=== PATIENT | male | born 1980 | race African-American/Black ===

== ENCOUNTER 2019-05-23 16:35 | Inpatient (IN) | payer OTHER ==
--- NOTE | 2019-05-23 16:53 | PDOC ---
Rapid Medical Evaluation Chief Complaint: Pain Time Seen by Provider: 05/23/19 16:50 Medical Evaluation: Allergies Allergy/AdvReac Type Severity Reaction Status Date / Time hydralazine [Hydralazine] Allergy Verified 06/10/16 21:44 05/23/19 16:51 Pt c/o: + cellulitis, on amox since yesterday with worsening s/s, + smoker w/ vasc insufficiency Pt on brief exam: obese, cellulitic lle with open wound to post lower leg, PT ordered for: labs, iv, u/s pt to proceed to the ED Discharge Disposition - Diagnosis Cellulitis and abscess of left lower extremity - Discharge Dispostion Condition at time of disposition: Stable - Referrals - Patient Instructions - Post Discharge Activity
[2019-05-23 17:28] LABS: BASO % 0.4 % (0-2.0); EOS % 2.2 % (0-4.5); HEMOGLOBIN 14.2 GM/dL (11.7-16.9); LYMPH % 8.3 % (8-40); MCH 27.4 pg (25.7-33.7); MCHC 32.4 g/dl (32.0-35.9); MEAN CELL VOLUME 84.6 fl (80-96); MEAN PLT VOLUME 8.3 fl (7.5-11.1); MONO % 9.2 % (3.8-10.2); NEUT % 79.9 % (42.8-82.8); PLATELET COUNT 319 K/MM3 (134-434); RDW 14.8 % (11.9-15.9); WHITE BLOOD COUNT 19.5 K/mm3 (4.0-10.0)
[2019-05-23 17:53] LABS: ALBUMIN 3.5 g/dl (3.4-5.0); BILIRUBIN,TOTAL 0.5 mg/dL (0.2-1); BLOOD UREA NITROGEN 8.8 mg/dL (7-18); CALCIUM 9.1 mg/dL (8.5-10.1); TOT PROT 7.4 g/dl (6.4-8.2)
[2019-05-23] MEDS ORDERED: morphine CARPU-JECT 4 MG/1 ML DISP.SYRIN IVPUSH ONE (19:38)
[2019-05-23] MEDS ORDERED: VANCOMYCIN HCL 1,500 MG in DEXTROSE 5%-WATER - 500 ML IVPB ONE (19:40)
--- NOTE | 2019-05-23 19:54 | PDOC ---
History of Present Illness - General Chief Complaint: Pain Stated Complaint: LEG WOUNDS, PAIN, INFECTION Time Seen by Provider: 05/23/19 16:50 History Source: Patient, Old Records Exam Limitations: No Limitations - History of Present Illness Initial Comments: 05/23/19 19:56 HISTORY OF PRESENT ILLNESS: Is a 39-year-old male past medical history of left lower externally lymphedema presents the emergency department for evaluation of left leg swelling with warmth, erythema and tenderness. Patient was seen by his primary doctor as an outpatient was prescribed antibiotics the patient has been taking amoxicillin for the past 2 days. Patient reports the erythema and the pain is gotten worse and was concerned when he had multiple lesions "burst" with purulent drainage present. Patient denies any fevers. No recent travel or sick contacts. PAST MEDICAL HISTORY: See HPI SURGICAL HISTORY: Denies ALLERGIES: No known drug allergies REVIEW OF SYSTEMS General/Constitutional: Denies fever or chills. Denies weakness, weight change. HEENT: Denies change in vision. Denies ear pain or discharge. Denies sore throat. Cardiovascular: Denies chest pain or shortness of breath. Respiratory: Denies cough, wheezing, or hemoptysis. Gastrointestinal: Denies nausea, vomiting, diarrhea or constipation. Denies rectal bleeding. Genitourinary: Denies dysuria, frequency, or change in urination. Musculoskeletal: Denies joint or muscle swelling or pain. Denies neck or back pain. Skin and breasts: See HPI Neurologic: Denies headache, vertigo, loss of consciousness, or loss of sensation. Psychiatric: Denies depression or anxiety. Endocrine: Denies increased thirst. Denies abnormal weight change. Hematologic/Lymphatic: Denies anemia, easy bleeding, or history of blood clots. Allergic/Immunologic: Denies hives or skin allergy. Denies latex allergy. PHYSICAL EXAM General Appearance: Well-appearing, appropriately dressed. No apparent distress , no intoxication. Respiratory/Chest: Lungs CTAB. No shortness of breath, chest tenderness, respiratory distress, accessory muscle use. No crackles, rales, rhonchi, stridor , wheezing, dullness Cardiovascular: RRR. S1, S2. No JVD, murmur, bradycardia, tachycardia. Vascular Pulses: Dorsalis-Pedis (R): 2+, Dorsalis-Pedis (L): 2+ Gastrointestinal/Abdominal: Normal bowel sounds. Abdomen soft, non-distended. No tenderness or rebound tenderness. No organomegaly, pulsatile mass, guarding, hernia, hepatomegaly, splenomegaly. Lymphatic: No adenopathy, tenderness. Musculoskeletal/Extremities: Brawny edema present to left lower extremity worse from the knee distally. Integumentary: Four fluctuant areas present to posterior aspect of the lower left leg. Erythema, warmth and tenderness present circumferentially over the lower extremity from the calf distal extending superior to the knee on the medial aspect of the left thigh. 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 Fully oriented, alert. Appropriate mood/affect. Motor strength 5/5. No appreciable EOM palsy, facial droop or sensory deficit. Past History - Past Medical History Allergies/Adverse Reactions: Allergies Allergy/AdvReac Type Severity Reaction Status Date / Time hydralazine [Hydralazine] Allergy Verified 05/23/19 16:52 Home Medications: Ambulatory Orders Amlodipine Besylate [Norvasc -] 10 mg PO DAILY 06/29/14 Labetalol HCl [Normodyne -] 200 mg PO BID 06/29/14 Omeprazole [Prilosec (RX)] 40 mg PO DAILY 06/29/14 Atorvastatin Ca [Lipitor] 40 mg PO HS 07/06/16 COPD: No GI Disorders: Yes (Gastritis, CYCLIC VOMITING SYNDROME) HTN: Yes Hypercholesterolemia: Yes Other medical history: leg cellulitis, obesity - Psycho Social/Smoking Cessation Hx Smoking History: Current every day smoker Have you smoked in the past 12 months: Yes Number of Cigarettes Smoked Daily: 5 Information on smoking cessation initiated: Yes 'Breaking Loose' booklet given: 06/29/14 Hx Alcohol Use: No Drug/Substance Use Hx: No Substance Use Type: None, Marijuana Hx Substance Use Treatment: No *Physical Exam - Vital Signs Last Vital Signs Temp Pulse Resp BP Pulse Ox 98.6 F 89 18 150/89 100 05/23/19 18:54 05/23/19 18:54 05/23/19 18:54 05/23/19 18:54 05/23/19 18:54 ED Treatment Course - LABORATORY CBC & Chemistry Diagram: 05/23/19 17:06 05/23/19 17:06 - ADDITIONAL ORDERS Additional order review: Laboratory Results 05/23/19 05/23/19 17:06 17:06 Sodium 141 Potassium 4.0 Chloride 110 H Carbon Dioxide 23 Anion Gap 8 BUN 8.8 Creatinine 1.0 Est GFR (CKD-EPI)AfAm 110.17 Est GFR (CKD-EPI)NonAf 95.05 Random Glucose 106 Lactic Acid 2.0 Calcium 9.1 Total Bilirubin 0.5 AST 17 ALT 34 Alkaline Phosphatase 132 H Total Protein 7.4 Albumin 3.5 05/23/19 17:06 RBC 5.20 MCV 84.6 MCHC 32.4 RDW 14.8 D MPV 8.3 D Neutrophils % 79.9 D Lymphocytes % 8.3 D Monocytes % 9.2 Eosinophils % 2.2 Basophils % 0.4 Medical Decision Making - Medical Decision Making 05/23/19 19:59 A/P: 39-year-old male with abscesses and cellulitis of the left leg Duplex Dopplers performed at rapid medical evaluation revealed no evidence of DVT with superficial thrombophlebitis present. Areas of fluctuance spontaneously draining with minimal pressure. Wound culture collected Labs per E reveals WBC of 19,000. Given patient's failed outpatient antibiotics and elevated WBC count I will admit the patient for IV antibiotics. Blood cultures have been collected in rapid medical evaluation Vancomycin 1500 mg IV now Admit to hospital service. 05/23/19 20:00 05/23/19 20:51 Case has been discussed with the hospitalist team was accepted patient for inpatient admission under Dr. Urbano. EKG ordered. Discharge - Discharge Information Problems reviewed: Yes Clinical Impression/Diagnosis: Cellulitis and abscess of left lower extremity Condition: Fair - Admission Yes - Follow up/Referral Referrals: Simón Brito MD [Primary Care Provider] - - Patient Discharge Instructions - Post Discharge Activity
[2019-05-23] MEDS ORDERED: morphine SULFATE 4 MG/ML VIAL ONE (20:43)
[2019-05-23] MEDS ORDERED: ACETAMINOPHEN 325 MG TABLET (FP) PO PRN (22:40)
--- NOTE | 2019-05-23 23:37 | HP ---
CHIEF COMPLAINT: leg pain PCP: Dr Moraes HISTORY OF PRESENT ILLNESS: 39 y/o male with PMH of LE lymphedema more significant on the Left , previous LE cellulitis ( last episode 1 yr ago),HTN, HLD, GERD came to the ED because of worsening left leg swelling associated with warmth, erythema,tenderness. The pain is pulsating in nature, constant and worse with ambulation but relieved by rest. In addition, the patient noticed for the past couple of days, multiple bumps erupted in the left leg. At that time, pt went to his PCP and was prescribed amoxicillin. Despite treatment, Pt continued to feel 10/10 pain, his leg continued to swell to the point that he was not able to wear his compression socks. Eventually, he decided to come to the emergency room. While in the emergency room, one of the bump ruptured and started to drain pus and serosanguinous fluid and his pain reduced to a 7/10. According to the pt, he has been following at our wound care clinic with Dr Rangel for his chronic lymphedema. He is s/p venous ablation by Dr. Rangel one month ago on the left leg and 1 week ago on the right for revision. Pt admits to sedentary lifestyle and smoking about 5-6 small cigars per day for the past year.He denies fever, chills, trauma to the area, SOB, chest pain, headache, weakness, parasthesia, tension, recent long distance driving/travel or changes in urination and BM. ER course was notable for: (1) CBC remarkable for leukocytosis 19.5 and CMP (2) Duplex U/S neg for DVT but positive for superficial thrombosis in great saphernous vein (3) morphine 4mg and 1 dose of vancomycin. wound and blood cultures sent Recent Travel: denies PAST MEDICAL HISTORY: as above PAST SURGICAL HISTORY: left knee tendon repair FAMILY HISTORY: diabetes and HTN in close relative. Breast ca in mother and sister both in remission Social History: Smokin-6 small cigars a day. Alcohol: social drinker Drugs: former chronic marijuana smoker. quit one year ago. no other drug Allergies hydralazine [Hydralazine] Allergy (Verified 05/23/19 16:52) HOME MEDICATIONS: Home Medications Medication Instructions Recorded Amlodipine Besylate [Norvasc -] 10 mg PO DAILY 06/29/14 Labetalol HCl [Normodyne -] 200 mg PO BID 06/29/14 Omeprazole [Prilosec (RX)] 40 mg PO DAILY 06/29/14 Atorvastatin Ca [Lipitor] 40 mg PO HS 07/06/16 Atorvastatin Ca [Lipitor] 20 mg DAILY 05/23/19 Ibuprofen [Motrin -] 600 mg Q6H 05/23/19 REVIEW OF SYSTEMS CONSTITUTIONAL: Absent: fever, chills, diaphoresis, generalized weakness, malaise, loss of appetite, weight change HEENT: Absent: rhinorrhea, nasal congestion, throat pain, throat swelling, difficulty swallowing, mouth swelling, ear pain, eye pain, visual changes CARDIOVASCULAR: peripheral edema Absent: chest pain, syncope, palpitations, irregular heart rate, lightheadedness RESPIRATORY: Absent: cough, shortness of breath, dyspnea with exertion, orthopnea, wheezing, stridor, hemoptysis GASTROINTESTINAL: Absent: abdominal pain, abdominal distension, nausea, vomiting, diarrhea, constipation, melena, hematochezia GENITOURINARY: Absent: dysuria, frequency, urgency, hesitancy, hematuria, flank pain, genital pain MUSCULOSKELETAL: Absent: myalgia, arthralgia, joint swelling, back pain, neck pain SKIN: Absent: rash, itching, pallor HEMATOLOGIC/IMMUNOLOGIC: Absent: easy bleeding, easy bruising, lymphadenopathy, frequent infections ENDOCRINE: Absent: unexplained weight gain, unexplained weight loss, heat intolerance, cold intolerance NEUROLOGIC: Absent: headache, focal weakness or paresthesias, dizziness, unsteady gait, seizure, mental status changes, bladder or bowel incontinence PSYCHIATRIC: Absent: anxiety, depression, suicidal or homicidal ideation, hallucinations. PHYSICAL EXAMINATION Vital Signs - 24 hr 05/23/19 05/23/19 05/23/19 16:49 18:54 21:10 Temperature 98.8 F 98.6 F Pulse Rate 77 Pulse Rate [ 89 Apical] Respiratory 19 18 Rate Blood Pressure 144/108 H Blood Pressure 150/89 [Left Arm] O2 Sat by Pulse 98 100 99 Oximetry (%) GENERAL: Awake, alert, and fully oriented, in no acute distress. HEAD: Normal with no signs of trauma. EYES: Pupils equal, round and reactive to light, extraocular movements intact, sclera anicteric, conjunctiva clear. No lid lag. EARS, NOSE, THROAT: Ears normal, nares patent, oropharynx clear without exudates. Moist mucous membranes. NECK: Normal range of motion, supple without lymphadenopathy, JVD, or masses. LUNGS: Breath sounds equal, clear to auscultation bilaterally. No wheezes, and no crackles. No accessory muscle use. HEART: Regular rate and rhythm, normal S1 and S2 without murmur, rub or gallop. ABDOMEN: Soft, nontender, obese abdomen, normoactive bowel sounds, no guarding, no rebound, no masses. No hepatomegaly or splenomegaly. MUSCULOSKELETAL: Normal range of motion at all joints. No bony deformities or tenderness. No CVA tenderness. UPPER EXTREMITIES: 2+ pulses, warm, well-perfused. No cyanosis. No clubbing. No peripheral edema. LOWER EXTREMITIES: 1+ pulses, warm, No calf tenderness. 3+ edema on Left leg with multiple erupted and draining pustules, venous stasis skin changes PSYCHIATRIC: Cooperative. Good eye contact. Appropriate mood and affect. Laboratory Results - last 24 hr 05/23/19 05/23/19 05/23/19 17:06 17:06 17:06 WBC 19.5 H RBC 5.20 Hgb 14.2 Hct 44.0 D MCV 84.6 MCH 27.4 MCHC 32.4 RDW 14.8 D Plt Count 319 D MPV 8.3 D Absolute Neuts (auto) 15.5 H Neutrophils % 79.9 D Lymphocytes % 8.3 D Monocytes % 9.2 Eosinophils % 2.2 Basophils % 0.4 Nucleated RBC % 0 Sodium 141 Potassium 4.0 Chloride 110 H Carbon Dioxide 23 Anion Gap 8 BUN 8.8 Creatinine 1.0 Est GFR (CKD-EPI)AfAm 110.17 Est GFR (CKD-EPI)NonAf 95.05 Random Glucose 106 Lactic Acid 2.0 Calcium 9.1 Total Bilirubin 0.5 AST 17 ALT 34 Alkaline Phosphatase 132 H Total Protein 7.4 Albumin 3.5 ASSESSMENT/PLAN: 39 y/o male with PMH of LE lymphedema more significant on the Left , previous LE cellulitis ( last episode 1 yr ago),HTN, HLD, GERD came to the ED because of worsening left leg swelling associated with warmth, erythema,tenderness. admitted for left leg cellulitis with failed outpatient treatment. Left Leg cellulitis WBC 19.5. monitor for responsiveness to therapy 1500mg of vancomycin given in the ED. due to failed outpatient treatment, will continue at same dose daily vanc trough prior to 4th dose IV ceftriaxone for gram neg coverage ID Dr Cruz Consulted wound cx and blood cultures sent f/u for speciation and sensitivity ESR and CRP leg elevation and DARY compression to improve drainage HTN cont amlodipine 10 daily labetolol 200 BID HLD atorvastatin 20 daily FEN salt controlled diet NS@75 DVT lovenox daily Visit type - Emergency Visit Emergency Visit: Yes ED Registration Date: 05/23/19 Care time: The patient presented to the Emergency Department on the above date and was hospitalized for further evaluation of their emergent condition. - New Patient This patient is new to me today: Yes Date on this admission: 05/24/19 - Critical Care Critical Care patient: No ATTENDING PHYSICIAN STATEMENT I saw and evaluated the patient. I reviewed the resident's note and discussed the case with the resident. I agree with the resident's findings and plan as documented. SUBJECTIVE: OBJECTIVE: ASSESSMENT AND PLAN:
[2019-05-24] MEDS: SODIUM CHLORIDE 1,000 ML IV SCH ×2 (00:42→03:38)
--- NOTE | 2019-05-24 01:16 | PN ---
Teaching Attending Note Name of Resident: Michell Bonilla ATTENDING PHYSICIAN STATEMENT I saw and evaluated the patient. I reviewed the resident's note and discussed the case with the resident. I agree with the resident's findings and plan as documented. SUBJECTIVE: 39 y/o male with PMH of LE lymphedema more significant on the Left , previous LE cellulitis ( last episode 1 yr ago),HTN, HLD, GERD Complained of left leg warmth and swelling for the past few days associated with some bumps which appeared recently. Patient was prescribed amoxicillin by his PCP for his cellulitis which she took without any relief. His bumps on his leg ruptured and were draining serosanguineous fluid for which she applied a gauze. Patient denied any overt trauma to his leg. He did mention a fall in shower about 2 weeks ago but denied significant trauma to his leg at that time. OBJECTIVE: Last Vital Signs Temp Pulse Resp BP Pulse Ox 98.6 F 89 18 150/89 99 05/23/19 18:54 05/23/19 18:54 05/23/19 18:54 05/23/19 18:54 05/23/19 21:10 GENERAL: Well developed, well nourished. Awake and alert. No acute distress. HEENT: Normocephalic, atraumatic. PERRLA, EOMI. No conjunctival pallor. Sclera are non- icteric. Moist mucous membranes. Oropharynx is clear. NECK: Supple. Full ROM. No JVD. Carotid pulses 2+ and symmetric, without bruits. No thyromegaly. No lymphadenopathy. CARDIOVASCULAR: Regular rate and rhythm. No murmurs, rubs, or gallops. Distal pulses are 2+ and symmetric. PULMONARY: No evidence of respiratory distress. Lungs clear to auscultation bilaterally. No wheezing, rales or rhonchi. ABDOMINAL: Soft. Non-tender. Non-distended. No rebound or guarding. No organomegaly. Normoactive bowel sounds. MUSCULOSKELETAL Normal range of motion at all joints. No bony deformities or tenderness. No CVA tenderness. EXTREMITIES: Some mild calf tenderness, swelling and erythema on left lower extremity SKIN: Left leg warmth, erythema, swelling. Some areas of lesions to leg PSYCHIATRIC: Cooperative. Good eye contact. Appropriate mood and affect. Abnormal Lab Results 10/30/19 10/30/19 17:06 17:06 WBC 19.5 H Absolute Neuts (auto) 15.5 H Chloride 110 H Alkaline Phosphatase 132 H Imaging reviewed ASSESSMENT AND PLAN: Left leg cellulitis with Leukocytosis and underlying Lymphedema. No evidence of DVT but superficial thrombus of left saphenous vein. May have been induced in light of inflammation from underlying infection. [facility] Ceftriaxone IV Blood cultures ESR, CRP ID evaluation Left leg elevation Left leg compression DVT prophylaxis with heparin subcu
[2019-05-24] MEDS ORDERED: ACETAMINOPHEN 1000 MG/100 ML VIAL (NON FORMULARY) IVPB ONE (03:11)
[2019-05-24] MEDS ORDERED: amLODIPine BESYLATE 10 MG TABLET (FP) PO ONE (03:12)
[2019-05-24 03:17] VITALS: BMI 53.3
[2019-05-24] MEDS ORDERED: VANCOMYCIN HCL 1,500 MG in DEXTROSE 5%-WATER - 500 ML IVPB SCH (07:00)
[2019-05-24 08:50] LABS: BASO % 0.4 % (0-2.0); EOS % 2.6 % (0-4.5); HEMATOCRIT 39.7 % (35.4-49); HEMOGLOBIN 13.2 GM/dL (11.7-16.9); LYMPH % 10.7 % (8-40); MCH 27.9 pg (25.7-33.7); MCHC 33.2 g/dl (32.0-35.9); MEAN CELL VOLUME 83.9 fl (80-96); MEAN PLT VOLUME 7.8 fl (7.5-11.1); NEUT % 74.3 % (42.8-82.8); PLATELET COUNT 312 K/MM3 (134-434); RBC 4.73 M/mm3 (4.00-5.60); RDW 14.7 % (11.9-15.9); WHITE BLOOD COUNT 15.1 K/mm3 (4.0-10.0)
[2019-05-24] MEDS ORDERED: IBUPROFEN 400 MG TABLET (FP) PO ONE (09:08)
[2019-05-24 09:58] LABS: BLOOD UREA NITROGEN 5.5 mg/dL (7-18); CALCIUM 8.5 mg/dL (8.5-10.1); CREATININE 0.9 mg/dL (0.55-1.3); MAGNESIUM 2.1 mg/dL (1.8-2.4); PHOSPHOROUS 3.7 mg/dL (2.5-4.9); POTASSIUM 3.6 mmol/L (3.5-5.1)
[2019-05-24] MEDS ORDERED: cefTRIAXone SODIUM 1 GM VIAL ONE (11:59)
[2019-05-24] MEDS ORDERED: DEXTROSE 5%-WATER - 50 ML IVPB ONE (11:59)
[2019-05-24] MEDS: CEFTRIAXONE 1 GM in DEXTROSE 5%-WATER - 50 ML IVPB SCH (12:03)
[2019-05-24] MEDS: ENOXAPARIN NA (PORCINE) 40 MG/0.4 ML DISP.SYRIN SQ SCH (12:04)
[2019-05-24] MEDS: PANTOPRAZOLE 40 MG TABLET (FP) PO SCH (12:04)
[2019-05-24] MEDS: amLODIPine BESYLATE 10 MG TABLET (FP) PO SCH (12:05)
[2019-05-24] MEDS: LABETALOL HCL 200 MG TABLET (FP) PO SCH ×2 (12:05→21:51)
--- NOTE | 2019-05-24 12:05 | EKG ---
Test Reason : Blood Pressure : / mmHG Vent. Rate : 078 BPM Atrial Rate : 078 BPM P-R Int : 164 ms QRS Dur : 106 ms QT Int : 384 ms P-R-T Axes : 050 034 042 degrees QTc Int : 437 ms NORMAL SINUS RHYTHM NONSPECIFIC T WAVE ABNORMALITY ABNORMAL ECG WHEN COMPARED WITH ECG OF 29-JUN-2014 16:24, NON-SPECIFIC CHANGE IN ST SEGMENT IN INFERIOR LEADS Confirmed by PRATIBHA ARZOLA MD ([id number]) on 05/24/2019 12:04:58 PM Referred By: Confirmed By:PRATIBHA ARZOLA MD
--- NOTE | 2019-05-24 14:00 | PN ---
Progress Note (short form) - Note Progress Note: Vascular surgery 39yo M was admitted for LLE cellulitis and venous stasis wounds. Pt is a known pt to Dr. Rangel and wound care clinic pt is s/p Leg Vein ablation last month. Pt has chronic history of Lymphedema. Pt states that some wounds opened up on his LLE just a couple days ago, and that his leg became red and more painful. Pt denies fever, chills, n/v. Last Vital Signs Temp Pulse Resp BP Pulse Ox 98.8 F 78 20 172/90 H 96 05/24/19 05:45 05/24/19 05:45 05/24/19 05:45 05/24/19 05:45 05/24/19 04:12 CBC, BMP 05/24/19 08:05 05/24/19 08:05 PE; Gen: A&O x3 Resp: breathing comfortably Ext: LLE shows +2 edema, erythema from below knee into foot, +2 pulses, five 1 cm ulcerations on lateral burrell with serous drainage. Problem List - Problems (1) Venous stasis ulcer Assessment/Plan: Plan -continue to treat cellulitis with abx as per med/ID -dry dressing for now, once cellulitis clears will need compression dressing , pt is supposed to get Lymph pumps. -pt should follow up with Dr. Rangel in wound care clinic as outpatient. -no need for acute surgical intervention at this time. Pt discussed with Dr. Rangel who agrees with plan Code(s): I83.009 - VARICOSE VEINS OF UNSP LOWER EXTREMITY W ULCER OF UNSP SITE; L97.909 - NON-PRS CHRONIC ULC UNSP PRT OF UNSP LOW LEG W UNSP SEVERITY
--- NOTE | 2019-05-24 14:57 | PN ---
Physical Exam: SUBJECTIVE: Patient seen and examined. No acute events overnight. OBJECTIVE: Vital Signs Period Temp Pulse Resp BP Sys/[place] Pulse Ox Last 24 Hr 98.6 F-99.2 F 76-89 17-20 144-192/81-108 96-100 GENERAL: The patient is awake, alert, and fully oriented, in no acute distress. Mordbidly obese. HEAD: Normal with no signs of trauma. EYES: PERRL, extraocular movements intact, sclera anicteric, conjunctiva clear. No ptosis. ENT: Ears normal, nares patent, oropharynx clear without exudates, moist mucous membranes. NECK: Trachea midline, full range of motion, supple. LUNGS: Breath sounds equal, clear to auscultation bilaterally, no wheezes, no crackles, no accessory muscle use. HEART: Regular rate and rhythm, S1, S2 without murmur, rub or gallop. ABDOMEN: Soft, nontender, nondistended, normoactive bowel sounds, no guarding, no rebound, no hepatosplenomegaly, no masses. EXTREMITIES: 1+ pulses, warm. 3+ non-pitting edema on L with multiple erupted and draining pustules. No calf tenderness. Venous stasis skin changes. NEUROLOGICAL: Cranial nerves II through XII grossly intact. Normal speech, gait not observed. PSYCH: Normal mood, normal affect. SKIN: Warm, dry, normal turgor, no rashes or lesions noted Laboratory Results - last 24 hr 05/23/19 05/23/19 05/23/19 17:06 17:06 17:06 WBC 19.5 H RBC 5.20 Hgb 14.2 Hct 44.0 D MCV 84.6 MCH 27.4 MCHC 32.4 RDW 14.8 D Plt Count 319 D MPV 8.3 D Absolute Neuts (auto) 15.5 H Neutrophils % 79.9 D Lymphocytes % 8.3 D Monocytes % 9.2 Eosinophils % 2.2 Basophils % 0.4 Nucleated RBC % 0 ESR Sodium 141 Potassium 4.0 Chloride 110 H Carbon Dioxide 23 Anion Gap 8 BUN 8.8 Creatinine 1.0 Est GFR (CKD-EPI)AfAm 110.17 Est GFR (CKD-EPI)NonAf 95.05 Random Glucose 106 Lactic Acid 2.0 Calcium 9.1 Phosphorus Magnesium Total Bilirubin 0.5 AST 17 ALT 34 Alkaline Phosphatase 132 H Total Protein 7.4 Albumin 3.5 05/24/19 05/24/19 05/24/19 08:05 08:05 08:05 WBC 15.1 H RBC 4.73 Hgb 13.2 Hct 39.7 MCV 83.9 MCH 27.9 MCHC 33.2 RDW 14.7 Plt Count 312 MPV 7.8 Absolute Neuts (auto) 11.2 H Neutrophils % 74.3 Lymphocytes % 10.7 D Monocytes % 12.0 H Eosinophils % 2.6 Basophils % 0.4 Nucleated RBC % 0 ESR 16 H Sodium 139 Potassium 3.6 Chloride 108 H Carbon Dioxide 22 Anion Gap 9 BUN 5.5 L Creatinine 0.9 Est GFR (CKD-EPI)AfAm 125.13 Est GFR (CKD-EPI)NonAf 107.97 Random Glucose 97 Lactic Acid Calcium 8.5 Phosphorus 3.7 Magnesium 2.1 Total Bilirubin AST ALT Alkaline Phosphatase Total Protein Albumin Active Medications Acetaminophen (Tylenol -) 650 mg PO Q4H PRN PRN Reason: PAIN LEVEL 1-5 Last Admin: 05/24/19 08:58 Dose: 650 mg Amlodipine Besylate (Norvasc -) 10 mg PO DAILY [facility] Last Admin: 05/24/19 12:05 Dose: 10 mg Atorvastatin Calcium (Lipitor -) 20 mg PO HS LISA Enoxaparin Sodium (Lovenox -) 40 mg SQ DAILY [facility] Last Admin: 05/24/19 12:04 Dose: 40 mg Ceftriaxone Sodium 1 gm/ (Dextrose) 50 mls @ 100 mls/hr IVPB DAILY [facility]; Protocol Last Admin: 05/24/19 12:03 Dose: 100 mls/hr Vancomycin HCl 1,500 mg/ (Dextrose) 500 mls @ 250 mls/hr IVPB Q12H LISA; Protocol Labetalol HCl (Normodyne -) 200 mg PO BID [facility] Last Admin: 05/24/19 12:05 Dose: 200 mg Pantoprazole Sodium (Protonix -) 40 mg PO DAILY [facility] Last Admin: 05/24/19 12:04 Dose: 40 mg ASSESSMENT/PLAN: 39 y/o male with PMH of LE lymphedema more significant on the Left , previous LE cellulitis ( last episode 1 yr ago),HTN, HLD, GERD came to the ED because of worsening left leg swelling associated with warmth, erythema,tenderness. admitted for left leg cellulitis with failed outpatient treatment. #Acute LLE cellulitis s/p venous ablation x1 week ago Cont 1500mg vanc mg @ 250ml/hr Q24H and 1gm ceftriaxone @100ml/hr F/u wound and blood cx ID following (Dr. Cruz) Vascular consulted (Dr. Haas): no need for acute surgical intervention at this time. >>Recommends dry dressing, compression dressing when cellulitis clears. Pt should f/u with Dr. Rangel in wound care clinic. F/u ESR and CRP Leg elevation and DARY compression to improve drainage #HTN Cont home meds: norvasc 10mg qd, labetolol 200mg BID #HLD Cont atorvastatin 20mg qd #FEN Sodium controlled diet No fluids #DVT ppx Lovenox #Dispo Monitor on med-surg Visit type - Emergency Visit Emergency Visit: No - New Patient This patient is new to me today: Yes Date on this admission: 05/24/19 - Critical Care Critical Care patient: No ATTENDING PHYSICIAN STATEMENT I saw and evaluated the patient. I reviewed the resident's note and discussed the case with the resident. I agree with the resident's findings and plan as documented. SUBJECTIVE: OBJECTIVE: ASSESSMENT AND PLAN:
--- NOTE | 2019-05-24 15:25 | PN ---
Progress Note (short form) - Note Progress Note: ID CONSULT DICTATED CELLULITIS/ SOFT TISSUE ABSCESSES L LE LEUKOCYTOSIS R/O SEPSIS CHRONIC LYMPHEDEMA AWAIT C/S EMPIRIC VANCOMYCIN/ CEFTRIAXONE
[2019-05-24] MEDS ORDERED: KETOROLAC TROMETHAMINE 15 MG/ML VIAL IVPUSH ONE ×2 (15:41→22:06)
--- NOTE | 2019-05-24 15:58 | PN ---
Teaching Attending Note Name of Resident: Nelida Raygoza ATTENDING PHYSICIAN STATEMENT I saw and evaluated the patient. I reviewed the resident's note and discussed the case with the resident. I agree with the resident's findings and plan as documented. SUBJECTIVE: Reports some improvement in LLE discomfort. No fever/chills. OBJECTIVE: Afebrile, hemodynamically Stable. Last Vital Signs Temp Pulse Resp BP Pulse Ox 98.8 F 78 20 172/90 H 96 05/24/19 05:45 05/24/19 05:45 05/24/19 05:45 05/24/19 05:45 05/24/19 04:12 HEENT - Atraumatic, Normocephalic Heart - S1, S2, RRR Abdomen - High BMI. Soft, non-tender. Bowel Sounds normal. Extremities - LE edema ++, chronic venous stasis skin changes, 3 small ulcerations with pustular exudate lateral aspect LLE. Neuro - AAO x 3. Tone/Power normal all 4 extremities. Laboratory Results - last 24 hr 05/23/19 05/23/19 05/23/19 17:06 17:06 17:06 WBC 19.5 H RBC 5.20 Hgb 14.2 Hct 44.0 D MCV 84.6 MCH 27.4 MCHC 32.4 RDW 14.8 D Plt Count 319 D MPV 8.3 D Absolute Neuts (auto) 15.5 H Neutrophils % 79.9 D Lymphocytes % 8.3 D Monocytes % 9.2 Eosinophils % 2.2 Basophils % 0.4 Nucleated RBC % 0 ESR Sodium 141 Potassium 4.0 Chloride 110 H Carbon Dioxide 23 Anion Gap 8 BUN 8.8 Creatinine 1.0 Est GFR (CKD-EPI)AfAm 110.17 Est GFR (CKD-EPI)NonAf 95.05 Random Glucose 106 Lactic Acid 2.0 Calcium 9.1 Phosphorus Magnesium Total Bilirubin 0.5 AST 17 ALT 34 Alkaline Phosphatase 132 H Total Protein 7.4 Albumin 3.5 05/24/19 05/24/19 05/24/19 08:05 08:05 08:05 WBC 15.1 H RBC 4.73 Hgb 13.2 Hct 39.7 MCV 83.9 MCH 27.9 MCHC 33.2 RDW 14.7 Plt Count 312 MPV 7.8 Absolute Neuts (auto) 11.2 H Neutrophils % 74.3 Lymphocytes % 10.7 D Monocytes % 12.0 H Eosinophils % 2.6 Basophils % 0.4 Nucleated RBC % 0 ESR 16 H Sodium 139 Potassium 3.6 Chloride 108 H Carbon Dioxide 22 Anion Gap 9 BUN 5.5 L Creatinine 0.9 Est GFR (CKD-EPI)AfAm 125.13 Est GFR (CKD-EPI)NonAf 107.97 Random Glucose 97 Lactic Acid Calcium 8.5 Phosphorus 3.7 Magnesium 2.1 Total Bilirubin AST ALT Alkaline Phosphatase Total Protein Albumin Current Medications Generic Name Dose Route Start Last Admin Trade Name Freq PRN Reason Stop Dose Admin Acetaminophen 650 mg 05/23/19 22:40 05/24/19 08:58 Tylenol - PO 650 mg Q4H PRN Administration PAIN LEVEL 1-5 Amlodipine Besylate 10 mg 05/24/19 10:00 05/24/19 12:05 Norvasc - PO 10 mg DAILY LISA Administration Atorvastatin Calcium 20 mg 05/24/19 22:00 Lipitor - PO HS LISA Enoxaparin Sodium 40 mg 05/24/19 10:00 05/24/19 12:04 Lovenox - SQ 40 mg DAILY LISA Administration Ceftriaxone Sodium 1 gm/ 50 mls @ 100 mls/hr 05/24/19 10:00 05/24/19 12:03 Dextrose IVPB 100 mls/hr DAILY LISA Administration Protocol Vancomycin HCl 1,500 mg/ 250 mls @ 125 mls/hr 05/24/19 15:30 Dextrose IVPB Q12H LISA Protocol Labetalol HCl 200 mg 05/24/19 10:00 05/24/19 12:05 Normodyne - PO 200 mg BID LISA Administration Pantoprazole Sodium 40 mg 05/24/19 10:00 05/24/19 12:04 Protonix - PO 40 mg DAILY LISA Administration Home Medications Medication Instructions Recorded Amlodipine Besylate [Norvasc -] 10 mg PO DAILY 06/29/14 Labetalol HCl [Normodyne -] 200 mg PO BID 06/29/14 Omeprazole [Prilosec (RX)] 40 mg PO DAILY 06/29/14 Atorvastatin Ca [Lipitor] 20 mg DAILY 05/23/19 Ibuprofen [Motrin -] 600 mg Q6H 05/23/19 ASSESSMENT AND PLAN: 39 year old male with Chronic Lymphedema LEs, Bilateral LE Venous Stasis, 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 Rangel, HTN, HLD, GERD , presents with Left LE warmth, erythema, swelling, without improvement on Amoxicillin given by PCP. 1. LLE cellulitis with ulceration No Hx trauma except for recent venous ablation 1 week ago LE Venous Duplex - superficial thrombosis, no DVT Wound Cx pending. Continue Ceftriaxone/Vancomycin ID and Vascular eval requested. 2. HTN - On Labetolol and Norvasc. 3. GERD - continue PPI 4. HLD - Continue Atorvastatin DVT Px - Lovenox SQ.
[2019-05-24] MEDS ORDERED: PT OWN MED DRAWER 7, Y5N ONE (17:55)
[2019-05-24] MEDS: VANCOMYCIN HCL 1,500 MG in DEXTROSE 5%-WATER - 500 ML IVPB SCH (18:26)
[2019-05-24] MEDS: ATORVASTATIN CA 20 MG TABLET (FP) PO SCH (21:51)
[2019-05-25] MEDS ORDERED: KETOROLAC TROMETHAMINE 15 MG/ML VIAL IVPUSH ONE (03:43)
[2019-05-25] MEDS ORDERED: PT OWN MED DRAWER 7, Y5N ONE ×2 (03:55→17:59)
[2019-05-25] MEDS: VANCOMYCIN HCL 1,500 MG in DEXTROSE 5%-WATER - 500 ML IVPB SCH ×2 (05:24→19:03)
[2019-05-25 08:21] LABS: HEMATOCRIT 40.2 % (35.4-49); HEMOGLOBIN 13.7 GM/dL (11.7-16.9); MCH 28.4 pg (25.7-33.7); MEAN CELL VOLUME 83.5 fl (80-96); MEAN PLT VOLUME 7.9 fl (7.5-11.1); PLATELET COUNT 337 K/MM3 (134-434); RBC 4.82 M/mm3 (4.00-5.60); RDW 14.5 % (11.9-15.9); WHITE BLOOD COUNT 13.3 K/mm3 (4.0-10.0)
[2019-05-25] MEDS ORDERED: ACETAMINOPHEN 1000 MG/100 ML VIAL (NON FORMULARY) IVPB PRN (08:51)
[2019-05-25] MEDS ORDERED: KETOROLAC TROMETHAMINE 15 MG/ML VIAL IVPUSH PRN (08:53)
[2019-05-25] MEDS: LABETALOL HCL 200 MG TABLET (FP) PO SCH ×2 (09:12→21:13)
[2019-05-25] MEDS: ENOXAPARIN NA (PORCINE) 40 MG/0.4 ML DISP.SYRIN SQ SCH (09:12)
[2019-05-25] MEDS: PANTOPRAZOLE 40 MG TABLET (FP) PO SCH (09:12)
[2019-05-25] MEDS: amLODIPine BESYLATE 10 MG TABLET (FP) PO SCH (09:12)
[2019-05-25 09:24] LABS: ALBUMIN 3.2 g/dl (3.4-5.0); BILIRUBIN,TOTAL 0.6 mg/dL (0.2-1); BLOOD UREA NITROGEN 6.8 mg/dL (7-18); CALCIUM 8.7 mg/dL (8.5-10.1); CREATININE 0.9 mg/dL (0.55-1.3); POTASSIUM 3.8 mmol/L (3.5-5.1); TOT PROT 7.2 g/dl (6.4-8.2)
[2019-05-25 10:21] LABS: ERYTHROCYTE SEDIMENTATION RATE 18 mm/hr (0-10)
[2019-05-25] MEDS ORDERED: cefTRIAXone SODIUM 1 GM VIAL ONE (11:01)
[2019-05-25] MEDS ORDERED: DEXTROSE 5%-WATER - 50 ML IVPB ONE (11:01)
[2019-05-25] MEDS: IBUPROFEN 600 MG TABLET (FP) PO PRN ×2 (11:43→18:01)
--- NOTE | 2019-05-25 12:49 | PN ---
Teaching Attending Note Name of Resident: Nelida Raygoza ATTENDING PHYSICIAN STATEMENT I saw and evaluated the patient. I reviewed the resident's note and discussed the case with the resident. I agree with the resident's findings and plan as documented. SUBJECTIVE: Reports some improvement in LLE discomfort but asked for IV opiates last night. No fever/chills. OBJECTIVE: Afebrile, hemodynamically Stable. Last Vital Signs Temp Pulse Resp BP Pulse Ox 98 F 80 20 189/96 H 98 05/25/19 09:00 05/25/19 09:00 05/25/19 09:00 05/25/19 09:00 05/24/19 09:00 Heart - S1, S2, RRR Abdomen - High BMI. Soft, non-tender. Bowel Sounds normal. Extremities - LE edema ++, chronic venous stasis skin changes, 3 small ulcerations with pustular exudate lateral aspect LLE (dressings dry). Varicosity medial aspect LLE. Neuro - AAO x 3. Tone/Power normal all 4 extremities. Laboratory Results - last 24 hr 05/25/19 05/25/19 07:35 07:35 WBC 13.3 H RBC 4.82 Hgb 13.7 Hct 40.2 MCV 83.5 MCH 28.4 MCHC 34.0 RDW 14.5 Plt Count 337 MPV 7.9 ESR 18 H Sodium 139 Potassium 3.8 Chloride 107 Carbon Dioxide 26 Anion Gap 6 L BUN 6.8 L Creatinine 0.9 Est GFR (CKD-EPI)AfAm 125.13 Est GFR (CKD-EPI)NonAf 107.97 Random Glucose 88 Calcium 8.7 Total Bilirubin 0.6 AST 16 ALT 30 Alkaline Phosphatase 111 Total Protein 7.2 Albumin 3.2 L Current Medications Generic Name Dose Route Start Last Admin Trade Name Freq PRN Reason Stop Dose Admin Acetaminophen 650 mg 05/23/19 22:40 05/24/19 08:58 Tylenol - PO 650 mg Q4H PRN Administration PAIN LEVEL 1-5 Amlodipine Besylate 10 mg 05/24/19 10:00 05/25/19 09:12 Norvasc - PO 10 mg DAILY LISA Administration Atorvastatin Calcium 20 mg 05/24/19 22:00 05/24/19 21:51 Lipitor - PO 20 mg HS LISA Administration Enoxaparin Sodium 40 mg 05/24/19 10:00 05/25/19 09:12 Lovenox - SQ 40 mg DAILY LISA Administration Ceftriaxone Sodium 1 gm/ 50 mls @ 100 mls/hr 05/24/19 10:00 05/24/19 12:03 Dextrose IVPB 100 mls/hr DAILY LISA Administration Protocol Vancomycin HCl 1,500 mg/ 500 mls @ 250 mls/hr 05/24/19 18:00 05/25/19 05:24 Dextrose IVPB 250 mls/hr Q12H LISA Administration Protocol Ibuprofen 600 mg 05/25/19 11:02 05/25/19 11:43 Motrin - PO 600 mg Q6H PRN Administration FEVER Labetalol HCl 200 mg 05/24/19 10:00 05/25/19 09:12 Normodyne - PO 200 mg BID LISA Administration Pantoprazole Sodium 40 mg 05/24/19 10:00 05/25/19 09:12 Protonix - PO 40 mg DAILY LISA Administration Home Medications Medication Instructions Recorded Amlodipine Besylate [Norvasc -] 10 mg PO DAILY 06/29/14 Labetalol HCl [Normodyne -] 200 mg PO BID 06/29/14 Omeprazole [Prilosec (RX)] 40 mg PO DAILY 06/29/14 Atorvastatin Ca [Lipitor] 20 mg DAILY 05/23/19 Ibuprofen [Motrin -] 600 mg Q6H 05/23/19 ASSESSMENT AND PLAN: 39 year old male with Chronic Lymphedema LEs, Bilateral LE Venous Stasis, 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 Rangel, HTN, HLD, GERD , presents with Left LE warmth, erythema, swelling, without improvement on Amoxicillin given by PCP. 1. LLE cellulitis with ulceration No Hx trauma except for recent venous ablation 1 week prior to presentation LE Venous Duplex - superficial thrombosis, no DVT Wound Cx - coag neg Staph, NLFGNB On Ceftriaxone/Vancomycin ID to guide further Abx therapy. Vascular evaluated and recommended no additional surgical intervention at this time. Compression wraps/lymph pumps as per Vascular Sx Wound Care/Vascular clinic follow up. 2. HTN - resumed on Labetalol and Norvasc (questionable compliance at home). PCP follow up for BP monitoring and up-titration of anti-hypertensive medications. 3. GERD - continue PPI 4. HLD - Continue Atorvastatin DVT Px - Lovenox SQ.
[2019-05-25] MEDS: CEFTRIAXONE 1 GM in DEXTROSE 5%-WATER - 50 ML IVPB SCH (13:03)
--- NOTE | 2019-05-25 14:43 | PN ---
Physical Exam: SUBJECTIVE: Patient seen and examined. No acute events overnight. Pt endorses persistent pain in his LLE, improving. OBJECTIVE: Vital Signs Period Temp Pulse Resp BP Sys/Santana Pulse Ox Last 24 Hr 98 F-99.1 F 74-87 20-20 155-189/85-96 GENERAL: The patient is awake, alert, and fully oriented, in no acute distress. Mordbidly obese. HEAD: Normal with no signs of trauma. EYES: PERRL, extraocular movements intact, sclera anicteric, conjunctiva clear. No ptosis. ENT: Ears normal, nares patent, oropharynx clear without exudates, moist mucous membranes. NECK: Trachea midline, full range of motion, supple. LUNGS: Breath sounds equal, clear to auscultation bilaterally, no wheezes, no crackles, no accessory muscle use. HEART: Regular rate and rhythm, S1, S2 without murmur, rub or gallop. ABDOMEN: Soft, nontender, nondistended, normoactive bowel sounds, no guarding, no rebound, no hepatosplenomegaly, no masses. EXTREMITIES: 1+ pulses, warm. 3+ non-pitting edema on L with multiple erupted and draining pustules. No calf tenderness. Venous stasis skin changes. NEUROLOGICAL: Cranial nerves II through XII grossly intact. Normal speech, gait not observed. PSYCH: Normal mood, normal affect. SKIN: Warm, dry, normal turgor, no rashes or lesions noted Laboratory Results - last 24 hr 05/25/19 05/25/19 07:35 07:35 WBC 13.3 H RBC 4.82 Hgb 13.7 Hct 40.2 MCV 83.5 MCH 28.4 MCHC 34.0 RDW 14.5 Plt Count 337 MPV 7.9 ESR 18 H Sodium 139 Potassium 3.8 Chloride 107 Carbon Dioxide 26 Anion Gap 6 L BUN 6.8 L Creatinine 0.9 Est GFR (CKD-EPI)AfAm 125.13 Est GFR (CKD-EPI)NonAf 107.97 Random Glucose 88 Calcium 8.7 Total Bilirubin 0.6 AST 16 ALT 30 Alkaline Phosphatase 111 Total Protein 7.2 Albumin 3.2 L Active Medications Acetaminophen (Tylenol -) 650 mg PO Q4H PRN PRN Reason: PAIN LEVEL 1-5 Last Admin: 05/24/19 08:58 Dose: 650 mg Amlodipine Besylate (Norvasc -) 10 mg PO DAILY [facility] Last Admin: 05/25/19 09:12 Dose: 10 mg Atorvastatin Calcium (Lipitor -) 20 mg PO HS [facility] Last Admin: 05/24/19 21:51 Dose: 20 mg Enoxaparin Sodium (Lovenox -) 40 mg SQ DAILY [facility] Last Admin: 05/25/19 09:12 Dose: 40 mg Ceftriaxone Sodium 1 gm/ (Dextrose) 50 mls @ 100 mls/hr IVPB DAILY [facility]; Protocol Last Admin: 05/25/19 13:03 Dose: 100 mls/hr Vancomycin HCl 1,500 mg/ (Dextrose) 500 mls @ 250 mls/hr IVPB Q12H [facility]; Protocol Last Admin: 05/25/19 05:24 Dose: 250 mls/hr Ibuprofen (Motrin -) 600 mg PO Q6H PRN PRN Reason: FEVER Last Admin: 05/25/19 11:43 Dose: 600 mg Labetalol HCl (Normodyne -) 200 mg PO BID [facility] Last Admin: 05/25/19 09:12 Dose: 200 mg Pantoprazole Sodium (Protonix -) 40 mg PO DAILY [facility] Last Admin: 05/25/19 09:12 Dose: 40 mg ASSESSMENT/PLAN: 39 y/o male with PMH of LE lymphedema more significant on the Left , previous LE cellulitis ( last episode 1 yr ago),HTN, HLD, GERD came to the ED because of worsening left leg swelling associated with warmth, erythema,tenderness. admitted for left leg cellulitis with failed outpatient treatment. #Acute LLE cellulitis s/p venous ablation x1 week ago Cont 1500mg vanc mg @ 250ml/hr Q24H and 1gm ceftriaxone @100ml/hr pending cx Wound cx: Coag neg staph (preliminary) Blood cx: pending ID following (Dr. Perez) Vascular consulted (Dr. Haas): no need for acute surgical intervention at this time. >>Recommends dry dressing, compression dressing when cellulitis clears. Pt should f/u with Dr. Rangel in wound care clinic. ESR: 18, cont to monitor Leg elevation and DARY compression to improve drainage #HTN Cont home meds: norvasc 10mg qd, labetolol 200mg BID Pt has questionable compliance at home. PCP hsould f/u for BP monitoring and up-titration of meds #HLD Cont atorvastatin 20mg qd #FEN Sodium controlled diet No fluids #DVT ppx Lovenox #Dispo Monitor on med-surg Visit type - Emergency Visit Emergency Visit: No - New Patient This patient is new to me today: No - Critical Care Critical Care patient: No ATTENDING PHYSICIAN STATEMENT I saw and evaluated the patient. I reviewed the resident's note and discussed the case with the resident. I agree with the resident's findings and plan as documented. SUBJECTIVE: OBJECTIVE: ASSESSMENT AND PLAN:
--- NOTE | 2019-05-25 16:24 | PN ---
Progress Note, Physician History of Present Illness: AWAKE IN BED NO ACUTE DISTRESS AFEBRILE WBC IMPROVED WOUND C/S NLF, SCN - Current Medication List Current Medications: Active Medications Acetaminophen (Tylenol -) 650 mg PO Q4H PRN PRN Reason: PAIN LEVEL 1-5 Last Admin: 05/24/19 08:58 Dose: 650 mg Amlodipine Besylate (Norvasc -) 10 mg PO DAILY [facility] Last Admin: 05/25/19 09:12 Dose: 10 mg Atorvastatin Calcium (Lipitor -) 20 mg PO HS [facility] Last Admin: 05/24/19 21:51 Dose: 20 mg Enoxaparin Sodium (Lovenox -) 40 mg SQ DAILY [facility] Last Admin: 05/25/19 09:12 Dose: 40 mg Ceftriaxone Sodium 1 gm/ (Dextrose) 50 mls @ 100 mls/hr IVPB DAILY [facility]; Protocol Last Admin: 05/25/19 13:03 Dose: 100 mls/hr Vancomycin HCl 1,500 mg/ (Dextrose) 500 mls @ 250 mls/hr IVPB Q12H [facility]; Protocol Last Admin: 05/25/19 05:24 Dose: 250 mls/hr Ibuprofen (Motrin -) 600 mg PO Q6H PRN PRN Reason: FEVER Last Admin: 05/25/19 11:43 Dose: 600 mg Labetalol HCl (Normodyne -) 200 mg PO BID [facility] Last Admin: 05/25/19 09:12 Dose: 200 mg Pantoprazole Sodium (Protonix -) 40 mg PO DAILY [facility] Last Admin: 05/25/19 09:12 Dose: 40 mg - Objective Vital Signs: Vital Signs Temperature 99.4 F 05/25/19 14:00 Pulse Rate 76 05/25/19 14:00 Respiratory Rate 20 05/25/19 14:00 Blood Pressure 170/97 05/25/19 14:00 O2 Sat by Pulse Oximetry (%) 98 05/24/19 09:00 Constitutional: Yes: No Distress, Obese Eyes: Yes: Conjunctiva Clear Cardiovascular: Yes: Regular Rate and Rhythm, S1, S2 Respiratory: Yes: CTA Bilaterally Gastrointestinal: Yes: Normal Bowel Sounds, Soft, Abdomen, Obese. No: Tenderness Extremities: Yes: Other (+ LE LYMPHEDEMA; WARMTH/ SOFT TISSUE ABSCESSES L LE) Labs: CBC, BMP 05/25/19 07:35 05/25/19 07:35 Assessment/Plan CELLULITIS/ SOFT TISSUE ABSCESSES L LE LEUKOCYTOSIS CHRONIC LE LYMPHEDEMA AWAIT C/S CONTINUE VANCOYMCIN/ CETRIAXONE PENDING C/S
[2019-05-25] MEDS: ATORVASTATIN CA 20 MG TABLET (FP) PO SCH (21:13)
[2019-05-26] MEDS: IBUPROFEN 600 MG TABLET (FP) PO PRN ×2 (01:06→08:45)
[2019-05-26] MEDS: VANCOMYCIN HCL 1,500 MG in DEXTROSE 5%-WATER - 500 ML IVPB SCH ×2 (05:42→18:14)
[2019-05-26 09:33] LABS: HEMATOCRIT 45.5 % (35.4-49); HEMOGLOBIN 15.4 GM/dL (11.7-16.9); MCH 28.4 pg (25.7-33.7); MCHC 33.9 g/dl (32.0-35.9); MEAN CELL VOLUME 83.8 fl (80-96); MEAN PLT VOLUME 7.9 fl (7.5-11.1); PLATELET COUNT 388 K/MM3 (134-434); RBC 5.43 M/mm3 (4.00-5.60); RDW 14.8 % (11.9-15.9); WHITE BLOOD COUNT 9.9 K/mm3 (4.0-10.0)
[2019-05-26 09:47] LABS: BLOOD UREA NITROGEN 8.8 mg/dL (7-18); CALCIUM 9.4 mg/dL (8.5-10.1); CREATININE 0.9 mg/dL (0.55-1.3); POTASSIUM 3.8 mmol/L (3.5-5.1)
[2019-05-26] MEDS: ENOXAPARIN NA (PORCINE) 40 MG/0.4 ML DISP.SYRIN SQ SCH (10:38)
[2019-05-26] MEDS: amLODIPine BESYLATE 10 MG TABLET (FP) PO SCH (10:38)
[2019-05-26] MEDS: LABETALOL HCL 200 MG TABLET (FP) PO SCH ×2 (10:38→21:39)
[2019-05-26] MEDS: PANTOPRAZOLE 40 MG TABLET (FP) PO SCH (10:38)
[2019-05-26] MEDS ORDERED: oxyCODONE HCL 5 MG TABLET PO ONE (11:30)
--- NOTE | 2019-05-26 11:35 | PN ---
Progress Note (short form) - Note Progress Note: SUBJECTIVE: Reports ongoing LLE discomfort not relieved by ibuprofen. No fever/ chills. OBJECTIVE: Afebrile, hemodynamically Stable. Tmax 99.2. Last Vital Signs Temp Pulse Resp BP Pulse Ox 99 F 76 24 H 174/98 H 95 05/26/19 10:24 05/26/19 10:24 05/26/19 10:24 05/26/19 10:24 05/26/19 10:35 Heart - S1, S2, RRR Abdomen - High BMI +++. Soft, non-tender. Bowel Sounds normal. Extremities - LE edema ++, chronic venous stasis skin changes, 3 small ulcerations with pustular exudate lateral aspect LLE (dressings dry). Varicosity medial aspect LLE. Neuro - AAO x 3. Tone/Power normal all 4 extremities. Laboratory Results - last 24 hr 05/24/19 05/26/19 05/26/19 08:05 08:45 08:45 WBC 9.9 RBC 5.43 Hgb 15.4 Hct 45.5 MCV 83.8 MCH 28.4 MCHC 33.9 RDW 14.8 Plt Count 388 MPV 7.9 Sodium 137 Potassium 3.8 Chloride 106 Carbon Dioxide 24 Anion Gap 7 L BUN 8.8 Creatinine 0.9 Est GFR (CKD-EPI)AfAm 125.13 Est GFR (CKD-EPI)NonAf 107.97 Random Glucose 90 Calcium 9.4 C-Reactive Protein 3.1 H Current Medications Generic Name Dose Route Start Last Admin Trade Name Freq PRN Reason Stop Dose Admin Acetaminophen 650 mg 05/23/19 22:40 05/24/19 08:58 Tylenol - PO 650 mg Q4H PRN Administration PAIN LEVEL 1-5 Amlodipine Besylate 10 mg 05/24/19 10:00 05/26/19 10:38 Norvasc - PO 10 mg DAILY LISA Administration Atorvastatin Calcium 20 mg 05/24/19 22:00 05/25/19 21:13 Lipitor - PO 20 mg HS LISA Administration Enoxaparin Sodium 40 mg 05/24/19 10:00 05/26/19 10:38 Lovenox - SQ 40 mg DAILY LISA Administration Ceftriaxone Sodium 1 gm/ 50 mls @ 100 mls/hr 05/24/19 10:00 05/25/19 13:03 Dextrose IVPB 100 mls/hr DAILY LISA Administration Protocol Vancomycin HCl 1,500 mg/ 500 mls @ 250 mls/hr 05/24/19 18:00 05/26/19 05:42 Dextrose IVPB 250 mls/hr Q12H LISA Administration Protocol Ibuprofen 600 mg 05/25/19 11:02 05/26/19 08:45 Motrin - PO 600 mg Q6H PRN Administration FEVER Labetalol HCl 200 mg 05/24/19 10:00 05/26/19 10:38 Normodyne - PO 200 mg BID LISA Administration Oxycodone HCl 5 mg 05/26/19 11:22 Roxicodone - PO 05/26/19 11:23 ONCE ONE Pantoprazole Sodium 40 mg 05/24/19 10:00 05/26/19 10:38 Protonix - PO 40 mg DAILY LISA Administration Home Medications Medication Instructions Recorded Amlodipine Besylate [Norvasc -] 10 mg PO DAILY 06/29/14 Labetalol HCl [Normodyne -] 200 mg PO BID 06/29/14 Omeprazole [Prilosec (RX)] 40 mg PO DAILY 06/29/14 Atorvastatin Ca [Lipitor] 20 mg DAILY 05/23/19 Ibuprofen [Motrin -] 600 mg Q6H 05/23/19 ASSESSMENT AND PLAN: 39 year old male with Chronic Lymphedema LEs, Bilateral LE Venous Stasis, 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 Rangel, HTN, HLD, GERD , presents with Left LE warmth, erythema, swelling, without improvement on Amoxicillin given by PCP. 1. LLE cellulitis with ulceration No Hx trauma except for recent venous ablation 1 week prior to presentation LE Venous Duplex - superficial thrombosis, no DVT Wound Cx - Serratia, coag neg staph On Ceftriaxone/Vancomycin - ID to guide transition to oral Abx as sensitivities are back. Vascular evaluated and recommended no additional surgical intervention at this time. Compression wraps/lymph pumps as per Vascular Sx Wound Care/Vascular clinic follow up. 2. HTN - resumed on Labetalol and Norvasc (questionable compliance at home). BP still elevated. Will start low dose JANEEN-I (Lisinopril) with renal function check in 1 week. PCP follow up for BP monitoring and up-titration of anti- hypertensive medications. 3. GERD - continue PPI 4. HLD - Continue Atorvastatin DVT Px - Lovenox SQ. Visit type - Emergency Visit Emergency Visit: Yes ED Registration Date: 05/23/19 Care time: The patient presented to the Emergency Department on the above date and was hospitalized for further evaluation of their emergent condition. - New Patient This patient is new to me today: No - Critical Care Critical Care patient: No - Discharge Referral Referred to [facility] Med P.C.: No
[2019-05-26] MEDS: LISINOPRIL 10 MG TABLET (FP) PO SCH (11:59)
[2019-05-26] MEDS ORDERED: PT OWN MED DRAWER 7, Y5N ONE ×2 (14:32→17:58)
[2019-05-26] MEDS: CEFTRIAXONE 1 GM in DEXTROSE 5%-WATER - 50 ML IVPB SCH (14:52)
[2019-05-26] MEDS: ATORVASTATIN CA 20 MG TABLET (FP) PO SCH (21:39)
[2019-05-27] MEDS: IBUPROFEN 600 MG TABLET (FP) PO PRN ×2 (00:18→17:58)
[2019-05-27] MEDS: VANCOMYCIN HCL 1,500 MG in DEXTROSE 5%-WATER - 500 ML IVPB SCH (05:40)
--- NOTE | 2019-05-27 08:47 | PN ---
Teaching Attending Note Name of Resident: Mounika Kaur ATTENDING PHYSICIAN STATEMENT I saw and evaluated the patient. I reviewed the resident's note and discussed the case with the resident. I agree with the resident's findings and plan as documented. SUBJECTIVE: Reports some improvement in LLE discomfort. No fever/chills. OBJECTIVE: Afebrile, hemodynamically Stable. Last Vital Signs Temp Pulse Resp BP Pulse Ox 98.3 F 64 20 142/84 95 05/27/19 06:00 05/27/19 06:00 05/27/19 06:00 05/27/19 06:00 05/26/19 21:00 Heart - S1, S2, RRR Abdomen - High BMI +++. Soft, non-tender. Bowel Sounds normal. Extremities - LE edema ++, chronic venous stasis skin changes, 3 small ulcerations with pustular exudate lateral aspect LLE (dressings dry). Varicosity medial aspect LLE with small ulceration with mild pustular exudate Neuro - AAO x 3. Tone/Power normal all 4 extremities. Laboratory Results - last 24 hr 05/26/19 08:45 Sodium 137 Potassium 3.8 Chloride 106 Carbon Dioxide 24 Anion Gap 7 L BUN 8.8 Creatinine 0.9 Est GFR (CKD-EPI)AfAm 125.13 Est GFR (CKD-EPI)NonAf 107.97 Random Glucose 90 Calcium 9.4 Current Medications Generic Name Dose Route Start Last Admin Trade Name Freq PRN Reason Stop Dose Admin Acetaminophen 650 mg 05/23/19 22:40 05/24/19 08:58 Tylenol - PO 650 mg Q4H PRN Administration PAIN LEVEL 1-5 Amlodipine Besylate 10 mg 05/24/19 10:00 05/26/19 10:38 Norvasc - PO 10 mg DAILY LISA Administration Atorvastatin Calcium 20 mg 05/24/19 22:00 05/26/19 21:39 Lipitor - PO 20 mg HS LISA Administration Enoxaparin Sodium 40 mg 05/24/19 10:00 05/26/19 10:38 Lovenox - SQ 40 mg DAILY LISA Administration Ceftriaxone Sodium 1 gm/ 50 mls @ 100 mls/hr 05/24/19 10:00 05/26/19 14:52 Dextrose IVPB 100 mls/hr DAILY LISA Administration Protocol Vancomycin HCl 1,500 mg/ 500 mls @ 250 mls/hr 05/24/19 18:00 05/27/19 05:40 Dextrose IVPB 250 mls/hr Q12H LISA Administration Protocol Ibuprofen 600 mg 05/25/19 11:02 05/27/19 00:18 Motrin - PO 600 mg Q6H PRN Administration FEVER Labetalol HCl 200 mg 05/24/19 10:00 05/26/19 21:39 Normodyne - PO 200 mg BID [facility] Administration Lisinopril 10 mg 05/26/19 11:45 05/26/19 11:59 Prinivil PO 10 mg DAILY LISA Administration Pantoprazole Sodium 40 mg 05/24/19 10:00 05/26/19 10:38 Protonix - PO 40 mg DAILY [facility]ISA Administration Home Medications Medication Instructions Recorded Amlodipine Besylate [Norvasc -] 10 mg PO DAILY 06/29/14 Labetalol HCl [Normodyne -] 200 mg PO BID 06/29/14 Omeprazole [Prilosec (RX)] 40 mg PO DAILY 06/29/14 Atorvastatin Ca [Lipitor] 20 mg DAILY 05/23/19 Ibuprofen [Motrin -] 600 mg Q6H 05/23/19 ASSESSMENT AND PLAN: 39 year old male with Chronic Lymphedema LEs, Bilateral LE Venous Stasis, 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 Rangel, HTN, HLD, GERD , presents with Left LE warmth, erythema, swelling, without improvement on Amoxicillin given by PCP. 1. LLE cellulitis with ulceration No Hx trauma except for recent venous ablation 1 week prior to presentation LE Venous Duplex - superficial thrombosis, no DVT Wound Cx - Serratia, coag neg staph On Ceftriaxone/Vancomycin - ID to guide transition to oral Abx as sensitivities are back. Vascular evaluated and recommended no additional surgical intervention at this time. Compression wraps/lymph pumps as per Vascular Sx Wound Care/Vascular clinic follow up. 2. HTN - resumed on Labetalol and Norvasc (questionable compliance at home). BP was still elevated and he was started on low dose JANEEN-I (Lisinopril). he should have renal function check in 1 week as out-patient. PCP follow up for BP monitoring and up-titration of anti-hypertensive medications. 3. GERD - continue PPI 4. HLD - Continue Atorvastatin DVT Px - Lovenox SQ.
[2019-05-27] MEDS ORDERED: DEXTROSE 5%-WATER - 50 ML IVPB ONE (09:08)
[2019-05-27] MEDS ORDERED: cefTRIAXone SODIUM 1 GM VIAL ONE (09:08)
[2019-05-27] MEDS: LISINOPRIL 10 MG TABLET (FP) PO SCH (09:25)
[2019-05-27] MEDS: PANTOPRAZOLE 40 MG TABLET (FP) PO SCH (09:25)
[2019-05-27] MEDS: amLODIPine BESYLATE 10 MG TABLET (FP) PO SCH (09:25)
[2019-05-27] MEDS: CEFTRIAXONE 1 GM in DEXTROSE 5%-WATER - 50 ML IVPB SCH (09:25)
[2019-05-27] MEDS: ENOXAPARIN NA (PORCINE) 40 MG/0.4 ML DISP.SYRIN SQ SCH (09:25)
[2019-05-27] MEDS: LABETALOL HCL 200 MG TABLET (FP) PO SCH ×2 (09:25→22:05)
[2019-05-27] MEDS ORDERED: oxyCODONE HCL 5 MG TABLET PO ONE (10:38)
--- NOTE | 2019-05-27 12:46 | PN ---
Progress Note (short form) - Note Progress Note: still with drainage from the leg Vital Signs Period Temp Pulse Resp BP Sys/Santana Pulse Ox Last 24 Hr 98.3 F-98.9 F 64-84 20-24 140-160/72-88 95 cor-rrr lungs clear legs - medial aspect of left leg with new subcutaneous abscesses draining brown cloudy fluid, lateral aspect with punched out lesions- some bleeding leg is still quite warm and reddish +lymphedema CBC, BMP 05/26/19 08:45 05/26/19 08:45 Microbiology 05/23/19 17:21 Leg - Left Lower Gram Stain - Final 05/23/19 17:21 Leg - Left Lower Wound Culture - Preliminary Serratia Marcescens Staphylococcus Coagulase Neg Pending Organism Pending Organism#2 05/23/19 17:06 Blood - Peripheral Venous Blood Culture - Preliminary NO GROWTH OBTAINED AFTER 72 HOURS, INCUBATION TO CONTINUE FOR 2 DAYS. 05/23/19 17:06 Blood - Peripheral Venous Blood Culture - Preliminary NO GROWTH OBTAINED AFTER 72 HOURS, INCUBATION TO CONTINUE FOR 2 DAYS. a/p cellulitis soft tissue abscesses- polymicrobial including anaerobes! lymphedema s/p vein ablation obesity d/c vancomycin increase rocephin to 2 grams add clindamycin
--- NOTE | 2019-05-27 13:49 | PN ---
Physical Exam: SUBJECTIVE: Patient seen and examined at bedside this morning. No acute events overnights. Wounds on the left left noted to be draining purulent material. Patient denies fevers, chills, headache, dizziness, chest pain, SOB, abdominal pain, diarrhea, urinary symptoms. OBJECTIVE: Vital Signs Temperature 98.9 F 05/27/19 09:10 Pulse Rate 79 05/27/19 09:10 Respiratory Rate 20 05/27/19 09:10 Blood Pressure 149/87 05/27/19 09:10 O2 Sat by Pulse Oximetry (%) 95 05/26/19 21:00 GENERAL: The patient is awake, alert, and fully oriented, in no acute distress. HEAD: Normal with no signs of trauma. EYES: PERRLA, EOMI, conjunctiva clear. ENT: moist mucous membranes. NECK: Trachea midline, full range of motion, supple. LUNGS: Breath sounds equal, clear to auscultation bilaterally. HEART: Regular rate and rhythm, S1, S2 without murmur, rub or gallop. ABDOMEN: Soft, obese, nontender, nondistended, normoactive bowel sounds. EXTREMITIES: 2+ pulses, warm, well-perfused. LLE: +multiple punched-out ulcers on the lateral leg, +tender ulcer on the medial side draining purulent and bloody discharge. +b/l lymphedema NEUROLOGICAL: Cranial nerves II through XII grossly intact. Normal speech, gait not observed. PSYCH: Normal mood, normal affect. SKIN: Warm, dry, normal turgor, no rashes or lesions noted Active Medications Generic Name Dose Route Start Last Admin Trade Name Freq PRN Reason Stop Dose Admin Acetaminophen 650 mg 05/23/19 22:40 05/24/19 08:58 Tylenol - PO 650 mg Q4H PRN Administration PAIN LEVEL 1-5 Amlodipine Besylate 10 mg 05/24/19 10:00 05/27/19 09:25 Norvasc - PO 10 mg DAILY [facility]ISA Administration Atorvastatin Calcium 20 mg 05/24/19 22:00 05/26/19 21:39 Lipitor - PO 20 mg HS LISA Administration Enoxaparin Sodium 40 mg 05/24/19 10:00 05/27/19 09:25 Lovenox - SQ 40 mg DAILY [facility] Administration Ceftriaxone Sodium 2 gm/ 100 mls @ 200 mls/hr 05/28/19 10:00 Dextrose IVPB DAILY [facility] Protocol Clindamycin Phosphate 600 mg in 50 mls @ 100 mls/hr 05/27/19 18:00 Cleocin 600 Mg Premix Ivpb - IVPB Q8H-IV [facility] Protocol Ibuprofen 600 mg 05/25/19 11:02 05/27/19 00:18 Motrin - PO 600 mg Q6H PRN Administration FEVER Labetalol HCl 200 mg 05/24/19 10:00 05/27/19 09:25 Normodyne - PO 200 mg BID LISA Administration Lisinopril 10 mg 05/26/19 11:45 05/27/19 09:25 Prinivil PO 10 mg DAILY [facility] Administration Pantoprazole Sodium 40 mg 05/24/19 10:00 05/27/19 09:25 Protonix - PO 40 mg DAILY LISA Administration ASSESSMENT/PLAN: Patient is a 39 year old male with past medical history of LE Lymphedema and previous LE cellulitis, HTN, HLD, GERD, presented to the ED due to worsening left leg swelling, warmth, erythema, tenderness. #Left LE cellulitis, Soft tissue abscesses -Wound culture: polymicrobial including Serratia, Staph coag neg, pending organisms -Blood cultures negative -Hx trauma except for recent venous ablation 1 week prior to presentation -LE Venous Duplex - superficial thrombosis, no DVT -ID (Dr. Cruz) consulted. -Increase Ceftriaxone to 2 gm daily -Add Clindamycin 600mg q8h -Discontinue Vancomycin -Vascular surgery (Dr Rangel) consulted. -recommends dry dressing, compression dressing when cellulitis clears #HTN -Continue home Norvasc 10mg daily and Labetalol 200mg BId #HLD -Continue Atorvastatin 20mg HS #FEN -Not on any standing fluids -Electrolytes wnl, routine bmp monitoring -Sodium controlled diet #Prophylaxis -Lovenox 40mg sq daily #Disposition -full code -admit to med surg Visit type - Emergency Visit Emergency Visit: Yes ED Registration Date: 05/23/19 Care time: The patient presented to the Emergency Department on the above date and was hospitalized for further evaluation of their emergent condition. - New Patient This patient is new to me today: No - Critical Care Critical Care patient: No ATTENDING PHYSICIAN STATEMENT I saw and evaluated the patient. I reviewed the resident's note and discussed the case with the resident. I agree with the resident's findings and plan as documented. SUBJECTIVE: OBJECTIVE: ASSESSMENT AND PLAN:
[2019-05-27] MEDS: CLINDAMYCIN 600MG PREMIX IVPB 600 MG/50 ML BAG IVPB SCH (17:53)
[2019-05-27] MEDS: ATORVASTATIN CA 20 MG TABLET (FP) PO SCH (22:05)
[2019-05-28] MEDS: CLINDAMYCIN 600MG PREMIX IVPB 600 MG/50 ML BAG IVPB SCH ×4 (01:40→18:55)
[2019-05-28 08:18] LABS: BASO % 0.7 % (0-2.0); EOS % 5.6 % (0-4.5); HEMATOCRIT 42.6 % (35.4-49); HEMOGLOBIN 14.3 GM/dL (11.7-16.9); MCH 28.3 pg (25.7-33.7); MCHC 33.7 g/dl (32.0-35.9); MEAN CELL VOLUME 83.9 fl (80-96); MEAN PLT VOLUME 7.9 fl (7.5-11.1); MONO % 11.3 % (3.8-10.2); NEUT % 70.4 % (42.8-82.8); PLATELET COUNT 386 K/MM3 (134-434); RBC 5.07 M/mm3 (4.00-5.60); WHITE BLOOD COUNT 6.8 K/mm3 (4.0-10.0)
[2019-05-28 08:31] LABS: BLOOD UREA NITROGEN 11.3 mg/dL (7-18); CALCIUM 8.8 mg/dL (8.5-10.1); CREATININE 0.9 mg/dL (0.55-1.3); MAGNESIUM 2.1 mg/dL (1.8-2.4); POTASSIUM 4.2 mmol/L (3.5-5.1)
--- NOTE | 2019-05-28 08:39 | PN ---
Teaching Attending Note Name of Resident: Nelida Raygoza ATTENDING PHYSICIAN STATEMENT I saw and evaluated the patient. I reviewed the resident's note and discussed the case with the resident. I agree with the resident's findings and plan as documented. SUBJECTIVE: c/o Left calf pain OBJECTIVE: Last Vital Signs Temp Pulse Resp BP Pulse Ox 98.8 F 67 18 135/90 97 05/28/19 05:00 05/28/19 05:00 05/28/19 05:00 05/28/19 05:00 05/27/19 21:00 Young man not in distress HEEENT:Mm moist no anemia, PERRLA, EOMI NECK: No JVD no Bruit CHEST: CTA B/L CVS: S1S2 IR no m/g/r ABD: No distention, non tender Bs + EXT:Extensive edema b/L Left > Rt with active Cellulitis and oozing DIRECTORY OPERATOR:AOX3 non focal CBC, BMP 05/28/19 06:58 05/28/19 06:58 Active Medications Acetaminophen (Tylenol -) 650 mg PO Q4H PRN PRN Reason: PAIN LEVEL 1-5 Last Admin: 05/24/19 08:58 Dose: 650 mg Amlodipine Besylate (Norvasc -) 10 mg PO DAILY [facility] Last Admin: 05/27/19 09:25 Dose: 10 mg Atorvastatin Calcium (Lipitor -) 20 mg PO HS [facility] Last Admin: 05/27/19 22:05 Dose: 20 mg Enoxaparin Sodium (Lovenox -) 40 mg SQ DAILY [facility] Last Admin: 05/27/19 09:25 Dose: 40 mg Ceftriaxone Sodium 2 gm/ (Dextrose) 100 mls @ 200 mls/hr IVPB DAILY [facility]; Protocol Clindamycin Phosphate (Cleocin 600 Mg Premix Ivpb -) 600 mg in 50 mls @ 100 mls /hr IVPB Q8H-IV [facility]; Protocol Last Admin: 05/28/19 01:40 Dose: 100 mls/hr Ibuprofen (Motrin -) 600 mg PO Q6H PRN PRN Reason: FEVER Last Admin: 05/27/19 17:58 Dose: 600 mg Labetalol HCl (Normodyne -) 200 mg PO BID [facility] Last Admin: 05/27/19 22:05 Dose: 200 mg Lisinopril (Prinivil) 10 mg PO DAILY [facility] Last Admin: 05/27/19 09:25 Dose: 10 mg Pantoprazole Sodium (Protonix -) 40 mg PO DAILY [facility] Last Admin: 05/27/19 09:25 Dose: 40 mg ASSESSMENT AND PLAN:39 year old male with Chronic Lymphedema LEs, Bilateral LE Venous Stasis, 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 Rangel , HTN, HLD, GERD, presents with Left LE warmth, erythema, swelling, without improvement on Amoxicillin given by PCP. Problem List - Problems (1) Cellulitis and abscess of left lower extremity Assessment/Plan: Exyensive [facility] edudative discahrge will cont current abx as per ID , DVT prophylaxis and pain control F/u final culture result Code(s): L03.116 - CELLULITIS OF LEFT LOWER LIMB; L02.416 - CUTANEOUS ABSCESS OF LEFT LOWER LIMB (2) HTN (hypertension) Assessment/Plan: Cont current meds Problems reviewed: Yes Code(s): I10 - ESSENTIAL (PRIMARY) HYPERTENSION (3) Obesities, morbid Assessment/Plan: Nutrition consult Code(s): E66.01 - MORBID (SEVERE) OBESITY DUE TO EXCESS CALORIES (4) Venous insufficiency Assessment/Plan: F/U Vascular surgery recommendations Problems reviewed: Yes Code(s): I87.2 - VENOUS INSUFFICIENCY (CHRONIC) (PERIPHERAL)
[2019-05-28] MEDS ORDERED: DEXTROSE 5%-WATER 100 ML IVPB ONE (09:55)
[2019-05-28] MEDS: LABETALOL HCL 200 MG TABLET (FP) PO SCH (10:03)
[2019-05-28] MEDS: amLODIPine BESYLATE 10 MG TABLET (FP) PO SCH (10:03)
[2019-05-28] MEDS: ENOXAPARIN NA (PORCINE) 40 MG/0.4 ML DISP.SYRIN SQ SCH (10:03)
[2019-05-28] MEDS: PANTOPRAZOLE 40 MG TABLET (FP) PO SCH (10:03)
[2019-05-28] MEDS: LISINOPRIL 10 MG TABLET (FP) PO SCH (10:03)
--- NOTE | 2019-05-28 10:29 | PN ---
Progress Note (short form) - Note Progress Note: Vascular Surgery Pt seen and examined. LLE cellulitis. Pt had venous closure for venous stasis/insuff. Pt has ulcers in left leg. Medial part of calf is draining and cultures taken today. Cont IV antibiotics, and leg elevation. Xeroform, with JANEEN for compression. Pain control Ellis Rangel DO
[2019-05-28] MEDS: oxyCODONE HCL 5 MG TABLET PO PRN (10:53)
[2019-05-28] MEDS: ACETAMINOPHEN 325 MG TABLET (FP) PO PRN (10:57)
[2019-05-28] MEDS: CEFTRIAXONE 2 GM in DEXTROSE 5%-WATER 100 ML IVPB SCH (12:08)
--- NOTE | 2019-05-28 14:15 | PN ---
Physical Exam: SUBJECTIVE: Patient seen and examined. No acute events overnights. Wounds on the left left noted to be draining purulent material. Patient denies fevers, chills, headache, dizziness, chest pain, SOB, abdominal pain, diarrhea, urinary symptoms OBJECTIVE: Vital Signs Period Temp Pulse Resp BP Sys/Santana Pulse Ox Last 24 Hr 98.8 F-99.6 F 67-80 18-24 135-155/78-96 97 GENERAL: The patient is awake, alert, and fully oriented, in no acute distress. HEAD: Normal with no signs of trauma. EYES: PERRL, extraocular movements intact, sclera anicteric, conjunctiva clear. No ptosis. ENT: Ears normal, nares patent, oropharynx clear without exudates, moist mucous membranes. NECK: Trachea midline, full range of motion, supple. LUNGS: Breath sounds equal, clear to auscultation bilaterally, no wheezes, no crackles, no accessory muscle use. HEART: Regular rate and rhythm, S1, S2 without murmur, rub or gallop. ABDOMEN: Soft, nontender, nondistended, normoactive bowel sounds, no guarding, no rebound, no hepatosplenomegaly, no masses. EXTREMITIES: 2+ pulses, warm. LLE: +multiple punched-out ulcers on the lateral leg, +tender ulcer on the medial side draining purulent and bloody discharge. +b /l lymphedema NEUROLOGICAL: Cranial nerves II through XII grossly intact. Normal speech, gait not observed. PSYCH: Normal mood, normal affect. SKIN: Warm, dry, normal turgor, no rashes or lesions noted Laboratory Results - last 24 hr 05/28/19 05/28/19 06:58 06:58 WBC 6.8 RBC 5.07 Hgb 14.3 Hct 42.6 MCV 83.9 MCH 28.3 MCHC 33.7 RDW 15.0 Plt Count 386 MPV 7.9 Absolute Neuts (auto) 4.8 Neutrophils % 70.4 Lymphocytes % 12.0 Monocytes % 11.3 H Eosinophils % 5.6 H D Basophils % 0.7 Nucleated RBC % 0 Sodium 139 Potassium 4.2 Chloride 107 Carbon Dioxide 26 Anion Gap 5 L BUN 11.3 Creatinine 0.9 Est GFR (CKD-EPI)AfAm 125.13 Est GFR (CKD-EPI)NonAf 107.97 Random Glucose 84 Calcium 8.8 Magnesium 2.1 Active Medications Acetaminophen (Tylenol -) 650 mg PO Q4H PRN PRN Reason: PAIN LEVEL 1-5 Last Admin: 05/24/19 08:58 Dose: 650 mg Acetaminophen (Tylenol -) 325 mg PO QID PRN PRN Reason: PAIN LEVEL 6-10 Last Admin: 05/28/19 10:57 Dose: 325 mg Amlodipine Besylate (Norvasc -) 10 mg PO DAILY [facility] Last Admin: 05/28/19 10:03 Dose: 10 mg Atorvastatin Calcium (Lipitor -) 20 mg PO HS [facility] Last Admin: 05/27/19 22:05 Dose: 20 mg Enoxaparin Sodium (Lovenox -) 40 mg SQ DAILY [facility] Last Admin: 05/28/19 10:03 Dose: 40 mg Ceftriaxone Sodium 2 gm/ (Dextrose) 100 mls @ 200 mls/hr IVPB DAILY [facility]; Protocol Last Admin: 05/28/19 12:08 Dose: 200 mls/hr Clindamycin Phosphate (Cleocin 600 Mg Premix Ivpb -) 600 mg in 50 mls @ 100 mls /hr IVPB Q8H-IV [facility]; Protocol Last Admin: 05/28/19 11:45 Dose: 100 mls/hr Ibuprofen (Motrin -) 600 mg PO Q6H PRN PRN Reason: FEVER Last Admin: 05/27/19 17:58 Dose: 600 mg Labetalol HCl (Normodyne -) 200 mg PO BID [facility] Last Admin: 05/28/19 10:03 Dose: 200 mg Lisinopril (Prinivil) 10 mg PO DAILY [facility] Last Admin: 05/28/19 10:03 Dose: 10 mg Oxycodone HCl (Roxicodone -) 5 mg PO QID PRN PRN Reason: PAIN LEVEL 6-10 Last Admin: 05/28/19 10:53 Dose: 5 mg Pantoprazole Sodium (Protonix -) 40 mg PO DAILY [facility] Last Admin: 05/28/19 10:03 Dose: 40 mg ASSESSMENT/PLAN: #Acute LLE cellulitis s/p venous ablation x1 week ago Wound culture: polymicrobrial including serratia, staph coag neg, pending organisms Blood cx: NGTD LE venous duplex: superficial thrombosis, no DVT ID (Dr. Cruz) following - Increase ceftriaxone to 2gm daily - Add clindamycin 600mg Q8H Vascular consulted (Dr. Haas): no need for acute surgical intervention at this time. - Recommends dry dressing, compression dressing when cellulitis clears. Pt should f/u with Dr. Rangel in wound care clinic. - New deep cultures taken from medial calf ESR: 18, cont to monitor Leg elevation, Xerofoam, JANEEN bandage for compression to improve drainage #HTN Cont home meds: norvasc 10mg qd, labetolol 200mg BID BP still elevated, will add low dose lisinopril Pt has questionable compliance at home. PCP hsould f/u for BP monitoring and up-titration of meds #HLD Cont atorvastatin 20mg qd #FEN Sodium controlled diet No fluids #DVT ppx Lovenox #Dispo Monitor on med-surg Visit type - Emergency Visit Emergency Visit: No - New Patient This patient is new to me today: No - Critical Care Critical Care patient: No ATTENDING PHYSICIAN STATEMENT I saw and evaluated the patient. I reviewed the resident's note and discussed the case with the resident. I agree with the resident's findings and plan as documented. SUBJECTIVE: OBJECTIVE: ASSESSMENT AND PLAN:
--- NOTE | 2019-05-28 14:41 | PN ---
Progress Note, Physician History of Present Illness: AWAKE IN BED C/O L LE PAIN WITH MOVEMENT AFEBRILE WBC IMPROVED WNL WOUND C/S PROTEUS, SCN - Current Medication List Current Medications: Active Medications Acetaminophen (Tylenol -) 650 mg PO Q4H PRN PRN Reason: PAIN LEVEL 1-5 Last Admin: 05/24/19 08:58 Dose: 650 mg Acetaminophen (Tylenol -) 325 mg PO QID PRN PRN Reason: PAIN LEVEL 6-10 Last Admin: 05/28/19 10:57 Dose: 325 mg Amlodipine Besylate (Norvasc -) 10 mg PO DAILY [facility] Last Admin: 05/28/19 10:03 Dose: 10 mg Atorvastatin Calcium (Lipitor -) 20 mg PO HS [facility] Last Admin: 05/27/19 22:05 Dose: 20 mg Enoxaparin Sodium (Lovenox -) 40 mg SQ DAILY [facility] Last Admin: 05/28/19 10:03 Dose: 40 mg Ceftriaxone Sodium 2 gm/ (Dextrose) 100 mls @ 200 mls/hr IVPB DAILY [facility]; Protocol Last Admin: 05/28/19 12:08 Dose: 200 mls/hr Clindamycin Phosphate (Cleocin 600 Mg Premix Ivpb -) 600 mg in 50 mls @ 100 mls /hr IVPB Q8H-IV [facility]; Protocol Last Admin: 05/28/19 11:45 Dose: 100 mls/hr Ibuprofen (Motrin -) 600 mg PO Q6H PRN PRN Reason: FEVER Last Admin: 05/27/19 17:58 Dose: 600 mg Labetalol HCl (Normodyne -) 200 mg PO BID [facility] Last Admin: 05/28/19 10:03 Dose: 200 mg Lisinopril (Prinivil) 10 mg PO DAILY [facility] Last Admin: 05/28/19 10:03 Dose: 10 mg Oxycodone HCl (Roxicodone -) 5 mg PO QID PRN PRN Reason: PAIN LEVEL 6-10 Last Admin: 05/28/19 10:53 Dose: 5 mg Pantoprazole Sodium (Protonix -) 40 mg PO DAILY [facility] Last Admin: 05/28/19 10:03 Dose: 40 mg - Objective Vital Signs: Vital Signs Temperature 98.8 F 05/28/19 09:59 Pulse Rate 80 05/28/19 09:59 Respiratory Rate 24 H 05/28/19 09:59 Blood Pressure 153/96 05/28/19 09:59 O2 Sat by Pulse Oximetry (%) 97 05/27/19 21:00 Constitutional: Yes: Obese Cardiovascular: Yes: Regular Rate and Rhythm, S1, S2 Respiratory: Yes: CTA Bilaterally Gastrointestinal: Yes: Normal Bowel Sounds, Soft. No: Tenderness Extremities: Yes: Other (+ CHRONIC LE LYMPHEDEMA; + WEEPAGE; SUPERFICIAL ULCERS L LE) Labs: CBC, BMP 05/28/19 06:58 05/28/19 06:58 Assessment/Plan CELLULITIS/ SOFT TISSUE ABSCESSES L LE LEUKOCYTOSIS IMPROVED CHRONIC LE LYMPHEDEMA CONTINUE CLINDAMYCIN/ CETRIAXONE
[2019-05-29] MEDS: LABETALOL HCL 200 MG TABLET (FP) PO SCH ×3 (00:39→21:14)
[2019-05-29] MEDS: ATORVASTATIN CA 20 MG TABLET (FP) PO SCH ×2 (00:39→21:14)
[2019-05-29] MEDS: CLINDAMYCIN 600MG PREMIX IVPB 600 MG/50 ML BAG IVPB SCH ×3 (01:08→17:03)
[2019-05-29 08:04] LABS: BLOOD UREA NITROGEN 11.7 mg/dL (7-18); CALCIUM 9.4 mg/dL (8.5-10.1); POTASSIUM 4.2 mmol/L (3.5-5.1)
[2019-05-29 08:06] LABS: HEMATOCRIT 42.4 % (35.4-49); HEMOGLOBIN 14.5 GM/dL (11.7-16.9); MCH 28.6 pg (25.7-33.7); MCHC 34.2 g/dl (32.0-35.9); MEAN CELL VOLUME 83.6 fl (80-96); MEAN PLT VOLUME 7.8 fl (7.5-11.1); PLATELET COUNT 398 K/MM3 (134-434); RBC 5.07 M/mm3 (4.00-5.60); RDW 14.7 % (11.9-15.9); WHITE BLOOD COUNT 6.4 K/mm3 (4.0-10.0)
[2019-05-29] MEDS ORDERED: DEXTROSE 5%-WATER 100 ML IVPB ONE (08:18)
--- NOTE | 2019-05-29 08:18 | PN ---
Teaching Attending Note Name of Resident: Nelida Raygoza ATTENDING PHYSICIAN STATEMENT I saw and evaluated the patient. I reviewed the resident's note and discussed the case with the resident. I agree with the resident's findings and plan as documented with exceptions below. SUBJECTIVE: Patient seen and examined. left leg symptoms with some improvement. Pain better with current regimen. OBJECTIVE: Vital Signs Period Temp Pulse Resp BP Sys/Santana Pulse Ox Last 24 Hr 98.7 F-99.5 F 68-80 20-24 145-153/75-97 95-97 Intake & Output 05/27/19 05/27/19 05/28/19 05/29/19 00:59 23:59 23:59 23:59 Intake Total 1050 250 Output Total Balance 1050 250 General: lying in bed in no acute distress Chest: CTAB, no rales or wheezing Abdomen:soft, obese, NT Extremities: LLE edema/erythema till below knee, hyperpigmented LLE, multipple 0.5 cm ulcers with sanguinous discharge scattered over LLE, pos DP pulses Home Medications Medication Instructions Recorded Amlodipine Besylate [Norvasc -] 10 mg PO DAILY 06/29/14 Labetalol HCl [Normodyne -] 200 mg PO BID 06/29/14 Omeprazole [Prilosec (RX)] 40 mg PO DAILY 06/29/14 Atorvastatin Ca [Lipitor] 20 mg DAILY 05/23/19 Ibuprofen [Motrin -] 600 mg Q6H 05/23/19 Active Medications Acetaminophen (Tylenol -) 650 mg PO Q4H PRN PRN Reason: PAIN LEVEL 1-5 Last Admin: 05/24/19 08:58 Dose: 650 mg Acetaminophen (Tylenol -) 325 mg PO QID PRN PRN Reason: PAIN LEVEL 6-10 Last Admin: 05/28/19 10:57 Dose: 325 mg Amlodipine Besylate (Norvasc -) 10 mg PO DAILY [facility] Last Admin: 05/28/19 10:03 Dose: 10 mg Atorvastatin Calcium (Lipitor -) 20 mg PO HS [facility] Last Admin: 05/29/19 00:39 Dose: 20 mg Enoxaparin Sodium (Lovenox -) 40 mg SQ DAILY [facility] Last Admin: 05/28/19 10:03 Dose: 40 mg Ceftriaxone Sodium 2 gm/ (Dextrose) 100 mls @ 200 mls/hr IVPB DAILY [facility]; Protocol Last Admin: 05/28/19 12:08 Dose: 200 mls/hr Clindamycin Phosphate (Cleocin 600 Mg Premix Ivpb -) 600 mg in 50 mls @ 100 mls /hr IVPB Q8H-IV [facility]; Protocol Last Admin: 05/29/19 01:08 Dose: 100 mls/hr Ibuprofen (Motrin -) 600 mg PO Q6H PRN PRN Reason: FEVER Last Admin: 05/27/19 17:58 Dose: 600 mg Labetalol HCl (Normodyne -) 200 mg PO BID [facility] Last Admin: 05/29/19 00:39 Dose: 200 mg Lisinopril (Prinivil) 10 mg PO DAILY [facility] Last Admin: 05/28/19 10:03 Dose: 10 mg Oxycodone HCl (Roxicodone -) 5 mg PO QID PRN PRN Reason: PAIN LEVEL 6-10 Last Admin: 05/28/19 10:53 Dose: 5 mg Pantoprazole Sodium (Protonix -) 40 mg PO DAILY [facility] Last Admin: 05/28/19 10:03 Dose: 40 mg Laboratory Results - last 24 hr 05/28/19 05/28/19 05/29/19 06:58 06:58 07:05 WBC 6.8 RBC 5.07 Hgb 14.3 Hct 42.6 MCV 83.9 MCH 28.3 MCHC 33.7 RDW 15.0 Plt Count 386 MPV 7.9 Absolute Neuts (auto) 4.8 Neutrophils % 70.4 Lymphocytes % 12.0 Monocytes % 11.3 H Eosinophils % 5.6 H D Basophils % 0.7 Nucleated RBC % 0 Sodium 139 139 Potassium 4.2 4.2 Chloride 107 106 Carbon Dioxide 26 27 Anion Gap 5 L 6 L BUN 11.3 11.7 Creatinine 0.9 1.0 Est GFR (CKD-EPI)AfAm 125.13 110.17 Est GFR (CKD-EPI)NonAf 107.97 95.05 Random Glucose 84 83 Calcium 8.8 9.4 Magnesium 2.1 Microbiology 05/23/19 17:06 Blood - Peripheral Venous Blood Culture - Final NO GROWTH AFTER 5 DAYS INCUBATION 05/23/19 17:06 Blood - Peripheral Venous Blood Culture - Final NO GROWTH AFTER 5 DAYS INCUBATION 05/28/19 10:25 Leg - Left Upper Gram Stain - Final 05/23/19 17:21 Leg - Left Lower Gram Stain - Final 05/23/19 17:21 Leg - Left Lower Wound Culture - Final Serratia Marcescens Staphylococcus Coagulase Neg LE duplex: Superficial thrombosis of the greater sephanous vein ASSESSMENT AND PLAN: 39 year old male with Chronic Lymphedema LEs, Bilateral LE Venous Stasis, 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 Rangel, HTN, HLD, GERD , presents with Left LE warmth, erythema, swelling, without improvement on Amoxicillin given by PCP. -LLE cellulitis with ulceration/soft tissue abscess -Superficial thrombosis left sephanous vein -Chronic lymphedema -HTN -GERD -HLD -Morbid obesity Plan: ID/vascular surgery input noted. Ceftriaxone/vancomycin, monitor levels. Wound cx noted. No surgical intervention per Dr. Rangel. Follow up ID recs for abx taper Compression wraps/lymph pumps as per Vascular Sx Wound Care/Vascular clinic follow up. Pain control, motrin/tylenol. taper opioids Continue labetalol/norvasc (?compliance at home). Started on low dose lisinopril. Outpatient renal Function monitoring. Continue PPI/statin DVTPPX lovenox Dispo pending clinical improvement and ID input Discussed with patient.
[2019-05-29] MEDS: oxyCODONE HCL 5 MG TABLET PO PRN (08:22)
[2019-05-29] MEDS: ACETAMINOPHEN 325 MG TABLET (FP) PO PRN (08:25)
[2019-05-29] MEDS: PANTOPRAZOLE 40 MG TABLET (FP) PO SCH (09:57)
[2019-05-29] MEDS: ENOXAPARIN NA (PORCINE) 40 MG/0.4 ML DISP.SYRIN SQ SCH (09:57)
[2019-05-29] MEDS: LISINOPRIL 10 MG TABLET (FP) PO SCH (09:57)
[2019-05-29] MEDS: amLODIPine BESYLATE 10 MG TABLET (FP) PO SCH (09:57)
[2019-05-29] MEDS: CEFTRIAXONE 2 GM in DEXTROSE 5%-WATER 100 ML IVPB SCH (10:44)
--- NOTE | 2019-05-29 11:55 | PN ---
Physical Exam: SUBJECTIVE: Patient seen and examined. No acute events overnight. Pt's LLE pain is improving. He denies any fevers or chills. OBJECTIVE: Vital Signs Period Temp Pulse Resp BP Sys/Santana Pulse Ox Last 24 Hr 98.7 F-99.5 F 68-78 20-24 145-149/75-97 95 GENERAL: The patient is awake, alert, and fully oriented, in no acute distress. HEAD: Normal with no signs of trauma. EYES: PERRL, extraocular movements intact, sclera anicteric, conjunctiva clear. No ptosis. ENT: Ears normal, nares patent, oropharynx clear without exudates, moist mucous membranes. NECK: Trachea midline, full range of motion, supple. LUNGS: Breath sounds equal, clear to auscultation bilaterally, no wheezes, no crackles, no accessory muscle use. HEART: Regular rate and rhythm, S1, S2 without murmur, rub or gallop. ABDOMEN: Soft, nontender, nondistended, normoactive bowel sounds, no guarding, no rebound, no hepatosplenomegaly, no masses. EXTREMITIES: 2+ pulses, warm. LLE: +multiple punched-out ulcers on the lateral leg, +tender ulcer on the medial side draining purulent and bloody discharge. +b /l lymphedema NEUROLOGICAL: Cranial nerves II through XII grossly intact. Normal speech, gait not observed. PSYCH: Normal mood, normal affect. SKIN: Warm, dry, normal turgor, no rashes or lesions noted Laboratory Results - last 24 hr 05/29/19 05/29/19 07:05 07:05 WBC 6.4 RBC 5.07 Hgb 14.5 Hct 42.4 MCV 83.6 MCH 28.6 MCHC 34.2 RDW 14.7 Plt Count 398 MPV 7.8 Sodium 139 Potassium 4.2 Chloride 106 Carbon Dioxide 27 Anion Gap 6 L BUN 11.7 Creatinine 1.0 Est GFR (CKD-EPI)AfAm 110.17 Est GFR (CKD-EPI)NonAf 95.05 Random Glucose 83 Calcium 9.4 Active Medications Acetaminophen (Tylenol -) 650 mg PO Q4H PRN PRN Reason: PAIN LEVEL 1-5 Last Admin: 05/24/19 08:58 Dose: 650 mg Acetaminophen (Tylenol -) 325 mg PO QID PRN PRN Reason: PAIN LEVEL 6-10 Last Admin: 05/29/19 08:25 Dose: 325 mg Amlodipine Besylate (Norvasc -) 10 mg PO DAILY [facility] Last Admin: 05/29/19 09:57 Dose: 10 mg Atorvastatin Calcium (Lipitor -) 20 mg PO HS [facility] Last Admin: 05/29/19 00:39 Dose: 20 mg Enoxaparin Sodium (Lovenox -) 40 mg SQ DAILY [facility] Last Admin: 05/29/19 09:57 Dose: 40 mg Ceftriaxone Sodium 2 gm/ (Dextrose) 100 mls @ 200 mls/hr IVPB DAILY [facility]; Protocol Last Admin: 05/29/19 10:44 Dose: 200 mls/hr Clindamycin Phosphate (Cleocin 600 Mg Premix Ivpb -) 600 mg in 50 mls @ 100 mls /hr IVPB Q8H-IV [facility]; Protocol Last Admin: 05/29/19 09:58 Dose: 100 mls/hr Ibuprofen (Motrin -) 600 mg PO Q6H PRN PRN Reason: FEVER Last Admin: 05/27/19 17:58 Dose: 600 mg Labetalol HCl (Normodyne -) 200 mg PO BID [facility] Last Admin: 05/29/19 09:57 Dose: 200 mg Lisinopril (Prinivil) 10 mg PO DAILY [facility] Last Admin: 05/29/19 09:57 Dose: 10 mg Oxycodone HCl (Roxicodone -) 5 mg PO QID PRN PRN Reason: PAIN LEVEL 6-10 Last Admin: 05/29/19 08:22 Dose: 5 mg Pantoprazole Sodium (Protonix -) 40 mg PO DAILY [facility] Last Admin: 05/29/19 09:57 Dose: 40 mg ASSESSMENT/PLAN: 39 y/o male with PMH of LE lymphedema more significant on the Left , previous LE cellulitis ( last episode 1 yr ago),HTN, HLD, GERD came to the ED because of worsening left leg swelling associated with warmth, erythema,tenderness. admitted for left leg cellulitis with failed outpatient treatment. #Acute LLE cellulitis s/p venous ablation x1 week ago Wound culture: polymicrobrial including serratia, staph coag neg, non- lactose fermenting gram neg Blood cx: neg LE venous duplex: superficial thrombosis, no DVT ID (Dr. Cruz) following - Increase ceftriaxone to 2gm daily (Day 6) - Add clindamycin 600mg Q8H (Day 2) Vascular consulted (Dr. Haas): no need for acute surgical intervention at this time. - Recommends dry dressing, compression dressing when cellulitis clears. Pt should f/u with Dr. Rangel in wound care clinic. - New deep cultures taken from medial calf ESR: 18, cont to monitor Leg elevation, Xerofoam, JANEEN bandage for compression to improve drainage #HTN Cont home meds: norvasc 10mg qd, labetolol 200mg BID BP still elevated, will add low dose lisinopril Pt has questionable compliance at home. PCP hsould f/u for BP monitoring and up-titration of meds #HLD Cont atorvastatin 20mg qd #FEN Sodium controlled diet No fluids #DVT ppx Lovenox #Dispo Monitor on med-surg Visit type - Emergency Visit Emergency Visit: No - New Patient This patient is new to me today: No - Critical Care Critical Care patient: No ATTENDING PHYSICIAN STATEMENT I saw and evaluated the patient. I reviewed the resident's note and discussed the case with the resident. I agree with the resident's findings and plan as documented. SUBJECTIVE: OBJECTIVE: ASSESSMENT AND PLAN:
[2019-05-30] MEDS: CLINDAMYCIN 600MG PREMIX IVPB 600 MG/50 ML BAG IVPB SCH ×2 (00:59→11:18)
[2019-05-30] MEDS: oxyCODONE HCL 5 MG TABLET PO PRN (05:38)
[2019-05-30] MEDS: ACETAMINOPHEN 325 MG TABLET (FP) PO PRN (05:39)
--- NOTE | 2019-05-30 10:58 | PN ---
Progress Note, Physician History of Present Illness: AWAKE IN BED NO C/O L LE PAIN AFEBRILE WBC IMPROVED WNL WOUND C/S SERRATIA, SCN - Current Medication List Current Medications: Active Medications Acetaminophen (Tylenol -) 650 mg PO Q4H PRN PRN Reason: PAIN LEVEL 1-5 Last Admin: 05/24/19 08:58 Dose: 650 mg Acetaminophen (Tylenol -) 325 mg PO QID PRN PRN Reason: PAIN LEVEL 6-10 Last Admin: 05/30/19 05:39 Dose: 325 mg Amlodipine Besylate (Norvasc -) 10 mg PO DAILY [facility] Last Admin: 05/29/19 09:57 Dose: 10 mg Atorvastatin Calcium (Lipitor -) 20 mg PO HS [facility] Last Admin: 05/29/19 21:14 Dose: 20 mg Enoxaparin Sodium (Lovenox -) 40 mg SQ DAILY [facility] Last Admin: 05/29/19 09:57 Dose: 40 mg Ceftriaxone Sodium 2 gm/ (Dextrose) 100 mls @ 200 mls/hr IVPB DAILY [facility]; Protocol Last Admin: 05/29/19 10:44 Dose: 200 mls/hr Clindamycin Phosphate (Cleocin 600 Mg Premix Ivpb -) 600 mg in 50 mls @ 100 mls /hr IVPB Q8H-IV [facility]; Protocol Last Admin: 05/30/19 00:59 Dose: 100 mls/hr Ibuprofen (Motrin -) 600 mg PO Q6H PRN PRN Reason: FEVER Last Admin: 05/27/19 17:58 Dose: 600 mg Labetalol HCl (Normodyne -) 200 mg PO BID [facility] Last Admin: 05/29/19 21:14 Dose: 200 mg Lisinopril (Prinivil) 10 mg PO DAILY [facility] Last Admin: 05/29/19 09:57 Dose: 10 mg Oxycodone HCl (Roxicodone -) 5 mg PO QID PRN PRN Reason: PAIN LEVEL 6-10 Last Admin: 05/30/19 05:38 Dose: 5 mg Pantoprazole Sodium (Protonix -) 40 mg PO DAILY [facility] Last Admin: 05/29/19 09:57 Dose: 40 mg - Objective Vital Signs: Vital Signs Temperature 98.8 F 05/30/19 06:00 Pulse Rate 73 05/30/19 06:00 Respiratory Rate 20 05/30/19 06:00 Blood Pressure 139/74 05/30/19 06:00 O2 Sat by Pulse Oximetry (%) 95 05/29/19 21:00 Constitutional: Yes: No Distress, Obese Cardiovascular: Yes: Regular Rate and Rhythm, S1, S2 Respiratory: Yes: CTA Bilaterally Gastrointestinal: Yes: Normal Bowel Sounds, Soft. No: Tenderness Extremities: Yes: Other (+ L LE LYMPHEDEMA, DECREASED SWELLING/ WARMTH/ MULTIPLE SUPERFICIAL ULCERS W/O DRAINAGE) Labs: CBC, BMP 05/29/19 07:05 05/29/19 07:05 Assessment/Plan CELLULITIS/ SOFT TISSUE ABSCESSES L LE LEUKOCYTOSIS IMPROVED CHRONIC LE LYMPHEDEMA SUBSTITUTE LEVAQUIN 750MG PO QD X 7D F/U [facility]ARE [facility]
[2019-05-30] MEDS ORDERED: DEXTROSE 5%-WATER 100 ML IVPB ONE (11:06)
[2019-05-30] MEDS: PANTOPRAZOLE 40 MG TABLET (FP) PO SCH (11:17)
[2019-05-30] MEDS: LABETALOL HCL 200 MG TABLET (FP) PO SCH (11:17)
[2019-05-30] MEDS: amLODIPine BESYLATE 10 MG TABLET (FP) PO SCH (11:17)
[2019-05-30] MEDS: CEFTRIAXONE 2 GM in DEXTROSE 5%-WATER 100 ML IVPB SCH (11:17)
[2019-05-30] MEDS: ENOXAPARIN NA (PORCINE) 40 MG/0.4 ML DISP.SYRIN SQ SCH (11:19)
[2019-05-30] MEDS: LISINOPRIL 10 MG TABLET (FP) PO SCH (11:22)
--- NOTE | 2019-05-30 12:30 | PN ---
Teaching Attending Note Name of Resident: Nelida Raygoza ATTENDING PHYSICIAN STATEMENT I saw and evaluated the patient. I reviewed the resident's note and discussed the case with the resident. I agree with the resident's findings and plan as documented with exceptions below. SUBJECTIVE: Patient seen and examined. Leg symptoms improved, no new complaints. OBJECTIVE: Vital Signs Period Temp Pulse Resp BP Sys/Santana Pulse Ox Last 24 Hr 98.4 F-99.2 F 73-95 20-20 136-147/64-78 95 Intake & Output 05/27/19 05/28/19 05/29/19 05/30/19 23:59 23:59 23:59 23:59 Intake Total 1050 1890 250 Output Total 300 Balance 1050 1590 250 General: lying in bed, no acute distress Chest: CTAB, no rales or wheezing Abdomen: soft, obese, NT Extremities: improved LLE erythema/swelling/tenderness, no active discharge, improved exam Microbiology 05/28/19 10:25 Leg - Left Upper Gram Stain - Final 05/28/19 10:25 Leg - Left Upper Wound Culture - Final Serratia Marcescens Staphylococcus Coagulase Neg 05/23/19 17:06 Blood - Peripheral Venous Blood Culture - Final NO GROWTH AFTER 5 DAYS INCUBATION 05/23/19 17:06 Blood - Peripheral Venous Blood Culture - Final NO GROWTH AFTER 5 DAYS INCUBATION 05/23/19 17:21 Leg - Left Lower Gram Stain - Final 05/23/19 17:21 Leg - Left Lower Wound Culture - Final Serratia Marcescens Staphylococcus Coagulase Neg ASSESSMENT AND PLAN: 39 year old male with Chronic Lymphedema LEs, Bilateral LE Venous Stasis, 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 Rangel, HTN, HLD, GERD , presents with Left LE warmth, erythema, swelling, without improvement on Amoxicillin given by PCP. -LLE cellulitis with ulceration/soft tissue abscess -Superficial thrombosis left sephanous vein -Chronic lymphedema -HTN -GERD -HLD -Morbid obesity Plan: ID/vascular surgery input noted. repeat wound cx noted. ID input noted, levaquin 750 mg for 7 more days leg elevation/Xerofoam/JANEEN dressing Wound care clinic follow up with Dr. Rangel in 1 week, discussed with patient. Continue labetalol/norvasc/low dose lisinopril. Outpatient renal Function monitoring. Continue PPI/statin Dispo dc home today with PO levaquin and outpatient PCP/wound care follow up. Discussed with patient in detail.
--- NOTE | 2019-05-30 14:28 | DS ---
Physical Exam: SUBJECTIVE: Patient seen and examined. No acute events overnight. Pt's LLE pain is improving. He denies any fevers or chills. OBJECTIVE: Vital Signs Period Temp Pulse Resp BP Sys/Santana Pulse Ox Last 24 Hr 98.4 F-98.8 F 73-95 20-20 136-146/64-78 95 PHYSICAL EXAM GENERAL: The patient is awake, alert, and fully oriented, in no acute distress. HEAD: Normal with no signs of trauma. EYES: PERRL, extraocular movements intact, sclera anicteric, conjunctiva clear. No ptosis. ENT: Ears normal, nares patent, oropharynx clear without exudates, moist mucous membranes. NECK: Trachea midline, full range of motion, supple. LUNGS: Breath sounds equal, clear to auscultation bilaterally, no wheezes, no crackles, no accessory muscle use. HEART: Regular rate and rhythm, S1, S2 without murmur, rub or gallop. ABDOMEN: Soft, nontender, nondistended, normoactive bowel sounds, no guarding, no rebound, no hepatosplenomegaly, no masses. EXTREMITIES: 2+ pulses, warm. LLE: +multiple punched-out ulcers on the lateral leg, +tender ulcer on the medial side draining purulent and bloody discharge. +b /l lymphedema NEUROLOGICAL: Cranial nerves II through XII grossly intact. Normal speech, gait not observed. PSYCH: Normal mood, normal affect. SKIN: Warm, dry, normal turgor, no rashes or lesions noted LABS HOSPITAL COURSE: Date of Admission:05/23/19 39 y/o male with PMH of LE lymphedema more significant on the Left , previous LE cellulitis ( last episode 1 yr ago), HTN, HLD, GERD came to the ED because of worsening left leg swelling associated with warmth, erythema, tenderness. He was admitted for left leg cellulitis. LE venous duplex on admission showed no evidence of DVT.Wound cultures grew serratia, staph coag neg, and non-lactose fermenting gram neg bacteria. Pt received 7 days of ceftriaxone (clindamycin was addedd for the last 3 days). Vascular was consulted (Dr. Rangel) and did not recommend any surgical intervention. Pt's BP was poorly controlled during admission. At home he is on labetolol 200mg BID and norvasc 10mg daily. We added 10mg lisinopril daily to his home regimen and he remained normotensive. Pt will be discharged with prescriptions to add lisinopril. He has remained aferbile with no leukocytosis. He is clinically stable to be discharged home with 1 week follow up with Dr. Rangel in wound care. Date of Discharge: 05/30/19 Minutes to complete discharge: 35 Discharge Summary Problems reviewed: Yes Reason For Visit: CELLULITIS AND ABSCESS OF LEFT LOWER EXTREMITY Current Active Problems Cellulitis and abscess of left lower extremity (Acute) Venous stasis ulcer (Acute) Condition: Stable - Instructions Diet, Activity, Other Instructions: You were admitted to the hospital for a skin infection and wounds on your legs. We treated you with antibiotics and pain medication. You should continue to take these antibiotics at home (instructions below). While you were here, your blood pressure was high. We prescribed you with a new medication to take at home in order to better control your blood pressure. You should take this medication IN ADDITION to your previously prescribed meds (see instructions below). Medications: - You should take Levaquin 750mg once a day for 7 days to treat your leg infection. - You should START taking Lisinopril 10mg once a day. We provided you with a prescription. - You should also CONTINUE to take Labetolol 200mg twice a day (morning and evening) and Norvasc 10mg once a day. - Resume all other home medications as prescribed. Follow-up: - Please follow up with your Infectious Disease doctor, Dr. Perez, in one week to monitor the status of your leg infection. We provided you with a referral. - Please follow up with a Wound Doctor, Dr. Rangel, in one week to monitor of your leg wounds. We provided you with a referral. Please follow up with wound care clinic on 5th floor of [facility], - Please see you primary care provider, Dr. Brito, in one week. Blood work to check your kidneys BMP (basic metabolic panel) in 1 week with him. Additional Instructions: - You should wrap your wounds with Xeroform and an JANEEN bandage for compression. - Keep your legs elevated to help with swelling and healing. Return to the emergency department if you experience increased leg pain, fevers , chills, nausea, vomiting, or any other symptoms. Referrals: Desmond Perez MD [Staff Physician] - 1 Week Simón Brito MD [Primary Care Provider] - Ellis Rangel DO [Staff Physician] - 1 Week Disposition: HOME - Home Medications Comprehensive Discharge Medication List: Ambulatory Orders Amlodipine Besylate [Norvasc -] 10 mg PO DAILY 06/29/14 Labetalol HCl [Normodyne -] 200 mg PO BID 06/29/14 Omeprazole [Prilosec (RX)] 40 mg PO DAILY 06/29/14 Atorvastatin Ca [Lipitor] 20 mg DAILY 05/23/19 Acetaminophen [Tylenol .Regular Strength -] 650 mg PO Q4H PRN tablet 05/30/19 Lisinopril 10 mg PO DAILY #30 tablet 05/30/19 levoFLOXacin [Levaquin] 750 mg PO DAILY #7 tab 05/30/19 This patient is new to me today: No Emergency Visit: No Critical Care patient: No - Discharge Referral Referred to [facility] No ATTENDING PHYSICIAN STATEMENT I saw and evaluated the patient. I reviewed the resident's note and discussed the case with the resident. I agree with the resident's findings and plan as documented. SUBJECTIVE: OBJECTIVE: ASSESSMENT AND PLAN:
[2019-05-30 15:08] VITALS: BP 129/77; PULSE 78; TEMP 98.3
== END 2019-05-30 16:33 | disposition home or self-care (01) | DRG 383 ==
LOC: JER 16:35 → JERBED 20:52 → J5S 05-24 02:44
PROVIDERS: ADMIT Internal Medicine; ATTEND Hospitalist
DX: L03.116 Cellulitis of left lower limb (principal); I89.0 Lymphedema, not elsewhere classified; D72.829 Elevated white blood cell count, unspecified; I73.9 Peripheral vascular disease, unspecified; I82.812 Embolism and thrombosis of superficial veins of left lower extremity; E66.01 Morbid (severe) obesity due to excess calories; Z68.43 Body mass index [BMI] 50.0-59.9, adult; L97.909 Non-pressure chronic ulcer of unspecified part of unspecified lower leg with unspecified severity; I10 Essential (primary) hypertension; E78.5 Hyperlipidemia, unspecified; K21.9 Gastro-esophageal reflux disease without esophagitis
CPT/HCPCS: 36415; 80048; 80053; 83605; 83735; 84100; 85025; 85027; 85651; 86140; 87040; 87070; 87186; 87205; 93005; 93010; 93971-TC; 97116-GP; 97161-GP; 99284-25; J0131; J7030

== ENCOUNTER 2019-08-06 13:03 | Inpatient (IN) | payer OTHER ==
[2019-08-06] MEDS ORDERED: ACETAMINOPHEN 1000 MG/100 ML VIAL (NON FORMULARY) IVPB ONE (14:26)
[2019-08-06] MEDS ORDERED: SODIUM CHLORIDE IV ONE (14:26)
--- NOTE | 2019-08-06 14:31 | PDOC ---
History of Present Illness - General Chief Complaint: Nausea/Vomiting Stated Complaint: NAUSEA/VOMITING Time Seen by Provider: 08/06/19 14:26 History Source: Patient Exam Limitations: No Limitations - History of Present Illness Initial Comments: 08/06/19 14:36 39 yo M with a hx of HTN and HLD presents to the emergency department with 2-3 weeks (per patient) of nausea, vomiting, fevers, and diarrhea. Per the patient, he states his children have been sick with his son recently presenting to the ED with URI. Jose having influenza vaccine. Denies pain. Denies taking anti- pyretics in the household. Per the patient, he has had 6 episodes of diarrhea today. Denies the following: SOB, headache, Ears/nose/throat pain, chest pain, abdominal pain, dysuria, hematuria, and hematochezia. 08/06/19 14:56 Past History - Past Medical History Allergies/Adverse Reactions: Allergies Allergy/AdvReac Type Severity Reaction Status Date / Time hydralazine [Hydralazine] Allergy Verified 08/06/19 13:12 Home Medications: Ambulatory Orders Amlodipine Besylate [Norvasc -] 10 mg PO DAILY 06/29/14 Labetalol HCl [Normodyne -] 200 mg PO BID 06/29/14 Omeprazole [Prilosec (RX)] 40 mg PO DAILY 06/29/14 Atorvastatin Ca [Lipitor] 20 mg DAILY 05/23/19 Acetaminophen [Tylenol .Regular Strength -] 650 mg PO Q4H PRN tablet 05/30/19 Lisinopril 10 mg PO DAILY #30 tablet 05/30/19 COPD: No GI Disorders: Yes (Gastritis, CYCLIC VOMITING SYNDROME) HTN: Yes Hypercholesterolemia: Yes - Psycho Social/Smoking Cessation Hx Smoking History: Never smoked Have you smoked in the past 12 months: Yes Number of Cigarettes Smoked Daily: 5 'Breaking Loose' booklet given: 05/24/19 Hx Alcohol Use: No Drug/Substance Use Hx: No Substance Use Type: None, Marijuana Hx Substance Use Treatment: No Review of Systems - Review of Systems Able to Perform ROS?: Yes Is the patient limited Upper Sorbian proficient: No Constitutional: Yes: Fever. No: Chills, Diaphoresis, Weakness HEENTM: No: Eye Pain, Ear Pain, Nose Pain, Tinnitus, Throat Pain, Mouth Pain Respiratory: No: Cough, Shortness of Breath, Hemoptysis Cardiac (ROS): No: Chest Pain, Lightheadedness, Palpitations, Chest Tightness ABD/GI: Yes: Diarrhea, Nausea, Poor Fluid Intake, Vomiting. No: Constipated, Poor Appetite, Rectal Bleeding, Abdominal cramping, Tarry Stools : No: Burning, Dysuria, Hematuria, Pain Musculoskeletal: No: Back Pain, Joint Pain, Neck Pain Integumentary: No: Bruising, Erythema, Rash Neurological: No: Headache, Numbness, Tingling, Tremors Psychiatric: No: Change in Appetite Endocrine: No: Unexplained Weight Gain Hematologic/Lymphatic: No: Anemia *Physical Exam - Vital Signs Last Vital Signs Temp Pulse Resp BP Pulse Ox 103.1 F H 131 H 18 140/110 H 99 08/06/19 13:07 08/06/19 13:07 08/06/19 13:07 08/06/19 13:07 08/06/19 13:07 - Physical Exam General Appearance: Yes: Nourished, Appropriately Dressed, Obese, Other (hot to touch). No: Apparent Distress, Intoxicated HEENT: positive: EOMI, HANK, Normal ENT Inspection, Normal Voice, Symmetrical, TMs Normal, Pharynx Normal, Hearing Grossly Normal. negative: Pale Conjunctivae , Scleral Icterus (R), Scleral Icterus (L), Muffled/Hoarse voice, Pharyngeal Erythema, Tonsillar Exudate, Tonsillar Erythema, Nasal Congestion, Rhinorrhea, Excessive drooling Neck: positive: Trachea midline, Supple. negative: Tender, Lymphadenopathy (R) , Lymphadenopathy (L), Tender lateral, Tender midline Respiratory/Chest: positive: Lungs Clear, Normal Breath Sounds. negative: Chest Tender, Respiratory Distress, Accessory Muscle Use Cardiovascular: positive: Regular Rhythm, S1, S2, Tachycardia. negative: Systolic Murmur Gastrointestinal/Abdominal: positive: Normal Bowel Sounds, Tender (RUQ; positive murphys sign), Flat, Soft. negative: Distended, Guarding, Rebound Lymphatic: negative: Adenopathy Musculoskeletal: positive: Normal Inspection. negative: CVA Tenderness, Vertebral Tenderness Extremity: positive: Normal Capillary Refill, Normal Inspection, Normal Range of Motion. negative: Tender, Swelling, Calf Tenderness Integumentary: positive: Normal Color, Dry, Warm, Other (hot to the touch). negative: Swelling, Ecchymosis Neurologic: positive: lead systems architect II-XII NML intact, Fully Oriented, Alert, Normal Mood/ Affect ED Treatment Course - LABORATORY CBC & Chemistry Diagram: 08/09/19 11:30 08/09/19 08:20 Medical Decision Making - Medical Decision Making 39 yo M with a hx of HTN and HLD presents to the emergency department with 2-3 weeks (per patient) of nausea, vomiting, fevers, and diarrhea. Initial vitals: Initial Vital Signs Temp Pulse Resp BP Pulse Ox 103.1 F H 131 H 18 140/110 H 99 08/06/19 13:07 08/06/19 13:07 08/06/19 13:07 08/06/19 13:07 08/06/19 13:07 Work up: patient presents to the emergency department with nausea, vomiting, diarrhea with fever (103.1) with RUQ tenderness on exam. Concerns patient is having bacterial vs viral infection. Need to rule out cholecystitis. Ddx: pancreatitis vs cholelithiasis vs cholecystitis vs colitis vs PNA vs influenza vs pyelonephritis vs UTI Laboratory Tests 08/06/19 08/06/19 08/06/19 14:55 14:55 14:55 WBC 7.2 RBC 4.78 Hgb 14.1 Hct 39.9 MCV 83.6 MCH 29.4 MCHC 35.2 RDW 16.5 H Plt Count 52 L D MPV 9.9 D Absolute Neuts (auto) 4.1 Neutrophils % 56.9 Neutrophils % (Manual) 63.0 Band Neutrophils % 5.0 Lymphocytes % 11.6 Lymphocytes % (Manual) 11.0 Monocytes % 31.1 H D Monocytes % (Manual) 19 H Eosinophils % 0.1 D Eosinophils % (Manual) 0.0 Basophils % 0.3 Basophils % (Manual) 0.0 Myelocytes % (Man) 0 Promyelocytes % (Man) 0 Blast Cells % (Manual) 0 Nucleated RBC % 1 H Metamyelocytes 0 Hypochromia 0 Platelet Estimate Decreased Polychromasia 0 Poikilocytosis 0 Anisocytosis 1+ Microcytosis 1+ Macrocytosis 0 Ovalocytes 2+ VBG pH POC VBG pCO2 POC VBG pO2 VBG HCO3 VBG O2 Sat (Lorrie) VBG Base Excess Sodium 135 L Potassium 3.0 L Chloride 102 Carbon Dioxide 23 Anion Gap 9 BUN 17.1 Creatinine 1.8 H Est GFR (CKD-EPI)AfAm 54.13 Est GFR (CKD-EPI)NonAf 46.70 Random Glucose 112 H Lactic Acid 2.0 Calcium 8.0 L Total Bilirubin 3.7 H AST 47 H ALT 82 H Alkaline Phosphatase 76 Troponin I < 0.02 Total Protein 7.6 Albumin 3.7 Lipase 129 Urine Color Urine Appearance Urine pH Ur Specific [place] Urine Protein Urine Glucose (UA) Urine Ketones Urine Blood Urine Nitrite Urine Bilirubin Urine Urobilinogen Ur Leukocyte Esterase Urine WBC (Auto) Urine RBC (Auto) Urine Casts (Auto) U Pathogenic Cast Auto U Epithel Cells (Auto) Urine Bacteria (Auto) Influenza A (Rapid) Influenza B (Rapid) 08/06/19 08/06/19 08/06/19 14:55 14:55 14:55 WBC RBC Hgb Hct MCV MCH MCHC RDW Plt Count MPV Absolute Neuts (auto) Neutrophils % Neutrophils % (Manual) Band Neutrophils % Lymphocytes % Lymphocytes % (Manual) Monocytes % Monocytes % (Manual) Eosinophils % Eosinophils % (Manual) Basophils % Basophils % (Manual) Myelocytes % (Man) Promyelocytes % (Man) Blast Cells % (Manual) Nucleated RBC % Metamyelocytes Hypochromia Platelet Estimate Polychromasia Poikilocytosis Anisocytosis Microcytosis Macrocytosis Ovalocytes VBG pH 7.47 H POC VBG pCO2 30.1 L POC VBG pO2 < 49 H VBG HCO3 21.8 L VBG O2 Sat (Lorrie) 82.7 H VBG Base Excess 0.1 Sodium Potassium Chloride Carbon Dioxide Anion Gap BUN Creatinine Est GFR (CKD-EPI)AfAm Est GFR (CKD-EPI)NonAf Random Glucose Lactic Acid Calcium Total Bilirubin AST ALT Alkaline Phosphatase Troponin I Total Protein Albumin Lipase Urine Color Orla Urine Appearance Turbid Urine pH 5.5 Ur Specific [place] 1.035 Urine Protein 3+ H Urine Glucose (UA) Negative Urine Ketones Negative Urine Blood 2+ H Urine Nitrite Positive H Urine Bilirubin 1+ H Urine Urobilinogen 1.0 Ur Leukocyte Esterase Negative Urine WBC (Auto) 6 Urine RBC (Auto) 4.3 Urine Casts (Auto) 76 U Pathogenic Cast Auto Moderate U Epithel Cells (Auto) 14.6 Urine Bacteria (Auto) 1.4 Influenza A (Rapid) Negative Influenza B (Rapid) Negative No leukocytosis noted. Hypokalemia with TARSHA. ALT and AST elevated with a total bili of 3.7; concerning for cholecystitis. Lactic acid 2.0 and lipase negative. While UA has positive nitritie, only 6 WBC and negative leuk esterase making UTI unlikely. Influenza negative RUQ US shows multiple gallstones with thickening of the GB (9mm) with per- cholecystitc fluid that are suggestive of acute cholecystitis. CXR negative for acute process. EKG: ventricular rate is 102 bpm, NE is 144 ms, QRS is 96 ms, and QTc is 430 ms. Sinus tachycardia without ST elevations or depressions. Patient to be admitted for acute cholecystitis likely needing surgical intervention. Patient was endorsed to admitting team and accepted for admission. Discharge - Discharge Information Problems reviewed: Yes Clinical Impression/Diagnosis: Hyperbilirubinemia, Cholecystitis Disposition: OTHER HEALTHCARE NOT DEFINED - Follow up/Referral - Patient Discharge Instructions - Post Discharge Activity
[2019-08-06] MEDS ORDERED: ONDANSETRON 4 MG/2 ML VIAL IVPUSH ONE (14:33)
[2019-08-06] MEDS ORDERED: ALBUTEROL SO4 2.5/IPRATROPIUM 0.5 INH SOL 3 ML VIAL.NEB. NEB ONE ×2 (14:33→14:36)
[2019-08-06] MEDS ORDERED: ONDANSETRON 4 MG/2 ML VIAL ONE (14:36)
[2019-08-06] MEDS ORDERED: ACETAMINOPHEN INJECTION 100 ML IVPB ONE (14:36)
[2019-08-06 15:32] LABS: BASO % 0.3 % (0-2.0); EOS % 0.1 % (0-4.5); HEMATOCRIT 39.9 % (35.4-49); HEMOGLOBIN 14.1 GM/dL (11.7-16.9); LYMPH % 11.6 % (8-40); MCH 29.4 pg (25.7-33.7); MCHC 35.2 g/dl (32.0-35.9); MEAN CELL VOLUME 83.6 fl (80-96); MEAN PLT VOLUME 9.9 fl (7.5-11.1); MONO % 31.1 % (3.8-10.2); NEUT % 56.9 % (42.8-82.8); PLATELET COUNT 52 K/MM3 (134-434); RBC 4.78 M/mm3 (4.00-5.60); RDW 16.5 % (11.9-15.9); WHITE BLOOD COUNT 7.2 K/mm3 (4.0-10.0)
[2019-08-06 15:45] LABS: VENOUS PC02 30.1 mmHg (38-52); VENOUS PH 7.47 (7.31-7.41)
[2019-08-06 15:46] LABS: VENOUS PO2 < 49 mmHg (28-48)
[2019-08-06 15:49] LABS: EPI CELLS 14.6 /HPF (0-5/HPF); HYALINE CASTS 76 /lpf (0-8); PH,URINE 5.5 (5.0-8.0); URINE APPEARANCE TURBID; URINE BILIRUBIN 1+ (NEGATIVE); URINE COLOR ORANGE; URINE GLUCOSE (UA) NEGATIVE (NEGATIVE); URINE KETONE NEGATIVE (NEGATIVE); URINE LEUK ESTERASE NEGATIVE (NEGATIVE); URINE NITRITE POSITIVE (NEGATIVE); URINE PROTEIN 3+ (NEGATIVE); URINE WBC 6 /hpf (0-5)
[2019-08-06 15:59] LABS: ALBUMIN 3.7 g/dl (3.4-5.0); ALK PHOS 76 U/L (45-117); ANION GAP 9 MMOL/L (8-16); BILIRUBIN,TOTAL 3.7 mg/dL (0.2-1); BLOOD UREA NITROGEN 17.1 mg/dL (7-18); CHLORIDE 102 mmol/L (98-107); CO2 23 mmol/L (21-32); CREATININE 1.8 mg/dL (0.55-1.3); GLUCOSE,RANDOM 112 mg/dL (74-106); SGOT/AST 47 U/L (15-37); SGPT/ALT 82 U/L (13-61); SODIUM 135 mmol/L (136-145); TOT PROT 7.6 g/dl (6.4-8.2)
[2019-08-06] MEDS ORDERED: PIPERACILLIN/TAZOB 3.375 GM 3.375 GM in DEXTROSE 5%-WATER - 50 ML IVPB ONE (16:13)
[2019-08-06] MEDS ORDERED: METOCLOPRAMIDE HCL INJECTION 10 MG/2 ML VIAL IVPUSH ONE (16:18)
[2019-08-06 16:44] LABS: ANISOCYTOSIS 1+; MACROCYTOSIS 0; OVALOCYTE 2+; PLATELET ESTIMATE DECREASED
--- NOTE | 2019-08-06 16:51 | PDOC ---
Documentation entered by María Elena Guy SCRIBE, acting as scribe for Corona Linton MD. Corona Linton MD: This documentation has been prepared by the Malena bender Xhesika, SCRIBE, under my direction and personally reviewed by me in its entirety. I confirm that the documentation accurately reflects all work, treatment, procedures, and medical decision making performed by me. Attending Attestation - Resident Resident Name: Ace Otero - ED Attending Attestation I have performed the following: I have examined & evaluated the patient, The case was reviewed & discussed with the resident, I agree w/resident's findings & plan, Exceptions are as noted - HPI HPI: 08/06/19 16:28 The patient is a 39 year old male with a past medical history of HTN and HLD who presents to the ED with 1 week of nausea, vomiting, diarrhea and fever. Pt states he has been vomiting up phlegm and endorsed 6 episodes of diarrhea today. Pt states his son has been having URI symptoms. The patient denies chest pain, shortness of breath, and dizziness. Denies chills , cough. Denies dysuria, frequency, urgency and hematuria. Allergy:Hydralazine Social: Denies alcohol, cigarette or drug use. - Physicial Exam PE: 08/06/19 16:28 Vitals: Triage Vital signs reviewed General Appearance: no acute distress, +morbidly obese. Chest Wall: Nontender Cardiac: Regular rate and rhythm, no murmurs, no rubs, no gallops, Lungs: Clear to auscultation bilateral, good air movement bilaterally, Abdomen: Soft, nondistended, normal bowel sounds. +RUQ pain to deep palpation. Extremities: Full range of motion to all extremities, no cyanosis, clubbing, or edema Skin: Warm and dry, no rashes or lesions, no petechiae Neuro: AOX3; Cranial Nerves 2-12 grossly c intact, Strength intact to all extremities, Sensation intact to all extremities Psych: normal mood, normal affect - Medical Decision Making 08/06/19 17:3Fever nausea vomiting diarrhea Labs notable for elevated LFTs elevated bili Lipase added on patient ultrasound pending Apparently covered with broad-spectrum antibiotics Dr. Ascencio to follow-up results and dispo
[2019-08-06 17:03] LABS: URINE BACTERIA 1.4 /hpf (NEGATIVE); URINE RBC 4.3 /hpf (0-4)
[2019-08-06] MEDS ORDERED: METOCLOPRAMIDE HCL INJECTION 10 MG/2 ML VIAL ONE (17:54)
[2019-08-06] MEDS ORDERED: PIPERACILLIN/TAZOB 3.375 GM 3.375 GM/50 ML BAG IVPB ONE (17:55)
[2019-08-06] MEDS: KCL 10 MEQ IVPB 10 MEQ/100 ML INFUS.BAG IVPB SCH ×2 (17:56→19:07)
[2019-08-06] MEDS ORDERED: KCL 10 MEQ IVPB 10 MEQ/100 ML INFUS.BAG IVPB ONE ×2 (17:57→19:02)
[2019-08-06 18:27] LABS: LIPASE 129 U/L (73-393)
[2019-08-06] MEDS ORDERED: IBUPROFEN 600 MG TABLET (FP) PO ONE (18:31)
[2019-08-06] MEDS ORDERED: ACETAMINOPHEN 650 MG/20.3 ML ORAL SOLUTION (CUPS) PO ONE (18:32)
[2019-08-06] MEDS ORDERED: ACETAMINOPHEN 325 MG TABLET (FP) ONE (19:02)
--- NOTE | 2019-08-06 20:03 | HP ---
CHIEF COMPLAINT: Nausea, vomiting, and diarrhea for the past 1 week Productive cough for the past 2-3 weeks PCP: Dr. Brito HISTORY OF PRESENT ILLNESS: This is a 39 year old male with PMH of HTN, HLD, LE lymphedema, and recent cellulitis (was admitted [facility] 05/23-05/30). He presented to the ER with complaints of nausea, vomiting, and diarrhea for the past 1 week He has had more than 6 episodes of non bloody diarrhea and more than 3 episodes of clear, NBNB vomiting (described as mostly saliva) per day. He endorses, occasional chills but no fevers, and denies any abdominal pain, dysuria, polyuria, hematuria, dizziness. He has not taken any new medications, and his last antibiotic use was while admitted to [facility] 05/24-05/30 (Ceftriaxone and Clindamycin). He has also had a productive cough for the past 2-3 weeks. He denies any recent illnesses, although his son, who lives with him, has had a flu like viral illness for the past 2 weeks. He has taken Mucinex for the cough. He endorses SOB, but no chest pain, palpitations, or wheezing. Most recently he was admitted 05/24 to 05/30 for left LE cellulitits, and was treated with Ceftriaxone for 7 days and Clindamycin for 3 days. ER course was notable for: (1) RUQ US: Suggestive of cholecystitis, CXR clear (2) Started on Zosyn (3) LFTs and Bili elevated Recent Travel: None PAST MEDICAL HISTORY: HTN, HLD, Lymphedema PAST SURGICAL HISTORY: Multiple LE venous ablation, last one in April Left knee tendon repair Family Hx: Mother and father both have a hx of gallstones Mother has DM Social History: Smokin-5 cigarettes per day for 1 year Alcohol: Drinks over 5,6 units on the weekends Drugs: Former marijuana smoker Allergies hydralazine [Hydralazine] Allergy (Verified 08/06/19 13:12) HOME MEDICATIONS: Home Medications Medication Instructions Recorded Amlodipine Besylate [Norvasc -] 10 mg PO DAILY 06/29/14 Labetalol HCl [Normodyne -] 200 mg PO BID 06/29/14 Omeprazole [Prilosec (RX)] 40 mg PO DAILY 06/29/14 Atorvastatin Ca [Lipitor] 20 mg DAILY 10/30/19 Acetaminophen [Tylenol .Regular 650 mg PO Q4H PRN tablet 05/30/19 Strength -] Lisinopril 10 mg PO DAILY #30 tablet 05/30/19 levoFLOXacin [Levaquin] 750 mg PO DAILY #7 tab 05/30/19 REVIEW OF SYSTEMS CONSTITUTIONAL: Chills Absent: fever, chills, diaphoresis, generalized weakness, malaise, loss of appetite, weight change HEENT: Absent: rhinorrhea, nasal congestion, throat pain, throat swelling, difficulty swallowing, mouth swelling, ear pain, eye pain, visual changes CARDIOVASCULAR: SOB Absent: chest pain, syncope, palpitations, irregular heart rate, lightheadedness , peripheral edema RESPIRATORY: Cough Absent: cough, shortness of breath, dyspnea with exertion, orthopnea, wheezing, stridor, hemoptysis GASTROINTESTINAL: nausea, vomiting, diarrhea Absent: abdominal pain, abdominal distension, constipation, melena, hematochezia GENITOURINARY: Absent: dysuria, frequency, urgency, hesitancy, hematuria, flank pain, genital pain MUSCULOSKELETAL: Absent: myalgia, arthralgia, joint swelling, back pain, neck pain SKIN: Absent: rash, itching, pallor HEMATOLOGIC/IMMUNOLOGIC: Absent: easy bleeding, easy bruising, lymphadenopathy, frequent infections ENDOCRINE: Absent: unexplained weight gain, unexplained weight loss, heat intolerance, cold intolerance NEUROLOGIC: Absent: headache, focal weakness or paresthesias, dizziness, unsteady gait, seizure, mental status changes, bladder or bowel incontinence PSYCHIATRIC: Absent: anxiety, depression, suicidal or homicidal ideation, hallucinations. PHYSICAL EXAMINATION Vital Signs - 24 hr 08/06/19 08/06/19 13:07 18:24 Temperature 103.1 F H 102.8 F H Pulse Rate 131 H Pulse Rate [ 99 H Right] Respiratory 18 20 Rate Blood Pressure 140/110 H Blood Pressure 133/74 [Right Arm] O2 Sat by Pulse 99 98 Oximetry (%) GENERAL: AOX3 HEAD: Normal with no signs of trauma. EYES: TOMMY, EOMI, Scleral icterus EARS, NOSE, THROAT: Patient unwilling to open mouth due to nausea LUNGS: Clear B/L, no cough or wheezing HEART: Regular rate and rhythm, normal S1 and S2 without murmur, rub or gallop. ABDOMEN: Soft, nontender, non distended, normoactive bowel sounds, Latham's negative MUSCULOSKELETAL: Limited ROm due to body habitus LOWER EXTREMITIES: B/L 1+ edema NEUROLOGICAL: Motor 5/5, sensations intact PSYCHIATRIC: Cooperative. Good eye contact. Appropriate mood and affect. SKIN: Warm, dry, normal turgor, no rashes or lesions noted, normal capillary refill. Laboratory Results - last 24 hr 08/06/19 08/06/19 08/06/19 14:55 14:55 14:55 WBC 7.2 RBC 4.78 Hgb 14.1 Hct 39.9 MCV 83.6 MCH 29.4 MCHC 35.2 RDW 16.5 H Plt Count 52 L D MPV 9.9 D Absolute Neuts (auto) 4.1 Neutrophils % 56.9 Neutrophils % (Manual) 63.0 Band Neutrophils % 5.0 Lymphocytes % 11.6 Lymphocytes % (Manual) 11.0 Monocytes % 31.1 H D Monocytes % (Manual) 19 H Eosinophils % 0.1 D Eosinophils % (Manual) 0.0 Basophils % 0.3 Basophils % (Manual) 0.0 Myelocytes % (Man) 0 Promyelocytes % (Man) 0 Blast Cells % (Manual) 0 Nucleated RBC % 1 H Metamyelocytes 0 Hypochromia 0 Platelet Estimate Decreased Polychromasia 0 Poikilocytosis 0 Anisocytosis 1+ Microcytosis 1+ Macrocytosis 0 Ovalocytes 2+ VBG pH POC VBG pCO2 POC VBG pO2 VBG HCO3 VBG O2 Sat (Lorrie) VBG Base Excess Sodium 135 L Potassium 3.0 L Chloride 102 Carbon Dioxide 23 Anion Gap 9 BUN 17.1 Creatinine 1.8 H Est GFR (CKD-EPI)AfAm 54.13 Est GFR (CKD-EPI)NonAf 46.70 Random Glucose 112 H Lactic Acid 2.0 Calcium 8.0 L Total Bilirubin 3.7 H AST 47 H ALT 82 H Alkaline Phosphatase 76 Troponin I < 0.02 Total Protein 7.6 Albumin 3.7 Lipase 129 Urine Color Urine Appearance Urine pH Ur Specific [place] Urine Protein Urine Glucose (UA) Urine Ketones Urine Blood Urine Nitrite Urine Bilirubin Urine Urobilinogen Ur Leukocyte Esterase Urine WBC (Auto) Urine RBC (Auto) Urine Casts (Auto) U Pathogenic Cast Auto U Epithel Cells (Auto) Urine Bacteria (Auto) Influenza A (Rapid) Influenza B (Rapid) 01/08/06/19 08/06/19 14:55 14:55 14:55 WBC RBC Hgb Hct MCV MCH MCHC RDW Plt Count MPV Absolute Neuts (auto) Neutrophils % Neutrophils % (Manual) Band Neutrophils % Lymphocytes % Lymphocytes % (Manual) Monocytes % Monocytes % (Manual) Eosinophils % Eosinophils % (Manual) Basophils % Basophils % (Manual) Myelocytes % (Man) Promyelocytes % (Man) Blast Cells % (Manual) Nucleated RBC % Metamyelocytes Hypochromia Platelet Estimate Polychromasia Poikilocytosis Anisocytosis Microcytosis Macrocytosis Ovalocytes VBG pH 7.47 H POC VBG pCO2 30.1 L POC VBG pO2 < 49 H VBG HCO3 21.8 L VBG O2 Sat (Lorrie) 82.7 H VBG Base Excess 0.1 Sodium Potassium Chloride Carbon Dioxide Anion Gap BUN Creatinine Est GFR (CKD-EPI)AfAm Est GFR (CKD-EPI)NonAf Random Glucose Lactic Acid Calcium Total Bilirubin AST ALT Alkaline Phosphatase Troponin I Total Protein Albumin Lipase Urine Color [place] Urine Appearance Turbid Urine pH 5.5 Ur Specific [place] 1.035 Urine Protein 3+ H Urine Glucose (UA) Negative Urine Ketones Negative Urine Blood 2+ H Urine Nitrite Positive H Urine Bilirubin 1+ H Urine Urobilinogen 1.0 Ur Leukocyte Esterase Negative Urine WBC (Auto) 6 Urine RBC (Auto) 4.3 Urine Casts (Auto) 76 U Pathogenic Cast Auto Moderate U Epithel Cells (Auto) 14.6 Urine Bacteria (Auto) 1.4 Influenza A (Rapid) Negative Influenza B (Rapid) Negative ASSESSMENT/PLAN: 39M with PMH of HTN, HLD, LE lymphedema, and recent cellulitis (was admitted [facility] 05/23-05/30), presented to the ER with nausea, vomiting, and diarrhea for the past 1 week and a productive cough for the past 2-3 weeks. Admitted for suspected cholecystitis. #Cholecystitis - Sepsis 2/2 cholecystitis: SIRS 2/4 Fever 103, HR 130 - AST 47 ALT 82 Bili 3.7 - WBC 7.2, LA 2.0 - RUQ US: Suggestive of acute cholecystitis as well as fatty infiltration vs HCC - Started on Levofloxaci 750mg and Metronidazole 500mg Q8 - Zofran, Reglan for nausea - Surgery consult (Dr. Reyes) placed, revised cardiac risk index is 0 #TARSHA - UA: Protein 3+, Blood 2+, Bili 1+, Nitrite + - Cr 1.8 (baseline around 1.0), Gfr 54.3 - Hydrating with N/S #Cough - Productive, viral bronchitis vs - CXR normal - VBG: pH 7.47, CO2 30.1, O2 49, HCO3 21.8 #Thrombocytopenia - F/U CBC in AM #FEN - K 3.0, given 30meq KCl in ER and then mixed with N/S - Na 135 - Ca 8.0 (corrected 8.2) - N/S @ 100 started - NPO pending surgery consult #DVT Prophylaxis - SCDs Visit type - Emergency Visit Emergency Visit: Yes ED Registration Date: 08/06/19 Care time: The patient presented to the Emergency Department on the above date and was hospitalized for further evaluation of their emergent condition. - New Patient This patient is new to me today: Yes Date on this admission: 08/07/19 - Critical Care Critical Care patient: No ATTENDING PHYSICIAN STATEMENT I saw and evaluated the patient. I reviewed the resident's note and discussed the case with the resident. I agree with the resident's findings and plan as documented. SUBJECTIVE: OBJECTIVE: ASSESSMENT AND PLAN:
[2019-08-06] MEDS ORDERED: SODIUM CHLORIDE 1,000 ML IV SCH (20:45)
--- NOTE | 2019-08-07 00:03 | PN ---
Teaching Attending Note Name of Resident: Champ Gao ATTENDING PHYSICIAN STATEMENT I saw and evaluated the patient. I reviewed the resident's note and discussed the case with the resident. I agree with the resident's findings and plan as documented. SUBJECTIVE: 39 yo Morbidly obese man presents w/ 2 wks nausea, vomiting, fevers, and Multiple episodes of diarrhea, up to 6 episodes a day nonbloody. Suspected to have acute cholecystitis in the emergency room, treated with 1 dose of Zosyn IV. OBJECTIVE: Last Vital Signs Temp Pulse Resp BP Pulse Ox 102.8 F H 99 H 20 133/74 98 08/06/19 18:24 08/06/19 18:24 08/06/19 18:24 08/06/19 18:24 08/06/19 18:24 GENERAL: Well developed, well nourished. Morbidly obese HEENT: Normocephalic, atraumatic. PERRLA, EOMI. No conjunctival pallor. Sclera are non- icteric. Dry mucous membranes NECK: Supple. Full ROM. No JVD. Carotid pulses 2+ and symmetric, without bruits. No thyromegaly. No lymphadenopathy. CARDIOVASCULAR: Regular rate and rhythm. No murmurs, rubs, or gallops. Distal pulses are 2+ and symmetric. PULMONARY: No evidence of respiratory distress. Lungs clear to auscultation bilaterally. No wheezing, rales or rhonchi. ABDOMINAL: Soft. Non-tender. Non-distended. No rebound or guarding. No organomegaly. Obese MUSCULOSKELETAL Normal range of motion at all joints. No bony deformities or tenderness. No CVA tenderness. EXTREMITIES: No cyanosis. No clubbing. No edema. No calf tenderness. SKIN: Warm and dry. Normal capillary refill. No rashes. No jaundice. PSYCHIATRIC: Cooperative. Good eye contact. Appropriate mood and affect. Abnormal Lab Results 08/06/19 08/06/19 08/06/19 14:55 14:55 14:55 RDW 16.5 H Plt Count 52 L D Monocytes % 31.1 H D Monocytes % (Manual) 19 H Nucleated RBC % 1 H VBG pH POC VBG pCO2 POC VBG pO2 VBG HCO3 VBG O2 Sat (Lorrie) Sodium 135 L Potassium 3.0 L Creatinine 1.8 H Random Glucose 112 H Calcium 8.0 L Total Bilirubin 3.7 H AST 47 H ALT 82 H Urine Protein 3+ H Urine Blood 2+ H Urine Nitrite Positive H Urine Bilirubin 1+ H 08/06/19 14:55 RDW Plt Count Monocytes % Monocytes % (Manual) Nucleated RBC % VBG pH 7.47 H POC VBG pCO2 30.1 L POC VBG pO2 < 49 H VBG HCO3 21.8 L VBG O2 Sat (Lorrie) 82.7 H Sodium Potassium Creatinine Random Glucose Calcium Total Bilirubin AST ALT Urine Protein Urine Blood Urine Nitrite Urine Bilirubin Imaging studies reviewed Ultrasound of abdomenhepatomegaly with mild fatty infiltrate versus hepatocellular disease. Multiple gallstones again seen with interval significant thickening of the gallbladder wall and trace of isaac-cholecystic free fluid, findings suggestive of acute cholecystitis. ASSESSMENT AND PLAN: Severe Sepsis With TARSHA, thrombocytopenia secondary to acute cholecystitis with high fever of 103.1 Fahrenheit, tachycardia. Should rule out infectious diarrhea as a cause of sepsis as patient is having up to 6 BMs per day. Admit to [facility] Blood cultures x2 Urine cultures Levofloxacin 750 mg IV every 24 hours Metronidazole 500 mg IV every 8 hours Surgery consult PT, PTT, type and screen Pain control with morphine IV as needed Zofran IV if nausea or vomiting Imodium for diarrhea Send stool for C. difficile, culture, ova and parasites, leukocytes #Transaminitis with cholestatic pattern with high bilirubin, high ALT. Likely secondary to underlying cholecystitis. Trend LFTs Avoid hepatotoxins Treat underlying cholecystitis #Thrombocytopenialikely secondary to underlying sepsis Trend CBC #AKImay be secondary to sepsis I's and O's Daily weights Avoid nephrotoxins Renal sonogram IV fluid hydration #Hypokalemiamay be secondary to diarrhea Replete potassium and repeat #Hypertensioncontinue home dose amlodipine, labetalol, lisinopril #GERD continue with omeprazole 40 mg p.o. daily SCDs for DVT prophylaxis
[2019-08-07] MEDS ORDERED: ONDANSETRON 4 MG/2 ML VIAL IVPUSH PRN ×2 (05:45→14:00)
[2019-08-07] MEDS ORDERED: LOPERAMIDE HCL 2 MG CAPSULE PO PRN ×2 (05:53→14:00)
[2019-08-07] MEDS ORDERED: KCL 10 MEQ IVPB 10 MEQ/100 ML INFUS.BAG IVPB SCH (06:00)
[2019-08-07] MEDS ORDERED: SODIUM CHLORIDE 1,000 ML with POTASSIUM CHLORIDE 40 MEQ IVPB SCH (06:30)
[2019-08-07] MEDS ORDERED: PIPERACILLIN/TAZOB 3.375 GM 3.375 GM in DEXTROSE 5%-WATER - 50 ML IVPB SCH ×3 (08:15→14:15)
[2019-08-07] MEDS ORDERED: SODIUM CHLORIDE 1,000 ML IV SCH (08:45)
--- NOTE | 2019-08-07 08:47 | PN ---
Teaching Attending Note Name of Resident: Kevin Ludwig ATTENDING PHYSICIAN STATEMENT I saw and evaluated the patient. I reviewed the resident's note and discussed the case with the resident. I agree with the resident's findings and plan as documented. SUBJECTIVE: patient is not interested in interview. he declined PE, and talking about his sx. chart reviewed. ASSESSMENT AND PLAN: 39 y/o man with h/o HTN, HLP, morbid obesity and lymphedema with recent admission for cellulitis. He presented with diarrhea and fevers. He was found to have transaminitis and sepsis. 1- Sepsis , due to acute cholecystitis and suspect ascending cholangitis: unfortunately he refused exam. - Change Abx from levaquin and flagyl to zosyn - Add IVF NS @ 150 cc/hr - Order a stat MRCP. I spoke to electrical engineering draftsperson who will accommodate - will consult GI for possible ERCP if there is a CBD stone - blood cx sent - consult ID for Abx . - monitor electrolytes - order repeat LFTs, BMP, CBC - Spoke to patient who is very upset and declined resident's exams. Refused his IVF per RN, and did not want any more care. I explained to the patient how serious his condition is if left untreated. he understands and agree to MRI, IVF and Abx. - Surgical consult to evaluate CCY, after CBD stones are r/o 2- TARSHA: likely prerenal and due to sepsis - cont IVF - repeat BMP now 3- diarrhea, could be part of the process, vs viral/bacterial - stool studies - IVF - c diff 4- DVT px: hold chemical agents for now due to possible procedure. Scds if he agrees
[2019-08-07] MEDS: SODIUM CHLORIDE 1,000 ML with POTASSIUM CHLORIDE 40 MEQ IV SCH ×2 (08:57→17:37)
--- NOTE | 2019-08-07 09:22 | CONSULT ---
- Consultation REQUESTING PROVIDER: Shanna ALLEN CONSULT REQUEST: We have been asked to surgically evaluate this patient for n/v and RUQ abdominal pain. PCP:Jerome Munguia HISTORY OF PRESENT ILLNESS: MARCIAL who is a 39 y/o morbidly obese A/A male who presented w/2 weeks of the above; he has known cholelithiasis for many years and elevated bilirubin. He denies nor will admit to any other hx. PMHx: HTN/HLD PSHx: LLE injury Home Medications Medication Instructions Recorded Amlodipine Besylate [Norvasc -] 10 mg PO DAILY 06/29/14 Labetalol HCl [Normodyne -] 200 mg PO BID 06/29/14 Omeprazole [Prilosec (RX)] 40 mg PO DAILY 06/29/14 Atorvastatin Ca [Lipitor] 20 mg DAILY 05/23/19 Acetaminophen [Tylenol .Regular 650 mg PO Q4H PRN tablet 05/30/19 Strength -] Lisinopril 10 mg PO DAILY #30 tablet 05/30/19 levoFLOXacin [Levaquin] 750 mg PO DAILY #7 tab 05/30/19 Allergies Allergy/AdvReac Type Severity Reaction Status Date / Time hydralazine [Hydralazine] Allergy Verified 08/06/19 13:12 REVIEW OF SYSTEMS: CONSTITUTIONAL: Absent: fever, chills, diaphoresis, generalized weakness, malaise, loss of appetite, weight change CARDIOVASCULAR: Absent: chest pain, syncope, palpitations, irregular heart rate, lightheadedness , peripheral edema RESPIRATORY: Absent: cough, shortness of breath, dyspnea with exertion, wheezing, stridor, hemoptysis GASTROINTESTINAL: Present: abdominal pain, abdominal distension, nausea, vomiting Absent:diarrhea , constipation, melena, hematochezia GENITOURINARY: Absent: dysuria, frequency, urgency, hesitancy, hematuria, flank pain, genital pain MUSCULOSKELETAL: Absent: myalgia, arthralgia, joint swelling, back pain, neck pain SKIN: Absent: rash, itching, pallor HEMATOLOGIC/IMMUNOLOGIC: Absent: easy bleeding, easy bruising, lymphadenopathy NEUROLOGIC: Absent: headache, focal weakness, paresthesias, dizziness, unsteady gait, seizure, mental status changes, bladder or bowel incontinence PSYCHIATRIC: Absent: anxiety, depression, suicidal or homicidal ideation, hallucinations. PHYSICAL EXAM: GENERAL: Awake, alert, and fully oriented, in no acute distress. HEAD: Normal with no signs of trauma. EYES: PERRL, sclera anicteric, conjunctiva clear. NECK: Normal ROM, supple without lymphadenopathy, JVD, or masses.s ABDOMEN: Soft, tender to deep palpation on the RUQ, not distended, normoactive bowel sounds, minimal guarding, no rebound, no masses. No organomegaly. No hernias MUSCULOSKELETAL: Normal ROM at all joints. No bony deformities or tenderness. No CVA tenderness. UPPER EXTREMITIES: 2+ pulses, warm, well-perfused. No cyanosis. Cap refill <2 seconds. No peripheral edema. LOWER EXTREMITIES: 2+ pulses, warm, well-perfused. No calf tenderness. No peripheral edema. NEUROLOGICAL: Normal speech, gait not observed. PSYCH: Cooperative. Good eye contact. Appropriate mood and affect. SKIN: Warm, dry, normal turgor, no rashes or lesions noted. Vital Signs Temperature 98 F 08/07/19 08:15 Pulse Rate 110 H 08/07/19 08:15 Respiratory Rate 20 08/07/19 08:15 Blood Pressure 173/98 H 08/07/19 08:15 O2 Sat by Pulse Oximetry (%) 98 08/07/19 08:15 Lab Results WBC 7.2 K/mm3 (4.0-10.0) 08/06/19 14:55 RBC 4.78 M/mm3 (4.00-5.60) 08/06/19 14:55 Hgb 14.1 GM/dL (11.7-16.9) 08/06/19 14:55 Hct 39.9 % (35.4-49) 08/06/19 14:55 MCV 83.6 fl (80-96) 08/06/19 14:55 MCHC 35.2 g/dl (32.0-35.9) 08/06/19 14:55 RDW 16.5 % (11.9-15.9) H 08/06/19 14:55 Plt Count 52 K/MM3 (134-434) L D 08/06/19 14:55 Sodium 135 mmol/L (136-145) L 08/06/19 14:55 Potassium 3.0 mmol/L (3.5-5.1) L 08/06/19 14:55 Chloride 102 mmol/L (98-107) 08/06/19 14:55 Carbon Dioxide 23 mmol/L (21-32) 08/06/19 14:55 Anion Gap 9 MMOL/L (8-16) 08/06/19 14:55 BUN 17.1 mg/dL (7-18) 08/06/19 14:55 Creatinine 1.8 mg/dL (0.55-1.3) H 08/06/19 14:55 Random Glucose 112 mg/dL (74-106) H 08/06/19 14:55 Calcium 8.0 mg/dL (8.5-10.1) L 08/06/19 14:55 US reviewed and previous US reports reviewed over the past 5+ years Labs reviewed; patient has had elevated bilirubin for # years as noted in the previous charts and as d/w his PCP Dr. Cira Brito and all previous US exams did not demonstrate any dilated intra and or extra hepatic ducts indicative of possible choledocholithiasis. IMP: symptomatic cholelithiasis/acute cholecystitis PLAN: Advise lap rohan possible open; r/b/t/a's d/w the patient and he wishes to proceed; informed consent to be obtained. Sal Reyes MD FACS
--- NOTE | 2019-08-07 09:26 | CON.GI ---
Consult Consult Specialty:: GI Referred by:: Dr Kevin Ludwig Reason for Consultation:: Cholecystitis - History of Present Illness History of Present Illness: Patient is a 39 y/o male with past medical history of HTN, HLD, Lower Extremity Lymphedema, and recent treatment of LE Cellulitis in 05/2019. Patient states 2 weeks ago he developed nausea accompaniedwith "phlegm" colored vomitus and non- bloody diarrhea. He denies having abdominal pain. Patient denies recent travel , but states having antibiotic use when discharged home from hospital and having night awakening with diarrhea. He says he experiences 6 episodes of diarrhea per day. He admits to having poor appetite but when he would try to hydrate himself he would develop diarrhea and unable to keep food tai, . Abdominal US shows Hepatomegaly with mild fatty infiltration vs hepatocellular disease, multiple gallstones seen with interval significant thickening of gallbladder wall and a trace of pericholecystic free fluid. Admission labs show no leukocytosis, elevated LFTs with AST 47, ALT 82, Total bilirubin 3.7. - History Source History Provided By: Caregiver Limitations to Obtaining History: No Limitations - Past Medical History Cardio/Vascular: Yes: HTN, Hyperlipdemia. No: CHF Pulmonary: No: Asthma Gastrointestinal: Yes: GERD. No: Hiatal Hernia Musculoskeletal: Yes: Other (L leg injury) - Alcohol/Substance Use Hx Alcohol Use: No - Smoking History Smoking history: Never smoked Have you smoked in the past 12 months: Yes Aproximately how many cigarettes per day: 5 - Social History ADL: Independent History of Recent Travel: No Home Medications - Allergies Allergies/Adverse Reactions: Allergies Allergy/AdvReac Type Severity Reaction Status Date / Time hydralazine [Hydralazine] Allergy Verified 08/06/19 13:12 - Home Medications Home Medications: Ambulatory Orders Amlodipine Besylate [Norvasc -] 10 mg PO DAILY 06/29/14 Labetalol HCl [Normodyne -] 200 mg PO BID 06/29/14 Omeprazole [Prilosec (RX)] 40 mg PO DAILY 06/29/14 Atorvastatin Ca [Lipitor] 20 mg DAILY 05/23/19 Acetaminophen [Tylenol .Regular Strength -] 650 mg PO Q4H PRN tablet 05/30/19 Lisinopril 10 mg PO DAILY #30 tablet 05/30/19 levoFLOXacin [Levaquin] 750 mg PO DAILY #7 tab 05/30/19 Review of Systems - Review of Systems Constitutional: reports: Fever, Loss of Appetite Eyes: reports: No Symptoms HENT: reports: No Symptoms Neck: reports: No Symptoms Cardiovascular: reports: No Symptoms Respiratory: reports: No Symptoms Gastrointestinal: reports: Diarrhea, Nausea, Vomiting Genitourinary: reports: No Symptoms Breasts: reports: No Symptoms Reported Musculoskeletal: reports: No Symptoms Integumentary: reports: No Symptoms Neurological: reports: No Symptoms Endocrine: reports: No Symptoms Hematology/Lymphatic: reports: No Symptoms Psychiatric: reports: No Symptoms Physical Exam-GI Vital Signs: Vital Signs Temperature 98 F 08/07/19 08:15 Pulse Rate 110 H 08/07/19 08:15 Respiratory Rate 20 08/07/19 08:15 Blood Pressure 173/98 H 08/07/19 08:15 O2 Sat by Pulse Oximetry (%) 98 08/07/19 08:15 Constitutional: Yes: No Distress, Calm, Obese Eyes: Yes: Conjunctiva Clear HENT: Yes: Atraumatic Cardiovascular: Yes: Regular Rate and Rhythm Respiratory: Yes: Regular, CTA Bilaterally Gastrointestinal Inspection: Yes: WNL. No: Ascites, Distention, Hernia, Scars, Other ...Auscultate: Yes: Normoactive Bowel Sounds. No: Hyperactive Bowel Sounds, Hypoactive Bowel Sounds, No Bowel Sounds, Other ...Palpate: Yes: Soft. No: Firm/Rigid, Guarding, Hepatomegaly, Mass, Pulsatile Mass, Splenomegaly, Tenderness, Tenderness, Epigastium, Tenderness, Rebound, Other ...Percussion: Yes: Tympanitic. No: Dullness, Fluid Wave, Other Neurological: Yes: Alert, Oriented Psychiatric: Yes: Alert, Oriented Labs: CBC, BMP 08/06/19 14:55 08/06/19 14:55 Imaging - Results Ultrasound: Report Reviewed Problem List - Problems (1) Diarrhea Assessment/Plan: >possibly infectious in nature >IV hydration > Stool O&P, Stool C-diff, Stool Culture, Stool WBC, and Calpoprectin >IV Flagyl and Zosyn Code(s): R19.7 - DIARRHEA, UNSPECIFIED (2) Cholecystitis Assessment/Plan: >Abdominal US shows Hepatomegaly with mild fatty infiltration vs hepatocellular disease, multiple gallstones seen with interval significant thickening of gallbladder wall and a trace of pericholecystic free fluid >Surgery consult >HIDA scan with EF >Zosyn and Flagyl >no leukocytosis >IV hydration >NPO Code(s): K81.9 - CHOLECYSTITIS, UNSPECIFIED
[2019-08-07] MEDS ORDERED: LABETALOL HCL 100 MG TABLET (FP) ONE ×2 (09:39→22:42)
[2019-08-07] MEDS ORDERED: PANTOPRAZOLE 40 MG TABLET PO SCH (10:00)
[2019-08-07] MEDS ORDERED: LABETALOL HCL 200 MG TABLET (FP) PO SCH (10:00)
[2019-08-07] MEDS ORDERED: amLODIPine BESYLATE 10 MG TABLET (FP) PO SCH (10:00)
[2019-08-07] MEDS ORDERED: PATIENT'S OWN MEDICATION (NON-FORMULARY) (Omeprazole [Prilosec (Rx)] 40 MG) PO SCH (10:00)
[2019-08-07] MEDS ORDERED: LISINOPRIL 10 MG TABLET (FP) PO SCH (10:00)
[2019-08-07] MEDS ORDERED: fentaNYL CITRATE 250 MCG/5 ML VIAL ONE (10:13)
[2019-08-07] MEDS ORDERED: PROPOFOL 20 ML ONE (10:14)
[2019-08-07] MEDS ORDERED: MIDAZOLAM HCL 2 MG/2 ML SINGLE DOSE VIAL ONE (10:14)
[2019-08-07] MEDS ORDERED: ROCURONIUM BROMIDE 50 MG/5 ML SYRINGE ONE ×2 (10:14→12:37)
[2019-08-07] MEDS ORDERED: BUPIVACAINE HCL/PF 0.5% (5 MG/ML) 30 ML VIAL IJ ONE ×2 (11:50)
--- NOTE | 2019-08-07 12:37 | EKG ---
Test Reason : Blood Pressure : / mmHG Vent. Rate : 102 BPM Atrial Rate : 102 BPM P-R Int : 144 ms QRS Dur : 096 ms QT Int : 330 ms P-R-T Axes : 049 017 098 degrees QTc Int : 430 ms SINUS TACHYCARDIA NONSPECIFIC T WAVE ABNORMALITY ABNORMAL ECG Confirmed by MD ZORAN, SOUTH ([id number]) on 08/07/2019 12:37:26 PM Referred By: Confirmed By:SOUTH MEEHAN MD
[2019-08-07] MEDS ORDERED: GLYCOPYRROLATE 0.2 MG/1 ML VIAL ONE (12:44)
[2019-08-07] MEDS ORDERED: NEOSTIGMINE METHYLSULFATE 0.5 MG/ML - 10 ML MDV ONE (12:44)
[2019-08-07] MEDS ORDERED: ACETAMINOPHEN 1000 MG/100 ML VIAL (NON FORMULARY) IVPB ONE (13:30)
--- NOTE | 2019-08-07 14:00 | OP ---
Operative Note - Note: Operative Date: 08/07/19 Pre-Operative Diagnosis: Acute cholecystitis, Cholelithiasis; chronically elevated T.Bili Operation: Laprascopic Cholecystectomy Findings: diffusely edematous Post-Operative Diagnosis: Same as Pre-op Surgeon: Sal Reyes Fruit Vendor: Riaz Abbott Anesthesiologist/[facility] ARCHITECT: Payam Nava Anesthesia: General Specimens Removed: Gall bladder Estimated Blood Loss (mls): 50 Drains & Tubes with Location: Fluid Volume Replaced (mls): 1,000 (LR) Operative Report Dictated: Yes
--- NOTE | 2019-08-07 14:01 | SURG ---
Surgery Weekend Receptionist Note Weekend Receptionist: Riaz Abbott PA-C Date of Service: 08/07/19 Diagnosis: Acute cholesystitis, Cholelithiasis Procedure: Laprascopic Cholecystectomy I was present for the entirety of the operative procedure. For further detail, please refer to operative report. Visit type - Case Type Case Type: ED Admission - Emergency Emergency Visit: Yes ED Registration Date: 08/06/19 Care time: The patient presented to the Emergency Department on the above date and was hospitalized for further evaluation of their emergent condition. - New patient This patient is new to me today: Yes Date on this admission: 08/07/19
[2019-08-07] MEDS ORDERED: ACETAMINOPHEN INJECTION 100 ML IVPB ONE (14:02)
[2019-08-07] MEDS ORDERED: PIPERACILLIN/TAZOBACTAM 3.375 GM VIAL IVPB ONE (14:47)
[2019-08-07] MEDS: PIPERACILLIN/TAZOB 3.375 GM 3.375 GM in DEXTROSE 5%-WATER - 50 ML IVPB SCH ×2 (17:40→22:34)
[2019-08-07] MEDS: SODIUM CHLORIDE 1,000 ML IV SCH (18:15)
[2019-08-07 19:53] VITALS: BMI 54.1
[2019-08-07 21:59] LABS: BASO % 0.1 % (0-2.0); HEMATOCRIT 30.2 % (35.4-49); HEMOGLOBIN 10.7 GM/dL (11.7-16.9); LYMPH % 5.6 % (8-40); MCH 29.6 pg (25.7-33.7); MCHC 35.3 g/dl (32.0-35.9); MEAN CELL VOLUME 83.7 fl (80-96); MEAN PLT VOLUME 10.6 fl (7.5-11.1); MONO % 27.5 % (3.8-10.2); NEUT % 66.8 % (42.8-82.8); PLATELET COUNT 47 K/MM3 (134-434); RBC 3.61 M/mm3 (4.00-5.60); RDW 16.9 % (11.9-15.9)
[2019-08-07] MEDS ORDERED: ATORVASTATIN CA 20 MG TABLET (FP) PO SCH (22:00)
[2019-08-07 22:22] LABS: INR 1.78 (0.83-1.09); PROTHROMBIN TIME (PATIENT) 21.1 SEC (9.7-13.0)
[2019-08-07 22:25] LABS: ACTIVATED PTT 39.6 SECONDS (25.2-36.5)
[2019-08-07 22:31] LABS: ALBUMIN 2.8 g/dl (3.4-5.0); BILIRUBIN,DIRECT 0.7 mg/dL (0.0-0.2); BILIRUBIN,TOTAL 1.6 mg/dL (0.2-1); CREATININE 2.1 mg/dL (0.55-1.3); MAGNESIUM 1.7 mg/dL (1.8-2.4); PHOSPHOROUS 2.2 mg/dL (2.5-4.9); POTASSIUM 3.6 mmol/L (3.5-5.1); TOT PROT 5.9 g/dl (6.4-8.2)
[2019-08-07] MEDS: LABETALOL HCL 200 MG TABLET (FP) PO SCH (22:45)
[2019-08-07] MEDS: ATORVASTATIN CA 20 MG TABLET (FP) PO SCH (22:45)
[2019-08-07] MEDS ORDERED: traMADol HCL 50 MG TABLET PO ONE (23:13)
--- NOTE | 2019-08-08 00:04 | PN ---
Physical Exam: SUBJECTIVE: Patient seen and examined at bedside. He currently denies abdominal pain. He states his diarrhea is persistent, as it has been for the last 6 days; watery and unable to control BM. Surgeon at bedside. OBJECTIVE: Vital Signs Temp Pulse Resp BP Pulse Ox 97.9 F 75 19 131/80 100 08/07/19 19:32 08/07/19 19:32 08/07/19 18:00 08/07/19 19:32 08/07/19 18:00 GENERAL: AOx3, obese, in no acute distress. HEAD: NCAT EYES: TOMMY, EOMI, conjunctiva clear. ENT: Ears normal, nares patent, oropharynx clear without exudates. Moist mucous membranes. NECK: Normal range of motion, supple without lymphadenopathy, JVD, or masses. LUNGS: CTAB. No wheezes, and no crackles. No accessory muscle use. HEART: RRR s1 s2 ABDOMEN: Soft, BS present in all 4 quadrants, non-distended, no JVD, MUSCULOSKELETAL: No bony deformities or tenderness. No CVA tenderness. UPPER EXTREMITIES: 2+ pulses, warm, well-perfused. No cyanosis. No clubbing. No peripheral edema. LOWER EXTREMITIES: 2+ pulses, warm, well-perfused. No calf tenderness. No peripheral edema. NEUROLOGICAL: No focal deficits. Cranial nerves II-XII intact. Normal speech. Gait not appreciated. PSYCHIATRIC: Cooperative. Good eye contact. Appropriate mood and affect. SKIN: Warm, dry, normal turgor, no rashes or lesions noted, normal capillary refill. Laboratory Results - last 24 hr 08/07/19 08/07/19 08/07/19 11:08 11:10 21:00 WBC 6.0 RBC 3.61 L Hgb 10.7 L Hct 30.2 L D MCV 83.7 MCH 29.6 MCHC 35.3 RDW 16.9 H Plt Count 47 L MPV 10.6 Absolute Neuts (auto) 4.0 Neutrophils % 66.8 Neutrophils % (Manual) 73.0 Band Neutrophils % 5.0 Lymphocytes % 5.6 L D Lymphocytes % (Manual) 5.0 L D Monocytes % 27.5 H Monocytes % (Manual) 10 Eosinophils % 0.0 D Eosinophils % (Manual) 1.0 D Basophils % 0.1 Basophils % (Manual) 0.0 Myelocytes % (Man) 4 H D Promyelocytes % (Man) 0 Blast Cells % (Manual) 0 Nucleated RBC % 0 Metamyelocytes 2 D PT with INR INR PTT (Actin FS) Sodium Potassium Chloride Carbon Dioxide Anion Gap BUN Creatinine Est GFR (CKD-EPI)AfAm Est GFR (CKD-EPI)NonAf Random Glucose Lactic Acid Calcium Phosphorus Magnesium Total Bilirubin Direct Bilirubin AST ALT Alkaline Phosphatase Total Protein Albumin Blood Type B POSITIVE B POSITIVE Antibody Screen Negative 08/07/19 08/07/19 08/07/19 21:00 21:00 21:00 WBC RBC Hgb Hct MCV MCH MCHC RDW Plt Count MPV Absolute Neuts (auto) Neutrophils % Neutrophils % (Manual) Band Neutrophils % Lymphocytes % Lymphocytes % (Manual) Monocytes % Monocytes % (Manual) Eosinophils % Eosinophils % (Manual) Basophils % Basophils % (Manual) Myelocytes % (Man) Promyelocytes % (Man) Blast Cells % (Manual) Nucleated RBC % Metamyelocytes PT with INR 21.10 H INR 1.78 H PTT (Actin FS) 39.6 H Sodium 138 Potassium 3.6 Chloride 110 H Carbon Dioxide 23 Anion Gap 5 L BUN 23.0 H Creatinine 2.1 H Est GFR (CKD-EPI)AfAm 44.93 Est GFR (CKD-EPI)NonAf 38.76 Random Glucose 122 H Lactic Acid 2.1 H Calcium 7.0 L Phosphorus 2.2 L Magnesium 1.7 L Total Bilirubin 1.6 H D Direct Bilirubin 0.7 H AST 301 H ALT 163 H Alkaline Phosphatase 49 Total Protein 5.9 L Albumin 2.8 L Blood Type Antibody Screen Active Medications Amlodipine Besylate (Norvasc -) 10 mg PO DAILY [facility] Atorvastatin Calcium (Lipitor -) 20 mg PO HS [facility] Last Admin: 08/07/19 22:45 Dose: 20 mg Metronidazole (Flagyl 500mg Premixed Ivpb -) 500 mg in 100 mls @ 100 mls/hr IVPB Q8H-IV [facility] Last Admin: 08/07/19 18:25 Dose: 100 mls/hr Piperacillin Sod/Tazobactam (Sod 3.375 gm/ Dextrose) 50 mls @ 100 mls/hr IVPB Q6H-IV [facility] Stop: 08/08/19 03:29 Last Admin: 08/07/19 22:34 Dose: 100 mls/hr Potassium Chloride 40 meq/ (Sodium Chloride) 1,020 mls @ 150 mls/hr IVPB Q6H [facility] Sodium Chloride (Normal Saline -) 1,000 mls @ 150 mls/hr IV ASDIR [facility] Last Admin: 08/07/19 18:15 Dose: Not Given Piperacillin Sod/Tazobactam (Sod 3.375 gm/ Dextrose) 50 mls @ 100 mls/hr IVPB Q6H [facility]; Protocol Labetalol HCl (Normodyne -) 200 mg PO BID [facility] Last Admin: 08/07/19 22:45 Dose: 200 mg Loperamide HCl (Imodium -) 2 mg PO Q8H PRN PRN Reason: DIARRHEA Ondansetron HCl (Zofran Injection) 4 mg IVPUSH Q6H PRN PRN Reason: NAUSEA AND/OR VOMITING Pantoprazole Sodium (Protonix -) 40 mg PO DAILY [facility] IMAGING Abdominal US shows Hepatomegaly with mild fatty infiltration vs hepatocellular disease, multiple gallstones seen with interval significant thickening of gallbladder wall and a trace of pericholecystic free fluid ASSESSMENT/PLAN: 39 y/o male PMH HTN, HLD, morbid obesity, and lymphedema c/o diarrhea and fevers. He was taken for surgery this AM. # Sepsis 2/2 acute cholecystitis - SIRS 2/4 Fever 103, HR 130 - Metronidazole 500 mg IVPB q8h - Zosyn 3.375 gm IVPB q6h - For surgery this AM - Blood cx pending - ID consulted # TARSHA - Cr 1.8 (baseline around 1.0), Gfr 54.3 - Most likely prerenal and 2/2 sepsis - IVF # Diarrhea - Poss 2/2 acute cholecytitis - Poss 2/2 infection/viral illnes - Stool studies pending # HTN - Cont. curent home regimen: Amlodepine 10 mg PO QD, labetolol 200 mg po BID # HLD - Cont. curent home regimen: Atorvastatin 20 mg PO HS # F/E/N - NS - Cont. to monitor - Regular diet # DVT prophylaxis - Heparin SQ # Disposition - Admit to observation Teodoro Aguilar MD Visit type - Emergency Visit Emergency Visit: Yes ED Registration Date: 08/06/19 Care time: The patient presented to the Emergency Department on the above date and was hospitalized for further evaluation of their emergent condition. - New Patient This patient is new to me today: Yes Date on this admission: 08/08/19 - Critical Care Critical Care patient: No ATTENDING PHYSICIAN STATEMENT I saw and evaluated the patient. I reviewed the resident's note and discussed the case with the resident. I agree with the resident's findings and plan as documented. SUBJECTIVE: OBJECTIVE: ASSESSMENT AND PLAN:
[2019-08-08] MEDS: POTASSIUM CHLORIDE 40 MEQ in SODIUM CHLORIDE 1,000 ML IVPB SCH ×2 (01:50→10:09)
[2019-08-08] MEDS ORDERED: PIPERACILLIN/TAZOBACTAM 3.375 GM VIAL IVPB ONE (04:00)
[2019-08-08] MEDS ORDERED: DEXTROSE 5%-WATER - 50 ML IVPB ONE (04:01)
[2019-08-08] MEDS: PIPERACILLIN/TAZOB 3.375 GM 3.375 GM in DEXTROSE 5%-WATER - 50 ML IVPB SCH (04:04)
[2019-08-08] MEDS ORDERED: LABETALOL HCL 100 MG TABLET (FP) ONE ×2 (09:07→21:22)
[2019-08-08] MEDS ORDERED: oxyCODONE HCL 5 MG TABLET PO PRN ×2 (09:23→09:24)
--- NOTE | 2019-08-08 09:27 | PN ---
Teaching Attending Note Name of Resident: Teodoro Aguilar ATTENDING PHYSICIAN STATEMENT I saw and evaluated the patient. I reviewed the resident's note and discussed the case with the resident. I agree with the resident's findings and plan as documented. SUBJECTIVE: Patient is feeling better, s/p lap chol. Vital Signs Temperature 97.9 F 08/07/19 19:32 Pulse Rate 94 H 08/08/19 05:27 Respiratory Rate 22 H 08/08/19 05:27 Blood Pressure 148/89 08/08/19 05:27 O2 Sat by Pulse Oximetry (%) 100 08/07/19 18:00 GENERAL: The patient is awake, alert, and fully oriented, in no acute distress. HEAD: Normal with no signs of trauma. EYES: PERRL, extraocular movements intact, sclera anicteric, conjunctiva clear. ENT: Ears normal, oropharynx clear without exudates, moist mucous membranes. NECK: Trachea midline, full range of motion, supple. LUNGS: Breath sounds equal, clear to auscultation bilaterally, no wheezes, no crackles, no accessory muscle use. HEART: Regular rate and rhythm, S1, S2 without murmur, rub or gallop. ABDOMEN: Soft, s/p lap chol. positive for JOSE drainage. +BS, no guarding, no rebound, no hepatosplenomegaly, no masses. EXTREMITIES: 2+ pulses, warm, well-perfused, no edema. NEUROLOGICAL: Cranial nerves II through XII grossly intact. Normal speech, gait not observed. PSYCH: Normal mood, normal affect. SKIN: Warm, dry, normal turgor, no rashes or lesions noted CBCD WBC 6.0 K/mm3 (4.0-10.0) 08/07/19 21:00 RBC 3.61 M/mm3 (4.00-5.60) L 08/07/19 21:00 Hgb 10.7 GM/dL (11.7-16.9) L 08/07/19 21:00 Hct 30.2 % (35.4-49) L D 08/07/19 21:00 MCV 83.7 fl (80-96) 08/07/19 21:00 MCHC 35.3 g/dl (32.0-35.9) 08/07/19 21:00 RDW 16.9 % (11.9-15.9) H 08/07/19 21:00 Plt Count 47 K/MM3 (134-434) L 08/07/19 21:00 MPV 10.6 fl (7.5-11.1) 08/07/19 21:00 CMP Sodium 138 mmol/L (136-145) 08/07/19 21:00 Potassium 3.6 mmol/L (3.5-5.1) 08/07/19 21:00 Chloride 110 mmol/L (98-107) H 08/07/19 21:00 Carbon Dioxide 23 mmol/L (21-32) 08/07/19 21:00 Anion Gap 5 MMOL/L (8-16) L 08/07/19 21:00 BUN 23.0 mg/dL (7-18) H 08/07/19 21:00 Creatinine 2.1 mg/dL (0.55-1.3) H 08/07/19 21:00 Random Glucose 122 mg/dL (74-106) H 08/07/19 21:00 Calcium 7.0 mg/dL (8.5-10.1) L 08/07/19 21:00 Total Bilirubin 1.6 mg/dL (0.2-1) H D 08/07/19 21:00 AST 301 U/L (15-37) H 08/07/19 21:00 ALT 163 U/L (13-61) H 08/07/19 21:00 Alkaline Phosphatase 49 U/L (45-117) 08/07/19 21:00 Total Protein 5.9 g/dl (6.4-8.2) L 08/07/19 21:00 Albumin 2.8 g/dl (3.4-5.0) L 08/07/19 21:00 CARDIAC ENZYMES Troponin I < 0.02 ng/ml (0.00-0.05) 08/06/19 14:55 Current Medications Generic Name Dose Route Start Last Admin Trade Name Freq PRN Reason Stop Dose Admin Acetaminophen 1,000 mg 08/08/19 09:23 Ofirmev Injection - IVPB 08/08/19 09:24 ONCE ONE Amlodipine Besylate 10 mg 08/08/19 10:00 Norvasc - PO DAILY [facility] Atorvastatin Calcium 20 mg 08/07/19 22:00 08/07/19 22:45 Lipitor - PO 20 mg HS LISA Administration Metronidazole 500 mg in 100 mls @ 100 mls/hr 08/07/19 18:00 08/08/19 02:47 Flagyl 500mg Premixed Ivpb - IVPB 100 mls/hr Q8H-IV LISA Administration Potassium Chloride 40 meq/ 1,020 mls @ 150 mls/hr 08/07/19 19:06 08/08/19 01: 50 Sodium Chloride IVPB 150 mls/hr Q6H LISA Administration Sodium Chloride 1,000 mls @ 150 mls/hr 08/07/19 14:00 08/07/19 18:15 Normal Saline - IV Not Given ASDIR LISA Piperacillin Sod/Tazobactam 50 mls @ 100 mls/hr 08/07/19 14:15 Sod 3.375 gm/ Dextrose IVPB Q6H [facility] Protocol Labetalol HCl 200 mg 08/07/19 22:00 08/07/19 22:45 Normodyne - PO 200 mg BID LISA Administration Loperamide HCl 2 mg 08/07/19 14:00 Imodium - PO Q8H PRN DIARRHEA Ondansetron HCl 4 mg 08/07/19 14:00 Zofran Injection IVPUSH Q6H PRN NAUSEA AND/OR VOMITING Pantoprazole Sodium 40 mg 08/08/19 10:00 Protonix - PO DAILY [facility] Home Medications Medication Instructions Recorded Amlodipine Besylate [Norvasc -] 10 mg PO DAILY 06/29/14 Labetalol HCl [Normodyne -] 200 mg PO BID 06/29/14 Omeprazole [Prilosec (RX)] 40 mg PO DAILY 06/29/14 Atorvastatin Ca [Lipitor] 20 mg DAILY 05/23/19 Acetaminophen [Tylenol .Regular 650 mg PO Q4H PRN tablet 05/30/19 Strength -] Lisinopril 10 mg PO DAILY #30 tablet 05/30/19 levoFLOXacin [Levaquin] 750 mg PO DAILY #7 tab 05/30/19 Microbiology 08/06/19 14:55 Blood - Peripheral Venous Blood Culture - Preliminary NO GROWTH OBTAINED AFTER 24 HOURS, INCUBATION TO CONTINUE FOR 4 DAYS. 08/06/19 14:55 Blood - Peripheral Venous Blood Culture - Preliminary NO GROWTH OBTAINED AFTER 24 HOURS, INCUBATION TO CONTINUE FOR 4 DAYS. 08/06/19 14:55 Urine - Urine Clean Catch Urine Culture - Final NO GROWTH OBTAINED Assessment and plan: Patient is a 39yom with Pmhx of HTN, HLP, morbid obesity and lymphedema with recent admission for cellulitis. He presented with diarrhea and fevers, was found to have transaminitis and sepsis. # POD#1 s/p lap chol. for acute cholecystitis due to Gall stone, continue IV antibiotics zosyn and flagyl continue , Advance diet as tolerated today, OOB and ambulate, incentive spirometer. #Thrombocytopenia improving, monitor # Sepsis , due to acute cholecystitis # TARSHA: likely prerenal and due to sepsis, cont IVF , repeat BMP now DVT px: Scds
[2019-08-08] MEDS: LABETALOL HCL 200 MG TABLET (FP) PO SCH ×2 (09:33→21:44)
[2019-08-08] MEDS: PANTOPRAZOLE 40 MG TABLET PO SCH (09:33)
[2019-08-08] MEDS: amLODIPine BESYLATE 10 MG TABLET (FP) PO SCH (09:33)
[2019-08-08] MEDS ORDERED: ACETAMINOPHEN 1000 MG/100 ML VIAL (NON FORMULARY) IVPB ONE (09:45)
--- NOTE | 2019-08-08 11:27 | PN ---
Progress Note (short form) - Note Progress Note: POD#1 Pt states that he is having RUQ pain, No nausea or emesis with clears. Vital Signs Period Temp Pulse Resp BP Sys/S[place] Pulse Ox Last 24 Hr 97.9 F-103.2 F 75-120 16-28 104-148/54-89 98-100 JOSE: 100ml serosangrenous GEN: A&0x3, NAD ABD: obese, non-distended, inc tenderness. Inc c/d/i with dermabond CBC, BMP 08/07/19 21:00 08/07/19 21:00 CMP Sodium 138 mmol/L (136-145) 08/07/19 21:00 Potassium 3.6 mmol/L (3.5-5.1) 08/07/19 21:00 Chloride 110 mmol/L (98-107) H 08/07/19 21:00 Carbon Dioxide 23 mmol/L (21-32) 08/07/19 21:00 Anion Gap 5 MMOL/L (8-16) L 08/07/19 21:00 BUN 23.0 mg/dL (7-18) H 08/07/19 21:00 Creatinine 2.1 mg/dL (0.55-1.3) H 08/07/19 21:00 Est GFR (CKD-EPI)AfAm 44.93 08/07/19 21:00 Est GFR (CKD-EPI)NonAf 38.76 08/07/19 21:00 Random Glucose 122 mg/dL (74-106) H 08/07/19 21:00 Lactic Acid 2.1 mmol/L (0.4-2.0) H 08/07/19 21:00 Calcium 7.0 mg/dL (8.5-10.1) L 08/07/19 21:00 Phosphorus 2.2 mg/dL (2.5-4.9) L 08/07/19 21:00 Magnesium 1.7 mg/dL (1.8-2.4) L 08/07/19 21:00 Total Bilirubin 1.6 mg/dL (0.2-1) H D 08/07/19 21:00 Direct Bilirubin 0.7 mg/dL (0.0-0.2) H 08/07/19 21:00 AST 301 U/L (15-37) H 08/07/19 21:00 ALT 163 U/L (13-61) H 08/07/19 21:00 Alkaline Phosphatase 49 U/L (45-117) 08/07/19 21:00 Troponin I < 0.02 ng/ml (0.00-0.05) 08/06/19 14:55 Total Protein 5.9 g/dl (6.4-8.2) L 08/07/19 21:00 Albumin 2.8 g/dl (3.4-5.0) L 08/07/19 21:00 Lipase 129 U/L (73-393) 08/06/19 14:55 A/P: 39 yo male s/p lap rohan for acute cholecystiti/GS IV tylenol x1 given this am for pain/fever this am Added oral pain medications-oxycodone OOB/ambulate/incentive spirometer Clears and advance as tolerated D/w Dr. Reyes
[2019-08-08 12:17] LABS: HEMATOCRIT 30.7 % (35.4-49); HEMOGLOBIN 10.6 GM/dL (11.7-16.9); MCH 29.2 pg (25.7-33.7); MCHC 34.7 g/dl (32.0-35.9); MEAN PLT VOLUME 11.2 fl (7.5-11.1); PLATELET COUNT 47 K/MM3 (134-434); RBC 3.65 M/mm3 (4.00-5.60); RDW 16.4 % (11.9-15.9); WHITE BLOOD COUNT 4.4 K/mm3 (4.0-10.0)
[2019-08-08 12:58] LABS: ALBUMIN 2.6 g/dl (3.4-5.0); BILIRUBIN,TOTAL 1.6 mg/dL (0.2-1); BLOOD UREA NITROGEN 20.5 mg/dL (7-18); CREATININE 1.9 mg/dL (0.55-1.3); POTASSIUM 3.4 mmol/L (3.5-5.1); TOT PROT 5.7 g/dl (6.4-8.2)
[2019-08-08 13:06] LABS: CALCIUM 6.7 mg/dL (8.5-10.1)
[2019-08-08] MEDS ORDERED: CALCIUM GLUCONATE 10% - 1,000 MG/10 ML VIAL IVPB ONE (14:30)
[2019-08-08] MEDS ORDERED: ACETAMINOPHEN 1000 MG/100 ML VIAL (NON FORMULARY) IVPB PRN (14:37)
--- NOTE | 2019-08-08 14:38 | PN ---
Physical Exam: SUBJECTIVE: Patient seen and examined at bedside, POD 1. Overnight he was febrile to 102.8 and given icepacks given current LFT and renal function. This AM pt encouraged strongly to use incentive spirometer. He is voiding in urinal at bedside w/o concern. OBJECTIVE: Vital Signs Temp Pulse Resp BP Pulse Ox 100.9 F H 107 H 24 H 159/97 97 08/08/19 19:00 08/08/19 19:00 08/08/19 19:00 08/08/19 19:00 08/08/19 12:34 GENERAL: AOx3, obese, in no acute distress. HEAD: NCAT EYES: TOMMY, EOMI, conjunctiva clear. ENT: Ears normal, nares patent, oropharynx clear without exudates. Moist mucous membranes. NECK: Normal range of motion, supple without lymphadenopathy, JVD, or masses. LUNGS: CTAB. No wheezes, and no crackles. No accessory muscle use. HEART: RRR s1 s2 ABDOMEN: Surgical scars, no erythema or dc. Soft, BS present in all 4 quadrants , non-distended, no JVD, MUSCULOSKELETAL: No bony deformities or tenderness. No CVA tenderness. UPPER EXTREMITIES: 2+ pulses, warm, well-perfused. No cyanosis. No clubbing. No peripheral edema. LOWER EXTREMITIES: 2+ pulses, warm, well-perfused. No calf tenderness. No peripheral edema. NEUROLOGICAL: No focal deficits. Cranial nerves II-XII intact. Normal speech. Gait not appreciated. PSYCHIATRIC: Cooperative. Good eye contact. Appropriate mood and affect. SKIN: Warm, dry, normal turgor, no rashes or lesions noted, normal capillary refill. Laboratory Results - last 24 hr 08/07/19 08/07/19 08/07/19 21:00 21:00 21:00 WBC 6.0 RBC 3.61 L Hgb 10.7 L Hct 30.2 L D MCV 83.7 MCH 29.6 MCHC 35.3 RDW 16.9 H Plt Count 47 L MPV 10.6 Absolute Neuts (auto) 4.0 Neutrophils % 66.8 Neutrophils % (Manual) 73.0 Band Neutrophils % 5.0 Lymphocytes % 5.6 L D Lymphocytes % (Manual) 5.0 L D Monocytes % 27.5 H Monocytes % (Manual) 10 Eosinophils % 0.0 D Eosinophils % (Manual) 1.0 D Basophils % 0.1 Basophils % (Manual) 0.0 Myelocytes % (Man) 4 H D Promyelocytes % (Man) 0 Blast Cells % (Manual) 0 Nucleated RBC % 0 Metamyelocytes 2 D PT with INR INR PTT (Actin FS) Sodium 138 Potassium 3.6 Chloride 110 H Carbon Dioxide 23 Anion Gap 5 L BUN 23.0 H Creatinine 2.1 H Est GFR (CKD-EPI)AfAm 44.93 Est GFR (CKD-EPI)NonAf 38.76 Random Glucose 122 H Lactic Acid 2.1 H Calcium 7.0 L Phosphorus 2.2 L Magnesium 1.7 L Total Bilirubin 1.6 H D Direct Bilirubin 0.7 H AST 301 H ALT 163 H Alkaline Phosphatase 49 Total Protein 5.9 L Albumin 2.8 L 08/07/19 08/08/19 08/08/19 21:00 11:05 11:05 WBC 4.4 RBC 3.65 L Hgb 10.6 L Hct 30.7 L MCV 84.0 MCH 29.2 MCHC 34.7 RDW 16.4 H Plt Count 47 L MPV 11.2 H Absolute Neuts (auto) Neutrophils % Neutrophils % (Manual) Band Neutrophils % Lymphocytes % Lymphocytes % (Manual) Monocytes % Monocytes % (Manual) Eosinophils % Eosinophils % (Manual) Basophils % Basophils % (Manual) Myelocytes % (Man) Promyelocytes % (Man) Blast Cells % (Manual) Nucleated RBC % Metamyelocytes PT with INR 21.10 H INR 1.78 H PTT (Actin FS) 39.6 H Sodium 136 Potassium 3.4 L Chloride 108 H Carbon Dioxide 19 L Anion Gap 9 BUN 20.5 H Creatinine 1.9 H Est GFR (CKD-EPI)AfAm 50.70 Est GFR (CKD-EPI)NonAf 43.75 Random Glucose 136 H Lactic Acid Calcium 6.7 L* Phosphorus Magnesium Total Bilirubin 1.6 H Direct Bilirubin AST 188 H ALT 168 H Alkaline Phosphatase 56 Total Protein 5.7 L Albumin 2.6 L Active Medications Acetaminophen (Ofirmev Injection -) 1,000 mg IVPB Q6H PRN PRN Reason: FEVER Amlodipine Besylate (Norvasc -) 10 mg PO DAILY [facility] Last Admin: 08/08/19 09:33 Dose: 10 mg Atorvastatin Calcium (Lipitor -) 20 mg PO HS [facility] Last Admin: 08/07/19 22:45 Dose: 20 mg Metronidazole (Flagyl 500mg Premixed Ivpb -) 500 mg in 100 mls @ 100 mls/hr IVPB Q8H-IV [facility] Last Admin: 08/08/19 17:56 Dose: 100 mls/hr Sodium Chloride (Normal Saline -) 1,000 mls @ 150 mls/hr IV ASDIR [facility] Last Admin: 08/08/19 21:46 Dose: 150 mls/hr Piperacillin Sod/Tazobactam (Sod 3.375 gm/ Dextrose) 50 mls @ 100 mls/hr IVPB Q6H [facility]; Protocol Labetalol HCl (Normodyne -) 200 mg PO BID [facility] Last Admin: 08/08/19 21:44 Dose: 200 mg Loperamide HCl (Imodium -) 2 mg PO Q8H PRN PRN Reason: DIARRHEA Ondansetron HCl (Zofran Injection) 4 mg IVPUSH Q6H PRN PRN Reason: NAUSEA AND/OR VOMITING Oxycodone HCl (Roxicodone -) 5 mg PO Q6H PRN PRN Reason: PAIN LEVEL 1-5 Oxycodone HCl (Roxicodone -) 10 mg PO Q6H PRN PRN Reason: PAIN LEVEL 6-10 Pantoprazole Sodium (Protonix -) 40 mg PO DAILY [facility] Last Admin: 08/08/19 09:33 Dose: 40 mg IMAGING Abdominal US shows Hepatomegaly with mild fatty infiltration vs hepatocellular disease, multiple gallstones seen with interval significant thickening of gallbladder wall and a trace of pericholecystic free fluid CXR shows no acute processes ASSESSMENT/PLAN: 39 y/o male PMH HTN, HLD, morbid obesity, and lymphedema c/o diarrhea and fevers with above imaging, admitted for cholecystectomy now POD 1. Persistent fever. # Low platelets - 52-60 range - No gross bleeding - s/p 1 unit platelets - Previous platelet count normal in May 2019 - Consult heme/onc: poss 2/2 sepsis # Sepsis 2/2 acute cholecystitis, s/p cholecystectomy POD 1 - SIRS 2/4 Fever 103, HR 130 - Metronidazole 500 mg IVPB q8h - Zosyn 3.375 gm IVPB q6h - For surgery this AM - Blood cx pending - ID consulted # TARSHA - Cr 1.8 (baseline around 1.0), Gfr 54.3 - Most likely prerenal and 2/2 sepsis - IVF # Diarrhea - Poss 2/2 acute cholecytitis - Poss 2/2 infection/viral illnes - Stool studies pending # HTN - Cont. curent home regimen: Amlodepine 10 mg PO QD, labetolol 200 mg po BID # HLD - Cont. curent home regimen: Atorvastatin 20 mg PO HS # F/E/N - NS - Cont. to monitor - Regular diet # DVT prophylaxis - Heparin SQ # Disposition - Med/surg Teodoro Aguilar MD Visit type - Emergency Visit Emergency Visit: No - New Patient This patient is new to me today: No - Critical Care Critical Care patient: No ATTENDING PHYSICIAN STATEMENT I saw and evaluated the patient. I reviewed the resident's note and discussed the case with the resident. I agree with the resident's findings and plan as documented. SUBJECTIVE: OBJECTIVE: ASSESSMENT AND PLAN:
[2019-08-08] MEDS: SODIUM CHLORIDE 1,000 ML IV SCH ×2 (15:26→21:46)
--- NOTE | 2019-08-08 16:09 | CONSULT ---
Consultation: REQUESTING PROVIDER: Milena Mello surgery [facility] CONSULT REQUEST: We have been asked to medically evaluate this patient for ( bleeding S/P cholecystectomy , thrombocytopenia ). HISTORY OF PRESENT ILLNESS: This is a 39 year old male with PMH of HTN, HLD, LE lymphedema, and recent cellulitis (was admitted [facility] 05/23-05/30). He presented to the ER with complaints of nausea, vomiting, and diarrhea for the past 1 week was found to have cholecystitis give aline gallardo dn had lop cholecystectomy pod # 1 He has had more than 6 episodes of non bloody diarrhea and more than 3 episodes of clear, NBNB vomiting (described as mostly saliva) per day. He endorses, occasional chills but no fevers, and denies any abdominal pain, dysuria, polyuria, hematuria, dizziness. He has not taken any new medications, and his last antibiotic use was while admitted to [facility] 05/24-05/30 (Ceftriaxone and Clindamycin). He has also had a productive cough for the past 2-3 weeks. He denies any recent illnesses, although his son, who lives with him, has had a flu like viral illness for the past 2 weeks. He has taken Mucinex for the cough. He endorses SOB, but no chest pain, palpitations, or wheezing. Most recently he was admitted 05/24 to 05/30 for left LE cellulitits, and was treated with Ceftriaxone for 7 days and Clindamycin for 3 days. Recent Travel: None PAST MEDICAL HISTORY: HTN, HLD, Lymphedema PAST SURGICAL HISTORY: Multiple LE venous ablation, last one in April Left knee tendon repair Family Hx: Mother and father both have a hx of gallstones Mother has DM FH : positive for father with Ca? type, mother and siister with breast ca Social History: Smokin-5 cigarettes per day for 1 year Alcohol: Drinks over 5,6 units on the weekends Drugs: Former marijuana smoker Allergies hydralazine [Hydralazine] Allergy (Verified 08/06/19 13:12) REVIEW OF SYSTEMS: CONSTITUTIONAL: Absent: fever, chills, diaphoresis, generalized weakness, malaise, loss of appetite, weight change HEENT: Absent: rhinorrhea, nasal congestion, throat pain, throat swelling, difficulty swallowing, mouth swelling, ear pain, eye pain, visual changes CARDIOVASCULAR: Absent: chest pain, syncope, palpitations, irregular heart rate, lightheadedness , peripheral edema RESPIRATORY: Absent: cough, shortness of breath, dyspnea with exertion, orthopnea, wheezing, stridor, hemoptysis GASTROINTESTINAL: Absent: abdominal pain, abdominal distension, nausea, vomiting, diarrhea, constipation, melena, hematochezia GENITOURINARY: Absent: dysuria, frequency, urgency, hesitancy, hematuria, flank pain, genital pain MUSCULOSKELETAL: Absent: myalgia, arthralgia, joint swelling, back pain, neck pain SKIN: Absent: rash, itching, pallor HEMATOLOGIC/IMMUNOLOGIC: Absent: easy bleeding, easy bruising, lymphadenopathy, frequent infections ENDOCRINE: Absent: unexplained weight gain, unexplained weight loss, heat intolerance, cold intolerance NEUROLOGIC: Absent: headache, focal weakness or paresthesias, dizziness, unsteady gait, seizure, mental status changes, bladder or bowel incontinence PSYCHIATRIC: Absent: anxiety, depression, suicidal or homicidal ideation, hallucinations. PHYSICAL EXAMINATION Vital Signs - 24 hr 08/07/19 08/07/19 08/07/19 16:10 16:25 18:00 Temperature 99.5 F 97.9 F Pulse Rate 90 94 H 75 Respiratory 22 H 16 19 Rate Blood Pressure 117/77 120/74 131/80 O2 Sat by Pulse 99 100 100 Oximetry (%) 08/07/19 08/08/19 08/08/19 19:32 05:27 09:00 Temperature 97.9 F 103 F H Pulse Rate 75 94 H 108 H Respiratory 22 H 21 H Rate Blood Pressure 131/80 148/89 161/82 O2 Sat by Pulse Oximetry (%) 08/08/19 12:34 Temperature 99.2 F Pulse Rate Respiratory 21 H Rate Blood Pressure O2 Sat by Pulse 97 Oximetry (%) pt refused to be examined Laboratory Results - last 24 hr 08/07/19 08/07/19 08/07/19 21:00 21:00 21:00 WBC 6.0 RBC 3.61 L Hgb 10.7 L Hct 30.2 L D MCV 83.7 MCH 29.6 MCHC 35.3 RDW 16.9 H Plt Count 47 L MPV 10.6 Absolute Neuts (auto) 4.0 Neutrophils % 66.8 Neutrophils % (Manual) 73.0 Band Neutrophils % 5.0 Lymphocytes % 5.6 L D Lymphocytes % (Manual) 5.0 L D Monocytes % 27.5 H Monocytes % (Manual) 10 Eosinophils % 0.0 D Eosinophils % (Manual) 1.0 D Basophils % 0.1 Basophils % (Manual) 0.0 Myelocytes % (Man) 4 H D Promyelocytes % (Man) 0 Blast Cells % (Manual) 0 Nucleated RBC % 0 Metamyelocytes 2 D PT with INR INR PTT (Actin FS) Sodium 138 Potassium 3.6 Chloride 110 H Carbon Dioxide 23 Anion Gap 5 L BUN 23.0 H Creatinine 2.1 H Est GFR (CKD-EPI)AfAm 44.93 Est GFR (CKD-EPI)NonAf 38.76 Random Glucose 122 H Lactic Acid 2.1 H Calcium 7.0 L Phosphorus 2.2 L Magnesium 1.7 L Total Bilirubin 1.6 H D Direct Bilirubin 0.7 H AST 301 H ALT 163 H Alkaline Phosphatase 49 Total Protein 5.9 L Albumin 2.8 L 08/07/19 08/08/19 08/08/19 21:00 11:05 11:05 WBC 4.4 RBC 3.65 L Hgb 10.6 L Hct 30.7 L MCV 84.0 MCH 29.2 MCHC 34.7 RDW 16.4 H Plt Count 47 L MPV 11.2 H Absolute Neuts (auto) Neutrophils % Neutrophils % (Manual) Band Neutrophils % Lymphocytes % Lymphocytes % (Manual) Monocytes % Monocytes % (Manual) Eosinophils % Eosinophils % (Manual) Basophils % Basophils % (Manual) Myelocytes % (Man) Promyelocytes % (Man) Blast Cells % (Manual) Nucleated RBC % Metamyelocytes PT with INR 21.10 H INR 1.78 H PTT (Actin FS) 39.6 H Sodium 136 Potassium 3.4 L Chloride 108 H Carbon Dioxide 19 L Anion Gap 9 BUN 20.5 H Creatinine 1.9 H Est GFR (CKD-EPI)AfAm 50.70 Est GFR (CKD-EPI)NonAf 43.75 Random Glucose 136 H Lactic Acid Calcium 6.7 L* Phosphorus Magnesium Total Bilirubin 1.6 H Direct Bilirubin AST 188 H ALT 168 H Alkaline Phosphatase 56 Total Protein 5.7 L Albumin 2.6 L Active Medications Generic Name Dose Route Start Last Admin Trade Name Freq PRN Reason Stop Dose Admin Acetaminophen 1,000 mg 08/08/19 14:37 Ofirmev Injection - IVPB ONCE PRN FEVER Amlodipine Besylate 10 mg 08/08/19 10:00 08/08/19 09:33 Norvasc - PO 10 mg DAILY LISA Administration Atorvastatin Calcium 20 mg 08/07/19 22:00 08/07/19 22:45 Lipitor - PO 20 mg HS LISA Administration Metronidazole 500 mg in 100 mls @ 100 mls/hr 08/07/19 18:00 08/08/19 09:33 Flagyl 500mg Premixed Ivpb - IVPB 100 mls/hr Q8H-IV LISA Administration Sodium Chloride 1,000 mls @ 150 mls/hr 08/07/19 14:00 08/08/19 15:26 Normal Saline - IV 150 mls/hr ASDIR LISA Administration Piperacillin Sod/Tazobactam 50 mls @ 100 mls/hr 08/07/19 14:15 Sod 3.375 gm/ Dextrose IVPB Q6H LISA Protocol Labetalol HCl 200 mg 08/07/19 22:00 08/08/19 09:33 Normodyne - PO 200 mg BID LISA Administration Loperamide HCl 2 mg 08/07/19 14:00 Imodium - PO Q8H PRN DIARRHEA Ondansetron HCl 4 mg 08/07/19 14:00 Zofran Injection IVPUSH Q6H PRN NAUSEA AND/OR VOMITING Oxycodone HCl 5 mg 08/08/19 09:23 Roxicodone - PO Q6H PRN PAIN LEVEL 1-5 Oxycodone HCl 10 mg 08/08/19 09:24 Roxicodone - PO Q6H PRN PAIN LEVEL 6-10 Pantoprazole Sodium 40 mg 08/08/19 10:00 08/08/19 09:33 Protonix - PO 40 mg DAILY LISA Administration CBC, BMP 08/08/19 11:05 08/08/19 11:05 ASSESSMENT/PLAN: # Anemia normocytic normochromic likely due to blood loss vs bone marrow supression due to alcohol use last drink a month ago per pt but used to drink heavily on weekends he use marijuana last use July first # Thrombocytopenia likely infection process vs med SE , 400 in may , 52 before surgery , 47 today * monitor cbc Q 8hr * 2 mono donor platelets * HIT , VU unlikely HIT * plt antibodies * Iv tylenol for low grate fever , * follow up cx * Avoids NSAIDS on chemical DVT proph , * consider dvt prop when cleared by surgery # Hypokalemia replinish as needed # TARSHA cont IV hydration , consult nephro # S/P cholecystectomy POD # 1 # UTI cont abx # DARY/SCDS Dispo: We will continue to follow the patient. Thank you for this consultative opportunity. Visit type - Emergency Visit Emergency Visit: Yes ED Registration Date: 08/06/19 Care time: The patient presented to the Emergency Department on the above date and was hospitalized for further evaluation of their emergent condition. - New Patient This patient is new to me today: Yes Date on this admission: 08/09/19 - Critical Care Critical Care patient: No ATTENDING PHYSICIAN STATEMENT I saw and evaluated the patient. I reviewed the resident's note and discussed the case with the resident. I agree with the resident's findings and plan as documented. SUBJECTIVE: OBJECTIVE: ASSESSMENT AND PLAN:
--- NOTE | 2019-08-08 18:05 | PN ---
Teaching Attending Note Name of Resident: Sujit Barcenas ATTENDING PHYSICIAN STATEMENT I saw and evaluated the patient. I reviewed the resident's note and discussed the case with the resident. I agree with the resident's findings and plan as documented. SUBJECTIVE: patient seen and examined Presented with nausea vomiting and diarrhea x 2 weeks Underwent lap cholecystectomy on 08/06. Pre-op platelets - 52K, 47K, and currently 47K (before unit of platelets administered) On 05/29 during hospitilization for cellulitis- platelet count 388-398K Marijuana smoker and alcohol drinker on week-ends with the "boys" FH - positive for father with Ca? type, mother and siister with breast ca ROS as above Last Vital Signs Temp Pulse Resp BP Pulse Ox 99.2 F 108 H 21 H 161/82 97 08/08/19 12:34 08/08/19 09:00 08/08/19 12:34 08/08/19 09:00 08/08/19 12:34 HEENT: TOMMY, EOM Intact Oropharynx: No thrush, No mucositis Current Medications Generic Name Dose Route Start Last Admin Trade Name Freq PRN Reason Stop Dose Admin Acetaminophen 1,000 mg 08/08/19 17:28 Ofirmev Injection - IVPB Q6H PRN FEVER Amlodipine Besylate 10 mg 08/08/19 10:00 08/08/19 09:33 Norvasc - PO 10 mg DAILY LISA Administration Atorvastatin Calcium 20 mg 08/07/19 22:00 08/07/19 22:45 Lipitor - PO 20 mg HS LISA Administration Metronidazole 500 mg in 100 mls @ 100 mls/hr 08/07/19 18:00 08/08/19 17:56 Flagyl 500mg Premixed Ivpb - IVPB 100 mls/hr Q8H-IV LISA Administration Sodium Chloride 1,000 mls @ 150 mls/hr 08/07/19 14:00 08/08/19 15:26 Normal Saline - IV 150 mls/hr ASDIR LISA Administration Piperacillin Sod/Tazobactam 50 mls @ 100 mls/hr 08/07/19 14:15 Sod 3.375 gm/ Dextrose IVPB Q6H LISA Protocol Labetalol HCl 200 mg 08/07/19 22:00 08/08/19 09:33 Normodyne - PO 200 mg BID LISA Administration Loperamide HCl 2 mg 08/07/19 14:00 Imodium - PO Q8H PRN DIARRHEA Ondansetron HCl 4 mg 08/07/19 14:00 Zofran Injection IVPUSH Q6H PRN NAUSEA AND/OR VOMITING Oxycodone HCl 5 mg 08/08/19 09:23 Roxicodone - PO Q6H PRN PAIN LEVEL 1-5 Oxycodone HCl 10 mg 08/08/19 09:24 Roxicodone - PO Q6H PRN PAIN LEVEL 6-10 Pantoprazole Sodium 40 mg 08/08/19 10:00 08/08/19 09:33 Protonix - PO 40 mg DAILY LISA Administration Cor: RSR, No murmurs, No gallops Lungs: diminished breath sounds , poor inspiratory effort Abd: J-P drainage sero-sanguineous Ext:lymphedema LE's Skin: No rashes, Integument intact Impression: Previous platelet count normal in 05/2019 Presented with platelets of 52K and then 47K. This suggests possible sepsis with contributing factor of alcohol effect as possible etiologies. Has received one unit of monodonor platelets. Prior to unit - febrile and given tylenol. Hct stable 08/07, 08/08 and initial Hct of 39% may reflect nausea, vomiting and diarrhea with dehydration and falsely elevated admission Hct. For now , would monitor CBC and platelets. DVT prophylaxis when cleared by surgery. OBJECTIVE: ASSESSMENT AND PLAN:
[2019-08-08 19:31] LABS: BASO % 0.3 % (0-2.0); EOS % 0.7 % (0-4.5); HEMATOCRIT 28.5 % (35.4-49); HEMOGLOBIN 9.9 GM/dL (11.7-16.9); LYMPH % 7.2 % (8-40); MCH 29.2 pg (25.7-33.7); MCHC 34.7 g/dl (32.0-35.9); MEAN CELL VOLUME 84.2 fl (80-96); MEAN PLT VOLUME 9.5 fl (7.5-11.1); MONO % 20.8 % (3.8-10.2); PLATELET COUNT 60 K/MM3 (134-434); RBC 3.38 M/mm3 (4.00-5.60); RDW 16.9 % (11.9-15.9); WHITE BLOOD COUNT 4.4 K/mm3 (4.0-10.0)
[2019-08-08 21:13] LABS: COCAINE, UR NEGATIVE ng/ml (CUTOFF=300); METHADONE, UR NEGATIVE ng/ml (CUTOFF=300); OPIATES, URI NEGATIVE ng/ml (CUTOFF=300); PHENCYCLIDINE,URINE NEGATIVE ng/ml (CUTOFF=25); URINE AMPHETAMINES NEGATIVE ng/ml (CUTOFF=500); URINE BARBITURATES NEGATIVE ng/ml (CUTOFF=200)
[2019-08-08 21:16] LABS: URINE BENZODIAZEPINES POSITIVE ng/ml (CUTOFF=200)
[2019-08-08 21:17] LABS: PLATELET ESTIMATE DECREASED
[2019-08-09] MEDS: ACETAMINOPHEN 1000 MG/100 ML VIAL (NON FORMULARY) IVPB PRN ×3 (02:21→17:09)
[2019-08-09 02:59] LABS: BASO % 0.3 % (0-2.0); HEMATOCRIT 29.1 % (35.4-49); LYMPH % 12.4 % (8-40); MCH 28.9 pg (25.7-33.7); MCHC 34.5 g/dl (32.0-35.9); MEAN CELL VOLUME 83.9 fl (80-96); MONO % 26.8 % (3.8-10.2); NEUT % 59.5 % (42.8-82.8); PLATELET COUNT 68 K/MM3 (134-434); RBC 3.46 M/mm3 (4.00-5.60); RDW 17.3 % (11.9-15.9); WHITE BLOOD COUNT 4.6 K/mm3 (4.0-10.0)
[2019-08-09] MEDS: SODIUM CHLORIDE 1,000 ML IV SCH ×2 (06:34→15:22)
--- NOTE | 2019-08-09 08:44 | PN ---
Progress Note, Physician History of Present Illness: GI FOLLOW UP NOTE Patient examined and case discussed with Dr Krishnan Patient is POD #2 Laparscopic Cholecystectomy. He denies nausea, vomiting, abdominal pain. Continues to have multiple episodes of diarrhea. He is febrile , tachycardic, no leukocytosis noted. LFTs are showing downtrend with AST 188, ALT 168. JOSE drain to RLQ with serosanguinous output. - Current Medication List Current Medications: Active Medications Acetaminophen (Ofirmev Injection -) 1,000 mg IVPB Q6H PRN PRN Reason: FEVER Last Admin: 08/09/19 02:21 Dose: 1,000 mg Amlodipine Besylate (Norvasc -) 10 mg PO DAILY LISA Last Admin: 08/08/19 09:33 Dose: 10 mg Atorvastatin Calcium (Lipitor -) 20 mg PO HS [facility] Last Admin: 08/07/19 22:45 Dose: 20 mg Metronidazole (Flagyl 500mg Premixed Ivpb -) 500 mg in 100 mls @ 100 mls/hr IVPB Q8H-IV LISA Last Admin: 08/09/19 02:20 Dose: 100 mls/hr Sodium Chloride (Normal Saline -) 1,000 mls @ 150 mls/hr IV ASDIR LISA Last Admin: 08/09/19 06:34 Dose: 150 mls/hr Piperacillin Sod/Tazobactam (Sod 3.375 gm/ Dextrose) 50 mls @ 100 mls/hr IVPB Q6H [facility]; Protocol Labetalol HCl (Normodyne -) 200 mg PO BID [facility] Last Admin: 08/08/19 21:44 Dose: 200 mg Loperamide HCl (Imodium -) 2 mg PO Q8H PRN PRN Reason: DIARRHEA Ondansetron HCl (Zofran Injection) 4 mg IVPUSH Q6H PRN PRN Reason: NAUSEA AND/OR VOMITING Oxycodone HCl (Roxicodone -) 5 mg PO Q6H PRN PRN Reason: PAIN LEVEL 1-5 Oxycodone HCl (Roxicodone -) 10 mg PO Q6H PRN PRN Reason: PAIN LEVEL 6-10 Pantoprazole Sodium (Protonix -) 40 mg PO DAILY [facility] Last Admin: 08/08/19 09:33 Dose: 40 mg - Objective Vital Signs: Vital Signs Temperature 102.0 F H 08/09/19 05:30 Pulse Rate 104 H 08/09/19 05:30 Respiratory Rate 22 H 08/09/19 05:30 Blood Pressure 159/98 08/09/19 05:30 O2 Sat by Pulse Oximetry (%) 97 08/08/19 12:34 Constitutional: Yes: No Distress, Calm, Obese Eyes: Yes: Conjunctiva Clear HENT: Yes: Atraumatic Cardiovascular: Yes: Tachycardia Respiratory: Yes: Regular, Wheezes Gastrointestinal: Yes: Normal Bowel Sounds, Soft, Abdomen, Obese, Other (RLQ JOSE drain) Wound/Incision: Yes: Open to air Neurological: Yes: Alert, Oriented Psychiatric: Yes: Alert, Oriented Labs: CBC, BMP 08/09/19 02:30 08/08/19 11:05 INR, PTT INR 1.78 (0.83-1.09) H 08/07/19 21:00 Problem List - Problems (1) Cholecystitis Assessment/Plan: >POD#2 laparoscopic cholecystitis >LFTs showing downtrend, continue to monitor >JOSE to RLQ draining serosanguinous output >if continue with persistent abdominal pain consider HIDA scan to R/O bile leak Code(s): K81.9 - CHOLECYSTITIS, UNSPECIFIED
[2019-08-09 09:18] LABS: INR 1.61 (0.83-1.09); PROTHROMBIN TIME (PATIENT) 19.1 SEC (9.7-13.0)
[2019-08-09 09:20] LABS: ACTIVATED PTT 34.4 SECONDS (25.2-36.5)
[2019-08-09 09:32] LABS: ALBUMIN 2.3 g/dl (3.4-5.0); BILIRUBIN,TOTAL 1.9 mg/dL (0.2-1); BLOOD UREA NITROGEN 17.4 mg/dL (7-18); CREATININE 1.5 mg/dL (0.55-1.3); POTASSIUM 3.5 mmol/L (3.5-5.1); TOT PROT 5.3 g/dl (6.4-8.2)
[2019-08-09 09:55] LABS: CALCIUM 6.8 mg/dL (8.5-10.1)
--- NOTE | 2019-08-09 09:56 | PATH ---
Surgical Pathology Report Patient Name: REBEKA MADRIGAL III [facility]. Rec. #: [id number] /Age/Gender: 1980 (Age: 39) / M Account: [id number] Location: [address] [place] [address]/[facility] Taken: 08/07/2019 Received: 08/08/2019 Reported: 08/09/2019 Physicians: Sal Reyes MD Specimen(s) Received GALLBLADDER Clinical History Nausea/vomiting, abdominal pain and suspected cholecystitis Final Diagnosis GALLBLADDER, CHOLECYSTECTOMY: CHRONIC CHOLECYSTITIS AND CHOLELITHIASIS. Electronically Signed Renan Galicia M.D. Gross Description Received in formalin, labeled "gallbladder," is a 9.3 x 2.5 x 1.5 cm. gallbladder with a 0.2 cm. in length portion of cystic duct attached. The outer surface is price-mares and varies from smooth to shaggy. The lumen contains green, tenacious bile as well as multiple black, irregular choleliths ranging from 0.4-0.7 cm in greatest dimension. The mucosa is dark green and velvety. The wall of the gallbladder averages 0.1 cm. in thickness. Facilities Engineering Manager sections are submitted in one cassette. DL/08/08/2019 saudi/08/08/2019
[2019-08-09] MEDS ORDERED: LABETALOL HCL 100 MG TABLET (FP) ONE ×2 (10:15→22:11)
[2019-08-09] MEDS: PANTOPRAZOLE 40 MG TABLET PO SCH (10:19)
[2019-08-09] MEDS: amLODIPine BESYLATE 10 MG TABLET (FP) PO SCH (10:19)
[2019-08-09] MEDS: LABETALOL HCL 200 MG TABLET (FP) PO SCH ×2 (10:19→22:42)
[2019-08-09 11:57] LABS: HEMATOCRIT 31.3 % (35.4-49); MCH 29.2 pg (25.7-33.7); MCHC 35.2 g/dl (32.0-35.9); MEAN CELL VOLUME 82.8 fl (80-96); MEAN PLT VOLUME 9.7 fl (7.5-11.1); PLATELET COUNT 70 K/MM3 (134-434); RBC 3.78 M/mm3 (4.00-5.60); RDW 17.1 % (11.9-15.9); WHITE BLOOD COUNT 4.8 K/mm3 (4.0-10.0)
--- NOTE | 2019-08-09 13:31 | PN ---
Physical Exam: SUBJECTIVE: Patient seen and examined at bedside. Overnight he continues to have fevers and also had a low Ca. This AM he offers no complaints. OBJECTIVE: Vital Signs Temp Pulse Resp BP Pulse Ox 99.5 F 60 21 H 132/78 98 08/09/19 19:00 08/09/19 19:00 08/09/19 19:00 08/09/19 19:00 08/09/19 09:00 GENERAL: AOx3, obese, in no acute distress, urinal at bedside with dark urine, incentive spirometer at bedside HEAD: NCAT EYES: TOMMY, EOMI, conjunctiva clear. ENT: Ears normal, nares patent, oropharynx clear without exudates. Moist mucous membranes. NECK: Normal range of motion, supple without lymphadenopathy, JVD, or masses. LUNGS: CTAB. No wheezes, and no crackles. No accessory muscle use. HEART: RRR s1 s2 ABDOMEN: Surgical scars, no erythema or dc. Soft, BS present in all 4 quadrants , non-distended, no JVD, MUSCULOSKELETAL: No bony deformities or tenderness. No CVA tenderness. UPPER EXTREMITIES: 2+ pulses, warm, well-perfused. No cyanosis. No clubbing. No peripheral edema. LOWER EXTREMITIES: 2+ pulses, warm, well-perfused. No calf tenderness. No peripheral edema. NEUROLOGICAL: No focal deficits. Cranial nerves II-XII intact. Normal speech. Gait not appreciated. PSYCHIATRIC: Cooperative. Good eye contact. Appropriate mood and affect. SKIN: Warm, dry, normal turgor, no rashes or lesions noted, normal capillary refill. Laboratory Results - last 24 hr 08/08/19 08/08/19 08/09/19 18:30 18:50 02:30 WBC 4.4 4.6 RBC 3.38 L 3.46 L Hgb 9.9 L 10.0 L Hct 28.5 L 29.1 L MCV 84.2 83.9 MCH 29.2 28.9 MCHC 34.7 34.5 RDW 16.9 H 17.3 H Plt Count 60 L D 68 L MPV 9.5 D 10.0 Absolute Neuts (auto) 3.1 2.7 Total Counted 100 Neutrophils % 71.0 59.5 Neutrophils % (Manual) 67.0 61.0 Band Neutrophils % 13.0 6.0 Lymphocytes % 7.2 L D 12.4 D Lymphocytes % (Manual) 5.0 L 23.0 D Monocytes % 20.8 H 26.8 H Monocytes % (Manual) 10 5 Eosinophils % 0.7 D 1.0 Eosinophils % (Manual) 1.0 3.0 D Basophils % 0.3 0.3 Basophils % (Manual) 0.0 0.0 Nucleated RBC % 0 0 Metamyelocytes 0 D Platelet Estimate Decreased Platelet Comment No clumping noted PT with INR INR PTT (Actin FS) Sodium Potassium Chloride Carbon Dioxide Anion Gap BUN Creatinine Est GFR (CKD-EPI)AfAm Est GFR (CKD-EPI)NonAf Random Glucose Calcium Total Bilirubin AST ALT Alkaline Phosphatase Total Protein Albumin Opiates Screen Negative Methadone Screen Negative Barbiturate Screen Negative Phencyclidine Screen Negative Ur Amphetamines Screen Negative MDMA (Ecstasy) Screen Positive A* Benzodiazepines Screen Positive A* Cocaine Screen Negative U Marijuana (THC) Screen Positive A* 08/09/19 08/09/19 08/09/19 08:20 08:20 11:30 WBC 4.8 RBC 3.78 L Hgb 11.0 L Hct 31.3 L MCV 82.8 MCH 29.2 MCHC 35.2 RDW 17.1 H Plt Count 70 L MPV 9.7 Absolute Neuts (auto) Total Counted Neutrophils % Neutrophils % (Manual) Band Neutrophils % Lymphocytes % Lymphocytes % (Manual) Monocytes % Monocytes % (Manual) Eosinophils % Eosinophils % (Manual) Basophils % Basophils % (Manual) Nucleated RBC % Metamyelocytes Platelet Estimate Platelet Comment PT with INR 19.10 H INR 1.61 H PTT (Actin FS) 34.4 Sodium 136 Potassium 3.5 Chloride 107 Carbon Dioxide 23 Anion Gap 5 L BUN 17.4 Creatinine 1.5 H Est GFR (CKD-EPI)AfAm 67.48 Est GFR (CKD-EPI)NonAf 58.22 Random Glucose 96 Calcium 6.8 L* Total Bilirubin 1.9 H AST 117 H ALT 144 H Alkaline Phosphatase 88 Total Protein 5.3 L Albumin 2.3 L Opiates Screen Methadone Screen Barbiturate Screen Phencyclidine Screen Ur Amphetamines Screen MDMA (Ecstasy) Screen Benzodiazepines Screen Cocaine Screen U Marijuana (THC) Screen Active Medications Amlodipine Besylate (Norvasc -) 10 mg PO DAILY LISA Last Admin: 08/09/19 10:19 Dose: 10 mg Atorvastatin Calcium (Lipitor -) 20 mg PO HS LISA Last Admin: 08/07/19 22:45 Dose: 20 mg Metronidazole (Flagyl 500mg Premixed Ivpb -) 500 mg in 100 mls @ 100 mls/hr IVPB Q8H-IV [facility] Last Admin: 08/09/19 17:09 Dose: 100 mls/hr Sodium Chloride (Normal Saline -) 1,000 mls @ 150 mls/hr IV ASDIR [facility] Last Admin: 08/09/19 15:22 Dose: 150 mls/hr Piperacillin Sod/Tazobactam (Sod 3.375 gm/ Dextrose) 50 mls @ 100 mls/hr IVPB Q6H [facility]; Protocol Labetalol HCl (Normodyne -) 200 mg PO BID [facility] Last Admin: 08/09/19 22:42 Dose: 200 mg Loperamide HCl (Imodium -) 2 mg PO Q8H PRN PRN Reason: DIARRHEA Ondansetron HCl (Zofran Injection) 4 mg IVPUSH Q6H PRN PRN Reason: NAUSEA AND/OR VOMITING Oxycodone HCl (Roxicodone -) 5 mg PO Q6H PRN PRN Reason: PAIN LEVEL 1-5 Oxycodone HCl (Roxicodone -) 10 mg PO Q6H PRN PRN Reason: PAIN LEVEL 6-10 Pantoprazole Sodium (Protonix -) 40 mg PO DAILY [facility] Last Admin: 08/09/19 10:19 Dose: 40 mg IMAGING Admission abdominal US shows Hepatomegaly with mild fatty infiltration vs hepatocellular disease, multiple gallstones seen with interval significant thickening of gallbladder wall and a trace of pericholecystic free fluid CXR shows no acute processes ASSESSMENT/PLAN: 39 y/o male PMH HTN, HLD, morbid obesity, and lymphedema c/o diarrhea and fevers with above imaging, admitted for cholecystectomy now POD 2. Persistent fever, low platelets, and low ca. # Sepsis 2/2 acute cholecystitis, s/p cholecystectomy POD 2 - SIRS 2/4 Fever 102.3, HR 111, cultures pending - Metronidazole 500 mg IVPB q8h - Zosyn 3.375 gm IVPB q6h - Pt non-adherent with incentive spiromter use and is not moving OOB. Urine ouput 2,420 cc. Passing flatus - Ice packs and ofirmev 1 gm IV PRN # Positive urine toxicology - MDMA, benzodiazepine, and marijuana (THC) positive - ECHO for cardiac veg, given polysubstance abuse # Low platelets - 52-60 range - No gross bleeding - s/p 1 unit platelets - Previous platelet count normal in May 2019 - Consult heme/onc: poss 2/2 sepsis and recommend ID consult - Immunology panel pending # TARSHA, improving - BUN/Cr 17.4/1.5 - Cr 1.8 (baseline around 1.0), Gfr 54.3 - Most likely prerenal and 2/2 sepsis - IVF # Diarrhea, resolved - Poss 2/2 acute cholecytitis - Poss 2/2 infection/viral illnes - No BM yet - Stool studies pending # HTN - Cont. curent home regimen: Amlodepine 10 mg PO QD, labetolol 200 mg po BID # HLD - Cont. curent home regimen: Atorvastatin 20 mg PO HS # F/E/N - NS - Cont. to monitor - Regular diet # DVT prophylaxis - Heparin SQ # Disposition - Med/surg Teodoro Aguilar MD Visit type - Emergency Visit Emergency Visit: No - New Patient This patient is new to me today: No - Critical Care Critical Care patient: No ATTENDING PHYSICIAN STATEMENT I saw and evaluated the patient. I reviewed the resident's note and discussed the case with the resident. I agree with the resident's findings and plan as documented. SUBJECTIVE: OBJECTIVE: ASSESSMENT AND PLAN:
--- NOTE | 2019-08-09 13:58 | PN ---
Progress Note (short form) - Note Progress Note: POD#2 Pt states that he is tolerating a liquid diet, passing flatus. No BM. OOB to chair yesterday. Vital Signs Period Temp Pulse Resp BP Sys/Santana Pulse Ox Last 24 Hr 100.9 F-102.3 F 104-111 22-24 159-160/81-98 98 JOSE: serosangrenous, 300ml GEN: Alert &0x3 CV; RRR Lungs: CTA b/l ABD; soft, obese, non-distended, inc tendernss. Inc c/d/i LE: no calf terndess b/l CBC, BMP 08/09/19 11:30 08/09/19 08:20 CMP Sodium 136 mmol/L (136-145) 08/09/19 08:20 Potassium 3.5 mmol/L (3.5-5.1) 08/09/19 08:20 Chloride 107 mmol/L (98-107) 08/09/19 08:20 Carbon Dioxide 23 mmol/L (21-32) 08/09/19 08:20 Anion Gap 5 MMOL/L (8-16) L 08/09/19 08:20 BUN 17.4 mg/dL (7-18) 08/09/19 08:20 Creatinine 1.5 mg/dL (0.55-1.3) H 08/09/19 08:20 Est GFR (CKD-EPI)AfAm 67.48 08/09/19 08:20 Est GFR (CKD-EPI)NonAf 58.22 08/09/19 08:20 Random Glucose 96 mg/dL (74-106) 08/09/19 08:20 Lactic Acid 2.1 mmol/L (0.4-2.0) H 08/07/19 21:00 Calcium 6.8 mg/dL (8.5-10.1) L* 08/09/19 08:20 Phosphorus 2.2 mg/dL (2.5-4.9) L 08/07/19 21:00 Magnesium 1.7 mg/dL (1.8-2.4) L 08/07/19 21:00 Total Bilirubin 1.9 mg/dL (0.2-1) H 08/09/19 08:20 Direct Bilirubin 0.7 mg/dL (0.0-0.2) H 08/07/19 21:00 AST 117 U/L (15-37) H 08/09/19 08:20 ALT 144 U/L (13-61) H 08/09/19 08:20 Alkaline Phosphatase 88 U/L (45-117) 08/09/19 08:20 Troponin I < 0.02 ng/ml (0.00-0.05) 08/06/19 14:55 Total Protein 5.3 g/dl (6.4-8.2) L 08/09/19 08:20 Albumin 2.3 g/dl (3.4-5.0) L 08/09/19 08:20 Lipase 129 U/L (73-393) 08/06/19 14:55 A/P: 39 yo male s/p lap rohan for acute cholecystitis/GS Pt with improved thrombocytopenia/BUN/cret and LFTs. Recommend to continue IV abx, pt with acute rohan and septic from this condition. Advance diet as tolerated today OOB and ambulate, pt states that he only ambulated to the restroom yesterday.
--- NOTE | 2019-08-09 14:18 | PN ---
Physical Exam: SUBJECTIVE: Patient seen and examined tolerating diet , had BM last night denies any abdominal pain N/V reports fever and chills H/H stable plt stable S.P one unit mono plt OBJECTIVE: Vital Signs Period Temp Pulse Resp BP Sys/Santana Pulse Ox Last 24 Hr 100.9 F-102.3 F 104-111 22-24 159-160/81-98 98 GENERAL: The patient is awake, alert, and fully oriented, in no acute distress.morbidly obese , laying down in bed HEAD: Normal with no signs of trauma. EYES: PERRL, extraocular movements intact, sclera anicteric, ENT: moist mucous membranes.no oral thrush NECK: Trachea midline, full range of motion, supple. LUNGS: Breath sounds equal, clear to auscultation bilaterally, no wheezes, no crackles, no accessory muscle use. HEART: Regular rate and rhythm, S1, S2 without murmur, rub or gallop. ABDOMEN: Soft, nontender, nondistended, normoactive bowel sounds, JOSE dairn with seraceous fluids EXTREMITIES: 2+ pulses, warm, well-perfused, no edema. NEUROLOGICAL: no focal deficit . Normal speech, gait not observed. PSYCH: Normal mood, normal affect. SKIN: Warm, dry, normal turgor, Laboratory Results - last 24 hr 08/08/19 08/08/19 08/09/19 18:30 18:50 02:30 WBC 4.4 4.6 RBC 3.38 L 3.46 L Hgb 9.9 L 10.0 L Hct 28.5 L 29.1 L MCV 84.2 83.9 MCH 29.2 28.9 MCHC 34.7 34.5 RDW 16.9 H 17.3 H Plt Count 60 L D 68 L MPV 9.5 D 10.0 Absolute Neuts (auto) 3.1 2.7 Total Counted 100 Neutrophils % 71.0 59.5 Neutrophils % (Manual) 67.0 61.0 Band Neutrophils % 13.0 6.0 Lymphocytes % 7.2 L D 12.4 D Lymphocytes % (Manual) 5.0 L 23.0 D Monocytes % 20.8 H 26.8 H Monocytes % (Manual) 10 5 Eosinophils % 0.7 D 1.0 Eosinophils % (Manual) 1.0 3.0 D Basophils % 0.3 0.3 Basophils % (Manual) 0.0 0.0 Nucleated RBC % 0 0 Metamyelocytes 0 D Platelet Estimate Decreased Platelet Comment No clumping noted PT with INR INR PTT (Actin FS) Sodium Potassium Chloride Carbon Dioxide Anion Gap BUN Creatinine Est GFR (CKD-EPI)AfAm Est GFR (CKD-EPI)NonAf Random Glucose Calcium Total Bilirubin AST ALT Alkaline Phosphatase Total Protein Albumin Opiates Screen Negative Methadone Screen Negative Barbiturate Screen Negative Phencyclidine Screen Negative Ur Amphetamines Screen Negative MDMA (Ecstasy) Screen Positive A* Benzodiazepines Screen Positive A* Cocaine Screen Negative U Marijuana (THC) Screen Positive A* 08/09/19 08/09/19 08/09/19 08:20 08:20 11:30 WBC 4.8 RBC 3.78 L Hgb 11.0 L Hct 31.3 L MCV 82.8 MCH 29.2 MCHC 35.2 RDW 17.1 H Plt Count 70 L MPV 9.7 Absolute Neuts (auto) Total Counted Neutrophils % Neutrophils % (Manual) Band Neutrophils % Lymphocytes % Lymphocytes % (Manual) Monocytes % Monocytes % (Manual) Eosinophils % Eosinophils % (Manual) Basophils % Basophils % (Manual) Nucleated RBC % Metamyelocytes Platelet Estimate Platelet Comment PT with INR 19.10 H INR 1.61 H PTT (Actin FS) 34.4 Sodium 136 Potassium 3.5 Chloride 107 Carbon Dioxide 23 Anion Gap 5 L BUN 17.4 Creatinine 1.5 H Est GFR (CKD-EPI)AfAm 67.48 Est GFR (CKD-EPI)NonAf 58.22 Random Glucose 96 Calcium 6.8 L* Total Bilirubin 1.9 H AST 117 H ALT 144 H Alkaline Phosphatase 88 Total Protein 5.3 L Albumin 2.3 L Opiates Screen Methadone Screen Barbiturate Screen Phencyclidine Screen Ur Amphetamines Screen MDMA (Ecstasy) Screen Benzodiazepines Screen Cocaine Screen U Marijuana (THC) Screen Active Medications Generic Name Dose Route Start Last Admin Trade Name Freq PRN Reason Stop Dose Admin Acetaminophen 1,000 mg 08/08/19 17:28 08/09/19 10:22 Ofirmev Injection - IVPB 08/09/19 17:27 1,000 mg Q6H PRN Administration FEVER Amlodipine Besylate 10 mg 08/08/19 10:00 08/09/19 10:19 Norvasc - PO 10 mg DAILY LISA Administration Atorvastatin Calcium 20 mg 08/07/19 22:00 08/07/19 22:45 Lipitor - PO 20 mg HS LISA Administration Calcium Gluconate 1,000 mg 08/09/19 13:33 Calcium Gluconate 10% - IVPB 08/09/19 13:34 ONCE ONE Metronidazole 500 mg in 100 mls @ 100 mls/hr 08/07/19 18:00 08/09/19 10:19 Flagyl 500mg Premixed Ivpb - IVPB 100 mls/hr Q8H-IV LISA Administration Sodium Chloride 1,000 mls @ 150 mls/hr 08/07/19 14:00 08/09/19 06:34 Normal Saline - IV 150 mls/hr ASDIR LISA Administration Piperacillin Sod/Tazobactam 50 mls @ 100 mls/hr 08/07/19 14:15 Sod 3.375 gm/ Dextrose IVPB Q6H LISA Protocol Labetalol HCl 200 mg 08/07/19 22:00 08/09/19 10:19 Normodyne - PO 200 mg BID LISA Administration Loperamide HCl 2 mg 08/07/19 14:00 Imodium - PO Q8H PRN DIARRHEA Ondansetron HCl 4 mg 08/07/19 14:00 Zofran Injection IVPUSH Q6H PRN NAUSEA AND/OR VOMITING Oxycodone HCl 5 mg 08/08/19 09:23 Roxicodone - PO Q6H PRN PAIN LEVEL 1-5 Oxycodone HCl 10 mg 08/08/19 09:24 Roxicodone - PO Q6H PRN PAIN LEVEL 6-10 Pantoprazole Sodium 40 mg 08/08/19 10:00 08/09/19 10:19 Protonix - PO 40 mg DAILY LISA Administration CBC, BMP 08/09/19 11:30 08/09/19 08:20 ASSESSMENT/PLAN: # Anemia normocytic normochromic likely due to blood loss vs bone marrow supression due to alcohol use last drink a month ago per pt but used to drink heavily on weekends he use marijuana last use July first # Thrombocytopenia likely infection process vs med SE , 400 in may before surgery , * monitor cbc Q 8hr * 1 mono donor platelets Plt 70 today * HIT , VU unlikely HIT * plt antibodies * Iv tylenol for low grate fever , * follow up cx * Avoids NSAIDS on chemical DVT proph , * consider dvt prop when cleared by surgery urine tox positive for marijuana extasy and benzo # Hypokalemia replinish as needed # TARSHA cont IV hydration , consult nephro # S/P cholecystectomy POD # 2 # UTI cont abx # DARY/SCDS Visit type - Emergency Visit Emergency Visit: Yes ED Registration Date: 08/06/19 Care time: The patient presented to the Emergency Department on the above date and was hospitalized for further evaluation of their emergent condition. - New Patient This patient is new to me today: No - Critical Care Critical Care patient: No ATTENDING PHYSICIAN STATEMENT I saw and evaluated the patient. I reviewed the resident's note and discussed the case with the resident. I agree with the resident's findings and plan as documented. SUBJECTIVE: OBJECTIVE: ASSESSMENT AND PLAN:
[2019-08-09] MEDS ORDERED: CALCIUM GLUCONATE 10% - 1,000 MG/10 ML VIAL IVPB ONE (14:30)
[2019-08-09] MEDS ORDERED: VITAMINS A AND D TOPICAL OINTMENT 60 GM TUBE TP SCH (18:00)
--- NOTE | 2019-08-09 19:47 | PN ---
Teaching Attending Note Name of Resident: Teodoro Aguilar ATTENDING PHYSICIAN STATEMENT I saw and evaluated the patient. I reviewed the resident's note and discussed the case with the resident. I agree with the resident's findings and plan as documented. SUBJECTIVE: Patient had fever overnight . Vital Signs Temperature 100.0 F H 08/09/19 15:01 Pulse Rate 92 H 08/09/19 15:01 Respiratory Rate 18 08/09/19 15:01 Blood Pressure 158/68 08/09/19 15:01 O2 Sat by Pulse Oximetry (%) 98 08/09/19 09:00 GENERAL: The patient is awake, alert, and fully oriented, in no acute distress. HEAD: Normal with no signs of trauma. EYES: PERRL, extraocular movements intact, sclera anicteric, conjunctiva clear. ENT: Ears normal, oropharynx clear without exudates, moist mucous membranes. NECK: Trachea midline, full range of motion, supple. LUNGS: Breath sounds equal, clear to auscultation bilaterally, no wheezes, no crackles, no accessory muscle use. HEART: Regular rate and rhythm, S1, S2 without murmur, rub or gallop. ABDOMEN: Soft, s/p lap chol. removed for JOSE drainage. +BS, no guarding, no rebound, no hepatosplenomegaly, no masses. EXTREMITIES: 2+ pulses, warm, well-perfused, no edema. NEUROLOGICAL: Cranial nerves II through XII grossly intact. Normal speech, gait not observed. PSYCH: Normal mood, normal affect. SKIN: Warm, dry, normal turgor, no rashes or lesions noted CBCD WBC 4.8 K/mm3 (4.0-10.0) 08/09/19 11:30 RBC 3.78 M/mm3 (4.00-5.60) L 08/09/19 11:30 Hgb 11.0 GM/dL (11.7-16.9) L 08/09/19 11:30 Hct 31.3 % (35.4-49) L 08/09/19 11:30 MCV 82.8 fl (80-96) 08/09/19 11:30 MCHC 35.2 g/dl (32.0-35.9) 08/09/19 11:30 RDW 17.1 % (11.9-15.9) H 08/09/19 11:30 Plt Count 70 K/MM3 (134-434) L 08/09/19 11:30 MPV 9.7 fl (7.5-11.1) 08/09/19 11:30 CMP Sodium 136 mmol/L (136-145) 08/09/19 08:20 Potassium 3.5 mmol/L (3.5-5.1) 08/09/19 08:20 Chloride 107 mmol/L (98-107) 08/09/19 08:20 Carbon Dioxide 23 mmol/L (21-32) 08/09/19 08:20 Anion Gap 5 MMOL/L (8-16) L 08/09/19 08:20 BUN 17.4 mg/dL (7-18) 08/09/19 08:20 Creatinine 1.5 mg/dL (0.55-1.3) H 08/09/19 08:20 Random Glucose 96 mg/dL (74-106) 08/09/19 08:20 Calcium 6.8 mg/dL (8.5-10.1) L* 08/09/19 08:20 Total Bilirubin 1.9 mg/dL (0.2-1) H 08/09/19 08:20 AST 117 U/L (15-37) H 08/09/19 08:20 ALT 144 U/L (13-61) H 08/09/19 08:20 Alkaline Phosphatase 88 U/L (45-117) 08/09/19 08:20 Total Protein 5.3 g/dl (6.4-8.2) L 08/09/19 08:20 Albumin 2.3 g/dl (3.4-5.0) L 08/09/19 08:20 CARDIAC ENZYMES Troponin I < 0.02 ng/ml (0.00-0.05) 08/06/19 14:55 Current Medications Generic Name Dose Route Start Last Admin Trade Name Freq PRN Reason Stop Dose Admin Amlodipine Besylate 10 mg 08/08/19 10:00 08/09/19 10:19 Norvasc - PO 10 mg DAILY LISA Administration Atorvastatin Calcium 20 mg 08/07/19 22:00 08/07/19 22:45 Lipitor - PO 20 mg HS LISA Administration Metronidazole 500 mg in 100 mls @ 100 mls/hr 08/07/19 18:00 08/09/19 17:09 Flagyl 500mg Premixed Ivpb - IVPB 100 mls/hr Q8H-IV LISA Administration Sodium Chloride 1,000 mls @ 150 mls/hr 08/07/19 14:00 08/09/19 15:22 Normal Saline - IV 150 mls/hr ASDIR LISA Administration Piperacillin Sod/Tazobactam 50 mls @ 100 mls/hr 08/07/19 14:15 Sod 3.375 gm/ Dextrose IVPB Q6H LISA Protocol Labetalol HCl 200 mg 08/07/19 22:00 08/09/19 10:19 Normodyne - PO 200 mg BID LISA Administration Loperamide HCl 2 mg 08/07/19 14:00 Imodium - PO Q8H PRN DIARRHEA Ondansetron HCl 4 mg 08/07/19 14:00 Zofran Injection IVPUSH Q6H PRN NAUSEA AND/OR VOMITING Oxycodone HCl 5 mg 08/08/19 09:23 Roxicodone - PO Q6H PRN PAIN LEVEL 1-5 Oxycodone HCl 10 mg 08/08/19 09:24 Roxicodone - PO Q6H PRN PAIN LEVEL 6-10 Pantoprazole Sodium 40 mg 08/08/19 10:00 08/09/19 10:19 Protonix - PO 40 mg DAILY LISA Administration Home Medications Medication Instructions Recorded Amlodipine Besylate [Norvasc -] 10 mg PO DAILY 06/29/14 Labetalol HCl [Normodyne -] 200 mg PO BID 06/29/14 Omeprazole [Prilosec (RX)] 40 mg PO DAILY 06/29/14 Atorvastatin Ca [Lipitor] 20 mg DAILY 05/23/19 Acetaminophen [Tylenol .Regular 650 mg PO Q4H PRN tablet 05/30/19 Strength -] Lisinopril 10 mg PO DAILY #30 tablet 05/30/19 levoFLOXacin [Levaquin] 750 mg PO DAILY #7 tab 05/30/19 Microbiology 08/06/19 14:55 Blood - Peripheral Venous Blood Culture - Preliminary NO GROWTH OBTAINED AFTER 24 HOURS, INCUBATION TO CONTINUE FOR 4 DAYS. 08/06/19 14:55 Blood - Peripheral Venous Blood Culture - Preliminary NO GROWTH OBTAINED AFTER 24 HOURS, INCUBATION TO CONTINUE FOR 4 DAYS. 08/06/19 14:55 Urine - Urine Clean Catch Urine Culture - Final NO GROWTH OBTAINED Assessment and plan: Patient is a 39yom with Pmhx of HTN, HLP, morbid obesity and lymphedema with recent admission for cellulitis. He presented with diarrhea and fevers, was found to have transaminitis and sepsis. # POD#2 s/p lap chol. for acute cholecystitis due to Gall stone, having fever , michael re-culture, recommended incentive spirometer , continue IV antibiotics zosyn and flagyl continue , Advance diet as tolerated today, OOB and ambulate, incentive spirometer. #Thrombocytopenia improving, monitor 64-->70's now # Sepsis , due to acute cholecystitis , contnues to have fever monitor # TARSHA: likely prerenal and due to sepsis, cont IVF , repeat cmp #Diarrhea on Immodium continue DVT px: Scds
[2019-08-09] MEDS ORDERED: MAGNESIUM SULF 50% (8.12 MEQ/2 ML-1 GM VIAL) IVPB ONE (19:48)
--- NOTE | 2019-08-09 20:01 | PN ---
Teaching Attending Note Name of Resident: Sujit Barcenas ATTENDING PHYSICIAN STATEMENT I saw and evaluated the patient. I reviewed the resident's note and discussed the case with the resident. I agree with the resident's findings and plan as documented. SUBJECTIVE: Doing well. One episode of diarrhea OBJECTIVE: Last Vital Signs Temp Pulse Resp BP Pulse Ox 100.0 F H 92 H 18 158/68 98 08/09/19 15:01 08/09/19 15:08/09/19 15:08/09/19 15:08/09/19 09:00 General: NAD HEENT: MMM CVS: S1, S2 Lungs: CTAB Abdomen: Soft, NT, ND, Obese Extremities: No edema 08/09/19 11:30 08/09/19 08:20 Current Medications Amlodipine Besylate (Norvasc -) 10 mg PO DAILY LISA Last Admin: 08/09/19 10:19 Dose: 10 mg Atorvastatin Calcium (Lipitor -) 20 mg PO HS LISA Last Admin: 08/07/19 22:45 Dose: 20 mg Metronidazole (Flagyl 500mg Premixed Ivpb -) 500 mg in 100 mls @ 100 mls/hr IVPB Q8H-IV LISA Last Admin: 08/09/19 17:09 Dose: 100 mls/hr Sodium Chloride (Normal Saline -) 1,000 mls @ 150 mls/hr IV ASDIR LISA Last Admin: 08/09/19 15:22 Dose: 150 mls/hr Piperacillin Sod/Tazobactam (Sod 3.375 gm/ Dextrose) 50 mls @ 100 mls/hr IVPB Q6H LISA; Protocol Labetalol HCl (Normodyne -) 200 mg PO BID LISA Last Admin: 08/09/19 10:19 Dose: 200 mg Loperamide HCl (Imodium -) 2 mg PO Q8H PRN PRN Reason: DIARRHEA Magnesium Sulfate (Magnesium Sulfate) 1 gm IVPB ONCE ONE Stop: 08/09/19 19:49 Ondansetron HCl (Zofran Injection) 4 mg IVPUSH Q6H PRN PRN Reason: NAUSEA AND/OR VOMITING Oxycodone HCl (Roxicodone -) 5 mg PO Q6H PRN PRN Reason: PAIN LEVEL 1-5 Oxycodone HCl (Roxicodone -) 10 mg PO Q6H PRN PRN Reason: PAIN LEVEL 6-10 Pantoprazole Sodium (Protonix -) 40 mg PO DAILY LISA Last Admin: 08/09/19 10:19 Dose: 40 mg ASSESSMENT AND PLAN: 39 y/o gentleman with PMH of HTN, HLP, morbid obesity and lymphedema with recent admission for cellulitis. He presented with diarrhea and fevers, was found to have transaminitis and sepsis. Had Lap Tasha POD#2 (for acute cholecystitis). Hematology consulted for anemia and thrombocytopenia Recommend: 1) Hb 11 and Platelets 70,000. Steadily improving. Likely multifactorial, sepsis , alcohol abuse, etc. Continue to monitor 2) Consider ID consultation 3) Rest per Dr. Barcenas's note 4) Thank you for this consultation
--- NOTE | 2019-08-09 21:42 | OP ---
DATE OF OPERATION: 08/07/2019 PREOPERATIVE DIAGNOSIS: Acute cholecystitis and cholelithiasis. POSTOPERATIVE DIAGNOSIS: Acute cholecystitis and cholelithiasis. PROCEDURE: Laparoscopic cholecystectomy. SURGEON: Sal Reyes MD ASISTANT: Riaz Abbott PA-C ANESTHESIA: General. OPERATIVE FINDINGS: There was a markedly edematous gallbladder consistent with acute cholecystitis and there was cholelithiasis. In addition, there was marked hepatomegaly and some free reactive peritoneal fluid and the rest of the findings were unremarkable. DESCRIPTION OF PROCEDURE: The patient was placed on the operating table in the supine position. After the induction of general anesthesia, the patient's abdomen was prepped with ChloraPrep and draped in the sterile fashion. A timeout was taken and pneumoperitoneum was established above the umbilicus using a Veress needle. Once the abdomen was insufflated to 15 mmHg, a 5-mm port was placed at the umbilicus. It should be noted that all ports were of the bariatric variety. Next, a subxiphoid 12-mm port was placed as well as two 5-mm right lower quadrant ports. The previously noted findings were observed. Because of difficulty elevating the fundus of the gallbladder above the liver to gain adequate traction to start the laparoscopic cholecystectomy, it was decided to use a top-down approach from the fundus. The serosa of the gallbladder was incised with electrocautery and the plane identified between the posterior gallbladder wall and the liver. With the use of the electrocautery, dissection was carried out from top down and [id number] until the neck of the gallbladder was reached. There were several stones impacted in the neck. The gallbladder was completely mobilized circumferentially at the neck and 2 tubular structures were noted at the neck, coursing towards the midline and they were consistent with the cystic duct and cystic artery. They were both dissected bluntly, proximally and distally for length, and a critical view of safety was observed. The artery was further identified by the cystic artery lymph node, which was mobilized distally using blunt dissection. Next, the duct and artery were divided using medium-large Endoclips. The duct and the artery were then serially divided using Endoshears and the gallbladder was now completely freed from the liver bed and the cystic surgery and cystic duct. It was placed in an Endo Catch and brought out through the subxiphoid port. Pneumoperitoneum was reestablished. Copious irrigation was carried out until the return was clear and hemostasis was checked for on the liver bed and noted to be good. Next, a 10-mm Lauro-Harrison drain was placed in the liver bad and omentum placed up against the drain and the gallbladder fossa. The drain was brought out through the lateral 5-mm port site and secured to the skin with 2-0 silk suture. Hemostasis was again verified and then all ports were removed under laparoscopic vision without evidence of bleeding from the port sites. The pneumoperitoneum was evacuated and all port sites were infiltrated with 0.5% Marcaine and closed with 4-0 Monocryl for the supraumbilical and right-sided medial 5-mm port sites. The deep dermis of the 12-mm subxiphoid port site was closed with interrupted 3-0 Vicryl followed by 4-0 Monocryl in a subcuticular continuous fashion. The drain was connected to bulb suction and the wound was dressed with Steri-Strips and Band-Aids. The procedure was terminated at this point. The patient was reversed from general anesthesia and transferred to the postanesthesia care unit in stable condition, awake and alert. ESTIMATED BLOOD LOSS: 50 mL, replaced with crystalloid. DRAINS: One 10-mm Lauro-Harrison drain in the liver bed. I, Sal Reyes, was physically present in the operating room from the time the patient was placed on the operating table until he was transferred to the postanesthesia care unit in my accompaniment. MD MEGAN Vallejo/[id number] MTDD
[2019-08-10] MEDS: SODIUM CHLORIDE 1,000 ML IV SCH ×2 (04:53→14:26)
[2019-08-10] MEDS ORDERED: IBUPROFEN 400 MG TABLET (FP) PO PRN (09:16)
[2019-08-10] MEDS ORDERED: LABETALOL HCL 100 MG TABLET (FP) ONE ×2 (09:19→21:08)
[2019-08-10] MEDS: amLODIPine BESYLATE 10 MG TABLET (FP) PO SCH (09:22)
[2019-08-10] MEDS: PANTOPRAZOLE 40 MG TABLET PO SCH (09:22)
[2019-08-10] MEDS: LABETALOL HCL 200 MG TABLET (FP) PO SCH ×2 (09:22→23:08)
--- NOTE | 2019-08-10 09:27 | PN ---
Progress Note, Physician History of Present Illness: GI FOLLOW UP NOTE Patient examined and case discussed with Dr Krishnan Patient is POD #3 Laparscopic Cholecystectomy. He denies nausea, vomiting, abdominal pain. Patient states having one episode of non-bloody diarrhea last night. He is febrile T103F and tachycardic 116bpm. No leukocytosis noted. PLT showing slow uptrend, currently 70. RLQ JOSE drain in place with <50cc serosanguinous output. - Current Medication List Current Medications: Active Medications Amlodipine Besylate (Norvasc -) 10 mg PO DAILY [facility] Last Admin: 08/09/19 10:19 Dose: 10 mg Atorvastatin Calcium (Lipitor -) 20 mg PO HS [facility] Last Admin: 08/07/19 22:45 Dose: 20 mg Metronidazole (Flagyl 500mg Premixed Ivpb -) 500 mg in 100 mls @ 100 mls/hr IVPB Q8H-IV [facility] Last Admin: 08/10/19 02:23 Dose: 100 mls/hr Sodium Chloride (Normal Saline -) 1,000 mls @ 150 mls/hr IV ASDIR [facility] Last Admin: 08/10/19 04:53 Dose: 150 mls/hr Piperacillin Sod/Tazobactam (Sod 3.375 gm/ Dextrose) 50 mls @ 100 mls/hr IVPB Q6H [facility]; Protocol Ibuprofen (Motrin -) 800 mg PO Q8H PRN PRN Reason: FEVER Labetalol HCl (Normodyne -) 200 mg PO BID [facility] Last Admin: 08/09/19 22:42 Dose: 200 mg Loperamide HCl (Imodium -) 2 mg PO Q8H PRN PRN Reason: DIARRHEA Ondansetron HCl (Zofran Injection) 4 mg IVPUSH Q6H PRN PRN Reason: NAUSEA AND/OR VOMITING Oxycodone HCl (Roxicodone -) 5 mg PO Q6H PRN PRN Reason: PAIN LEVEL 1-5 Oxycodone HCl (Roxicodone -) 10 mg PO Q6H PRN PRN Reason: PAIN LEVEL 6-10 Pantoprazole Sodium (Protonix -) 40 mg PO DAILY [facility] Last Admin: 08/09/19 10:19 Dose: 40 mg - Objective Vital Signs: Vital Signs Temperature 103.1 F H 08/10/19 09:00 Pulse Rate 116 H 08/10/19 09:00 Respiratory Rate 20 08/10/19 09:00 Blood Pressure 140/55 L 08/10/19 09:00 O2 Sat by Pulse Oximetry (%) 98 08/09/19 21:00 Constitutional: Yes: Calm, Obese Eyes: Yes: Conjunctiva Clear HENT: Yes: Atraumatic Cardiovascular: Yes: Tachycardia Respiratory: Yes: Regular, Diminished, On Nasal O2 Gastrointestinal: Yes: Normal Bowel Sounds, Soft, Abdomen, Obese Musculoskeletal: Yes: Muscle Weakness Wound/Incision: Yes: Open to air Neurological: Yes: Alert, Oriented Psychiatric: Yes: Alert, Oriented Labs: CBC, BMP 08/09/19 11:30 08/09/19 08:20 INR, PTT INR 1.61 (0.83-1.09) H 08/09/19 08:20 Problem List - Problems (1) Cholecystitis Assessment/Plan: >POD#3CTAP laparoscopic cholecystitis >LFTs showing downtrend, continue to monitor >JOSE to RLQ draining serosanguinous output >Abd/Pelvic CT scan ordered to R/O abdominal collection >ID consult >continue IV Flagyl Code(s): K81.9 - CHOLECYSTITIS, UNSPECIFIED
--- NOTE | 2019-08-10 11:24 | PN ---
Physical Exam: SUBJECTIVE: Patient seen and examined tolerating diet , had BM last night denies any abdominal pain N/V reports fever and chills H/H stable plt stable S.P one unit mono plt OBJECTIVE: Vital Signs Period Temp Pulse Resp BP Sys/Santana Pulse Ox Last 24 Hr 98.9 F-103.1 F 60-116 18-22 132-158/55-88 98 GENERAL: The patient is awake, alert, and fully oriented, in no acute distress.morbidly obese , laying down in bed HEAD: Normal with no signs of trauma. EYES: PERRL, extraocular movements intact, sclera anicteric, ENT: moist mucous membranes.no oral thrush NECK: Trachea midline, full range of motion, supple. LUNGS: Breath sounds equal, clear to auscultation bilaterally, no wheezes, no crackles, no accessory muscle use. HEART: Regular rate and rhythm, S1, S2 without murmur, rub or gallop. ABDOMEN: Soft, nontender, nondistended, normoactive bowel sounds, JOSE dairn with seraceous fluids EXTREMITIES: 2+ pulses, warm, well-perfused, no edema. NEUROLOGICAL: no focal deficit . Normal speech, gait not observed. PSYCH: Normal mood, normal affect. SKIN: Warm, dry, normal turgor, Laboratory Results - last 24 hr 08/09/19 11:30 WBC 4.8 RBC 3.78 L Hgb 11.0 L Hct 31.3 L MCV 82.8 MCH 29.2 MCHC 35.2 RDW 17.1 H Plt Count 70 L MPV 9.7 Active Medications Generic Name Dose Route Start Last Admin Trade Name Tereso PRN Reason Stop Dose Admin Amlodipine Besylate 10 mg 08/08/19 10:00 08/10/19 09:22 Norvasc - PO 10 mg DAILY LISA Administration Atorvastatin Calcium 20 mg 08/07/19 22:00 08/07/19 22:45 Lipitor - PO 20 mg HS LISA Administration Metronidazole 500 mg in 100 mls @ 100 mls/hr 08/07/19 18:00 08/10/19 09:23 Flagyl 500mg Premixed Ivpb - IVPB 100 mls/hr Q8H-IV LISA Administration Sodium Chloride 1,000 mls @ 150 mls/hr 08/07/19 14:00 08/10/19 04:53 Normal Saline - IV 150 mls/hr ASDIR LISA Administration Piperacillin Sod/Tazobactam 50 mls @ 100 mls/hr 08/07/19 14:15 Sod 3.375 gm/ Dextrose IVPB Q6H LISA Protocol Ibuprofen 800 mg 08/10/19 09:16 08/10/19 09:28 Motrin - PO 800 mg Q8H PRN Administration FEVER Labetalol HCl 200 mg 08/07/19 22:00 08/10/19 09:22 Normodyne - PO 200 mg BID LISA Administration Loperamide HCl 2 mg 08/07/19 14:00 Imodium - PO Q8H PRN DIARRHEA Ondansetron HCl 4 mg 08/07/19 14:00 Zofran Injection IVPUSH Q6H PRN NAUSEA AND/OR VOMITING Oxycodone HCl 5 mg 08/08/19 09:23 Roxicodone - PO Q6H PRN PAIN LEVEL 1-5 Oxycodone HCl 10 mg 08/08/19 09:24 Roxicodone - PO Q6H PRN PAIN LEVEL 6-10 Pantoprazole Sodium 40 mg 08/08/19 10:00 08/10/19 09:22 Protonix - PO 40 mg DAILY LISA Administration CBC, BMP 08/09/19 11:30 08/09/19 08:20 ASSESSMENT/PLAN: # Anemia normocytic normochromic likely due to blood loss vs bone marrow supression due to alcohol use last drink a month ago per pt but used to drink heavily on weekends he use marijuana last use July first # Thrombocytopenia likely infection process vs med SE , 400 in may , before surgery , 47 today * monitor cbc Q 8hr * 1 mono donor platelets Plt 70 today * HIT , VU unlikely HIT * plt antibodies * Iv tylenol for low grate fever , * follow up cx * Avoids NSAIDS on chemical DVT proph , * consider dvt prop when cleared by surgery * consider to consult ID , burns cx , dvt US , urine tox positive for marijuana extasy and benzo # Hypokalemia replinish as needed # TARSHA cont IV hydration , consult nephro # S/P cholecystectomy POD # 3 # UTI cont abx # DARY/SCDS Visit type - Emergency Visit Emergency Visit: Yes ED Registration Date: 08/06/19 Care time: The patient presented to the Emergency Department on the above date and was hospitalized for further evaluation of their emergent condition. - New Patient This patient is new to me today: No - Critical Care Critical Care patient: No - Discharge Referral Referred to [facility] No ATTENDING PHYSICIAN STATEMENT I saw and evaluated the patient. I reviewed the resident's note and discussed the case with the resident. I agree with the resident's findings and plan as documented. SUBJECTIVE: OBJECTIVE: ASSESSMENT AND PLAN:
--- NOTE | 2019-08-10 11:41 | PN ---
Progress Note (short form) - Note Progress Note: 39yo M s/p lap rohan POD #3, pt seen and examined at bedside. Pt continues to spike fevers, last one 103 F this morning. Pt denies abd pain, n/v, diarrhea. Last Vital Signs Temp Pulse Resp BP Pulse Ox 101.6 F H 116 H 20 140/55 L 98 08/10/19 10:28 08/10/19 09:00 08/10/19 09:00 08/10/19 09:00 08/09/19 21:00 CBC, BMP 08/09/19 11:30 08/09/19 08:20 PE: Gen: a&O X 3 Resp: breathing comfortably ABd: soft, nondistended, nontender, RLQ drain in place with serous drainage. Problem List - Problems (1) Cholecystitis Assessment/Plan: Plan -pt shows no sign of biliary leak, as abd is benign and drainage is clear and low amount -pt needs a fever workup including concern for PE -will leave drain in place for now. -Ibuprofen ordered for fever as avoid Tylenol due to elevated LFTs. Code(s): K81.9 - CHOLECYSTITIS, UNSPECIFIED
[2019-08-10] MEDS ORDERED: ENOXAPARIN NA (PORCINE) 40 MG/0.4 ML DISP.SYRIN SQ SCH (11:45)
--- NOTE | 2019-08-10 13:01 | ECHO ---
Name: REBEKA MADRIGAL, III Exam:Adult Echocardiogram Study Date: 08/10/2019 09:33 AM Age: 39 yrs Height: 69 in Weight: 367 lb BSA: 2.7 m2 MMode/2D Measurements & Calculations IVSd: 1.0 cm Ao root diam: 4.0 cm LVIDd: 5.9 cm LA dimension: 4.7 cm LVIDs: 3.8 cm ACS: 3.1 cm LVPWd: 1.1 cm IVSs: 1.4 cm LVPWs: 1.7 cm EDV(Teich): 175.1 ml ESV(Teich): 60.1 ml Doppler Measurements & Calculations MV E max zurdo: 57.8 cm/sec Ao V2 max: 105.9 cm/sec MV A max zurdo: 47.6 cm/sec Ao max P.5 mmHg MV E/A: 1.2 PI end-d zurdo: 137.1 cm/sec Med Peak E' Zurdo: 5.7 cm/sec Med E/e': 10.1 Lat Peak E' Zurdo: 10.6 cm/sec Lat E/e': 5.4 Procedure The study was technically difficult with many images being suboptimal in quality. Left Ventricle Left ventricular systolic function is grossly normal. Regional wall motion abnormalities cannot be ex cluded due to limited visualization. Right Ventricle The right ventricle is grossly normal size. The right ventricular systolic function is grossly normal . Atria The left atrium is mildly dilated. Right atrial size is normal. Mitral Valve The mitral valve is grossly normal. There is no mitral valve stenosis. Tricuspid Valve The tricuspid valve is normal in structure and function. There is trace tricuspid regurgitation. Aortic Valve The aortic valve opens well. No hemodynamically significant valvular aortic stenosis. Pulmonic Valve The pulmonic valve is not well seen, but is grossly normal. There is no pulmonic valvular stenosis. T race to mild pulmonic valvular regurgitation. Great Vessels Borderline aortic root dilatation. Pericardium/Pleura There is no pericardial effusion. Interpretation Summary The study was technically difficult with many images being suboptimal in quality. Regional wall motion abnormalities cannot be excluded due to limited visualization. Left ventricular systolic function is grossly normal. The left atrium is mildly dilated. Borderline aortic root dilatation. There is no pericardial effusion. MD Logan *Chanel 08/10/2019 01:01 PM
--- NOTE | 2019-08-10 13:39 | PN ---
Progress Note (short form) - Note Progress Note: ID CONSULT DICTATED POD #3 LAPAROSCOPIC CHOLECYSTECTOMY PERSISTANT FEVER REPEAT BC PENDING CT ABDO/ PELVIS ORDERED CONTINUE EMPIRIC ZOSYN/ FLAGYL
--- NOTE | 2019-08-10 13:59 | PN ---
Physical Exam: SUBJECTIVE: Patient seen and examined at bedside. Overnight there were no events but early this AM another fever mounted at 103.1. He feels generally unwell but has no SOB, CP, calf pain etc. OBJECTIVE: Vital Signs Temp Pulse Resp BP Pulse Ox 97.7 F 79 20 116/58 L 95 08/10/19 19:00 08/10/19 19:00 08/10/19 19:00 08/10/19 19:00 08/10/19 09:00 GENERAL: AOx3, obese, in no acute distress but diaphoretic, urinal at bedside with dark urine, incentive spirometer at bedside HEAD: NCAT EYES: TOMMY, EOMI, conjunctiva clear. ENT: Ears normal, nares patent, oropharynx clear without exudates. Moist mucous membranes. NECK: Normal range of motion, supple without lymphadenopathy, JVD, or masses. LUNGS: CTAB. No wheezes, and no crackles. No accessory muscle use. HEART: RRR s1 s2 ABDOMEN: Surgical scars, no erythema or dc. Soft, BS present in all 4 quadrants , non-distended, no JVD, JOSE drain RLQ with serosanguinous dc MUSCULOSKELETAL: No bony deformities or tenderness. No CVA tenderness. UPPER EXTREMITIES: 2+ pulses, warm, well-perfused. No cyanosis. No clubbing. No peripheral edema. LOWER EXTREMITIES: 2+ pulses, warm, well-perfused. No calf tenderness. No peripheral edema. NEUROLOGICAL: No focal deficits. Cranial nerves II-XII intact. Normal speech. Gait not appreciated. PSYCHIATRIC: Cooperative. Good eye contact. Appropriate mood and affect. SKIN: Warm, dry, normal turgor, no rashes or lesions noted, normal capillary refill. Active Medications Generic Name Dose Route Start Last Admin Trade Name Freq PRN Reason Stop Dose Admin Amlodipine Besylate 10 mg 08/08/19 10:00 08/10/19 09:22 Norvasc - PO 10 mg DAILY LISA Administration Atorvastatin Calcium 20 mg 08/07/19 22:00 08/07/19 22:45 Lipitor - PO 20 mg HS LISA Administration Enoxaparin Sodium 40 mg 08/10/19 11:45 08/10/19 11:46 Lovenox - SQ 40 mg DAILY LISA Administration Metronidazole 500 mg in 100 mls @ 100 mls/hr 08/07/19 18:00 08/10/19 09:23 Flagyl 500mg Premixed Ivpb - IVPB 100 mls/hr Q8H-IV LISA Administration Sodium Chloride 1,000 mls @ 150 mls/hr 08/07/19 14:00 08/10/19 04:53 Normal Saline - IV 150 mls/hr ASDIR LISA Administration Piperacillin Sod/Tazobactam 100 mls @ 200 mls/hr 08/10/19 18:00 Sod 4.5 gm/ Dextrose IVPB Q8H-IV LISA Protocol Ibuprofen 800 mg 08/10/19 09:16 08/10/19 09:28 Motrin - PO 800 mg Q8H PRN Administration FEVER Labetalol HCl 200 mg 08/07/19 22:00 08/10/19 09:22 Normodyne - PO 200 mg BID LISA Administration Loperamide HCl 2 mg 08/07/19 14:00 Imodium - PO Q8H PRN DIARRHEA Ondansetron HCl 4 mg 08/07/19 14:00 Zofran Injection IVPUSH Q6H PRN NAUSEA AND/OR VOMITING Oxycodone HCl 5 mg 08/08/19 09:23 Roxicodone - PO Q6H PRN PAIN LEVEL 1-5 Oxycodone HCl 10 mg 08/08/19 09:24 Roxicodone - PO Q6H PRN PAIN LEVEL 6-10 Pantoprazole Sodium 40 mg 08/08/19 10:00 08/10/19 09:22 Protonix - PO 40 mg DAILY LISA Administration ASSESSMENT/PLAN: 39 y/o male PMH HTN, HLD, morbid obesity, and lymphedema c/o diarrhea and fevers with above imaging, admitted for cholecystectomy now POD 3. Persistent fever. # Low platelets, improving - 70 today, prev 52-60 range - No gross bleeding - s/p 1 unit platelets - Previous platelet count normal in May 2019 - Consult heme/onc: poss 2/2 sepsis # Sepsis 2/2 acute cholecystitis, s/p cholecystectomy POD 3 - SIRS 2/4 Fever 103, HR 130 - Metronidazole 500 mg IVPB q8h - Zosyn 3.375 gm IVPB q6h - For surgery this AM - Blood cx pending - ID consulted # TARSHA - Cr 1.8 (baseline around 1.0), Gfr 54.3 - Most likely prerenal and 2/2 sepsis - IVF # Diarrhea - Poss 2/2 acute cholecytitis - Poss 2/2 infection/viral illnes - Stool studies pending # HTN - Cont. curent home regimen: Amlodepine 10 mg PO QD, labetolol 200 mg po BID # HLD - Cont. curent home regimen: Atorvastatin 20 mg PO HS # F/E/N - NS - Cont. to monitor - Regular diet # DVT prophylaxis - Heparin SQ # Disposition - Med/surg - Need to CT abdomen to poss identify source of fever. If body habitus incompatible with CT will have to transfer. Teodoro Aguilar MD Visit type - Emergency Visit Emergency Visit: No - New Patient This patient is new to me today: No - Critical Care Critical Care patient: No ATTENDING PHYSICIAN STATEMENT I saw and evaluated the patient. I reviewed the resident's note and discussed the case with the resident. I agree with the resident's findings and plan as documented. SUBJECTIVE: OBJECTIVE: ASSESSMENT AND PLAN:
[2019-08-10] MEDS ORDERED: PIPERACILLIN/TAZOBACTAM 4.5 GM VIAL IVPB ONE (17:14)
[2019-08-10] MEDS ORDERED: DEXTROSE 5%-WATER 100 ML IVPB ONE (17:14)
--- NOTE | 2019-08-10 17:30 | CONS ---
INFECTIOUS DISEASE CONSULTATION DATE OF CONSULTATION: DATE OF DICTATION: 08/10/2019 HISTORY: The patient is a 39-year-old male evaluated for fever. He was admitted to the hospital on August 06, 2019, with a 2- to [id number] of nausea, vomiting, diarrhea, and subjective fever. He was evaluated in the emergency room where his temperature was 103. He was noted to have right upper quadrant abdominal tenderness. A sonogram was performed and was consistent with acute cholecystitis. The patient was taken to the operating room on August 07, 2019, for a laparoscopic cholecystectomy. His hospital course has been complicated by persistent fever. He was empirically treated with Levaquin and Flagyl and subsequently switched to Zosyn and Flagyl. Despite the antibiotics, he remains febrile. Patient's temperature was 103.1 this morning. He is awake but somnolent. He offers no complaints. He denies any abdominal pain. No complaints of shaking chills. No chest pain, shortness of breath, cough, or sputum production. No vomiting or diarrhea. No complaints of dysuria or hematuria. PAST MEDICAL HISTORY: Positive for hypertension, hyperlipidemia, lower extremity lymphedema. History of cellulitis for which he was hospitalized in May 2019. ALLERGIES: HYDRALAZINE. MEDICATIONS: Include amlodipine, Lipitor, Lovenox, Zosyn, Flagyl, labetalol, oxycodone, Protonix. SOCIAL HISTORY: He lives in the community. Former smoker. No history of alcohol abuse. SYSTEMS REVIEW: Neurologic: No loss of consciousness, seizure activity, or focal weakness. Cardiac: Negative chest pain or palpitations. Respiratory: Negative cough or sputum production. Gastrointestinal: As per HPI. Genitourinary: Negative for urinary tract infection. LABORATORY DATA: White count 4.8, hematocrit 31.3, platelets 70, creatinine 1.5. Urinalysis, 6 white cells. Chest x-ray negative for acute infiltrate. PHYSICAL EXAMINATION: General: He is awake but somnolent in bed. Appears morbidly obese. No acute distress. Breathing is nonlabored. Vital Signs: Maximum temperature 103.1, blood pressure 140/55, pulse 116 regular, respirations 20 per minute. HEENT: Sclerae anicteric. Heart: Sounds S1, S2. Lungs: Clear. Abdomen: Soft. No tenderness elicited. Surgical wounds appear to be healing well. Extremities: Bilateral lower extremity lymphedema. Negative Homans sign. IMPRESSION: 1. Postoperative day number 3 laparoscopic cholecystectomy. 2. Persistent fever, unclear source. 3. Thrombocytopenia, possibly secondary to sepsis. 4. Azotemia. PLAN: Await cultures. Continue empiric Zosyn and Flagyl. CT scan of the abdomen and pelvis, rule out abscess. Repeat chest x-ray. Out of bed to chair. Incentive spirometry. We will follow. Thank you for the kind referral. THANH FITZPATRICK M.D. [id number]
[2019-08-10] MEDS ORDERED: PIPERACILLIN/TAZOB 4.5 GM 4.5 GM in DEXTROSE 5%-WATER 100 ML IVPB SCH (18:00)
--- NOTE | 2019-08-10 19:21 | PN ---
Teaching Attending Note Name of Resident: Teodoro Aguilar ATTENDING PHYSICIAN STATEMENT I saw and evaluated the patient. I reviewed the resident's note and discussed the case with the resident. I agree with the resident's findings and plan as documented. SUBJECTIVE: Patient continues to have fever and feeling of warmth. Vital Signs Temperature 97.5 F L 08/10/19 18:31 Pulse Rate 86 08/10/19 13:51 Respiratory Rate 18 08/10/19 13:51 Blood Pressure 99/64 08/10/19 13:51 O2 Sat by Pulse Oximetry (%) 95 08/10/19 09:00 GENERAL: The patient is awake, alert, and fully oriented, in no acute distress. HEAD: Normal with no signs of trauma. EYES: PERRL, extraocular movements intact, sclera anicteric, conjunctiva clear. ENT: Ears normal, oropharynx clear without exudates, moist mucous membranes. NECK: Trachea midline, full range of motion, supple. LUNGS: Breath sounds equal, clear to auscultation bilaterally, no wheezes, no crackles, no accessory muscle use. HEART: Regular rate and rhythm, S1, S2 without murmur, rub or gallop. ABDOMEN: Soft, s/p lap chol. removed for JOSE drainage. +BS, no guarding, no rebound, no hepatosplenomegaly, no masses. EXTREMITIES: 2+ pulses, warm, well-perfused, no edema. NEUROLOGICAL: Cranial nerves II through XII grossly intact. Normal speech, gait not observed. PSYCH: Normal mood, normal affect. SKIN: Warm, dry, normal turgor, no rashes or lesions noted CBCD WBC 4.8 K/mm3 (4.0-10.0) 08/09/19 11:30 RBC 3.78 M/mm3 (4.00-5.60) L 08/09/19 11:30 Hgb 11.0 GM/dL (11.7-16.9) L 08/09/19 11:30 Hct 31.3 % (35.4-49) L 08/09/19 11:30 MCV 82.8 fl (80-96) 08/09/19 11:30 MCHC 35.2 g/dl (32.0-35.9) 08/09/19 11:30 RDW 17.1 % (11.9-15.9) H 08/09/19 11:30 Plt Count 70 K/MM3 (134-434) L 08/09/19 11:30 MPV 9.7 fl (7.5-11.1) 08/09/19 11:30 CMP Sodium 136 mmol/L (136-145) 08/09/19 08:20 Potassium 3.5 mmol/L (3.5-5.1) 08/09/19 08:20 Chloride 107 mmol/L (98-107) 08/09/19 08:20 Carbon Dioxide 23 mmol/L (21-32) 08/09/19 08:20 Anion Gap 5 MMOL/L (8-16) L 08/09/19 08:20 BUN 17.4 mg/dL (7-18) 08/09/19 08:20 Creatinine 1.5 mg/dL (0.55-1.3) H 08/09/19 08:20 Random Glucose 96 mg/dL (74-106) 08/09/19 08:20 Calcium 6.8 mg/dL (8.5-10.1) L* 08/09/19 08:20 Total Bilirubin 1.9 mg/dL (0.2-1) H 08/09/19 08:20 AST 117 U/L (15-37) H 08/09/19 08:20 ALT 144 U/L (13-61) H 08/09/19 08:20 Alkaline Phosphatase 88 U/L (45-117) 08/09/19 08:20 Total Protein 5.3 g/dl (6.4-8.2) L 08/09/19 08:20 Albumin 2.3 g/dl (3.4-5.0) L 08/09/19 08:20 CARDIAC ENZYMES Troponin I < 0.02 ng/ml (0.00-0.05) 08/06/19 14:55 Current Medications Generic Name Dose Route Start Last Admin Trade Name Tereso PRN Reason Stop Dose Admin Amlodipine Besylate 10 mg 08/08/19 10:00 08/10/19 09:22 Norvasc - PO 10 mg DAILY LISA Administration Atorvastatin Calcium 20 mg 08/07/19 22:00 08/07/19 22:45 Lipitor - PO 20 mg HS LISA Administration Enoxaparin Sodium 40 mg 08/10/19 11:45 08/10/19 11:46 Lovenox - SQ 40 mg DAILY LISA Administration Metronidazole 500 mg in 100 mls @ 100 mls/hr 08/07/19 18:00 08/10/19 18:28 Flagyl 500mg Premixed Ivpb - IVPB 100 mls/hr Q8H-IV LISA Administration Sodium Chloride 1,000 mls @ 150 mls/hr 08/07/19 14:00 08/10/19 14:26 Normal Saline - IV 150 mls/hr ASDIR LISA Administration Piperacillin Sod/Tazobactam 100 mls @ 200 mls/hr 08/10/19 18:00 08/10/19 17: 16 Sod 4.5 gm/ Dextrose IVPB 200 mls/hr Q8H-IV LISA Administration Protocol Ibuprofen 800 mg 08/10/19 09:16 08/10/19 09:28 Motrin - PO 800 mg Q8H PRN Administration FEVER Labetalol HCl 200 mg 08/07/19 22:00 08/10/19 09:22 Normodyne - PO 200 mg BID LISA Administration Loperamide HCl 2 mg 08/07/19 14:00 Imodium - PO Q8H PRN DIARRHEA Ondansetron HCl 4 mg 08/07/19 14:00 Zofran Injection IVPUSH Q6H PRN NAUSEA AND/OR VOMITING Oxycodone HCl 5 mg 08/08/19 09:23 Roxicodone - PO Q6H PRN PAIN LEVEL 1-5 Oxycodone HCl 10 mg 08/08/19 09:24 Roxicodone - PO Q6H PRN PAIN LEVEL 6-10 Pantoprazole Sodium 40 mg 08/08/19 10:00 08/10/19 09:22 Protonix - PO 40 mg DAILY LISA Administration Home Medications Medication Instructions Recorded Amlodipine Besylate [Norvasc -] 10 mg PO DAILY 06/29/14 Labetalol HCl [Normodyne -] 200 mg PO BID 06/29/14 Omeprazole [Prilosec (RX)] 40 mg PO DAILY 06/29/14 Atorvastatin Ca [Lipitor] 20 mg DAILY 05/23/19 Acetaminophen [Tylenol .Regular 650 mg PO Q4H PRN tablet 05/30/19 Strength -] Lisinopril 10 mg PO DAILY #30 tablet 05/30/19 levoFLOXacin [Levaquin] 750 mg PO DAILY #7 tab 05/30/19 Microbiology 08/06/19 14:55 Blood - Peripheral Venous Blood Culture - Preliminary NO GROWTH OBTAINED AFTER 24 HOURS, INCUBATION TO CONTINUE FOR 4 DAYS. 08/06/19 14:55 Blood - Peripheral Venous Blood Culture - Preliminary NO GROWTH OBTAINED AFTER 24 HOURS, INCUBATION TO CONTINUE FOR 4 DAYS. 08/06/19 14:55 Urine - Urine Clean Catch Urine Culture - Final NO GROWTH OBTAINED Assessment and plan: Patient is a 39yom with Pmhx of HTN, HLP, morbid obesity and lymphedema with recent admission for cellulitis. He presented with diarrhea and fevers, was found to have transaminitis and sepsis. # Fever: patient continues to have fever but we are unable to do Ct scan since patient is not able to fit in the CT scan. will tx to [facility] for further care for possible abscess formation. # POD#3 s/p lap chol. for acute cholecystitis due to Gall stone, having fever , michael re-culture, recommended incentive spirometer , continue IV antibiotics zosyn and flagyl continue , Advance diet as tolerated today, OOB and ambulate, incentive spirometer. #Thrombocytopenia improving, monitor 64-->70's--> now # Sepsis , due to acute cholecystitis , contnues to have fever monitor # TARSHA: likely prerenal and due to sepsis, cont IVF , repeat cmp #Diarrhea on Immodium continue DVT px: Scds patient is being transferred to [facility]
--- NOTE | 2019-08-10 21:36 | PN ---
Progress Note (short form) - Note Progress Note: PAtient seen and examined Denies any complaints Morbidly obese Cor: RSR, No murmurs, No gallops Lungs: Clear to P&A Abd: Soft, Normal bowel sounds, No organomegaly Ext:No significant edema Lbs/Meds reviewed A/P 39 y/o gentleman with PMH of HTN, HLD, morbid obesity and lymphedema with recent admission for cellulitis. He presented with diarrhea and fevers, was found to have transaminitis and sepsis. Had Lap Tasha POD#2 (for acute cholecystitis). Hematology consulted for anemia and thrombocytopenia Thrombocytopenia --? recent hevy alcohol /drug use, consumption post op., infection Improving Would monitor CBC closely
[2019-08-10 22:32] VITALS: BP 116/58; PULSE 79; TEMP 97.7
[2019-08-10] MEDS: ATORVASTATIN CA 20 MG TABLET (FP) PO SCH (23:08)
--- NOTE | 2019-08-11 02:00 | DS ---
"Physical Exam: SUBJECTIVE: Patient seen and examined with and mother at bedside. Pt remains diaphoretic and says he feels generally unwell. Discussion about transfer to [facility] had 2/[address] (abdominal diameter 27 inches and [facility] CT max 26 inches) to assess for poss abdominal accumulation (per GI assessment, given no other known source of fevers). Family in agreement with plan. OBJECTIVE: Vital Signs Temp Pulse Resp BP Pulse Ox 97.7 F 79 20 116/58 L 95 08/10/19 19:00 08/10/19 19:00 08/10/19 19:00 08/10/19 19:00 08/10/19 09:00 PHYSICAL EXAM GENERAL: AOx3, obese, in no acute distress but diaphoretic, urinal at bedside with dark urine, incentive spirometer at bedside HEAD: NCAT EYES: TOMMY, EOMI, conjunctiva clear. ENT: Ears normal, nares patent, oropharynx clear without exudates. Moist mucous membranes. NECK: Normal range of motion, supple without lymphadenopathy, JVD, or masses. LUNGS: CTAB. No wheezes, and no crackles. No accessory muscle use. HEART: RRR s1 s2 ABDOMEN: Surgical scars, no erythema or dc. Soft, BS present in all 4 quadrants , non-distended, no JVD, JOSE drain RLQ with serosanguinous dc MUSCULOSKELETAL: No bony deformities or tenderness. No CVA tenderness. UPPER EXTREMITIES: 2+ pulses, warm, well-perfused. No cyanosis. No clubbing. No peripheral edema. LOWER EXTREMITIES: 2+ pulses, warm, well-perfused. No calf tenderness. No peripheral edema. NEUROLOGICAL: No focal deficits. Cranial nerves II-XII intact. Normal speech. Gait not appreciated. PSYCHIATRIC: Cooperative. Good eye contact. Appropriate mood and affect. SKIN: Warm, dry, normal turgor, no rashes or lesions noted, normal capillary refill. LABS WBC 4.8 K/mm3 (4.0-10.0) 08/09/19 11:30 RBC 3.78 M/mm3 (4.00-5.60) L 08/09/19 11:30 Hgb 11.0 GM/dL (11.7-16.9) L 08/09/19 11:30 Hct 31.3 % (35.4-49) L 08/09/19 11:30 MCV 82.8 fl (80-96) 08/09/19 11:30 MCH 29.2 pg (25.7-33.7) 08/09/19 11:30 MCHC 35.2 g/dl (32.0-35.9) 08/09/19 11:30 RDW 17.1 % (11.9-15.9) H 08/09/19 11:30 Plt Count 70 K/MM3 (134-434) L 08/09/19 11:30 MPV 9.7 fl (7.5-11.1) 08/09/19 11:30 Absolute Neuts (auto) 2.7 K/mm3 (1.5-8.0) 08/09/19 02:30 Total Counted 100 08/09/19 02:30 Neutrophils % 59.5 % (42.8-82.8) 08/09/19 02:30 Neutrophils % (Manual) 61.0 % (42.8-82.8) 08/09/19 02:30 Band Neutrophils % 6.0 % 08/09/19 02:30 Lymphocytes % 12.4 % (8-40) D 08/09/19 02:30 Lymphocytes % (Manual) 23.0 % (8-40) D 08/09/19 02:30 Monocytes % 26.8 % (3.8-10.2) H 08/09/19 02:30 Monocytes % (Manual) 5 % (3.8-10.2) 08/09/19 02:30 Eosinophils % 1.0 % (0-4.5) 08/09/19 02:30 Eosinophils % (Manual) 3.0 % (0-4.5) D 08/09/19 02:30 Basophils % 0.3 % (0-2.0) 08/09/19 02:30 Basophils % (Manual) 0.0 % (0-2.0) 08/09/19 02:30 Myelocytes % (Man) 4 % (0-2) H D 08/07/19 21:00 Promyelocytes % (Man) 0 % (0-2) 08/07/19 21:00 Blast Cells % (Manual) 0 % (0-0) 08/07/19 21:00 Nucleated RBC % 0 % (0-0) 08/09/19 02:30 Metamyelocytes 0 % (0-2) D 08/09/19 02:30 Hypochromia 0 08/06/19 14:55 Platelet Estimate Decreased 08/08/19 18:30 Platelet Comment No clumping noted 08/08/19 18:30 Polychromasia 0 08/06/19 14:55 Poikilocytosis 0 08/06/19 14:55 Anisocytosis 1+ 08/06/19 14:55 Microcytosis 1+ 08/06/19 14:55 Macrocytosis 0 08/06/19 14:55 Ovalocytes 2+ 08/06/19 14:55 Sodium 136 mmol/L (136-145) 08/09/19 08:20 Potassium 3.5 mmol/L (3.5-5.1) 08/09/19 08:20 Chloride 107 mmol/L (98-107) 08/09/19 08:20 Carbon Dioxide 23 mmol/L (21-32) 08/09/19 08:20 Anion Gap 5 MMOL/L (8-16) L 08/09/19 08:20 BUN 17.4 mg/dL (7-18) 08/09/19 08:20 Creatinine 1.5 mg/dL (0.55-1.3) H 08/09/19 08:20 Est GFR (CKD-EPI)AfAm 67.48 08/09/19 08:20 Est GFR (CKD-EPI)NonAf 58.22 08/09/19 08:20 Random Glucose 96 mg/dL (74-106) 08/09/19 08:20 Lactic Acid 2.1 mmol/L (0.4-2.0) H 08/07/19 21:00 Calcium 6.8 mg/dL (8.5-10.1) L* 08/09/19 08:20 Phosphorus 2.2 mg/dL (2.5-4.9) L 08/07/19 21:00 Magnesium 1.7 mg/dL (1.8-2.4) L 08/07/19 21:00 Total Bilirubin 1.9 mg/dL (0.2-1) H 08/09/19 08:20 Direct Bilirubin 0.7 mg/dL (0.0-0.2) H 08/07/19 21:00 AST 117 U/L (15-37) H 08/09/19 08:20 ALT 144 U/L (13-61) H 08/09/19 08:20 Alkaline Phosphatase 88 U/L (45-117) 08/09/19 08:20 Troponin I < 0.02 ng/ml (0.00-0.05) 08/06/19 14:55 Total Protein 5.3 g/dl (6.4-8.2) L 08/09/19 08:20 Albumin 2.3 g/dl (3.4-5.0) L 08/09/19 08:20 Lipase 129 U/L (73-393) 08/06/19 14:55 HOSPITAL COURSE: Date of Admission:08/06/19 39 y/o male PMH HTN, HLD, morbid obesity, and lymphedema c/o diarrhea and fevers. Abdominal US shows hepatomegaly with mild fatty infiltration vs hepatocellular disease, multiple gallstones seen with interval significant thickening of gallbladder wall and a trace of pericholecystic free fluid. CXR showed no acute processes. Pt met sepsis criteria (Fever 103, HR 130), was given appropriate protocol (including Metronidazole 500 mg IVPB q8h and Zosyn 3.375 gm IVPB q6h), and he was taken to surgery same-day for lap rohan. Pt febrile throughout stay despite no idetifiable source.: blood cx neg, CXR no acute process, urine output adequate. Notable pt did not ambulate despite being encouraged too and adherence to incetive spirometer questionable. GI rec was to CT ab to isolate poss accumulation but pt's body habitus was incompatible with our CT (max diameter 26 inches and pt was 27 inches wide). He was transfered to Dr. Benita Gray of [facility]. During the stay low platelets were noted. No idetifiable cuase. Biopy of liver not taken during surgery,. Pt s/p 1 unit monodonor platelets and level brandy to 70 today, prev 52-60 range. There was no gross bleeding. Previous platelet count normal in May 2019. Heme/onc consutled and assessed poss 2/2 sepsis and rec ID consult. TARSHA also noed Cr 1.8 (baseline around 1.0), Gfr 54.3 that was most likely prerenal and 2/2 sepsis. Cormorbid diseased treated with home regimen: Amlodepine 10 mg PO QD, labetolol 200 mg po BID and HLD Atorvastatin 20 mg PO HS. Date of Discharge: 08/11/19 Teodoro Aguilar MD Minutes to complete discharge: 40 Discharge Summary Problems reviewed: Yes Reason For Visit: CHOLECYSTITIS VENOUS INSUFFICIENCY Condition: Good - Instructions Diet, Activity, Other Instructions: You were admitted for abdominal pain. You were evaluated by the surgeon and had surgery to remove your gallbladder. Due to persistent fevers, a CT scan was ordered, however could not be performed at our facility; you are transferred to [facility] for higher level of care. Continue taking your home medications as directed. Follow up with your primary care physician within one week of discharge Follow discharge instructions of the physicians at [facility]. Dr. Reyes Discharge Instructions Dear REBEKA MADRIGAL III, Post Operative Instructions Physical activity Resume your normal everyday activity as tolerated no heavy lifting or exercise until seen by your surgeon. You may walk unlimited amounts of and climb stairs. You may resume driving the car when you feel safe and comfortable behind the wheel. Wound care If you have a bandage, leave it on, and keep dry for 48 - 72 hours. After that time discard the outer bandage. If there are tapes on the skin under the outer bandage, leave them in place. They will peel off in the next 7 to 10 days. Do Not peel them off. You may shower 2 days after surgery. If there are tapes present on the skin, they can get wet. Diet There are no dietary restrictions. Eat healthy, high-fiber foods. Drink 6 to 8 glasses of liquid each day. This will assist in keeping your bowels are regular. Pain management You may take Tylenol or acetaminophen or Ibuprofen (for example, Motrin, Advil etc.) Any pain prescription medication ordered should be taken as prescribed for moderate to severe pain. Call Dr. Reyes for any of the following: Severe pain not relieved by medication Fever of 101 or higher Excessive bleeding or drainage on dressing Inability to urinate Call the office at [phone] for a post operative appointment in 7 - 10 days. [facility] USER ACCEPTANCE TESTER: This report was requested by: Riaz Abbott | Reference #: [id number] Referrals: Simón Brito MD [Primary Care Provider] - Disposition: TRANSFER ACUTE CARE/OTHER HOSP - Home Medications Comprehensive Discharge Medication List: Ambulatory Orders Amlodipine Besylate [Norvasc -] 10 mg PO DAILY 06/29/14 Labetalol HCl [Normodyne -] 200 mg PO BID 06/29/14 Omeprazole [Prilosec (RX)] 40 mg PO DAILY 06/29/14 Atorvastatin Ca [Lipitor] 20 mg DAILY 05/23/19 Acetaminophen [Tylenol .Regular Strength -] 650 mg PO Q4H PRN tablet 05/30/19 Lisinopril 10 mg PO DAILY #30 tablet 05/30/19 This patient is new to me today: No Emergency Visit: No Critical Care patient: No - Discharge Referral Referred to [facility] Med P.C.: No Physician Referral: Simón Cloud MD ([facility]) ATTENDING PHYSICIAN STATEMENT I saw and evaluated the patient. I reviewed the resident's note and discussed the case with the resident. I agree with the resident's findings and plan as documented. SUBJECTIVE: OBJECTIVE: ASSESSMENT AND PLAN:"
== END 2019-08-11 01:00 | disposition short-term general hospital (02) | DRG 710 ==
LOC: JER 13:03 → JERBED 18:14 → J6S 08-07 16:44
PROVIDERS: ADMIT Internal Medicine; ATTEND Internal Medicine
PROC: 0FT44ZZ Resection of Gallbladder, Percutaneous Endoscopic Approach (ICD-10-PCS; principal; 2019-08-07 10:00)
DX: A41.9 Sepsis, unspecified organism (principal); N17.9 Acute kidney failure, unspecified; R16.0 Hepatomegaly, not elsewhere classified; E66.01 Morbid (severe) obesity due to excess calories; K80.00 Calculus of gallbladder with acute cholecystitis without obstruction; Z68.43 Body mass index [BMI] 50.0-59.9, adult; D69.6 Thrombocytopenia, unspecified; K21.9 Gastro-esophageal reflux disease without esophagitis; E87.6 Hypokalemia; R19.7 Diarrhea, unspecified; D64.9 Anemia, unspecified; N39.0 Urinary tract infection, site not specified; R50.82 Postprocedural fever; I10 Essential (primary) hypertension; E78.5 Hyperlipidemia, unspecified; K76.0 Fatty (change of) liver, not elsewhere classified; R05 Cough
CPT/HCPCS: 36415; 36430; 36511; 71045-TC-FY; 76705-TC; 80048; 80053; 80076; 80307; 81003; 82803; 83605; 83690; 83735; 84100; 84484; 85025; 85027; 85610; 85730; 86022; 86850; 86900; 86901; 87040; 87045; 87046; 87086; 87205; 87324; 87449; 87804; 93005; 93010; 93306-TC; 94760; 99285-25; J0131; J7030; P9034; P9038

== ENCOUNTER 2019-08-28 12:11 | Inpatient (IN) | payer OTHER ==
[2019-08-28] MEDS ORDERED: SODIUM CHLORIDE IV ONE (13:10)
[2019-08-28] MEDS ORDERED: ONDANSETRON 4 MG TABLET PO ONE (13:22)
--- NOTE | 2019-08-28 13:33 | PDOC ---
Attending Attestation - Resident Resident Name: Adán Shaw - ED Attending Attestation I have performed the following: I have examined & evaluated the patient, The case was reviewed & discussed with the resident, I agree w/resident's findings & plan, Exceptions are as noted - HPI HPI: 08/28/19 13:33 39y M hx of htn, hl, recent cholecystectmy presents with complaint of peristent vomiting and inability to tolerate oral intake as well as diarrhea for the past several weeks. The patient was originally evaluated for similar symptoms several weeks ago, was noted to have multiple gallstones as well as thickening of the gallbladder wall with trace pelvic cholecystic fluid. The patient was also noted to be febrile, the patient was started on antibiotics and had a lap rohan. The patient states that he was eventually transferred to [facility] due to not being able to obtain a CT here at [facility]. At [facility] patient states that he never received a CT and was discharged. Patient states that he has been feeling persistent symptoms since discharge from [facility]. The patient denies any associated cough, chest pain, abdominal pain, blood in the vomit or blood in the stool, headache, neck pain. Social: formerly smoked marjuana/social binge ETOH (last time was 07/25) - Physicial Exam PE: 08/28/19 13:39 GENERAL: The patient is awake, alert, and fully oriented, Nontoxic - in no acute distress. HEAD: Normocephalic, atraumatic. EYES: extraocular movements intact, sclera anicteric, conjunctiva clear. ENT: Normal voice, dry mucous membranes. NECK: Normal range of motion, supple LUNGS: Breath sounds equal, clear to auscultation bilaterally. No wheezes, no rhonchi, no rales. HEART: Tachycardic, no murmurs ABDOMEN: Soft, nontender, No guarding, no rebound. No CVA tenderness, laparoscopic wounds are clean dry intact without signs of erythema or signs of infection. EXTREMITIES: Normal range of motion, no edema. NEUROLOGICAL: No facial assymetry, Normal speech, PSYCH: Normal mood, normal affect. SKIN: Warm, Dry, normal turgor, - Medical Decision Making 08/28/19 13:40 39-year-old gentleman history of hypertension, hyperlipidemia, recent surgery for cholecystitis, presenting with a complaint of persistent vomiting, diarrhea. On exam the patient is noted to be febrile, tachycardic, with dry mucous membranes. Otherwise has a nonfocal physical exam to suggest a source of his infection. Differential for the patient's symptoms is wide, sepsis order set was obtained will seek a source of infection We will give the patient Tylenol, fluids for supportive management Will reassess 08/28/19 16:50 lbas erviewed pt noted to have a thrombocytopenia also noted to have hypocholemic, hypcholemia - likely secondary to his vmiting +worsening magui - will continue to fluid resusitate T bili also slighlyt high with normal LFTs INR elevated to 2- will admit for further management Heart Score/ECG Review - ECG Impressions Comment:: 08/28/19 14:57 Twelve-lead EKG was performed and reviewed by me. There is normal sinus rhythm with a rate of 132 Nonspecific T wave abnormality sinus tachycadia
[2019-08-28] MEDS ORDERED: ACETAMINOPHEN 1000 MG/100 ML VIAL (NON FORMULARY) IVPB ONE ×2 (13:40→17:55)
--- NOTE | 2019-08-28 14:04 | PDOC ---
History of Present Illness - General Chief Complaint: SIRS, Suspected/Possible Stated Complaint: WEAKNESS Time Seen by Provider: 08/28/19 13:23 History Source: Patient Exam Limitations: No Limitations - History of Present Illness Initial Comments: 08/28/19 13:49 HPI: 39yo M pmh HTN, HLD, cholecystitis s/p cholecystectomy 2 weeks ago, presenting with 3 weeks of nausea, vomiting, diarrhea. Patient reports he was seen here about 2 weeks ago for similar symptoms, was found to have cholecystitis, underwent cholecystectomy with Dr. Reyes at that time. Since the surgery he has continued to experience nausea, vomiting, fever, chills, and poor appetite. He reports drinking seltzer water that "goes right through" as diarrhea - ate nothing yesterday. He denies improvement since his procedure. Denies abdominal pain. No chest pain, no priors episodes. No bloody or dark BMs or emesis. No one else with similar symptoms, no new / different foods. Denies cough, urinary symptoms, SOB. All: Hydralazine > palpitations Meds: Per chart PMH: As above PSH: Cholecystectomy, L Achilles repair Past History - Travel Traveled outside of the country in the last 30 days: No Close contact w/someone who was outside of country & ill: No - Past Medical History Allergies/Adverse Reactions: Allergies Allergy/AdvReac Type Severity Reaction Status Date / Time hydralazine [Hydralazine] Allergy Verified 08/28/19 12:57 Home Medications: Ambulatory Orders Amlodipine Besylate [Norvasc -] 10 mg PO DAILY 06/29/14 Labetalol HCl [Normodyne -] 200 mg PO BID 06/29/14 Omeprazole [Prilosec (RX)] 40 mg PO DAILY 06/29/14 Atorvastatin Ca [Lipitor] 20 mg DAILY 05/23/19 Acetaminophen [Tylenol .Regular Strength -] 650 mg PO Q4H PRN tablet 05/30/19 Lisinopril 10 mg PO DAILY #30 tablet 05/30/19 COPD: No GI Disorders: Yes (Gastritis, CYCLIC VOMITING SYNDROME) HTN: Yes Hypercholesterolemia: Yes - Psycho Social/Smoking Cessation Hx Smoking History: Never smoked Have you smoked in the past 12 months: Yes Number of Cigarettes Smoked Daily: 5 'Breaking Loose' booklet given: 05/24/19 Hx Alcohol Use: No Drug/Substance Use Hx: No Substance Use Type: None, Marijuana Hx Substance Use Treatment: No Review of Systems - Review of Systems Able to Perform ROS?: Yes Is the patient limited Icelandic proficient: Yes Constitutional: Yes: Chills, Diaphoresis, Fever, Weakness. No: Night Sweats HEENTM: No: Nose Congestion, Throat Pain Respiratory: No: Cough, Shortness of Breath, Wheezing, Productive cough Cardiac (ROS): No: Chest Pain, Edema, Irregular Heart Rate ABD/GI: Yes: Diarrhea, Nausea, Vomiting. No: Constipated, Poor Appetite, Poor Fluid Intake : No: Burning, Dysuria, Frequency Musculoskeletal: No: Muscle Pain, Muscle Weakness Integumentary: No: Bruising, Erythema, Rash, Sweating Neurological: Yes: Weakness. No: Headache, Numbness, Tingling Psychiatric: No: Stressors, Change in Appetite Endocrine: No: Increased Thirst, Increased Urine Hematologic/Lymphatic: No: Anemia, Blood Clots, Easy Bleeding All Other Systems: Reviewed and Negative *Physical Exam - Vital Signs Last Vital Signs Temp Pulse Resp BP Pulse Ox 102.8 F H 146 H 24 H 140/97 100 08/28/19 13:00 08/28/19 13:00 08/28/19 13:00 08/28/19 13:00 08/28/19 13:00 - Physical Exam 08/28/19 14:07 Vitals reviewed, Febrile, tachycardic to 130s GEN: Well appearing, appears stated age, NAD, comfortable. AAOx3. HEENT: NCAT, EOMI, PERRL. Sclera anicteric, noninjected. No facial asymmetry. Dry mucous membranes. Normal voice. Trachea midline. CV: RRR, S1/S2, no murmurs / rubs / gallops appreciated. LUNG: CTAB, normal work of breathing. No wheezes, rales, rhonchi. No cough. Speaking full sentences. GI: Soft, NTND, +BS, no guarding, no rebound. No masses. Neg CVAT b/l. Surgical sites non-erythematous / swollen / indurated / warm. EXTREMITIES: 2+ distal pulses. No LE edema. No obvious deformities of all extremities. SKIN: Warm, dry, no rashes appreciated, non-jaundiced. PSYCH: Normal mood and affect. Cooperative and appropriate. NEURO: CN grossly intact. Moving all extremities well. Normal strength and sensation grossly. ED Treatment Course - LABORATORY CBC & Chemistry Diagram: 08/28/19 13:35 08/28/19 13:35 Medical Decision Making - Medical Decision Making 08/28/19 14:08 39yo M pmh HTN, HLD, cholecystitis s/p cholecystectomy 2 weeks ago, presenting with 3 weeks of nausea, vomiting, diarrhea. History notabe for subacute symptoms collection. Exam notable for non-tender abdomen, tired appearing, dry MM, febrile and sinus tach to 130s. DDX: Pancreatitis, Gastroenteritis, Hepatitis, Retained cholelithiasis, Influenza. - Sepsis order set - Lipase - Ofirmev - Influenza Swab 08/28/19 14:21 EKbpm, Sinus Tachy, normal axis, normal intervals QTc 438, no ischemic changes evident 08/28/19 15:27 - No leukocytosis, borderline anemia (11.3, improved from prior) - +Thrombocytopenia (c/w prior) - Prolonged coagulation times (INR higher than prior) - Influenza negative - Troponin negative - CMP, Lipase pending 08/28/19 15:31 - No acute chest pathology, metallic objects RUQ (s/p rohan) and axilla 08/28/19 17:45 - Obstructive Biliary pathology - TARSHA - Inability to tolerate PO, intractable N/V/D Dispo: Med/Surg Discharge - Discharge Information Problems reviewed: Yes Clinical Impression/Diagnosis: TARSHA (acute kidney injury), Hyperbilirubinemia, Intractable nausea and vomiting Sepsis Qualifiers: Sepsis type: sepsis due to unspecified organism Sepsis acute organ dysfunction status: unspecified Qualified Code(s): A41.9 - Sepsis, unspecified organism Condition: Guarded - Admission Yes - Follow up/Referral Referrals: Simón Brito MD [Primary Care Provider] - - Patient Discharge Instructions - Post Discharge Activity
[2019-08-28] MEDS ORDERED: ACETAMINOPHEN INJECTION 100 ML IVPB ONE ×2 (14:24→17:57)
[2019-08-28] MEDS ORDERED: ONDANSETRON 4 MG/2 ML VIAL ONE (14:24)
[2019-08-28 14:43] LABS: INR 2.06 (0.83-1.09); PROTHROMBIN TIME (PATIENT) 24.5 SEC (9.7-13.0)
[2019-08-28 14:46] LABS: ACTIVATED PTT 38.4 SECONDS (25.2-36.5)
--- NOTE | 2019-08-28 14:54 | EKG ---
Test Reason : Blood Pressure : / mmHG Vent. Rate : 132 BPM Atrial Rate : 132 BPM P-R Int : 142 ms QRS Dur : 098 ms QT Int : 296 ms P-R-T Axes : 047 021 062 degrees QTc Int : 438 ms SINUS TACHYCARDIA NONSPECIFIC T WAVE ABNORMALITY ABNORMAL ECG WHEN COMPARED WITH ECG OF 06-AUG-2019 19:15, NO SIGNIFICANT CHANGE WAS FOUND Confirmed by Ceferino Snell MD ([id number]) on 08/28/2019 2:53:54 PM Referred By: Confirmed By:Ceferino Snell MD
[2019-08-28 15:06] LABS: BASO % 0.4 % (0-2.0); EOS % 0.1 % (0-4.5); HEMATOCRIT 32.2 % (35.4-49); HEMOGLOBIN 11.3 GM/dL (11.7-16.9); MCH 28.7 pg (25.7-33.7); MCHC 35.1 g/dl (32.0-35.9); MEAN CELL VOLUME 81.8 fl (80-96); MEAN PLT VOLUME 9.7 fl (7.5-11.1); MONO % 25.6 % (3.8-10.2); NEUT % 61.9 % (42.8-82.8); PLATELET COUNT 45 K/MM3 (134-434); RBC 3.94 M/mm3 (4.00-5.60); RDW 15.2 % (11.9-15.9); WHITE BLOOD COUNT 6.9 K/mm3 (4.0-10.0)
[2019-08-28 15:47] LABS: ANISOCYTOSIS 2+; MACROCYTOSIS 0; PLATELET ESTIMATE DECREASED
[2019-08-28 15:53] LABS: ALBUMIN 3.2 g/dl (3.4-5.0); BILIRUBIN,TOTAL 2.7 mg/dL (0.2-1); BLOOD UREA NITROGEN 22.9 mg/dL (7-18); CALCIUM 7.9 mg/dL (8.5-10.1); CREATININE 2.2 mg/dL (0.55-1.3); MAGNESIUM 1.4 mg/dL (1.8-2.4); POTASSIUM 3.7 mmol/L (3.5-5.1); TOT PROT 6.7 g/dl (6.4-8.2)
[2019-08-28] MEDS ORDERED: FAMOTIDINE 20 MG/50 ML IVPB 20 MG/50 ML MG IVPB ONE ×2 (15:55→15:56)
[2019-08-28] MEDS ORDERED: MAG HYDROX/AL HYDROX/SIMETH 30 ML UNIT-DOSE CUP PO ONE (15:55)
[2019-08-28] MEDS ORDERED: MAG HYDROX/AL HYDROX/SIMETH 30 ML UNIT-DOSE CUP ONE (15:56)
[2019-08-28 20:09] LABS: HYALINE CASTS 35 /lpf (0-8); URINE APPEARANCE CLOUDY; URINE BACTERIA 0.7 /hpf (NEGATIVE); URINE BILIRUBIN NEGATIVE (NEGATIVE); URINE COLOR DK YELLOW; URINE GLUCOSE (UA) NEGATIVE (NEGATIVE); URINE KETONE NEGATIVE (NEGATIVE); URINE LEUK ESTERASE NEGATIVE (NEGATIVE); URINE NITRITE NEGATIVE (NEGATIVE); URINE PROTEIN 3+ (NEGATIVE); URINE RBC 3 /hpf (0-4); URINE WBC 4 /hpf (0-5)
[2019-08-28 20:23] LABS: COCAINE, UR NEGATIVE ng/ml (CUTOFF=300); METHADONE, UR NEGATIVE ng/ml (CUTOFF=300); OPIATES, URI NEGATIVE ng/ml (CUTOFF=300); PHENCYCLIDINE,URINE NEGATIVE ng/ml (CUTOFF=25); URINE BARBITURATES NEGATIVE ng/ml (CUTOFF=200)
[2019-08-28 20:24] LABS: URINE AMPHETAMINES NEGATIVE ng/ml (CUTOFF=500); URINE BENZODIAZEPINES NEGATIVE ng/ml (CUTOFF=200)
[2019-08-28] MEDS ORDERED: SODIUM CHLORIDE 1,000 ML IV SCH (21:00)
--- NOTE | 2019-08-28 21:17 | PN ---
Teaching Attending Note Name of Resident: Rick Rincon ATTENDING PHYSICIAN STATEMENT I saw and evaluated the patient. I reviewed the resident's note and discussed the case with the resident. I agree with the resident's findings and plan as documented. SUBJECTIVE: This is a 39 year old man with a history of HTN, hyperlipidemia, lymphedema of his legs, morbid obesity, recent lap rohan who comes to the ED complaining of fever, weakness, nausea, vomiting, and diarrhea. He had initially presented on 08/06 with fever and diarrhea. He was diagnosed with sepsis secondary to acute cholecystitis. He was treated with Zosyn and Flagyl, and he underwent laparoscopic cholecystectomy on 08/07. Pathology was consistent with chronic cholecystitis and cholelithiasis. Postoperatively, fevers persisted and he was transferred to [facility] for CTAP since he was too large for the CT here. He reports that the CT was not done at [facility] and he was discharged without any further intervention. Since returning home, he has been having continued fevers, poor appetite, nausea and vomiting. He says he has diarrhea when he eats. His oral intake has been seltzer and Ensure/Boost. He denies abdominal pain, chest pain, SOB, palpitations, hematemesis, melena, rectal bleeding, dysuria, hematuria, skin lesions. OBJECTIVE: Vital Signs Period Temp Pulse Resp BP Sys/S[place] Pulse Ox Last 24 Hr 101.8 F-102.8 F 87-146 22-24 136-141/84-97 98-100 GENERAL: Sick appearing, diaphoretic HEART: S1S2, tachycardic LUNGS: Clear ABDOMEN: Obese, soft, non-tender, non-distended, normal BS EXTREMITIES: Non-pitting edema of both legs Laboratory Tests 08/28/19 08/28/19 08/28/19 13:35 13:35 13:35 WBC 6.9 RBC 3.94 L Hgb 11.3 L Hct 32.2 L MCV 81.8 MCH 28.7 MCHC 35.1 RDW 15.2 D Plt Count 45 L D MPV 9.7 Absolute Neuts (auto) 4.3 Neutrophils % 61.9 Neutrophils % (Manual) 67.0 Band Neutrophils % 0.0 Lymphocytes % 12.0 Lymphocytes % (Manual) 11.0 D Monocytes % 25.6 H Monocytes % (Manual) 22 H D Eosinophils % 0.1 D Eosinophils % (Manual) 0.0 D Basophils % 0.4 Basophils % (Manual) 0.0 Myelocytes % (Man) 0 D Promyelocytes % (Man) 0 Blast Cells % (Manual) 0 Nucleated RBC % 0 Metamyelocytes 0 Hypochromia 0 Platelet Estimate Decreased Polychromasia 0 Poikilocytosis 2+ Anisocytosis 2+ Microcytosis 2+ Macrocytosis 0 PT with INR 24.50 H INR 2.06 H PTT (Actin FS) 38.4 H Sodium Potassium Chloride Carbon Dioxide Anion Gap BUN Creatinine Est GFR (CKD-EPI)AfAm Est GFR (CKD-EPI)NonAf Random Glucose Lactic Acid Calcium Magnesium Total Bilirubin AST ALT Alkaline Phosphatase Troponin I < 0.02 Total Protein Albumin Total Amylase Lipase Urine Color Urine Appearance Urine pH Ur Specific [place] Urine Protein Urine Glucose (UA) Urine Ketones Urine Blood Urine Nitrite Urine Bilirubin Urine Urobilinogen Ur Leukocyte Esterase Urine WBC (Auto) Urine RBC (Auto) Urine Casts (Auto) U Epithel Cells (Auto) Urine Bacteria (Auto) Opiates Screen Methadone Screen Barbiturate Screen Phencyclidine Screen Ur Amphetamines Screen MDMA (Ecstasy) Screen Benzodiazepines Screen Cocaine Screen U Marijuana (THC) Screen Influenza A (Rapid) Influenza B (Rapid) 08/28/19 08/28/19 08/28/19 13:35 13:35 13:35 WBC RBC Hgb Hct MCV MCH MCHC RDW Plt Count MPV Absolute Neuts (auto) Neutrophils % Neutrophils % (Manual) Band Neutrophils % Lymphocytes % Lymphocytes % (Manual) Monocytes % Monocytes % (Manual) Eosinophils % Eosinophils % (Manual) Basophils % Basophils % (Manual) Myelocytes % (Man) Promyelocytes % (Man) Blast Cells % (Manual) Nucleated RBC % Metamyelocytes Hypochromia Platelet Estimate Polychromasia Poikilocytosis Anisocytosis Microcytosis Macrocytosis PT with INR INR PTT (Actin FS) Sodium 126 L Potassium 3.7 Chloride 94 L Carbon Dioxide 22 Anion Gap 10 BUN 22.9 H Creatinine 2.2 H Est GFR (CKD-EPI)AfAm 42.47 Est GFR (CKD-EPI)NonAf 36.64 Random Glucose 116 H Lactic Acid 1.8 Calcium 7.9 L Magnesium 1.4 L Total Bilirubin 2.7 H AST 22 ALT 24 Alkaline Phosphatase 77 Troponin I Total Protein 6.7 Albumin 3.2 L Total Amylase 29 Lipase 111 Urine Color Urine Appearance Urine pH Ur Specific [place] Urine Protein Urine Glucose (UA) Urine Ketones Urine Blood Urine Nitrite Urine Bilirubin Urine Urobilinogen Ur Leukocyte Esterase Urine WBC (Auto) Urine RBC (Auto) Urine Casts (Auto) U Epithel Cells (Auto) Urine Bacteria (Auto) Opiates Screen Methadone Screen Barbiturate Screen Phencyclidine Screen Ur Amphetamines Screen MDMA (Ecstasy) Screen Benzodiazepines Screen Cocaine Screen U Marijuana (THC) Screen Influenza A (Rapid) Negative Influenza B (Rapid) Negative 08/28/19 08/28/19 19:57 19:57 WBC RBC Hgb Hct MCV MCH MCHC RDW Plt Count MPV Absolute Neuts (auto) Neutrophils % Neutrophils % (Manual) Band Neutrophils % Lymphocytes % Lymphocytes % (Manual) Monocytes % Monocytes % (Manual) Eosinophils % Eosinophils % (Manual) Basophils % Basophils % (Manual) Myelocytes % (Man) Promyelocytes % (Man) Blast Cells % (Manual) Nucleated RBC % Metamyelocytes Hypochromia Platelet Estimate Polychromasia Poikilocytosis Anisocytosis Microcytosis Macrocytosis PT with INR INR PTT (Actin FS) Sodium Potassium Chloride Carbon Dioxide Anion Gap BUN Creatinine Est GFR (CKD-EPI)AfAm Est GFR (CKD-EPI)NonAf Random Glucose Lactic Acid Calcium Magnesium Total Bilirubin AST ALT Alkaline Phosphatase Troponin I Total Protein Albumin Total Amylase Lipase Urine Color Dk yellow Urine Appearance Cloudy Urine pH 5.0 Ur Specific [place] 1.025 Urine Protein 3+ H Urine Glucose (UA) Negative Urine Ketones Negative Urine Blood Negative Urine Nitrite Negative Urine Bilirubin Negative Urine Urobilinogen 1.0 Ur Leukocyte Esterase Negative Urine WBC (Auto) 4 Urine RBC (Auto) 3 Urine Casts (Auto) 35 U Epithel Cells (Auto) 5.0 Urine Bacteria (Auto) 0.7 Opiates Screen Negative Methadone Screen Negative Barbiturate Screen Negative Phencyclidine Screen Negative Ur Amphetamines Screen Negative MDMA (Ecstasy) Screen Negative Benzodiazepines Screen Negative Cocaine Screen Negative U Marijuana (THC) Screen Positive A* Influenza A (Rapid) Influenza B (Rapid) Home Medications Medication Instructions Recorded Amlodipine Besylate [Norvasc -] 10 mg PO DAILY 06/29/14 Labetalol HCl [Normodyne -] 200 mg PO BID 06/29/14 Omeprazole [Prilosec (RX)] 40 mg PO DAILY 06/29/14 Atorvastatin Ca [Lipitor] 20 mg DAILY 05/23/19 Acetaminophen [Tylenol .Regular 650 mg PO Q4H PRN tablet 05/30/19 Strength -] Lisinopril 10 mg PO DAILY #30 tablet 05/30/19 ASSESSMENT AND PLAN: This is a 39 year old man with a history of HTN, hyperlipidemia, lymphedema of his legs, morbid obesity, recent lap rohan who presented to the ED with fever, weakness, nausea, vomiting, and diarrhea. 1. SIRS (fever, tachycardia, tachypnea) with no clear source of infection - Fever of unknown origin with associated nausea, vomiting, diarrhea - CT AP shows no intra or extrahepatic biliary ductal dilatation, no fluid collections, mildly enlarged liver and spleen - Weight 145.15 kg was 166.47 kg on 08/09 - Has normal WBC with increased monocytes, anemia, thrombocytopenia - Transaminitis on last admission has resolved - C-RP was 3.1, ESR 16 on 05/24/19 while he had cellulitis - Will treat empirically with Zosyn, vancomycin - IV fluid - Check ESR, C-RP, PENNY, CK, TSH, EBV, CMV, HIV, hepatitis panel - ID, heme consults 2. Acute kidney injury - Likely secondary to dehydration from vomiting and diarrhea with poor oral intake - IV fluid - Check FENa - Monitor BUN, creatinine 3. Hyponatremia - Likely secondary to dehydration, vomiting, diarrhea, poor oral intake - IV fluid - Check urine lytes - Monitor electrolytes 4. Hypomagnesemia - Supplement magnesium 5. HTN - Continue lisinopril, labetalol, Norvasc 6. Hyperlipidemia - Continue Lipitor 7. Morbid obesity with BMI 47.3
[2019-08-28] MEDS ORDERED: VANCOMYCIN 1 GM in D5W (PRE-DOCKED) 1,000 MG/250 ML IVPB ONE (21:30)
[2019-08-28] MEDS ORDERED: MAGNESIUM SULF 50% (8.12 MEQ/2 ML-1 GM VIAL) ONE (21:46)
[2019-08-28] MEDS ORDERED: VANCOMYCIN 1 GRAM (PRE-DOCKED) 1,000 MG/250 ML BAG IVPB ONE (21:46)
[2019-08-28] MEDS ORDERED: MAGNESIUM SULF 50% (8.12 MEQ/2 ML-1 GM VIAL) IVPB ONE (22:00)
--- NOTE | 2019-08-28 22:41 | HP ---
CHIEF COMPLAINT: fevers, nausea, vomiting, diarrhea PCP: Dr. Cloud HISTORY OF PRESENT ILLNESS: Burak Peoples is a 39 year old male with a past medical history of HTN, HLD, morbid obestity, chronic lymphedema, s/p cholecystetctomy who presents for persistsent fevers, nausea, vomiting, diarrhea. He states that his symptoms have been present since he underwent his cholecystectomy and have not abated. He was previously transferred to [facility] for an abdominal CT which was never performed and the patient was discharged from the hospital. He did not receive any additional antibiotics from that hospital. He states that his fevers are persistent, he has poor appetite due to symptoms of nausea and vomiting. Denies any hematemesis. Notes that he gets diarrhea when he tries to eat something or drinks seltzer water. Denies hematochezia or melena. Denies new food intake, sick contacts, recent travel. States he has a cat at home that is healthy and no other animal contact. Denies any abdominal pain, chest pain, sob, headaches, dizziness, lightheadedness, syncope, extremity pain, numbness, tingling, focal weakness. Denies cough or sputum production. Denies neck stiffness, photophobia , phonophobia. ER course was notable for: (1) Tmax 102.8, HR 146, RR 23 (2) Plts 45, INR 2.06, Na 126, BUN 22.4, CRE 2.2, Mg 1.4, Bili 2.7, Alb 3.2 (3) CXR with no acute pathology (4) Abd pelvis CT--> s/p cholecystectomy with no evidence of intra or extrahepatic biliary ductal dilation. Noted post-op fluid collections Recent Travel: denies PAST MEDICAL HISTORY: as above PAST SURGICAL HISTORY: cholecystectomy, tendon repair on his L leg, vein closure bilaterally on the legs Social History: Smoking: former smoker of 4-5 cigarrettes per day Alcohol: 5-6 beers on weekends Drugs: former marijuana smoker. Allergies hydralazine [Hydralazine] Allergy (Verified 08/28/19 12:57) HOME MEDICATIONS: Home Medications Medication Instructions Recorded Amlodipine Besylate [Norvasc -] 10 mg PO DAILY 06/29/14 Labetalol HCl [Normodyne -] 200 mg PO BID 06/29/14 Omeprazole [Prilosec (RX)] 40 mg PO DAILY 06/29/14 Atorvastatin Ca [Lipitor] 20 mg DAILY 05/23/19 Acetaminophen [Tylenol .Regular 650 mg PO Q4H PRN tablet 05/30/19 Strength -] Lisinopril 10 mg PO DAILY #30 tablet 05/30/19 REVIEW OF SYSTEMS CONSTITUTIONAL: fever, chills, diaphoresis, loss of appetite Absent: generalized weakness, malaise, weight change HEENT: Absent: rhinorrhea, nasal congestion, throat pain, throat swelling, difficulty swallowing, visual changes CARDIOVASCULAR: Absent: chest pain, syncope, palpitations, irregular heart rate, lightheadedness RESPIRATORY: Absent: cough, shortness of breath, dyspnea with exertion, orthopnea, wheezing, GASTROINTESTINAL: nausea, vomiting, diarrhea Absent: abdominal pain, abdominal distension, constipation, melena, hematochezia GENITOURINARY: Absent: dysuria, frequency, urgency, hesitancy, hematuria, flank pain MUSCULOSKELETAL: myalgia Absent: arthralgia, joint swelling, back pain, neck pain SKIN: Absent: rash, itching, pallor HEMATOLOGIC/IMMUNOLOGIC: Absent: easy bleeding, easy bruising, lymphadenopathy, frequent infections ENDOCRINE: Absent: unexplained weight gain, unexplained weight loss, heat intolerance, cold intolerance NEUROLOGIC: Absent: headache, focal weakness or paresthesias, dizziness, unsteady gait, seizure, mental status changes PSYCHIATRIC: Absent: anxiety, depression, suicidal or homicidal ideation, hallucinations. PHYSICAL EXAMINATION Vital Signs - 24 hr 08/28/19 08/28/19 08/28/19 13:00 15:50 17:53 Temperature 102.8 F H 101.8 F H 102.6 F H Pulse Rate 146 H Pulse Rate [ 87 116 H Right Radial] Respiratory 24 H 22 H 23 H Rate Blood Pressure 140/97 Blood Pressure 139/84 136/95 [Left Arm] O2 Sat by Pulse 100 98 99 Oximetry (%) 08/28/19 20:52 Temperature 102.5 F H Pulse Rate Pulse Rate [ 120 H Right Radial] Respiratory 22 H Rate Blood Pressure Blood Pressure 141/85 [Left Arm] O2 Sat by Pulse 99 Oximetry (%) GENERAL: Awake, alert, and fully oriented, in mild acute distress. Profusely diaphoretic. HEAD: Normal with no signs of trauma. EYES: Pupils equal, round and reactive to light, extraocular movements intact, sclera anicteric, conjunctiva clear. EARS, NOSE, THROAT: Oropharynx clear without exudates. Dry mucous membranes. NECK: Normal range of motion, supple without lymphadenopathy, JVD. LUNGS: Breath sounds equal, clear to auscultation bilaterally. No wheezes, and no crackles. No accessory muscle use. HEART: Tachycardic rate and regular rhythm, normal S1 and S2 without murmur, rub. ABDOMEN: Soft, nontender, not distended, normoactive bowel sounds, no guarding, no rebound, no masses. MUSCULOSKELETAL: Normal range of motion at all joints. No bony deformities or tenderness. No CVA tenderness. UPPER EXTREMITIES: 2+ pulses, warm, well-perfused. No cyanosis. No clubbing. No peripheral edema. LOWER EXTREMITIES: 2+ pulses, warm, well-perfused. No calf tenderness. Non- pitting edema NEUROLOGICAL: Cranial nerves II-XII intact. 5/5 muscle strength bilaterally upper and lower extremities. PSYCHIATRIC: Cooperative. Good eye contact. Appropriate mood and affect. SKIN: Very Warm, moist and diaphoretic, normal turgor, no rashes or lesions noted, normal capillary refill. Laboratory Results - last 24 hr 08/28/19 08/28/19 08/28/19 13:35 13:35 13:35 WBC 6.9 RBC 3.94 L Hgb 11.3 L Hct 32.2 L MCV 81.8 MCH 28.7 MCHC 35.1 RDW 15.2 D Plt Count 45 L D MPV 9.7 Absolute Neuts (auto) 4.3 Neutrophils % 61.9 Neutrophils % (Manual) 67.0 Band Neutrophils % 0.0 Lymphocytes % 12.0 Lymphocytes % (Manual) 11.0 D Monocytes % 25.6 H Monocytes % (Manual) 22 H D Eosinophils % 0.1 D Eosinophils % (Manual) 0.0 D Basophils % 0.4 Basophils % (Manual) 0.0 Myelocytes % (Man) 0 D Promyelocytes % (Man) 0 Blast Cells % (Manual) 0 Nucleated RBC % 0 Metamyelocytes 0 Hypochromia 0 Platelet Estimate Decreased Polychromasia 0 Poikilocytosis 2+ Anisocytosis 2+ Microcytosis 2+ Macrocytosis 0 PT with INR 24.50 H INR 2.06 H PTT (Actin FS) 38.4 H Sodium Potassium Chloride Carbon Dioxide Anion Gap BUN Creatinine Est GFR (CKD-EPI)AfAm Est GFR (CKD-EPI)NonAf Random Glucose Lactic Acid Calcium Magnesium Total Bilirubin AST ALT Alkaline Phosphatase Troponin I < 0.02 Total Protein Albumin Total Amylase Lipase Urine Color Urine Appearance Urine pH Ur Specific [place] Urine Protein Urine Glucose (UA) Urine Ketones Urine Blood Urine Nitrite Urine Bilirubin Urine Urobilinogen Ur Leukocyte Esterase Urine WBC (Auto) Urine RBC (Auto) Urine Casts (Auto) U Epithel Cells (Auto) Urine Bacteria (Auto) Opiates Screen Methadone Screen Barbiturate Screen Phencyclidine Screen Ur Amphetamines Screen MDMA (Ecstasy) Screen Benzodiazepines Screen Cocaine Screen U Marijuana (THC) Screen Influenza A (Rapid) Influenza B (Rapid) 08/28/19 08/28/19 08/28/19 13:35 13:35 13:35 WBC RBC Hgb Hct MCV MCH MCHC RDW Plt Count MPV Absolute Neuts (auto) Neutrophils % Neutrophils % (Manual) Band Neutrophils % Lymphocytes % Lymphocytes % (Manual) Monocytes % Monocytes % (Manual) Eosinophils % Eosinophils % (Manual) Basophils % Basophils % (Manual) Myelocytes % (Man) Promyelocytes % (Man) Blast Cells % (Manual) Nucleated RBC % Metamyelocytes Hypochromia Platelet Estimate Polychromasia Poikilocytosis Anisocytosis Microcytosis Macrocytosis PT with INR INR PTT (Actin FS) Sodium 126 L Potassium 3.7 Chloride 94 L Carbon Dioxide 22 Anion Gap 10 BUN 22.9 H Creatinine 2.2 H Est GFR (CKD-EPI)AfAm 42.47 Est GFR (CKD-EPI)NonAf 36.64 Random Glucose 116 H Lactic Acid 1.8 Calcium 7.9 L Magnesium 1.4 L Total Bilirubin 2.7 H AST 22 ALT 24 Alkaline Phosphatase 77 Troponin I Total Protein 6.7 Albumin 3.2 L Total Amylase 29 Lipase 111 Urine Color Urine Appearance Urine pH Ur Specific [place] Urine Protein Urine Glucose (UA) Urine Ketones Urine Blood Urine Nitrite Urine Bilirubin Urine Urobilinogen Ur Leukocyte Esterase Urine WBC (Auto) Urine RBC (Auto) Urine Casts (Auto) U Epithel Cells (Auto) Urine Bacteria (Auto) Opiates Screen Methadone Screen Barbiturate Screen Phencyclidine Screen Ur Amphetamines Screen MDMA (Ecstasy) Screen Benzodiazepines Screen Cocaine Screen U Marijuana (THC) Screen Influenza A (Rapid) Negative Influenza B (Rapid) Negative 08/28/19 08/28/19 19:57 19:57 WBC RBC Hgb Hct MCV MCH MCHC RDW Plt Count MPV Absolute Neuts (auto) Neutrophils % Neutrophils % (Manual) Band Neutrophils % Lymphocytes % Lymphocytes % (Manual) Monocytes % Monocytes % (Manual) Eosinophils % Eosinophils % (Manual) Basophils % Basophils % (Manual) Myelocytes % (Man) Promyelocytes % (Man) Blast Cells % (Manual) Nucleated RBC % Metamyelocytes Hypochromia Platelet Estimate Polychromasia Poikilocytosis Anisocytosis Microcytosis Macrocytosis PT with INR INR PTT (Actin FS) Sodium Potassium Chloride Carbon Dioxide Anion Gap BUN Creatinine Est GFR (CKD-EPI)AfAm Est GFR (CKD-EPI)NonAf Random Glucose Lactic Acid Calcium Magnesium Total Bilirubin AST ALT Alkaline Phosphatase Troponin I Total Protein Albumin Total Amylase Lipase Urine Color Dk yellow Urine Appearance Cloudy Urine pH 5.0 Ur Specific [place] 1.025 Urine Protein 3+ H Urine Glucose (UA) Negative Urine Ketones Negative Urine Blood Negative Urine Nitrite Negative Urine Bilirubin Negative Urine Urobilinogen 1.0 Ur Leukocyte Esterase Negative Urine WBC (Auto) 4 Urine RBC (Auto) 3 Urine Casts (Auto) 35 U Epithel Cells (Auto) 5.0 Urine Bacteria (Auto) 0.7 Opiates Screen Negative Methadone Screen Negative Barbiturate Screen Negative Phencyclidine Screen Negative Ur Amphetamines Screen Negative MDMA (Ecstasy) Screen Negative Benzodiazepines Screen Negative Cocaine Screen Negative U Marijuana (THC) Screen Positive A* Influenza A (Rapid) Influenza B (Rapid) EKG--> Sinus tachycardia, non-specific T wave changes in I, no ST segment changes, QTc 438 ASSESSMENT/PLAN: Burak Peoples is a 39 year old male with a past medical history of HTN, HLD, morbid obestity, chronic lymphedema, s/p cholecystetctomy admitted for fever of unknown origin. Fever of Unknown Origin - recent cholecystectomy however no abdominal pathology as per CT - no WBC but elevated monocytes - elevated bilirubin, INR, thrombocytopenia suggests biliary tract or liver pathology - has significant weight loss as per records of 20kg - flu negative - started on Zosyn, Vanco, Flagyl - UA, UCx - stool studies ordered - HIV, hep panel, PENNY, CMV, EBV - ID consulted, case discussed, will see patient in the morning - heme/onc consulted - continue to monitor - Tylenol and ice packs for fevers TARSHA - likely in setting dehydration - Urine CRE, urine lytes for FeNA calculated at 0.1% indicating pre-renal etiology - kidney/bladder U/S noting medical renal disease Hyponatremia - likely in the setting of poor oral intake, low sodium intake, dehydration through diarrhea, and replenishment through water - low serum osms true hyponatremia - low urine Na and midrange urine osms in setting of clinical low volume status likely due to dehydration stemming from vomiting and diarrhea - uric acid high normal additionally likely indicating dehydration - given NaCl - recheck Na, not to overcorrect by 8-10Meq/24 hrs Hypomagnesemia - likely in setting of diarrhea - IV Mg 2gm - continue to monitor Morbid Obesity - dietary consulted HTN - can restart home HTN meds when clinically appropriate, patient currently in SIRS HLD - home home atorvastatin in setting of elevated bilirubin, can restart when clinically appropriate DVT PPx - SCDs - avoid chemical prophylaxis in setting of thrombocytopenia FEN - IV NS at 75cc/hr - continue to monitor electrolytes and replete as necessary, hyponatremia noted and monitoring - sodium controlled diet as tolerated Dispo - admit to Med-surg Family Medical History Family Hx Diabetes: Mother Family Hx Gastrointestinal Disorder: Mother (cholectystitis), Father ( cholectystitis) Visit type - Emergency Visit Emergency Visit: Yes ED Registration Date: 08/28/19 Care time: The patient presented to the Emergency Department on the above date and was hospitalized for further evaluation of their emergent condition. - New Patient This patient is new to me today: Yes Date on this admission: 08/29/19 - Critical Care Critical Care patient: No
[2019-08-28 23:36] LABS: URIC ACID 6.4 mg/dL (2.6-7.2)
[2019-08-29] MEDS ORDERED: KETOROLAC TROMETHAMINE 30 MG/1 ML VIAL IVPUSH ONE (00:34)
[2019-08-29] MEDS ORDERED: KETOROLAC TROMETHAMINE 30 MG/1 ML VIAL ONE (00:55)
[2019-08-29] MEDS: ACETAMINOPHEN 1000 MG/100 ML VIAL (NON FORMULARY) IVPB PRN ×3 (02:47→17:22)
[2019-08-29 09:13] LABS: BASO % 0.1 % (0-2.0); EOS % 0.5 % (0-4.5); HEMATOCRIT 25.8 % (35.4-49); HEMOGLOBIN 9.1 GM/dL (11.7-16.9); LYMPH % 6.2 % (8-40); MCHC 35.3 g/dl (32.0-35.9); MEAN CELL VOLUME 82.1 fl (80-96); MONO % 19.9 % (3.8-10.2); NEUT % 73.3 % (42.8-82.8); RBC 3.15 M/mm3 (4.00-5.60); RDW 15.5 % (11.9-15.9)
[2019-08-29 09:17] LABS: PLATELET COUNT 32 K/MM3 (134-434); WHITE BLOOD COUNT 4.9 K/mm3 (4.0-10.0)
[2019-08-29 09:30] LABS: ALBUMIN 2.8 g/dl (3.4-5.0); BILIRUBIN,TOTAL 1.9 mg/dL (0.2-1); BLOOD UREA NITROGEN 24.8 mg/dL (7-18); CALCIUM 7.6 mg/dL (8.5-10.1); CREATININE 2.5 mg/dL (0.55-1.3); MAGNESIUM 1.9 mg/dL (1.8-2.4); PHOSPHOROUS 3.8 mg/dL (2.5-4.9); POTASSIUM 3.7 mmol/L (3.5-5.1); TOT PROT 6.1 g/dl (6.4-8.2)
[2019-08-29 09:45] LABS: INR 1.89 (0.83-1.09); PROTHROMBIN TIME (PATIENT) 22.5 SEC (9.7-13.0)
[2019-08-29 09:48] LABS: ACTIVATED PTT 38.2 SECONDS (25.2-36.5)
--- NOTE | 2019-08-29 10:21 | CONSULT ---
Consultation: REQUESTING PROVIDER: CONSULT REQUEST: We have been asked to medically evaluate this patient for ( specify). HISTORY OF PRESENT ILLNESS: 39 yo male with a h/o HTN, HLD, morbid obestity, chronic lymphedema, s/p cholecystetctomy who originally presented for persistent fevers, n/v/diarrhea, with NB/NB emesis. Pt was here previously in July 2019 and reports he had a cholecystectomy at that time. Pt exhibited thromocytopenia at that time which was likely related to his alcohol consumption. Pt was transferred to [facility] for unknown reason and did not receive any CT scans or antibiotics at that time. Pt has had persistent fevers with the addition of anorexia likely 2/2 to his continue nausea and vomiting. Pt denies sick contacts or any take-out/ restaurant food. Pt endorses generalized weakness, however denies any focal neurological symptoms. Pt has 1 cat at home which has not bit or scratched him. Pt denies recent travel. While he has been at our facility he has been on Zosyn and Flagyl and has continued fevers. Currently, PMHX: As above PSHx: Cholecystectomy 07/2019, L leg tendon repair, b/l leg endoveinous laser therapy SoHx: Tobacco - Former smoker 4-5 cgs Alcohol - 5-6 beers on weekends Drugs: Former Marijuana smoker FamHx: Mother - DM, cholelithiasis, Breast Ca unknown type Father - Cholelithiasis, cancer of unknown type Sister - Breast Ca unknown type REVIEW OF SYSTEMS: As per HPI PHYSICAL EXAMINATION Vital Signs - 24 hr 08/28/19 08/28/19 08/28/19 13:00 13:10 15:50 Temperature 102.8 F H 101.8 F H Pulse Rate 146 H Pulse Rate [ 87 Right Radial] Respiratory 24 H 22 H Rate Blood Pressure 140/97 Blood Pressure 139/84 [Left Arm] O2 Sat by Pulse 100 99 98 Oximetry (%) 08/28/19 08/28/19 08/28/19 17:53 20:52 23:16 Temperature 102.6 F H 102.5 F H Pulse Rate Pulse Rate [ 116 H 120 H Right Radial] Respiratory 23 H 22 H Rate Blood Pressure Blood Pressure 136/95 141/85 [Left Arm] O2 Sat by Pulse 99 99 99 Oximetry (%) 08/28/19 08/29/19 08/29/19 23:52 01:04 02:03 Temperature 102.7 F H 100.6 F H 103 F H Pulse Rate 124 H Pulse Rate [ 119 H 109 H Right Radial] Respiratory 20 22 H Rate Blood Pressure 144/63 Blood Pressure 144/83 [Left Arm] O2 Sat by Pulse 99 99 Oximetry (%) 08/29/19 08/29/19 02:15 06:51 Temperature 98.4 F Pulse Rate 116 H Pulse Rate [ Right Radial] Respiratory 22 H 20 Rate Blood Pressure 112/50 L Blood Pressure [Left Arm] O2 Sat by Pulse 99 Oximetry (%) GENERAL: NAD, Awake, alert, and fully oriented HEENT: NC/AT, PRAVIN, EOMI, scleral icterus, noted, MMM without any exudates or thrush NECK: No JVD, no lymphadenopathy LUNGS: CTA bilaterally. No wheezes, and no crackles. No accessory muscle use. HEART: Tachycardic with regular rhythm, normal S1 and S2 without murmur ABDOMEN: Soft, obese, laparoscopic scars noted C/D/I and healing, nondistended, nontender, normoactive BS, no guarding, hepatomegaly per percussion 1 finger width below rib angle, splenomegaly unable to be appreciated on exam. EXTREMITIES: 2+ distal pulses throughout, warm, well-perfused. LLE chronic lymphedema noted, no L axillary LN, RLE without pitting edema. No calf tenderness. NEUROLOGICAL: AAOx3, no focal neurological deficits, patellar reflex 2/4, strength grossly 5/5 in distal extremities. PSYCHIATRIC: Cooperative. Good eye contact. Appropriate mood and affect. SKIN: Warm, dry, no rashes or lesions noted. Laboratory Results - last 24 hr 08/28/19 08/28/19 08/28/19 13:35 13:35 13:35 WBC 6.9 RBC 3.94 L Hgb 11.3 L Hct 32.2 L MCV 81.8 MCH 28.7 MCHC 35.1 RDW 15.2 D Plt Count 45 L D MPV 9.7 Absolute Neuts (auto) 4.3 Neutrophils % 61.9 Neutrophils % (Manual) 67.0 Band Neutrophils % 0.0 Lymphocytes % 12.0 Lymphocytes % (Manual) 11.0 D Monocytes % 25.6 H Monocytes % (Manual) 22 H D Eosinophils % 0.1 D Eosinophils % (Manual) 0.0 D Basophils % 0.4 Basophils % (Manual) 0.0 Myelocytes % (Man) 0 D Promyelocytes % (Man) 0 Blast Cells % (Manual) 0 Nucleated RBC % 0 Metamyelocytes 0 Hypochromia 0 Platelet Estimate Decreased Polychromasia 0 Poikilocytosis 2+ Anisocytosis 2+ Microcytosis 2+ Macrocytosis 0 ESR PT with INR 24.50 H INR 2.06 H PTT (Actin FS) 38.4 H Sodium Potassium Chloride Carbon Dioxide Anion Gap BUN Creatinine Est GFR (CKD-EPI)AfAm Est GFR (CKD-EPI)NonAf Random Glucose Serum Osmolality Lactic Acid Uric Acid Calcium Phosphorus Magnesium Total Bilirubin AST ALT Alkaline Phosphatase Creatine Kinase Troponin I < 0.02 C-Reactive Protein Total Protein Albumin Total Amylase Lipase Urine Color Urine Appearance Urine pH Ur Specific Majestic Urine Protein Urine Glucose (UA) Urine Ketones Urine Blood Urine Nitrite Urine Bilirubin Urine Urobilinogen Ur Leukocyte Esterase Urine WBC (Auto) Urine RBC (Auto) Urine Casts (Auto) U Pathogenic Cast Auto U Epithel Cells (Auto) Urine Bacteria (Auto) Urine Osmolality Ur Random Creatinine Ur Random Sodium Ur Random Potassium Ur Random Chloride Opiates Screen Methadone Screen Barbiturate Screen Phencyclidine Screen Ur Amphetamines Screen MDMA (Ecstasy) Screen Benzodiazepines Screen Cocaine Screen U Marijuana (THC) Screen Influenza A (Rapid) Influenza B (Rapid) 08/28/19 08/28/19 08/28/19 13:35 13:35 13:35 WBC RBC Hgb Hct MCV MCH MCHC RDW Plt Count MPV Absolute Neuts (auto) Neutrophils % Neutrophils % (Manual) Band Neutrophils % Lymphocytes % Lymphocytes % (Manual) Monocytes % Monocytes % (Manual) Eosinophils % Eosinophils % (Manual) Basophils % Basophils % (Manual) Myelocytes % (Man) Promyelocytes % (Man) Blast Cells % (Manual) Nucleated RBC % Metamyelocytes Hypochromia Platelet Estimate Polychromasia Poikilocytosis Anisocytosis Microcytosis Macrocytosis ESR PT with INR INR PTT (Actin FS) Sodium 126 L Potassium 3.7 Chloride 94 L Carbon Dioxide 22 Anion Gap 10 BUN 22.9 H Creatinine 2.2 H Est GFR (CKD-EPI)AfAm 42.47 Est GFR (CKD-EPI)NonAf 36.64 Random Glucose 116 H Serum Osmolality 266 L Lactic Acid 1.8 Uric Acid 6.4 Calcium 7.9 L Phosphorus Magnesium 1.4 L Total Bilirubin 2.7 H AST 22 ALT 24 Alkaline Phosphatase 77 Creatine Kinase Troponin I C-Reactive Protein Total Protein 6.7 Albumin 3.2 L Total Amylase 29 Lipase 111 Urine Color Urine Appearance Urine pH Ur Specific Majestic Urine Protein Urine Glucose (UA) Urine Ketones Urine Blood Urine Nitrite Urine Bilirubin Urine Urobilinogen Ur Leukocyte Esterase Urine WBC (Auto) Urine RBC (Auto) Urine Casts (Auto) U Pathogenic Cast Auto U Epithel Cells (Auto) Urine Bacteria (Auto) Urine Osmolality Ur Random Creatinine Ur Random Sodium Ur Random Potassium Ur Random Chloride Opiates Screen Methadone Screen Barbiturate Screen Phencyclidine Screen Ur Amphetamines Screen MDMA (Ecstasy) Screen Benzodiazepines Screen Cocaine Screen U Marijuana (THC) Screen Influenza A (Rapid) Negative Influenza B (Rapid) Negative 08/28/19 08/28/19 08/28/19 19:57 19:57 19:57 WBC RBC Hgb Hct MCV MCH MCHC RDW Plt Count MPV Absolute Neuts (auto) Neutrophils % Neutrophils % (Manual) Band Neutrophils % Lymphocytes % Lymphocytes % (Manual) Monocytes % Monocytes % (Manual) Eosinophils % Eosinophils % (Manual) Basophils % Basophils % (Manual) Myelocytes % (Man) Promyelocytes % (Man) Blast Cells % (Manual) Nucleated RBC % Metamyelocytes Hypochromia Platelet Estimate Polychromasia Poikilocytosis Anisocytosis Microcytosis Macrocytosis ESR PT with INR INR PTT (Actin FS) Sodium Potassium Chloride Carbon Dioxide Anion Gap BUN Creatinine Est GFR (CKD-EPI)AfAm Est GFR (CKD-EPI)NonAf Random Glucose Serum Osmolality Lactic Acid Uric Acid Calcium Phosphorus Magnesium Total Bilirubin AST ALT Alkaline Phosphatase Creatine Kinase Troponin I C-Reactive Protein Total Protein Albumin Total Amylase Lipase Urine Color Dk yellow Urine Appearance Cloudy Urine pH 5.0 Ur Specific Majestic 1.025 Urine Protein 3+ H Urine Glucose (UA) Negative Urine Ketones Negative Urine Blood Negative Urine Nitrite Negative Urine Bilirubin Negative Urine Urobilinogen 1.0 Ur Leukocyte Esterase Negative Urine WBC (Auto) 4 Urine RBC (Auto) 3 Urine Casts (Auto) 35 U Pathogenic Cast Auto Few U Epithel Cells (Auto) 5.0 Urine Bacteria (Auto) 0.7 Urine Osmolality 624 Ur Random Creatinine 342.0 H Ur Random Sodium 23 L Ur Random Potassium 45.0 Ur Random Chloride 22 L Opiates Screen Negative Methadone Screen Negative Barbiturate Screen Negative Phencyclidine Screen Negative Ur Amphetamines Screen Negative MDMA (Ecstasy) Screen Negative Benzodiazepines Screen Negative Cocaine Screen Negative U Marijuana (THC) Screen Positive A* Influenza A (Rapid) Influenza B (Rapid) 08/29/19 08/29/19 08/29/19 07:38 07:38 07:38 WBC 4.9 RBC 3.15 L Hgb 9.1 L Hct 25.8 L D MCV 82.1 MCH 29.0 MCHC 35.3 RDW 15.5 Plt Count 32 L* D MPV 10.0 Absolute Neuts (auto) 3.6 Neutrophils % 73.3 Neutrophils % (Manual) Band Neutrophils % Lymphocytes % 6.2 L D Lymphocytes % (Manual) Monocytes % 19.9 H Monocytes % (Manual) Eosinophils % 0.5 D Eosinophils % (Manual) Basophils % 0.1 Basophils % (Manual) Myelocytes % (Man) Promyelocytes % (Man) Blast Cells % (Manual) Nucleated RBC % 0 Metamyelocytes Hypochromia Platelet Estimate Polychromasia Poikilocytosis Anisocytosis Microcytosis Macrocytosis ESR PT with INR 22.50 H INR 1.89 H PTT (Actin FS) 38.2 H Sodium 133 L Potassium 3.7 Chloride 101 Carbon Dioxide 23 Anion Gap 10 BUN 24.8 H Creatinine 2.5 H Est GFR (CKD-EPI)AfAm 36.39 Est GFR (CKD-EPI)NonAf 31.39 Random Glucose 96 Serum Osmolality Lactic Acid Uric Acid Calcium 7.6 L Phosphorus 3.8 Magnesium 1.9 Total Bilirubin 1.9 H AST 19 ALT 22 Alkaline Phosphatase 66 Creatine Kinase Troponin I C-Reactive Protein Total Protein 6.1 L Albumin 2.8 L Total Amylase Lipase Urine Color Urine Appearance Urine pH Ur Specific Majestic Urine Protein Urine Glucose (UA) Urine Ketones Urine Blood Urine Nitrite Urine Bilirubin Urine Urobilinogen Ur Leukocyte Esterase Urine WBC (Auto) Urine RBC (Auto) Urine Casts (Auto) U Pathogenic Cast Auto U Epithel Cells (Auto) Urine Bacteria (Auto) Urine Osmolality Ur Random Creatinine Ur Random Sodium Ur Random Potassium Ur Random Chloride Opiates Screen Methadone Screen Barbiturate Screen Phencyclidine Screen Ur Amphetamines Screen MDMA (Ecstasy) Screen Benzodiazepines Screen Cocaine Screen U Marijuana (THC) Screen Influenza A (Rapid) Influenza B (Rapid) 08/29/19 08/29/19 08/29/19 07:38 07:38 07:38 WBC RBC Hgb Hct MCV MCH MCHC RDW Plt Count MPV Absolute Neuts (auto) Neutrophils % Neutrophils % (Manual) Band Neutrophils % Lymphocytes % Lymphocytes % (Manual) Monocytes % Monocytes % (Manual) Eosinophils % Eosinophils % (Manual) Basophils % Basophils % (Manual) Myelocytes % (Man) Promyelocytes % (Man) Blast Cells % (Manual) Nucleated RBC % Metamyelocytes Hypochromia Platelet Estimate Polychromasia Poikilocytosis Anisocytosis Microcytosis Macrocytosis ESR 60 H PT with INR INR PTT (Actin FS) Sodium Potassium Chloride Carbon Dioxide Anion Gap BUN Creatinine Est GFR (CKD-EPI)AfAm Est GFR (CKD-EPI)NonAf Random Glucose Serum Osmolality Lactic Acid Uric Acid Calcium Phosphorus Magnesium Total Bilirubin AST ALT Alkaline Phosphatase Creatine Kinase 31 Troponin I C-Reactive Protein 23.0 H Total Protein Albumin Total Amylase Lipase Urine Color Urine Appearance Urine pH Ur Specific Majestic Urine Protein Urine Glucose (UA) Urine Ketones Urine Blood Urine Nitrite Urine Bilirubin Urine Urobilinogen Ur Leukocyte Esterase Urine WBC (Auto) Urine RBC (Auto) Urine Casts (Auto) U Pathogenic Cast Auto U Epithel Cells (Auto) Urine Bacteria (Auto) Urine Osmolality Ur Random Creatinine Ur Random Sodium Ur Random Potassium Ur Random Chloride Opiates Screen Methadone Screen Barbiturate Screen Phencyclidine Screen Ur Amphetamines Screen MDMA (Ecstasy) Screen Benzodiazepines Screen Cocaine Screen U Marijuana (THC) Screen Influenza A (Rapid) Influenza B (Rapid) Active Medications Generic Name Dose Route Start Last Admin Trade Name Freq PRN Reason Stop Dose Admin Acetaminophen 1,000 mg 08/29/19 02:12 08/29/19 02:47 Ofirmev Injection - IVPB 08/30/19 02:12 1,000 mg Q6H PRN Administration FEVER Sodium Chloride 1,000 mls @ 75 mls/hr 08/28/19 21:00 08/28/19 23:31 Normal Saline - IV 75 mls/hr ASDIR LISA Administration Metronidazole 500 mg in 100 mls @ 100 mls/hr 08/29/19 21:30 Flagyl 500mg Premixed Ivpb - IVPB Q8H-IV LISA Piperacillin Sod/Tazobactam 100 mls @ 200 mls/hr 08/28/19 21:00 Sod 4.5 gm/ Dextrose IVPB Q6H-IV LISA Protocol Piperacillin Sod/Tazobactam 100 mls @ 200 mls/hr 08/29/19 21:30 Sod 4.5 gm/ Dextrose IVPB 08/30/19 09:29 Q6H-IV LISA Protocol Pantoprazole Sodium 40 mg 08/29/19 10:00 Protonix - PO DAILY LISA ASSESSMENT/PLAN: Normocytic anemia Thrombocytopenia Sepsis 2/2 to unknown origin Alcohol use Acute kidney insufficiency --Given pt's worsening septic symptoms, likely marrow suppression causing cytopenias alongside of alcohol use as per previous time, however elevated coags and hyperbilirubinemia suspicious --No neurological symptoms at this time --Sent for LDH, Haptoglobin, Fibrinogen to be added on to today's labs --Examined peripheral smear: Hyposegmented neutrophils, decreased number of platelets per hpf, no significant shistocytes, regularly shaped normochromic RBC morphology --Continue to trend counts and at least one more daily coags --Hepatitis panel and HIV pending --Will order Anti-phospholipid Ab panel --Potentially if workup above is negative will need to due a BM bx --Will likely need IR guided biopsy due to body habitus --Plt transfusion threshold >10K without bleeding and >50K with bleeding --RBC transfusion threshold >7gm --FeNa 0.1% supporting pre-renal disease, however monitor for any signs of hematuria Case discussed with Dr. Mallorie Pinzon, DO - IM PGY-3 Visit type - Emergency Visit Emergency Visit: Yes ED Registration Date: 08/28/19 Care time: The patient presented to the Emergency Department on the above date and was hospitalized for further evaluation of their emergent condition. - New Patient This patient is new to me today: Yes Date on this admission: 08/29/19 - Critical Care Critical Care patient: No ATTENDING PHYSICIAN STATEMENT I saw and evaluated the patient. I reviewed the resident's note and discussed the case with the resident. I agree with the resident's findings and plan as documented. SUBJECTIVE: OBJECTIVE: ASSESSMENT AND PLAN:
[2019-08-29 10:40] LABS: ANISOCYTOSIS 1+; MACROCYTOSIS 0; PLATELET ESTIMATE DECREASED
[2019-08-29] MEDS: SODIUM CHLORIDE 1,000 ML IV SCH (11:17)
[2019-08-29] MEDS: PANTOPRAZOLE 40 MG TABLET PO SCH (11:17)
[2019-08-29] MEDS ORDERED: VANCOMYCIN 250 MG/5 ML ORAL SOLUTION PO SCH ×2 (12:00→18:00)
[2019-08-29] MEDS: PIPERACILLIN/TAZOB 4.5 GM 4.5 GM in DEXTROSE 5%-WATER 100 ML IVPB SCH (14:28)
--- NOTE | 2019-08-29 14:32 | PN ---
Progress Note (short form) - Note Progress Note: ID consult dictated 39 yo man pmh htn,hld, lymphedema with recurrent lower extremity cellulitis last in May 2019 when his platelets were normal -[id number] admitted Aug 06, 2019 with thrombocytopenia, nausea, vomiting and diarrhea- found to have gall stones- he is s/p lap choly 08/07 after which he continued to have fevers with persistent nause and diarrhea-pathology with chronic cholycystitis he was transferred to [facility] on 08/[address] scan to r/o intraabdominal abscess- he self reports nothing happened there and he was sent home off antibotics he has been home about two weeks mainly in bed, with nausea- reports gagging and spitting, one watery BM daily- nonbloody- drinking liequids only he always feels hot, using a fan all the time no rigors, no chills, occasional sweats was not aware he had a fever till he came to the ED 20 kg weight loss no travel house cat [facility] no new meds, no supplements, or herbals no bleeding no family history of lupus no pain at all now with fever (asymptomatic), worsening thrombocytopenia, renal insufficiency ( worsening)-?prerenal ct abd/pelvis- no contrast- no abscess, +mild HSM FUO-nontoxic appearing with normal WBC, persistent thrombocytopenia since Aug 06, nausea, weight loss and worsening renal failure, elevated bilirubin and ldh ?hemolysis he received one dose of vancomycin yesterday blood cultures are negative at 24 hours agree with HIV, hep b , hep c would check ebv, parvo serology blood smear for babesia leptospira serology blanquita anca haptoglobin-?hemolysis ferritin-?[facility] would ask hematology and renal to evaluate would agree with stool studies as ordered (no diarrhea here) will start ceftriaxone while awaiting test results Problem List - Problems (1) Fever Code(s): R50.9 - FEVER, UNSPECIFIED (2) Thrombocytopenia Code(s): D69.6 - THROMBOCYTOPENIA, UNSPECIFIED (3) Nausea and vomiting Code(s): R11.2 - NAUSEA WITH VOMITING, UNSPECIFIED
[2019-08-29] MEDS ORDERED: DEXTROSE 5%-WATER 100 ML IVPB ONE ×2 (14:44→16:17)
[2019-08-29] MEDS ORDERED: PIPERACILLIN/TAZOBACTAM 4.5 GM VIAL IVPB ONE (14:44)
[2019-08-29] MEDS ORDERED: PIPERACILLIN/TAZOB 4.5 GM 4.5 GM in DEXTROSE 5%-WATER 100 ML IVPB SCH ×2 (15:00→21:30)
--- NOTE | 2019-08-29 15:12 | PN ---
Teaching Attending Note Name of Resident: Kevin Ludwig ATTENDING PHYSICIAN STATEMENT I saw and evaluated the patient. I reviewed the resident's note and discussed the case with the resident. I agree with the resident's findings and plan as documented. SUBJECTIVE: cont to have fever . diarrhea daily x 1-2 BMs. last BM yesterday. no adb pain. No N/V. poor appetite. no dyuria. No cought or SOB . No RODARTE. OBJECTIVE: NAD, comfortable in bed. MMM, nl oropharynx . No LAP in neck CV: RRR, no MRG Lungs: CTAB. Abd: soft , NT, ND , NL BS Ext : L leg circumference > R . no edema . ASSESSMENT AND PLAN: 39 y/o man with h/o recent CCY( chronic cholecystitis) , HTN, HLP, LLE cellulitis, lymphedema, and obesity who presented with continued fever and weight loss/poor appetite. 1-Fever: unclear etiology. started before his presentation last admission. doubt that chronic cholecystitis was contributing. doubt any surgical complications. no urinary sx, no abd tenderness or pain, no pulmonary sx. no sick contact, recent travel, or new drugs use. No fluid collection on Ct scan. - ? hematologic source with thrombocytopenia, fever, anemia . - d/w ID . stop ABx - hepatitis panel pending - follow serology tests sent by ID - send UPEP/SPEP. - LE US neg for DVT. - stool cx and c diff if diarrhea recurs 2- TARSHA: likely prerenal in etiology due to poor po intake. FeNA 0.1 % indicating prerenal - increase rate of IVF . - No hydro on CT scan . - SPEP/UPEP - renal consult 3- Hyponatremia: likely due to hypovolemia given low fenA, h/o diarrhea , and poor po intake. Na responded appropriately to NS. - Urine Na could be due to Ns administration - cont IVF . monitor Na level - hold lisinopril 4- h/o HTN : BP on lower side. hold and monitor 5- Thrombocytopenia: ? due to acute illness VS primary BM pathology . heme consult placed . 6- DVT px: SCDs due to thrombocytopenia
--- NOTE | 2019-08-29 15:16 | PN ---
Physical Exam: SUBJECTIVE: Patient seen and examined at bedside. He was admitted overnight for continuation of concern since last visit: fevers w/o isolated source. He offers no complaints except for concern of why he has fevers. OBJECTIVE: Vital Signs Temp Pulse Resp BP Pulse Ox 102.9 F H 118 H 18 141/84 100 08/29/19 17:00 08/29/19 23:00 08/29/19 23:00 08/29/19 23:00 08/29/19 22:00 GENERAL: AOx3, in no acute distress. HEAD: NCAT EYES: TOMMY, EOMI, conjunctiva clear. ENT: Ears normal, nares patent, oropharynx clear without exudates. Moist mucous membranes. NECK: Normal range of motion, supple without lymphadenopathy, JVD, or masses. LUNGS: CTAB. No wheezes, and no crackles. No accessory muscle use. HEART: RRR s1 s2 ABDOMEN: Obese, soft, BS present in all 4 quadrants, non-distended, no JVD, MUSCULOSKELETAL: No bony deformities or tenderness. No CVA tenderness. UPPER EXTREMITIES: 2+ pulses, warm, well-perfused. No cyanosis. No clubbing. No peripheral edema. LOWER EXTREMITIES: 2+ pulses, warm, well-perfused. No calf tenderness. No peripheral edema. NEUROLOGICAL: No focal deficits. Cranial nerves II-XII intact. Normal speech. Gait not appreciated. PSYCHIATRIC: Slow to respond. Cooperative. Good eye contact. Appropriate mood and affect. SKIN: Warm, dry, normal turgor, no rashes or lesions noted, normal capillary refill. Laboratory Results - last 24 hr 08/28/19 08/28/19 08/28/19 13:35 13:35 13:35 WBC RBC Hgb Hct MCV MCH MCHC RDW Plt Count MPV Absolute Neuts (auto) Neutrophils % Neutrophils % (Manual) 67.0 Band Neutrophils % 0.0 Lymphocytes % Lymphocytes % (Manual) 11.0 D Monocytes % Monocytes % (Manual) 22 H D Eosinophils % Eosinophils % (Manual) 0.0 D Basophils % Basophils % (Manual) 0.0 Myelocytes % (Man) 0 D Promyelocytes % (Man) 0 Blast Cells % (Manual) 0 Nucleated RBC % 0 Metamyelocytes 0 Hypochromia 0 Platelet Estimate Decreased Polychromasia 0 Poikilocytosis 2+ Anisocytosis 2+ Microcytosis 2+ Macrocytosis 0 ESR PT with INR INR PTT (Actin FS) Fibrinogen Sodium 126 L Potassium 3.7 Chloride 94 L Carbon Dioxide 22 Anion Gap 10 BUN 22.9 H Creatinine 2.2 H Est GFR (CKD-EPI)AfAm 42.47 Est GFR (CKD-EPI)NonAf 36.64 Random Glucose 116 H Serum Osmolality 266 L Lactic Acid 1.8 Uric Acid 6.4 Calcium 7.9 L Phosphorus Magnesium 1.4 L Total Bilirubin 2.7 H AST 22 ALT 24 Alkaline Phosphatase 77 LD Total Creatine Kinase C-Reactive Protein Total Protein 6.7 Albumin 3.2 L Total Amylase 29 Lipase 111 TSH Urine Color Urine Appearance Urine pH Ur Specific Jackson Urine Protein Urine Glucose (UA) Urine Ketones Urine Blood Urine Nitrite Urine Bilirubin Urine Urobilinogen Ur Leukocyte Esterase Urine WBC (Auto) Urine RBC (Auto) Urine Casts (Auto) U Pathogenic Cast Auto U Epithel Cells (Auto) Urine Bacteria (Auto) Urine Osmolality Ur Random Creatinine Ur Random Sodium Ur Random Potassium Ur Random Chloride Opiates Screen Methadone Screen Barbiturate Screen Phencyclidine Screen Ur Amphetamines Screen MDMA (Ecstasy) Screen Benzodiazepines Screen Cocaine Screen U Marijuana (THC) Screen HIV 1&2 Antibody Screen HIV P24 Antigen 08/28/19 08/28/19 08/28/19 19:57 19:57 19:57 WBC RBC Hgb Hct MCV MCH MCHC RDW Plt Count MPV Absolute Neuts (auto) Neutrophils % Neutrophils % (Manual) Band Neutrophils % Lymphocytes % Lymphocytes % (Manual) Monocytes % Monocytes % (Manual) Eosinophils % Eosinophils % (Manual) Basophils % Basophils % (Manual) Myelocytes % (Man) Promyelocytes % (Man) Blast Cells % (Manual) Nucleated RBC % Metamyelocytes Hypochromia Platelet Estimate Polychromasia Poikilocytosis Anisocytosis Microcytosis Macrocytosis ESR PT with INR INR PTT (Actin FS) Fibrinogen Sodium Potassium Chloride Carbon Dioxide Anion Gap BUN Creatinine Est GFR (CKD-EPI)AfAm Est GFR (CKD-EPI)NonAf Random Glucose Serum Osmolality Lactic Acid Uric Acid Calcium Phosphorus Magnesium Total Bilirubin AST ALT Alkaline Phosphatase LD Total Creatine Kinase C-Reactive Protein Total Protein Albumin Total Amylase Lipase TSH Urine Color Dk yellow Urine Appearance Cloudy Urine pH 5.0 Ur Specific Jackson 1.025 Urine Protein 3+ H Urine Glucose (UA) Negative Urine Ketones Negative Urine Blood Negative Urine Nitrite Negative Urine Bilirubin Negative Urine Urobilinogen 1.0 Ur Leukocyte Esterase Negative Urine WBC (Auto) 4 Urine RBC (Auto) 3 Urine Casts (Auto) 35 U Pathogenic Cast Auto Few U Epithel Cells (Auto) 5.0 Urine Bacteria (Auto) 0.7 Urine Osmolality 624 Ur Random Creatinine 342.0 H Ur Random Sodium 23 L Ur Random Potassium 45.0 Ur Random Chloride 22 L Opiates Screen Negative Methadone Screen Negative Barbiturate Screen Negative Phencyclidine Screen Negative Ur Amphetamines Screen Negative MDMA (Ecstasy) Screen Negative Benzodiazepines Screen Negative Cocaine Screen Negative U Marijuana (THC) Screen Positive A* HIV 1&2 Antibody Screen HIV P24 Antigen 08/29/19 08/29/19 08/29/19 07:38 07:38 07:38 WBC 4.9 RBC 3.15 L Hgb 9.1 L Hct 25.8 L D MCV 82.1 MCH 29.0 MCHC 35.3 RDW 15.5 Plt Count 32 L* D MPV 10.0 Absolute Neuts (auto) 3.6 Neutrophils % 73.3 Neutrophils % (Manual) 81.4 D Band Neutrophils % 2.9 Lymphocytes % 6.2 L D Lymphocytes % (Manual) 3.9 L D Monocytes % 19.9 H Monocytes % (Manual) 7 Eosinophils % 0.5 D Eosinophils % (Manual) 1.0 D Basophils % 0.1 Basophils % (Manual) 0.0 Myelocytes % (Man) 0 Promyelocytes % (Man) 0 Blast Cells % (Manual) 0 Nucleated RBC % 0 Metamyelocytes 2 D Hypochromia 0 Platelet Estimate Decreased Polychromasia 0 Poikilocytosis 0 Anisocytosis 1+ Microcytosis 1+ Macrocytosis 0 ESR PT with INR INR PTT (Actin FS) Fibrinogen Sodium 133 L Potassium 3.7 Chloride 101 Carbon Dioxide 23 Anion Gap 10 BUN 24.8 H Creatinine 2.5 H Est GFR (CKD-EPI)AfAm 36.39 Est GFR (CKD-EPI)NonAf 31.39 Random Glucose 96 Serum Osmolality Lactic Acid Uric Acid Calcium 7.6 L Phosphorus 3.8 Magnesium 1.9 Total Bilirubin 1.9 H AST 19 ALT 22 Alkaline Phosphatase 66 LD Total 328 H Creatine Kinase C-Reactive Protein Total Protein 6.1 L Albumin 2.8 L Total Amylase Lipase TSH 0.97 Urine Color Urine Appearance Urine pH Ur Specific Jackson Urine Protein Urine Glucose (UA) Urine Ketones Urine Blood Urine Nitrite Urine Bilirubin Urine Urobilinogen Ur Leukocyte Esterase Urine WBC (Auto) Urine RBC (Auto) Urine Casts (Auto) U Pathogenic Cast Auto U Epithel Cells (Auto) Urine Bacteria (Auto) Urine Osmolality Ur Random Creatinine Ur Random Sodium Ur Random Potassium Ur Random Chloride Opiates Screen Methadone Screen Barbiturate Screen Phencyclidine Screen Ur Amphetamines Screen MDMA (Ecstasy) Screen Benzodiazepines Screen Cocaine Screen U Marijuana (THC) Screen HIV 1&2 Antibody Screen Negative HIV P24 Antigen Negative 08/29/19 08/29/19 08/29/19 07:38 07:38 07:38 WBC RBC Hgb Hct MCV MCH MCHC RDW Plt Count MPV Absolute Neuts (auto) Neutrophils % Neutrophils % (Manual) Band Neutrophils % Lymphocytes % Lymphocytes % (Manual) Monocytes % Monocytes % (Manual) Eosinophils % Eosinophils % (Manual) Basophils % Basophils % (Manual) Myelocytes % (Man) Promyelocytes % (Man) Blast Cells % (Manual) Nucleated RBC % Metamyelocytes Hypochromia Platelet Estimate Polychromasia Poikilocytosis Anisocytosis Microcytosis Macrocytosis ESR 60 H PT with INR 22.50 H INR 1.89 H PTT (Actin FS) 38.2 H Fibrinogen Sodium Potassium Chloride Carbon Dioxide Anion Gap BUN Creatinine Est GFR (CKD-EPI)AfAm Est GFR (CKD-EPI)NonAf Random Glucose Serum Osmolality Lactic Acid Uric Acid Calcium Phosphorus Magnesium Total Bilirubin AST ALT Alkaline Phosphatase LD Total Creatine Kinase C-Reactive Protein 23.0 H Total Protein Albumin Total Amylase Lipase TSH Urine Color Urine Appearance Urine pH Ur Specific Jackson Urine Protein Urine Glucose (UA) Urine Ketones Urine Blood Urine Nitrite Urine Bilirubin Urine Urobilinogen Ur Leukocyte Esterase Urine WBC (Auto) Urine RBC (Auto) Urine Casts (Auto) U Pathogenic Cast Auto U Epithel Cells (Auto) Urine Bacteria (Auto) Urine Osmolality Ur Random Creatinine Ur Random Sodium Ur Random Potassium Ur Random Chloride Opiates Screen Methadone Screen Barbiturate Screen Phencyclidine Screen Ur Amphetamines Screen MDMA (Ecstasy) Screen Benzodiazepines Screen Cocaine Screen U Marijuana (THC) Screen HIV 1&2 Antibody Screen HIV P24 Antigen 08/29/19 08/29/19 07:38 07:38 WBC RBC Hgb Hct MCV MCH MCHC RDW Plt Count MPV Absolute Neuts (auto) Neutrophils % Neutrophils % (Manual) Band Neutrophils % Lymphocytes % Lymphocytes % (Manual) Monocytes % Monocytes % (Manual) Eosinophils % Eosinophils % (Manual) Basophils % Basophils % (Manual) Myelocytes % (Man) Promyelocytes % (Man) Blast Cells % (Manual) Nucleated RBC % Metamyelocytes Hypochromia Platelet Estimate Polychromasia Poikilocytosis Anisocytosis Microcytosis Macrocytosis ESR PT with INR INR PTT (Actin FS) Fibrinogen > 500.0 H Sodium Potassium Chloride Carbon Dioxide Anion Gap BUN Creatinine Est GFR (CKD-EPI)AfAm Est GFR (CKD-EPI)NonAf Random Glucose Serum Osmolality Lactic Acid Uric Acid Calcium Phosphorus Magnesium Total Bilirubin AST ALT Alkaline Phosphatase LD Total Creatine Kinase 31 C-Reactive Protein Total Protein Albumin Total Amylase Lipase TSH Urine Color Urine Appearance Urine pH Ur Specific Jackson Urine Protein Urine Glucose (UA) Urine Ketones Urine Blood Urine Nitrite Urine Bilirubin Urine Urobilinogen Ur Leukocyte Esterase Urine WBC (Auto) Urine RBC (Auto) Urine Casts (Auto) U Pathogenic Cast Auto U Epithel Cells (Auto) Urine Bacteria (Auto) Urine Osmolality Ur Random Creatinine Ur Random Sodium Ur Random Potassium Ur Random Chloride Opiates Screen Methadone Screen Barbiturate Screen Phencyclidine Screen Ur Amphetamines Screen MDMA (Ecstasy) Screen Benzodiazepines Screen Cocaine Screen U Marijuana (THC) Screen HIV 1&2 Antibody Screen HIV P24 Antigen Active Medications Acetaminophen (Ofirmev Injection -) 1,000 mg IVPB Q6H PRN PRN Reason: FEVER Stop: 08/30/19 02:12 Last Admin: 08/30/19 00:08 Dose: 1,000 mg Sodium Chloride (Normal Saline -) 1,000 mls @ 125 mls/hr IV ASDIR LISA Last Admin: 08/29/19 11:17 Dose: 125 mls/hr Ceftriaxone Sodium 2 gm/ (Dextrose) 100 mls @ 200 mls/hr IVPB DAILY LISA; Protocol Last Admin: 08/29/19 16:35 Dose: 200 mls/hr Pantoprazole Sodium (Protonix -) 40 mg PO DAILY LISA Last Admin: 08/29/19 11:17 Dose: 40 mg ASSESSMENT/PLAN: 39 y/o male PMH HTN, HLD, morbid obesity, and lymphedema c/o continued fevers s/ p lap rohan ([facility] 07 Aug 2019). He was transfered to [facility] to utilize CT that could capacitate his abdominal width but did not receive imaging as his fevers improved, WBC WNL, and platelets were normal. # Recurrent fever - Responsive to ofirmev - No source isolated - CT abdomen performed this visit and was NEG - CRP high 23 - Serum and urine protein electrophoresis to assess other possible etiologies of presentation - Consider infectious causes to assess other possible etiologies of presentation : HIV, hepatitis b,c, EBV, parvovirus, babesiosis, leptopriosis, and serologies such as PENNY, ANCA. # Thrombocytopenia - Recurrent issue post-op that resolved while at [facility] w/o intervention - 45 today - No gross bleeding - Serum and urine protein electrophoresis to assess other possible etiologies of presentation # TARSHA - Cr. 2.5 - Consult nephrology # HTN - HOLD home regimen: Amlodepine 10 mg PO QD, labetolol 200 mg po BID # HLD - Cont. curent home regimen: Atorvastatin 20 mg PO HS # F/E/N - NS - Cont. to monitor - Regular diet # DVT prophylaxis - Heparin SQ # Disposition - Med/surg Teodoro Aguilar MD Visit type - Emergency Visit Emergency Visit: No - New Patient This patient is new to me today: No - Critical Care Critical Care patient: No ATTENDING PHYSICIAN STATEMENT I saw and evaluated the patient. I reviewed the resident's note and discussed the case with the resident. I agree with the resident's findings and plan as documented. SUBJECTIVE: OBJECTIVE: ASSESSMENT AND PLAN:
[2019-08-29 16:19] VITALS: BMI 47.8
[2019-08-29] MEDS: CEFTRIAXONE 2 GM in DEXTROSE 5%-WATER 100 ML IVPB SCH (16:35)
--- NOTE | 2019-08-29 17:14 | CONS ---
DATE OF CONSULTATION: DATE OF DICTATION: 08/29/2019 INFECTIOUS DISEASE CONSULTATION REQUESTING PHYSICIAN: Hospitalist Service. CONSULTING PHYSICIAN: Grisel Cruz MD. HISTORY OF PRESENT ILLNESS: This is a 39-year-old man who presented yesterday to the hospital with, he tells me he had come for weakness. He has a very complicated past medical history that includes an admission to [facility] August 06 to August 11, at which time he presented with nausea, vomiting and diarrhea. At that time he had an ultrasound that was consistent with acute cholecystitis. He had abnormal LFTs and he underwent a laparoscopic cholecystectomy. His hospital course was complicated by persistent fever. He was originally treated with Levaquin and Flagyl and then Zosyn and Flagyl. At that time, he did not fit in a CAT scanner at [facility] and was transferred on August 11 to [facility] for CAT scan. Of note, on that admission he was admitted with a platelet count of 52 which was new from an admission he had from May 23 to May 29, 2019, when he was discharged with a platelet count of 398. The platelet count was felt to partially be due to his sepsis and fever, and he was transferred to [facility]. We do not have records from [facility], but the patient self-reports he was there for several days, during which he said he had no studies and was discharged home. After he went home, he continued to feel sick. He has been staying in bed for roughly the last 2 weeks. He has been having nausea and gagging. He has been not able to eat, he has been gagging once or twice a day, not continuously. He has been having one nonbloody loose watery bowel movement a day, and he has nausea. He had tremendous weakness and several episodes where he felt too weak to make it to the bathroom. He feels hot all the time at his baseline even winter he just wears a small jacket, but he reports for the past several weeks at home he has been running a fan continuously. He has had no rigors or chills. He has had some intermittent sweats. He was unaware he had fever until he arrived in the emergency room. He has had no bleeding at all. He has taken no new medications. He has not been on antibiotics at home. He does not use herbals or supplements. PAST MEDICAL HISTORY: Notable for hypertension, hyperlipidemia. He has had lower extremity lymphedema. He has had several episodes of cellulitis that he says he only gets on his left leg, the last was in early May 2019. SURGICAL HISTORY: Notable for the laparoscopic cholecystectomy that he just had on August 07. The pathology was notable for chronic cholecystitis. He has had multiple left lower extremity venous ablations, the last in April, and he has had left knee tendon repair. FAMILY HISTORY: Notable for gallstones and diabetes. SOCIAL HISTORY: He smokes cigarettes occasionally. He likes to drink hard liquor on the weekend. He has not had a drink since . He has been smoking marijuana since age 13. He has not smoked any marijuana since . There is no history of any intravenous drug use. His PCP is Dr. Brito. MEDICATION: His medications at home include: 1. Norvasc. 2. Prilosec. 3. Lisinopril. 4. Labetalol. 5. Lipitor. REVIEW OF SYSTEMS: He denies any headache. He denies any change in his vision. He has no sore throat or trouble swallowing. He has lost 20 kg. He has persistent nausea. He has no abdominal pain, he has no chest pain, he has no dysuria at this time, and he has no cough and respiratory symptoms. He has a pet cat at home that is a housecat. PHYSICAL EXAMINATION: Vital Signs: His temperature is 103.1, his pulse is 121, blood pressure is 143/ 73, respiratory rate is 20, saturating 99% on room air. He weighs 147 kg. When he was here in May he weighed 167 kg. General: He is a very pleasant young man in no acute distress. HEENT: Normocephalic. Eyes are anicteric. He has no pharyngitis or thrush. He has good dentition. Neck: Supple. Lungs: Clear to auscultation. Heart: Regular rate and rhythm. Abdomen: Soft. He has no tenderness at all. Trocar sites are well healed. He has no scrotal swelling. He has no perirectal pain or perineal pain. Extremities: He has some indurated areas at the sites of his prior ulcers that have healed from his venous ablation. There is no erythema. He has no cords in his legs. He has good pulses bilaterally. LABORATORY: Notable for white count of 4.9, hemoglobin is 9.1, platelets are 32 ,000. Differential is notable for 20% monocytes. His INR is 1.89, fibrinogen is greater than 500. His BUN and creatinine are 24 and 2.5. His LFTs are normal with an LDH at 328. His CRP is 23. His ESR is 60. Urinalysis has a few casts, and 3 red cells. Toxicology screen is positive for marijuana, although he denies marijuana use. Blood cultures at 24 hours are negative. IMPRESSION: In summary, this is a 39-year-old man with fever, asymptomatic, worsening thrombocytopenia, renal insufficiency. He is not neutropenic. He has had a CAT scan. His CAT scan I reviewed with Dr. Garza, noncontrast study. There is no evidence of any abscess . He has a fever of unknown origin, nontoxic appearing , with normal white cells, persistent thrombocytopenia since August 06, nausea, weight loss, and worsening renal failure. He received 1 dose of vancomycin yesterday. Blood cultures are negative at 24 hours. Agree with HIV testing. Hepatitis B and hepatitis C testing. Would check EBV and parvo serology, a blood smear, and PENNY and ANCA. Would ask Hematology and Renal to evaluate. Would agree with stool studies as ordered, but since admission he has had no diarrhea here. Case was discussed at length with the hospitalist, awaiting evaluation by the other consultants. Contacted [facility]- his platelets had recovered prior to his discharge from [facility]. d/w hematology Meredith [id number] MARGARET
[2019-08-30] MEDS: ACETAMINOPHEN 1000 MG/100 ML VIAL (NON FORMULARY) IVPB PRN (00:08)
[2019-08-30 04:10] LABS: CMV IgM < 30.0 AU/mL (0.0-29.9)
[2019-08-30] MEDS ORDERED: ACETAMINOPHEN 1000 MG/100 ML VIAL (NON FORMULARY) IVPB PRN (06:51)
[2019-08-30] MEDS: ACETAMINOPHEN 500 MG TABLET (FP) PO PRN ×2 (07:15→13:14)
[2019-08-30] MEDS ORDERED: DEXTROSE 5%-WATER 100 ML IVPB ONE (08:51)
[2019-08-30 09:10] LABS: HEMOGLOBIN 8.5 GM/dL (11.7-16.9); MCH 28.8 pg (25.7-33.7); MCHC 35.5 g/dl (32.0-35.9); RBC 2.96 M/mm3 (4.00-5.60); RDW 14.9 % (11.9-15.9); WHITE BLOOD COUNT 4.3 K/mm3 (4.0-10.0)
[2019-08-30] MEDS: PANTOPRAZOLE 40 MG TABLET PO SCH (09:10)
[2019-08-30] MEDS: CEFTRIAXONE 2 GM in DEXTROSE 5%-WATER 100 ML IVPB SCH (09:10)
[2019-08-30 09:14] LABS: PLATELET COUNT 36 K/MM3 (134-434)
[2019-08-30 09:32] LABS: BASO % 0.4 % (0-2.0); HEMATOCRIT 24.3 % (35.4-49); HEMOGLOBIN 8.6 GM/dL (11.7-16.9); LYMPH % 11.7 % (8-40); MCHC 35.4 g/dl (32.0-35.9); MEAN CELL VOLUME 81.7 fl (80-96); MEAN PLT VOLUME 9.8 fl (7.5-11.1); NEUT % 59.9 % (42.8-82.8); PLATELET COUNT 34 K/MM3 (134-434); RBC 2.97 M/mm3 (4.00-5.60); RDW 14.9 % (11.9-15.9)
[2019-08-30 10:12] LABS: ALBUMIN 2.4 g/dl (3.4-5.0); BILIRUBIN,TOTAL 1.6 mg/dL (0.2-1); BLOOD UREA NITROGEN 20.3 mg/dL (7-18); CALCIUM 7.4 mg/dL (8.5-10.1); CREATININE 1.6 mg/dL (0.55-1.3); POTASSIUM 3.6 mmol/L (3.5-5.1); TOT PROT 5.5 g/dl (6.4-8.2)
[2019-08-30] MEDS ORDERED: PHYTONADIONE 10 MG/1 ML AMP SQ ONE (11:15)
[2019-08-30] MEDS: SODIUM CHLORIDE 1,000 ML IV SCH ×2 (11:28→17:25)
[2019-08-30] MEDS: amLODIPine BESYLATE 10 MG TABLET (FP) PO SCH (11:28)
--- NOTE | 2019-08-30 11:34 | PN ---
Teaching Attending Note Name of Resident: Rick Pinzon ATTENDING PHYSICIAN STATEMENT I saw and evaluated the patient. I reviewed the resident's note and discussed the case with the resident. I agree with the resident's findings and plan as documented. SUBJECTIVE: Patient seen and examined Presents post cholecystectomy with fevers, 40+ lb weight loss, thrombocytopenia , recent cellulitis , lymphedema. History of HBP,HPL, obesity. Had been at [facility] and intitial thrombocytopenia which was appreciated at showed recovery of platelets to normal values. Once again presenting with thrombocytopenia in setting of fevers to 103 degrees. Last Vital Signs Temp Pulse Resp BP Pulse Ox 101 F H 114 H 20 142/70 96 08/30/19 10:15 08/30/19 10:15 08/30/19 10:15 08/30/19 10:15 08/30/19 10:00 HEENT: TOMMY, EOM Intact Oropharynx: No thrush, No mucositis Neck: Supple Nodes: Without adenopathy Cor: RSR, No murmurs, No gallops Lungs: Clear to P&A Abd: Soft, Normal bowel sounds, No organomegaly, obese testes descended, circumcised Ext:LE edema Skin: No rashes, Integument intact CBC, BMP 08/30/19 08:30 08/30/19 06:00 Current Medications Generic Name Dose Route Start Last Admin Trade Name Freq PRN Reason Stop Dose Admin Acetaminophen 1,000 mg 08/30/19 07:00 08/30/19 07:15 Tylenol - PO 1,000 mg Q6H PRN Administration FEVER Amlodipine Besylate 10 mg 08/30/19 11:00 08/30/19 11:28 Norvasc - PO 10 mg DAILY LISA Administration Atorvastatin Calcium 20 mg 08/30/19 22:00 Lipitor - PO HS LISA Sodium Chloride 1,000 mls @ 125 mls/hr 08/29/19 10:44 08/30/19 11:28 Normal Saline - IV Not Given ASDIR LISA Ceftriaxone Sodium 2 gm/ 100 mls @ 200 mls/hr 08/29/19 16:00 08/30/19 09:10 Dextrose IVPB 200 mls/hr DAILY LISA Administration Protocol Pantoprazole Sodium 40 mg 08/29/19 10:00 08/30/19 09:10 Protonix - PO 40 mg DAILY LISA Administration Abnormal Lab Results 08/29/19 08/29/19 08/30/19 07:38 07:38 06:00 RBC Hgb Hct Plt Count Monocytes % Sodium 131 L BUN 20.3 H Creatinine 1.6 H Calcium 7.4 L Ferritin Total Bilirubin 1.6 H Direct Bilirubin LD Total 328 H Total Protein 5.5 L Albumin 2.4 L CMV IgG Ab 3.70 H 08/30/19 08/30/19 08/30/19 06:00 06:00 08:20 RBC 2.96 L Hgb 8.5 L Hct 24.0 L Plt Count 36 L* Monocytes % Sodium BUN Creatinine Calcium Ferritin 51051.2 H Total Bilirubin Direct Bilirubin 0.5 H LD Total Total Protein Albumin CMV IgG Ab 08/30/19 08:30 RBC 2.97 L Hgb 8.6 L Hct 24.3 L Plt Count 34 L* Monocytes % 27.0 H Sodium BUN Creatinine Calcium Ferritin Total Bilirubin Direct Bilirubin LD Total Total Protein Albumin CMV IgG Ab Denies drugs, ( had been smoking "weed" almost daily prior to July 25, and denies alcohol -even on Super Bowl week-end.) Impression: Recovery of platelet count after course of antibiotic therapy, and return of fevers off antibiotics post cholecystectomy still raises concern for infection/ sepsis as etiology of current symptomatology. Extremely high ferritin does raise issue of HLH and screeing test with IL-2 alpha to be obtained. Would await results. Would monitor ferritin while on antibiotic therapy and would have surgery assess in view of recent cholecystectomy. Monitor CBC The constellation of fever, renal disease, anemia, possible hemolysis,(tests pending), thrombocytopenia does raise concern for HUS or TTP--- BUT NO SCHISTOCYTES on smear. So doubt this is diagnosis. I reviewed smear RBC- nc/nc- some petey cells NO SCHISTOCYTES WbC- left shift, increased monos, some giant band, some pseudo -pelger-huet like forms platelets-- decreased. OBJECTIVE: ASSESSMENT AND PLAN:
--- NOTE | 2019-08-30 12:38 | PN ---
Physical Exam: SUBJECTIVE: Patient seen and examined at bedside. Overnight he experienced a fever of 102.9, which responded to Tylenol. This AM he offers no new complaints and is eager to know what is the cause of his recurrent fevers. A long discussion about possible sources was had, along with recent pursuits of ID lab test i.e. specific investigations such as leptospirosis. He is more responsive today and in bright spirits. OBJECTIVE: Vital Signs Temp Pulse Resp BP Pulse Ox 101.6 F H 112 H 20 155/62 96 08/30/19 15:30 08/30/19 15:30 08/30/19 15:30 08/30/19 15:30 08/30/19 10:00 GENERAL: AOx3, in no acute distress, personal fan at bedside HEAD: NCAT EYES: TOMMY, EOMI, conjunctiva clear. ENT: Ears normal, nares patent, oropharynx clear without exudates. Moist mucous membranes. NECK: Normal range of motion, supple without lymphadenopathy, JVD, or masses. LUNGS: CTAB. Mild TUAN wheeze ant lung field. No crackles. No accessory muscle use. HEART: RRR s1 s2 ABDOMEN: Obese, soft, BS present in all 4 quadrants, non-distended, no JVD, MUSCULOSKELETAL: No bony deformities or tenderness. No CVA tenderness. UPPER EXTREMITIES: 2+ pulses, warm, well-perfused. No cyanosis. No clubbing. No peripheral edema. LOWER EXTREMITIES: 2+ pulses, warm, well-perfused. No calf tenderness. No peripheral edema. NEUROLOGICAL: No focal deficits. Cranial nerves II-XII intact. Normal speech. Gait not appreciated. PSYCHIATRIC: Slow to respond. Cooperative. Good eye contact. Appropriate mood and affect. SKIN: Warm, dry, normal turgor, no rashes or lesions noted, normal capillary refill. Laboratory Results - last 24 hr 08/29/19 08/29/19 08/29/19 07:38 08:20 09:30 WBC RBC Hgb Hct MCV MCH MCHC RDW Plt Count MPV Absolute Neuts (auto) Neutrophils % Lymphocytes % Monocytes % Eosinophils % Basophils % Nucleated RBC % Haptoglobin 232 Sodium Potassium Chloride Carbon Dioxide Anion Gap BUN Creatinine Est GFR (CKD-EPI)AfAm Est GFR (CKD-EPI)NonAf Random Glucose Calcium Ferritin Total Bilirubin Direct Bilirubin AST ALT Alkaline Phosphatase Total Protein Albumin CMV IgG Ab 3.70 H CMV IgM Ab < 30.0 Hep A IgM Ab Confirm Negative Hep Bs Antigen Negative Hep B Core IgM Ab Negative Hep C Ab Diagnostic <0.1 Hepatitis C Ab (EIA) <0.1 Direct Antiglob Test Negative 08/30/19 08/30/19 08/30/19 06:00 06:00 06:00 WBC RBC Hgb Hct MCV MCH MCHC RDW Plt Count MPV Absolute Neuts (auto) Neutrophils % Lymphocytes % Monocytes % Eosinophils % Basophils % Nucleated RBC % Haptoglobin Sodium 131 L Potassium 3.6 Chloride 101 Carbon Dioxide 22 Anion Gap 8 BUN 20.3 H Creatinine 1.6 H Est GFR (CKD-EPI)AfAm 62.41 Est GFR (CKD-EPI)NonAf 53.85 Random Glucose 98 Calcium 7.4 L Ferritin 88697.2 H Total Bilirubin 1.6 H Direct Bilirubin 0.5 H AST 21 ALT 23 Alkaline Phosphatase 67 Total Protein 5.5 L Albumin 2.4 L CMV IgG Ab CMV IgM Ab Hep A IgM Ab Confirm Hep Bs Antigen Hep B Core IgM Ab Hep C Ab Diagnostic Hepatitis C Ab (EIA) Direct Antiglob Test 08/30/19 08/30/19 08:20 08:30 WBC 4.3 4.6 RBC 2.96 L 2.97 L Hgb 8.5 L 8.6 L Hct 24.0 L 24.3 L MCV 81.0 81.7 MCH 28.8 29.0 MCHC 35.5 35.4 RDW 14.9 14.9 Plt Count 36 L* 34 L* MPV 10.0 9.8 Absolute Neuts (auto) 2.7 Neutrophils % 59.9 Lymphocytes % 11.7 D Monocytes % 27.0 H Eosinophils % 1.0 D Basophils % 0.4 D Nucleated RBC % 0 Haptoglobin Sodium Potassium Chloride Carbon Dioxide Anion Gap BUN Creatinine Est GFR (CKD-EPI)AfAm Est GFR (CKD-EPI)NonAf Random Glucose Calcium Ferritin Total Bilirubin Direct Bilirubin AST ALT Alkaline Phosphatase Total Protein Albumin CMV IgG Ab CMV IgM Ab Hep A IgM Ab Confirm Hep Bs Antigen Hep B Core IgM Ab Hep C Ab Diagnostic Hepatitis C Ab (EIA) Direct Antiglob Test Active Medications Acetaminophen (Tylenol -) 1,000 mg PO Q6H PRN PRN Reason: FEVER Last Admin: 08/30/19 13:14 Dose: 1,000 mg Amlodipine Besylate (Norvasc -) 10 mg PO DAILY ON LICENSE OF [facility] Last Admin: 08/30/19 11:28 Dose: 10 mg Atorvastatin Calcium (Lipitor -) 20 mg PO HS ON LICENSE OF [facility] Sodium Chloride (Normal Saline -) 1,000 mls @ 125 mls/hr IV ASDIR ON LICENSE OF [facility] Last Admin: 08/30/19 11:28 Dose: Not Given Ceftriaxone Sodium 2 gm/ (Dextrose) 100 mls @ 200 mls/hr IVPB DAILY ON LICENSE OF [facility]; Protocol Last Admin: 08/30/19 09:10 Dose: 200 mls/hr Pantoprazole Sodium (Protonix -) 40 mg PO DAILY ON LICENSE OF [facility] Last Admin: 08/30/19 09:10 Dose: 40 mg ASSESSMENT/PLAN: 39 y/o male PMH HTN, HLD, morbid obesity, and lymphedema c/o continued fevers s/ p lap rohan ([facility] 07 Aug 2019). He was transfered to [facility] to utilize CT that could capacitate his abdominal width but did not receive imaging as his fevers improved, WBC WNL, and platelets were normal. # Recurrent fever - Responsive to ofirmev - No source isolated - CT abdomen performed this visit and was NEG - acute phase reactant high: CRP high 23, ESR high 60, ferritin high 12,333 (? HLH) - NEGATIVE SO FAR: flu, hiv, hep a, hep b, hep c - Serum and urine protein electrophoresis to assess other possible etiologies of presentation - Consider infectious causes to assess other possible etiologies of presentation : HIV, hepatitis b,c, EBV, parvovirus, babesiosis, leptopriosis, and serologies such as PENNY, ANCA. # Thrombocytopenia - No schistocytes on smear - 34 today - No gross bleeding - Serum and urine protein electrophoresis to assess other possible etiologies of presentation # TARSHA, improving - Cr. 1.6 from 2.5 - Consult nephrology # HTN - Restart Norvasc 10 mg po qd today # HLD - Cont. curent home regimen: Atorvastatin 20 mg PO HS # F/E/N - NS - Cont. to monitor - Regular diet # DVT prophylaxis - Heparin SQ # Disposition - Med/surg Teodoro Aguilar MD Visit type - Emergency Visit Emergency Visit: No - New Patient This patient is new to me today: No - Critical Care Critical Care patient: No ATTENDING PHYSICIAN STATEMENT I saw and evaluated the patient. I reviewed the resident's note and discussed the case with the resident. I agree with the resident's findings and plan as documented. SUBJECTIVE: OBJECTIVE: ASSESSMENT AND PLAN:
[2019-08-30 13:10] LABS: WHITE BLOOD COUNT 4.6 K/mm3 (4.0-10.0)
[2019-08-30 13:11] LABS: SMUDGE CELLS 7
[2019-08-30 13:12] LABS: ANISOCYTOSIS 2+; OVALOCYTE 1+
[2019-08-30 13:13] LABS: PLATELET ESTIMATE MOD DECREASED; TEAR DROP CELLS 1+
--- NOTE | 2019-08-30 13:34 | PN ---
Teaching Attending Note Name of Resident: Teodoro Aguilar ATTENDING PHYSICIAN STATEMENT I saw and evaluated the patient. I reviewed the resident's note and discussed the case with the resident. I agree with the resident's findings and plan as documented. SUBJECTIVE: cont to have fever . no abd pain, no N/V . no diarrhea since here . no cough , no dysuria OBJECTIVE: NAD, comfortable in bed. MMM . CV: RRR, no MRG Lungs: CTAB. Abd: soft , NT, ND, NL BS Ext : L leg circumference > R . no edema . ASSESSMENT AND PLAN: 39 y/o man with h/o recent CCY( chronic cholecystitis) , HTN, HLP, LLE cellulitis, lymphedema, and obesity who presented with continued fever and weight loss/poor appetite. 1-Fever: unclear etiology yet. infectious causes are being worked up. - hepatitis serology indicates neg Hep c and no acute hep B. will send Hep B s Abs - Neg HIV, and flu . No acute CMV - parasite smear pending - follow EBV, PArvo, Leptospira and otehr serology - cont Ceftriaxone - follow blood cx ( neg to date ) - order echo , r/o vegetations - c diff if diarrhea recurs - Appreciate heme: concern for HLH due to elevated ferritin and cytopenias. coagulopathy noted ( fibrinogen NL though) . LDh slightly elevated. TG pending. IL-2 pending 2- TARSHA: likely prerenal as it normalized after last discharge and then worsened after his appetite decreased . Cr responded to IVF - Cont IVF - UPEP/SPEP pending - appreciate heme input, no shisctocytes on smear. unlikely HUS 3- Thrombocytopenia: ? due to BM suppression from infection Vs other - monitor 4- Hyponatremia: likely due to hypovolemia . responded to NS - cont IVF . monitor Na level 5- HTN : resume norvasc . will resume labetalol if needed. - cont to hold lisinopril in setting of TARSHA 6- DVT px: SCDs due to thrombocytopenia. .
--- NOTE | 2019-08-30 16:31 | ECHO ---
Name: REBEKA MADRIGAL, III Exam:Adult Echocardiogram Study Date: 08/30/2019 01:57 PM Age: 39 yrs Reason For Study: r/o endocarditis Height: 69 in Weight: 324 lb BSA: 2.5 m2 MMode/2D Measurements & Calculations IVSd: 1.3 cm Ao root diam: 3.7 cm LVIDd: 5.1 cm LA dimension: 3.5 cm LVIDs: 3.4 cm LVPWd: 1.6 cm LVPWs: 1.9 cm EDV(Teich): 121.6 ml ESV(Teich): 49.1 ml LVOT diam: 2.7 cm LAV (MOD-bp): 37.1 ml TAPSE: 1.9 cm RV S Zurdo: 12.4 cm/sec Doppler Measurements & Calculations MV E max zurdo: 51.9 cm/sec Ao V2 max: 133.8 cm/sec MV A max zurdo: 76.2 cm/sec Ao max P.2 mmHg MV E/A: 0.68 SRINIVAS(V,D): 4.3 cm2 LV V1 max P.8 mmHg PA V2 max: 104.5 cm/sec LV V1 max: 98.0 cm/sec PA max P.4 mmHg Med Peak E' Zurdo: 8.6 cm/sec Med E/e': 6.0 Lat Peak E' Zurdo: 10.2 cm/sec Lat E/e': 5.1 Procedure A complete two-dimensional transthoracic echocardiogram was performed (2D, M-mode, Doppler and color flow Doppler). Left Ventricle The left ventricular size, thickness and function are normal. The left ventricular ejection fraction is normal. Ejection Fraction = 55-60%. The left ventricular wall motion is normal. Right Ventricle The right ventricle is normal in size and function. Atria Normal left and right atrial size and function. Mitral Valve There is no mitral regurgitation noted. Tricuspid Valve There is trace tricuspid regurgitation. Aortic Valve No hemodynamically significant valvular aortic stenosis. No aortic regurgitation is present. Pulmonic Valve There is no pulmonic valvular regurgitation. Great Vessels The aortic root is normal size. Pericardium/Pleura There is no pericardial effusion. Interpretation Summary The left ventricular size, thickness and function are normal The right ventricle is normal in size and function. There is trace tricuspid regurgitation. MD Corona Christensen 08/30/2019 04:31 PM
--- NOTE | 2019-08-30 17:35 | CONSULT ---
Consult Consult Specialty:: Nephrology Reason for Consultation:: TARSHA - History of Present Illness Chief Complaint: fevers and malaise History of Present Illness: Pt is a 39 year old male with pmhx of htn, hld, lymphedema, and obesity who presents to the ER with generalized malaise and decreased appetite. He says that he has not been able to eat food. He was drinking liquids. He also complains of fever and sweats. He was found to have elevated resident care technician and I was called to evaluate him. His renal function did start to improve with fluids. He denies history of ckd. He hoes have a family history of kidney disease in his grandfather and aunt. He denies dysuria or hematuria. - History Source History Provided By: Patient - Past Medical History Cardio/Vascular: Yes: HTN, Hyperlipdemia. No: CHF Pulmonary: No: Asthma Gastrointestinal: Yes: GERD. No: Hiatal Hernia Musculoskeletal: Yes: Other (L leg injury) - Alcohol/Substance Use Hx Alcohol Use: No - Smoking History Smoking history: Current every day smoker Have you smoked in the past 12 months: Yes Aproximately how many cigarettes per day: 5 - Social History ADL: Independent History of Recent Travel: No Home Medications - Allergies Allergies/Adverse Reactions: Allergies Allergy/AdvReac Type Severity Reaction Status Date / Time hydralazine [Hydralazine] Allergy Verified 08/28/19 12:57 - Home Medications Home Medications: Ambulatory Orders Amlodipine Besylate [Norvasc -] 10 mg PO DAILY 06/29/14 Labetalol HCl [Normodyne -] 200 mg PO BID 06/29/14 Omeprazole [Prilosec (RX)] 40 mg PO DAILY 06/29/14 Atorvastatin Ca [Lipitor] 20 mg DAILY 05/23/19 Acetaminophen [Tylenol .Regular Strength -] 650 mg PO Q4H PRN tablet 05/30/19 Lisinopril 10 mg PO DAILY #30 tablet 05/30/19 Family Medical History Family Hx Renal Disease: Grandfather (maternal) Review of Systems - Review of Systems Constitutional: reports: Chills, Fever, Malaise Eyes: reports: No Symptoms HENT: reports: No Symptoms Neck: reports: No Symptoms Cardiovascular: reports: No Symptoms Gastrointestinal: reports: No Symptoms Genitourinary: reports: No Symptoms Musculoskeletal: reports: No Symptoms Neurological: reports: No Symptoms Endocrine: reports: No Symptoms Hematology/Lymphatic: reports: No Symptoms Psychiatric: reports: No Symptoms Physical Exam Vital Signs: Vital Signs Temperature 101.6 F H 08/30/19 15:30 Pulse Rate 112 H 08/30/19 15:30 Respiratory Rate 20 08/30/19 15:30 Blood Pressure 155/62 08/30/19 15:30 O2 Sat by Pulse Oximetry (%) 96 08/30/19 10:00 Constitutional: Yes: Calm Eyes: Yes: Conjunctiva Clear HENT: Yes: Atraumatic Neck: Yes: Supple Cardiovascular: Yes: S1, S2 Respiratory: Yes: CTA Bilaterally Gastrointestinal: Yes: Soft, Abdomen, Obese Renal/: Yes: WNL Musculoskeletal: Yes: WNL Edema: Yes Edema: LLE: 1+ Integumentary: Yes: WNL, Tattoos Neurological: Yes: Oriented Psychiatric: Yes: Oriented Labs: CBC, BMP 08/30/19 08:30 08/30/19 06:00 Laboratory Tests 08/28/19 08/29/19 08/30/19 13:35 07:38 06:00 Sodium 126 L 133 L 131 L Creatinine 2.2 H 2.5 H 1.6 H Imaging - Results Ultrasound: Report Reviewed Problem List - Problems (1) TARSHA (acute kidney injury) Code(s): N17.9 - ACUTE KIDNEY FAILURE, UNSPECIFIED Assessment/Plan Current Medications Generic Name Dose Route Start Last Admin Trade Name Freq PRN Reason Stop Dose Admin Acetaminophen 1,000 mg 08/30/19 07:00 08/30/19 13:14 Tylenol - PO 1,000 mg Q6H PRN Administration FEVER Amlodipine Besylate 10 mg 08/30/19 11:00 08/30/19 11:28 Norvasc - PO 10 mg DAILY LISA Administration Atorvastatin Calcium 20 mg 08/30/19 22:00 Lipitor - PO HS LISA Sodium Chloride 1,000 mls @ 125 mls/hr 08/29/19 10:44 08/30/19 17:25 Normal Saline - IV 125 mls/hr ASDIR LISA Administration Ceftriaxone Sodium 2 gm/ 100 mls @ 200 mls/hr 08/29/19 16:00 08/30/19 09:10 Dextrose IVPB 200 mls/hr DAILY LISA Administration Protocol Pantoprazole Sodium 40 mg 08/29/19 10:00 08/30/19 09:10 Protonix - PO 40 mg DAILY LISA Administration Laboratory Tests 08/28/19 08/28/19 08/28/19 19:57 19:57 19:57 Ferritin Total Bilirubin Urine Protein 3+ H Urine Blood Negative Ur Random Sodium 23 L U Marijuana (THC) Screen Positive A* 08/30/19 08/30/19 06:00 06:00 Ferritin 61535.2 H Total Bilirubin 1.6 H Urine Protein Urine Blood Ur Random Sodium U Marijuana (THC) Screen Impression 1. TARSHA 2. CKD 3. proteinuria 4. fevers 5. thrombocytopenia 6. lymphedema 7. obesity Plan - check prt to resident care technician ratio - echogenic kidneys on ultrasound - renal function is improving with fluids - repeat labs in am - fever workup in progress - follow serologies
--- NOTE | 2019-08-30 19:30 | PN ---
Progress Note (short form) - Note Progress Note: PAtient seen and examined Last Vital Signs Temp Pulse Resp BP Pulse Ox 100.3 F H 106 H 20 142/69 96 08/30/19 17:46 08/30/19 17:46 08/30/19 17:46 08/30/19 17:46 08/30/19 10:00 Cor: RSR, No murmurs, No gallops Lungs: Clear to P&A Abd: Soft, Normal bowel sounds, No organomegaly Ext:No significant edema Labs/Meds reviewed A/P
--- NOTE | 2019-08-30 19:54 | PN ---
Progress Note (short form) - Note Progress Note: feels improved with iv hydration reports after he got discharged from [facility] he never had an appetite or felt well platelet count was normal when he was discharged now with persistent fevers Vital Signs Period Temp Pulse Resp BP Sys/Santana Pulse Ox Last 24 Hr 99.9 F-103 F 103-118 18-22 114-158/60-84 96-100 cor-rrr llungs clear abd soft,nt ext no edema CBC, BMP 08/30/19 08:30 08/30/19 06:00 Microbiology 08/28/19 13:35 Blood - Peripheral Venous Blood Culture - Preliminary NO GROWTH OBTAINED AFTER 48 HOURS, INCUBATION TO CONTINUE FOR 3 DAYS. 08/28/19 13:35 Blood - Peripheral Venous Blood Culture - Preliminary NO GROWTH OBTAINED AFTER 48 HOURS, INCUBATION TO CONTINUE FOR 3 DAYS. 08/30/19 06:00 Blood - Peripheral Venous Blood Parasites Smear - Final- negative hiv negative, heb/c negative cmv igg positive normal haptoglobin ferritin 43762 a/p FUO-nontoxic appearing with normal WBC, thrombocytopenia, anemia, nausea, weight loss ?viral check pcr for cmv, ebv, parvovirus, HIV tick serology add doxycycline unlikely tick illness he cannot recall doing anything at home- was essentially laying in bed sipping seltzer -no meds! now nausea has resolved! ?hlh- w/u in progress f/u ferritin, ldh in am f/u labs renal function improving with hydration
[2019-08-30] MEDS: ATORVASTATIN CA 20 MG TABLET (FP) PO SCH (21:21)
[2019-08-30] MEDS ORDERED: DOXYCYCLINE INJECTION 100 MG in DEXTROSE 5%-WATER 100 ML IVPB ONE (21:25)
[2019-08-31] MEDS: ACETAMINOPHEN 500 MG TABLET (FP) PO PRN (01:38)
[2019-08-31 11:11] LABS: HEMOGLOBIN 8.8 GM/dL (11.7-16.9); MCH 28.9 pg (25.7-33.7); MCHC 35.3 g/dl (32.0-35.9); MEAN PLT VOLUME 10.2 fl (7.5-11.1); PLATELET COUNT 50 K/MM3 (134-434); RBC 3.04 M/mm3 (4.00-5.60); RDW 15.6 % (11.9-15.9); WHITE BLOOD COUNT 2.9 K/mm3 (4.0-10.0)
[2019-08-31] MEDS ORDERED: DEXTROSE 5%-WATER 100 ML IVPB ONE (11:37)
[2019-08-31] MEDS: amLODIPine BESYLATE 10 MG TABLET (FP) PO SCH (11:39)
[2019-08-31] MEDS: SODIUM CHLORIDE 1,000 ML IV SCH ×3 (11:39→21:45)
[2019-08-31] MEDS: CEFTRIAXONE 2 GM in DEXTROSE 5%-WATER 100 ML IVPB SCH (11:39)
[2019-08-31] MEDS: PANTOPRAZOLE 40 MG TABLET PO SCH (11:39)
[2019-08-31] MEDS: DOXYCYCLINE HYCLATE 100 MG CAPSULE PO SCH ×2 (11:39→18:31)
[2019-08-31 11:48] LABS: ALBUMIN 2.4 g/dl (3.4-5.0); BILIRUBIN,TOTAL 0.8 mg/dL (0.2-1); BLOOD UREA NITROGEN 16.1 mg/dL (7-18); CALCIUM 8.2 mg/dL (8.5-10.1); CREATININE 1.2 mg/dL (0.55-1.3); POTASSIUM 3.3 mmol/L (3.5-5.1); TOT PROT 5.8 g/dl (6.4-8.2)
[2019-08-31] MEDS ORDERED: POTASSIUM CHLORIDE TABS 20 MEQ TABLET.ER (FP) PO ONE (13:48)
--- NOTE | 2019-08-31 14:06 | PN ---
Progress Note (short form) - Note Progress Note: feels better eating now no nausea last tylenol at 1 am no fevers since! Vital Signs Period Temp Pulse Resp BP Sys/Santana Pulse Ox Last 24 Hr 98.0 F-101.6 F 83-112 20- 114-155/62-75 96-97 cor-rrr lungs clear abd soft,nt ext unchanged LLE darkened stin, larger then RLE CBC, BMP 08/31/19 09:50 08/31/19 09:50 Microbiology 08/30/19 09:02 Urine - Urine Clean Catch Urine Culture - Final NO GROWTH OBTAINED 08/28/19 13:35 Blood - Peripheral Venous Blood Culture - Preliminary NO GROWTH OBTAINED AFTER 48 HOURS, INCUBATION TO CONTINUE FOR 3 DAYS. 08/28/19 13:35 Blood - Peripheral Venous Blood Culture - Preliminary NO GROWTH OBTAINED AFTER 48 HOURS, INCUBATION TO CONTINUE FOR 3 DAYS. 08/30/19 06:00 Blood - Peripheral Venous Blood Parasites Smear - Final hiv negative, heb/c negative cmv igg positive normal haptoglobin a/p FUO-nontoxic appearing- fever curve trending down with normal WBC, thrombocytopenia, anemia, nausea, weight loss ?viral- check pcr for cmv, ebv, parvovirus, HIV tick serology doxycycline for rickettsiel disease (unlikely but serology sent) added last night will d/c rocephin -cultures are negative ?HLH- w/u in progress ferritin and ldh are elevated trig also elevated await hematology f/u profound weight loss- ?malignancy
[2019-08-31 16:12] LABS: PARV B19 IGM 0.1 index (0.0-0.8)
--- NOTE | 2019-08-31 16:49 | PN ---
Physical Exam: SUBJECTIVE: Patient seen and examined at bedside. Overnight there were no acute events. This am he states he feels improved. He offers no present complaints. OBJECTIVE: Vital Signs Temp Pulse Resp BP Pulse Ox 98.2 F 99 H 20 139/75 97 08/31/19 17:47 08/31/19 17:47 08/31/19 17:47 08/31/19 17:47 08/31/19 10:00 GENERAL: AOx3, in no acute distress, morbidly obese HEAD: NCAT EYES: Wearing corrective lenses. TOMMY, EOMI, conjunctiva clear. ENT: Ears normal, nares patent, oropharynx clear without exudates. Moist mucous membranes. NECK: Normal range of motion, supple without lymphadenopathy, JVD, or masses. LUNGS: CTAB. Mild TUAN wheeze ant lung field. No crackles. No accessory muscle use. HEART: RRR s1 s2 ABDOMEN: Obese, soft, BS present in all 4 quadrants, non-distended, no JVD, MUSCULOSKELETAL: No bony deformities or tenderness. No CVA tenderness. UPPER EXTREMITIES: 2+ pulses, warm, well-perfused. No cyanosis. No clubbing. No peripheral edema. LOWER EXTREMITIES: 2+ pulses, warm, well-perfused. No calf tenderness. No peripheral edema. NEUROLOGICAL: No focal deficits. Cranial nerves II-XII intact. Normal speech. Gait not appreciated. PSYCHIATRIC: Slow to respond. Cooperative. Good eye contact. Appropriate mood and affect. SKIN: Warm, dry, normal turgor, no rashes or lesions noted, normal capillary refill. Laboratory Results - last 24 hr 08/29/19 08/30/19 08/30/19 07:38 08:20 08:20 WBC RBC Hgb Hct MCV MCH MCHC RDW Plt Count MPV ESR Fibrinogen Sodium Potassium Chloride Carbon Dioxide Anion Gap BUN Creatinine Est GFR (CKD-EPI)AfAm Est GFR (CKD-EPI)NonAf Random Glucose Calcium Ferritin Total Bilirubin AST ALT Alkaline Phosphatase LD Total C-Reactive Protein Total Protein Albumin Triglycerides U Random Total Protein Urine Creatinine Protein/Creatinin Ratio Stool Occult Blood PENNY Screen Negative Tiss Transglutamin IgA < 2 EBV Nuclear Antigen 21.1 H Parvovirus B19 IgG Ab 7.0 H Parvovirus B19 IgM Ab 0.1 08/30/19 08/30/19 08/31/19 19:39 21:50 09:50 WBC RBC Hgb Hct MCV MCH MCHC RDW Plt Count MPV ESR Fibrinogen > 500.0 H Sodium Potassium Chloride Carbon Dioxide Anion Gap BUN Creatinine Est GFR (CKD-EPI)AfAm Est GFR (CKD-EPI)NonAf Random Glucose Calcium Ferritin Total Bilirubin AST ALT Alkaline Phosphatase LD Total C-Reactive Protein Total Protein Albumin Triglycerides U Random Total Protein 138.8 H Urine Creatinine 194.0 H Protein/Creatinin Ratio 0.7 Stool Occult Blood Negative PENNY Screen Tiss Transglutamin IgA EBV Nuclear Antigen Parvovirus B19 IgG Ab Parvovirus B19 IgM Ab 08/31/19 08/31/19 08/31/19 09:50 09:50 09:50 WBC 2.9 L RBC 3.04 L Hgb 8.8 L Hct 25.0 L MCV 82.0 MCH 28.9 MCHC 35.3 RDW 15.6 Plt Count 50 L D MPV 10.2 ESR Fibrinogen Sodium 139 Potassium 3.3 L Chloride 107 Carbon Dioxide 24 Anion Gap 8 BUN 16.1 Creatinine 1.2 Est GFR (CKD-EPI)AfAm 88.37 Est GFR (CKD-EPI)NonAf 76.25 Random Glucose 117 H Calcium 8.2 L Ferritin 25890.7 H Total Bilirubin 0.8 AST 33 ALT 29 Alkaline Phosphatase 88 LD Total 340 H C-Reactive Protein 18.6 H Total Protein 5.8 L Albumin 2.4 L Triglycerides 265 H U Random Total Protein Urine Creatinine Protein/Creatinin Ratio Stool Occult Blood PENNY Screen Tiss Transglutamin IgA EBV Nuclear Antigen Parvovirus B19 IgG Ab Parvovirus B19 IgM Ab 08/31/19 09:50 WBC RBC Hgb Hct MCV MCH MCHC RDW Plt Count MPV ESR 82 H Fibrinogen Sodium Potassium Chloride Carbon Dioxide Anion Gap BUN Creatinine Est GFR (CKD-EPI)AfAm Est GFR (CKD-EPI)NonAf Random Glucose Calcium Ferritin Total Bilirubin AST ALT Alkaline Phosphatase LD Total C-Reactive Protein Total Protein Albumin Triglycerides U Random Total Protein Urine Creatinine Protein/Creatinin Ratio Stool Occult Blood PENNY Screen Tiss Transglutamin IgA EBV Nuclear Antigen Parvovirus B19 IgG Ab Parvovirus B19 IgM Ab Active Medications Acetaminophen (Tylenol -) 1,000 mg PO Q6H PRN PRN Reason: FEVER Last Admin: 08/31/19 01:38 Dose: 1,000 mg Amlodipine Besylate (Norvasc -) 10 mg PO DAILY LISA Last Admin: 08/31/19 11:39 Dose: 10 mg Atorvastatin Calcium (Lipitor -) 20 mg PO HS [facility] Last Admin: 08/31/19 21:44 Dose: 20 mg Doxycycline Hyclate (Vibramycin -) 100 mg PO BID@1000,1800 [facility] Last Admin: 08/31/19 18:31 Dose: 100 mg Sodium Chloride (Normal Saline -) 1,000 mls @ 75 mls/hr IV ASDIR [facility] Last Admin: 08/31/19 21:45 Dose: 75 mls/hr Pantoprazole Sodium (Protonix -) 40 mg PO DAILY [facility] Last Admin: 08/31/19 11:39 Dose: 40 mg ASSESSMENT/PLAN: 39 y/o male PMH HTN, HLD, morbid obesity, and lymphedema c/o continued fevers s/ p lap rohan ([facility] 07 Aug 2019). He was transfered to [facility] to utilize CT that could capacitate his abdominal width but did not receive imaging as his fevers improved, WBC WNL, and platelets were normal. # Recurrent fever - Doxycycline 100 mg po bid - Fever trending down # Thrombocytopenia - No schistocytes on smear - 50 today - No gross bleeding - Serum and urine protein electrophoresis to assess other possible etiologies of presentation # TARSHA, resolved - Cr. 1.2 from 1.6 # HTN - Restart Norvasc 10 mg po qd today # HLD - Cont. curent home regimen: Atorvastatin 20 mg PO HS # F/E/N - NS - Cont. to monitor - Regular diet # DVT prophylaxis - Heparin SQ # Disposition - Med/surg Teodoro Aguilar MD Visit type - Emergency Visit Emergency Visit: No - New Patient This patient is new to me today: No - Critical Care Critical Care patient: No ATTENDING PHYSICIAN STATEMENT I saw and evaluated the patient. I reviewed the resident's note and discussed the case with the resident. I agree with the resident's findings and plan as documented. SUBJECTIVE: OBJECTIVE: ASSESSMENT AND PLAN:
--- NOTE | 2019-08-31 18:08 | PN ---
Teaching Attending Note Name of Resident: Drew Carter ATTENDING PHYSICIAN STATEMENT I saw and evaluated the patient. I reviewed the resident's note and discussed the case with the resident. I agree with the resident's findings and plan as documented. SUBJECTIVE: cont to feel fine , with no complaints OBJECTIVE: NAD, comfortable in bed. MMM . CV: RRR, no MRG Lungs: CTAB. Abd: soft, NT, ND, NL BS Ext : L leg circumference > R . no edema . ASSESSMENT AND PLAN: 39 y/o man with h/o recent CCY( chronic cholecystitis) , HTN, HLP, LLE cellulitis, lymphedema, and obesity who presented with continued fever and weight loss/poor appetite. 1-Fever of unknown origion: unclear etiology yet. infectious Vs Hematologic - follow viral PCrs. - follow HIV viral load - follow tick serology - cont doxy . off CTX - follow legionella serology - echo with no vegetations - Appreciate heme: concern for HLH . appreciate f/u. ( has elevated TG, elevated ferritin, bicytopenia, and fever, Needs one more criterion. IL2 pending )due to elevated ferritin and cytopenias. coagulopathy 2- TARSHA: likely prerenal . cr normalized - UPEP/SPEP pending 3- Thrombocytopenia: No evidence of schiztocytes on msear .? due to BM suppression from infection Vs other - plt count is recovering 4- Hyponatremia: likely due to hypovolemia . resolved 5- HTN : cont norvasc . will resume labetalol if needed. - cont to hold lisinopril in setting of TARSHA 6- DVT px: SCDs due to thrombocytopenia.
[2019-08-31] MEDS ORDERED: DOXYCYCLINE HYCLATE 100 MG CAPSULE PO SCH (18:26)
--- NOTE | 2019-08-31 19:54 | PN ---
Progress Note, Physician History of Present Illness: Pt seen and examined at bedside. He is awake and alert. he denies shortness of breath. - Current Medication List Current Medications: Active Medications Acetaminophen (Tylenol -) 1,000 mg PO Q6H PRN PRN Reason: FEVER Last Admin: 08/31/19 01:38 Dose: 1,000 mg Amlodipine Besylate (Norvasc -) 10 mg PO DAILY [facility] Last Admin: 08/31/19 11:39 Dose: 10 mg Atorvastatin Calcium (Lipitor -) 20 mg PO HS [facility] Last Admin: 08/30/19 21:21 Dose: 20 mg Doxycycline Hyclate (Vibramycin -) 100 mg PO BID@1000,1800 [facility] Last Admin: 08/31/19 18:31 Dose: 100 mg Sodium Chloride (Normal Saline -) 1,000 mls @ 125 mls/hr IV ASDIR [facility] Last Admin: 08/31/19 18:33 Dose: 125 mls/hr Pantoprazole Sodium (Protonix -) 40 mg PO DAILY [facility] Last Admin: 08/31/19 11:39 Dose: 40 mg - Objective Vital Signs: Vital Signs Temperature 98.2 F 08/31/19 17:47 Pulse Rate 99 H 08/31/19 17:47 Respiratory Rate 20 08/31/19 17:47 Blood Pressure 139/75 08/31/19 17:47 O2 Sat by Pulse Oximetry (%) 97 08/31/19 10:00 Constitutional: Yes: Calm Eyes: Yes: Conjunctiva Clear HENT: Yes: Atraumatic Cardiovascular: Yes: S1, S2 Respiratory: Yes: CTA Bilaterally Gastrointestinal: Yes: Soft, Abdomen, Obese Genitourinary: Yes: WNL Edema: Yes Edema: LLE: Trace, RLE: Trace Neurological: Yes: Oriented Psychiatric: Yes: Oriented Labs: CBC, BMP 08/31/19 09:50 08/31/19 09:50 INR, PTT INR 1.89 (0.83-1.09) H 08/29/19 07:38 Fibrinogen > 500.0 mg/dL (238-498) H 08/31/19 09:50 Problem List - Problems (1) TARSHA (acute kidney injury) Code(s): N17.9 - ACUTE KIDNEY FAILURE, UNSPECIFIED Assessment/Plan Current Medications Generic Name Dose Route Start Last Admin Trade Name Freq PRN Reason Stop Dose Admin Acetaminophen 1,000 mg 08/30/19 07:00 08/31/19 01:38 Tylenol - PO 1,000 mg Q6H PRN Administration FEVER Amlodipine Besylate 10 mg 08/30/19 11:00 08/31/19 11:39 Norvasc - PO 10 mg DAILY LISA Administration Atorvastatin Calcium 20 mg 08/30/19 22:00 08/30/19 21:21 Lipitor - PO 20 mg HS LISA Administration Doxycycline Hyclate 100 mg 08/31/19 10:00 08/31/19 18:31 Vibramycin - PO 100 mg BID@1000,1800 LISA Administration Sodium Chloride 1,000 mls @ 125 mls/hr 08/29/19 10:44 08/31/19 18:33 Normal Saline - IV 125 mls/hr ASDIR LISA Administration Pantoprazole Sodium 40 mg 08/29/19 10:00 08/31/19 11:39 Protonix - PO 40 mg DAILY L[facility] Administration Impression 1. TARSHA 2. CKD 3. proteinuria 4. fevers 5. thrombocytopenia 6. lymphedema 7. obesity Plan - renal function is improving - replace potassium - can decrease rate of saline - follow urine studies - workup in progress
[2019-08-31] MEDS: ATORVASTATIN CA 20 MG TABLET (FP) PO SCH (21:44)
--- NOTE | 2019-08-31 21:58 | PN ---
Progress Note (short form) - Note Progress Note: PAtint seen and examined Reports feeling well, improved AFVSS Cor: RSR, No murmurs, No gallops Lungs: Clear to P&A Abd: Soft, Normal bowel sounds, No organomegaly Ext:No significant edema LAbs/MEds reviewed A/P 39 y/o patient with recovery of platelet count after course of antibiotic therapy, and return of fevers off antibiotics post cholecystectomy Comes in with recurrent fevers/wt. loss Utox + for [facility] --chronic user and reports last doingit at New Years. Feer curve has improved Platelet count is improving WBC lowered Monitor CBC/Coags s/p vit. K renal fxn improving Consider CT scans when renal function further improves for w/u of wt. loss
[2019-09-01 08:26] LABS: BASO % 0.9 % (0-2.0); EOS % 3.8 % (0-4.5); HEMATOCRIT 23.7 % (35.4-49); HEMOGLOBIN 8.3 GM/dL (11.7-16.9); LYMPH % 38.7 % (8-40); MCHC 35.2 g/dl (32.0-35.9); MEAN CELL VOLUME 82.4 fl (80-96); MEAN PLT VOLUME 8.7 fl (7.5-11.1); MONO % 15.1 % (3.8-10.2); NEUT % 41.5 % (42.8-82.8); PLATELET COUNT 86 K/MM3 (134-434); RBC 2.88 M/mm3 (4.00-5.60); RDW 15.6 % (11.9-15.9); WHITE BLOOD COUNT 3.3 K/mm3 (4.0-10.0)
[2019-09-01 08:51] LABS: ALBUMIN 2.4 g/dl (3.4-5.0); BILIRUBIN,TOTAL 0.5 mg/dL (0.2-1); BLOOD UREA NITROGEN 13.3 mg/dL (7-18); POTASSIUM 3.8 mmol/L (3.5-5.1); TOT PROT 5.5 g/dl (6.4-8.2)
[2019-09-01] MEDS: DOXYCYCLINE HYCLATE 100 MG CAPSULE PO SCH ×2 (10:42→18:59)
[2019-09-01] MEDS: PANTOPRAZOLE 40 MG TABLET PO SCH (10:42)
[2019-09-01] MEDS: amLODIPine BESYLATE 10 MG TABLET (FP) PO SCH (10:42)
--- NOTE | 2019-09-01 12:03 | PN ---
Physical Exam: SUBJECTIVE: Patient seen and examined at bed side , no acute events over night denies any fever , chills, N/V/D/C or abdominalpain tolerating diet well appetite improved denies any use of Marijuana since July plt and wbc number recovering OBJECTIVE: Vital Signs Period Temp Pulse Resp BP Sys/Santana Pulse Ox Last 24 Hr 98 F-98.3 F 83-99 20-20 113-139/71-75 97-98 GENERAL: AAOx3 in NAD HEAD: NC/AT EYES: EOMI, Conjunctiva clear, sclera anicteric ENT: moist mucous membrane NECK: Supple, no JVD LUNGS: CTA B/L, no crackles no wheezing no accessory muscle use. HEART: RRR, NSR, normal s1, s2, murmur no M/R/G ABDOMEN:Obese Soft, ND, NT, +BS 4 Q, no CVA Tenderness LOWER EXTREMITIES: no edema, +2DP pulse,left leg circmference larger than right NEUROLOGICAL: No focal deficit. Normal speech. gait not observed. PSYCHIATRIC: Cooperative. Good eye contact. Appropriate mood and affect. SKIN: Warm, dry, Laboratory Results - last 24 hr 08/29/19 08/29/19 08/30/19 07:38 08:20 08:20 WBC RBC Hgb Hct MCV MCH MCHC RDW Plt Count MPV Absolute Neuts (auto) Neutrophils % Lymphocytes % Monocytes % Eosinophils % Basophils % Nucleated RBC % ESR Sodium Potassium Chloride Carbon Dioxide Anion Gap BUN Creatinine Est GFR (CKD-EPI)AfAm Est GFR (CKD-EPI)NonAf Random Glucose Calcium Ferritin Total Bilirubin AST ALT Alkaline Phosphatase Total Protein Total Protein (PEP) 5.5 L Albumin Albumin (PEP) 2.6 L Globulin 2.9 Albumin/Globulin Ratio 0.9 Beta Globulins 0.8 NEAL M-Claudio Not observed Tiss Transglutamin IgA EBV Nuclear Antigen 21.1 H Hep Bs Antibody, Quant Infectious Harper Assay Parvovirus B19 IgG Ab 7.0 H Parvovirus B19 IgM Ab 0.1 08/30/19 08/31/19 08/31/19 08:20 09:50 09:50 WBC RBC Hgb Hct MCV MCH MCHC RDW Plt Count MPV Absolute Neuts (auto) Neutrophils % Lymphocytes % Monocytes % Eosinophils % Basophils % Nucleated RBC % ESR Sodium Potassium Chloride Carbon Dioxide Anion Gap BUN Creatinine Est GFR (CKD-EPI)AfAm Est GFR (CKD-EPI)NonAf Random Glucose Calcium Ferritin 50483.7 H Total Bilirubin AST ALT Alkaline Phosphatase Total Protein Total Protein (PEP) Albumin Albumin (PEP) Globulin Albumin/Globulin Ratio Beta Globulins NEAL M-Claudio Tiss Transglutamin IgA < 2 EBV Nuclear Antigen Hep Bs Antibody, Quant <3.1 L Infectious Harper Assay Parvovirus B19 IgG Ab Parvovirus B19 IgM Ab 08/31/19 08/31/19 09/01/19 09:50 09:50 07:50 WBC 3.3 L RBC 2.88 L Hgb 8.3 L Hct 23.7 L MCV 82.4 MCH 29.0 MCHC 35.2 RDW 15.6 Plt Count 86 L D MPV 8.7 D Absolute Neuts (auto) 1.4 L Neutrophils % 41.5 L D Lymphocytes % 38.7 D Monocytes % 15.1 H Eosinophils % 3.8 D Basophils % 0.9 Nucleated RBC % 0 ESR 82 H Sodium Potassium Chloride Carbon Dioxide Anion Gap BUN Creatinine Est GFR (CKD-EPI)AfAm Est GFR (CKD-EPI)NonAf Random Glucose Calcium Ferritin Total Bilirubin AST ALT Alkaline Phosphatase Total Protein Total Protein (PEP) Albumin Albumin (PEP) Globulin Albumin/Globulin Ratio Beta Globulins NEAL M-Claudio Tiss Transglutamin IgA EBV Nuclear Antigen Hep Bs Antibody, Quant Infectious Harper Assay Negative Parvovirus B19 IgG Ab Parvovirus B19 IgM Ab 09/01/19 07:50 WBC RBC Hgb Hct MCV MCH MCHC RDW Plt Count MPV Absolute Neuts (auto) Neutrophils % Lymphocytes % Monocytes % Eosinophils % Basophils % Nucleated RBC % ESR Sodium 141 Potassium 3.8 Chloride 111 H Carbon Dioxide 24 Anion Gap 6 L BUN 13.3 Creatinine 1.0 Est GFR (CKD-EPI)AfAm 110.17 Est GFR (CKD-EPI)NonAf 95.05 Random Glucose 99 Calcium 8.0 L Ferritin Total Bilirubin 0.5 AST 39 H ALT 40 Alkaline Phosphatase 131 H Total Protein 5.5 L Total Protein (PEP) Albumin 2.4 L Albumin (PEP) Globulin Albumin/Globulin Ratio Beta Globulins NEAL M-Claudio Tiss Transglutamin IgA EBV Nuclear Antigen Hep Bs Antibody, Quant Infectious Harper Assay Parvovirus B19 IgG Ab Parvovirus B19 IgM Ab Active Medications Generic Name Dose Route Start Last Admin Trade Name Freq PRN Reason Stop Dose Admin Acetaminophen 1,000 mg 08/30/19 07:00 08/31/19 01:38 Tylenol - PO 1,000 mg Q6H PRN Administration FEVER Amlodipine Besylate 10 mg 08/30/19 11:00 09/01/19 10:42 Norvasc - PO 10 mg DAILY L[facility] Administration Atorvastatin Calcium 20 mg 08/30/19 22:00 08/31/19 21:44 Lipitor - PO 20 mg HS LISA Administration Doxycycline Hyclate 100 mg 08/31/19 10:00 09/01/19 10:42 Vibramycin - PO 100 mg BID@1000,1800 [facility] Administration Sodium Chloride 1,000 mls @ 75 mls/hr 08/31/19 19:54 08/31/19 21:45 Normal Saline - IV 75 mls/hr ASDIR L[facility] Administration Pantoprazole Sodium 40 mg 08/29/19 10:00 09/01/19 10:42 Protonix - PO 40 mg DAILY L[facility] Administration CBC, BMP 09/01/19 07:50 09/01/19 07:50 ASSESSMENT/PLAN: 39 y/o male PMH HTN, HLD, morbid obesity, and lymphedema c/o continued fevers s/ p lap rohan ([facility] 07 Aug 2019). He was transfered to [facility] to utilize CT that could capacitate his abdominal width but did not receive imaging as his fevers improved, # Recurrent fever unknown source # weight loss * Doxycycline 100 mg po bid , s.p rocephin * blood cx negative so far * will folow serologies for HIV , EBV , ticks * Hep panel pendings * will do CT A/P and chest with iv and oral contrast to R.O malignancy due to history of weight loss * heme/oncoogy consulted * echo negative for vegetation * ferritin elevated , LD 240, TG 265 # Thrombocytopenia likley due to Abx vs chronic owrsenig on abx , improved 86 today cont to monitor * no active bleeding notiiced or reported * peripheral smear negative for paracytes * Serum and urine protein electrophoresis to assess other possible etiologies of presentation # Anemia normochromic normocytic , occult blood , R/O malignancy # TARSHA, resolved, * Cr. 1.2 from 1.6 ---1.0 # HTN * Restart Norvasc 10 mg po qd # HLD Cont. : Atorvastatin 20 mg PO HS # F/E/N * NS * Cont. to monitor * Regular diet # DVT prophylaxis * Heparin SQ # Disposition * Med/surg Visit type - Emergency Visit Emergency Visit: Yes ED Registration Date: 08/28/19 Care time: The patient presented to the Emergency Department on the above date and was hospitalized for further evaluation of their emergent condition. - New Patient This patient is new to me today: Yes Date on this admission: 09/01/19 - Critical Care Critical Care patient: No - Discharge Referral Referred to [facility] Med P.C.: No ATTENDING PHYSICIAN STATEMENT I saw and evaluated the patient. I reviewed the resident's note and discussed the case with the resident. I agree with the resident's findings and plan as documented. SUBJECTIVE: OBJECTIVE: ASSESSMENT AND PLAN:
--- NOTE | 2019-09-01 12:04 | PN ---
Teaching Attending Note Name of Resident: Sujit Barcenas ATTENDING PHYSICIAN STATEMENT I saw and evaluated the patient. I reviewed the resident's note and discussed the case with the resident. I agree with the resident's findings and plan as documented. SUBJECTIVE: No fever or chills. no abd pain, still no urinary symptoms, no N/V , no diarrhea OBJECTIVE: NAD, comfortable in bed. MMM . CV: RRR, no MRG Lungs: CTAB. Abd: soft, NT, ND, NL BS Ext: L leg circumference > R . no edema . ASSESSMENT AND PLAN: 39 y/o man with h/o recent CCY( chronic cholecystitis) , HTN, HLP, LLE cellulitis, lymphedema, and obesity who presented with continued fever and weight loss/poor appetite. 1-Fever of unknown origin: unclear etiology yet. infectious Vs Hematologic Vs malignancy - follow viral PCrs. - follow HIV viral load - follow tick serology - No M spike on SPEP. hepatitis serology suggest no immunity to Hep B. will need vaccine as out pt - cont doxy. - CRP is down, ESR higher. will rpeat tomorrow - white count and plt counts are recovering. will f/u with heme, hopefully HLH is less of a concern right now. IL-2 level is pending. will repeat ferritin tomorrow - will get Velaz[facility] CT with IV contrast if patient agrees 2- TARSHA: likely prerenal . cr normalized 3- Thrombocytopenia: plt count recovering . 4- Hyponatremia: likely due to hypovolemia. resolved 5- HTN: cont norvasc . will resume labetalol if needed. - cont to hold lisinopril in setting of recent TARSHA 6- DVT px: SCDs due to thrombocytopenia. if plt are close to 100 k will start heparin SQ
[2019-09-01 13:49] LABS: ANISOCYTOSIS 1+; HELMET CELLS 1+; MACROCYTOSIS 0; OVALOCYTE 1+; PLATELET ESTIMATE DECREASED
--- NOTE | 2019-09-01 14:34 | PN ---
Progress Note (short form) - Note Progress Note: feels better Vital Signs Period Temp Pulse Resp BP Sys/Santana Pulse Ox Last 24 Hr 98 F-98.2 F 83-99 18-20 113-139/72-78 97-98 cor-rrr lungs clear abd soft,nt ext no edema CBC, BMP 09/01/19 07:50 09/01/19 07:50 Microbiology 08/28/19 13:35 Blood - Peripheral Venous Blood Culture - Preliminary NO GROWTH OBTAINED AFTER 72 HOURS, INCUBATION TO CONTINUE FOR 2 DAYS. 08/28/19 13:35 Blood - Peripheral Venous Blood Culture - Preliminary NO GROWTH OBTAINED AFTER 72 HOURS, INCUBATION TO CONTINUE FOR 2 DAYS. 08/30/19 09:02 Urine - Urine Clean Catch Urine Culture - Final NO GROWTH OBTAINED 08/30/19 06:00 Blood - Peripheral Venous Blood Parasites Smear - Final hiv negative, heb/c negative cmv igg positive normal haptoglobin a/p FUO-nontoxic appearing- fever curve trending down with normal WBC, thrombocytopenia, anemia, nausea, weight loss ?viral- check pcr for cmv, ebv, parvovirus, HIV tick serology doxycycline for rickettsiel disease (unlikely but serology sent) added last night continues to improve, now afebrile for 24 hours off tylenol ?HLH- w/u in progress ferritin and ldh are elevated trig also elevated profound weight loss- ?malignancy-for scans d/w hospitalist
--- NOTE | 2019-09-01 18:01 | PN ---
Progress Note, Physician History of Present Illness: Feels sleepy. Denies pain. - Current Medication List Current Medications: Active Medications Acetaminophen (Tylenol -) 1,000 mg PO Q6H PRN PRN Reason: FEVER Last Admin: 08/31/19 01:38 Dose: 1,000 mg Amlodipine Besylate (Norvasc -) 10 mg PO DAILY [facility] Last Admin: 09/01/19 10:42 Dose: 10 mg Atorvastatin Calcium (Lipitor -) 20 mg PO HS [facility] Last Admin: 08/31/19 21:44 Dose: 20 mg Doxycycline Hyclate (Vibramycin -) 100 mg PO BID@1000,1800 [facility] Last Admin: 09/01/19 10:42 Dose: 100 mg Sodium Chloride (Normal Saline -) 1,000 mls @ 75 mls/hr IV ASDIR [facility] Last Admin: 08/31/19 21:45 Dose: 75 mls/hr Pantoprazole Sodium (Protonix -) 40 mg PO DAILY [facility] Last Admin: 09/01/19 10:42 Dose: 40 mg - Objective Vital Signs: Vital Signs Temperature 98.1 F 09/01/19 14:00 Pulse Rate 89 09/01/19 14:00 Respiratory Rate 09/01/19 14:00 Blood Pressure 134/69 09/01/19 14:00 O2 Sat by Pulse Oximetry (%) 98 09/01/19 10:00 Constitutional: Yes: No Distress, Calm Eyes: Yes: Conjunctiva Clear Cardiovascular: Yes: Regular Rate and Rhythm Respiratory: Yes: CTA Bilaterally Gastrointestinal: Yes: Soft. No: Distention, Palpable Mass Edema: No Labs: CBC, BMP 09/01/19 07:50 09/01/19 07:50 INR, PTT INR 1.89 (0.83-1.09) H 08/29/19 07:38 Fibrinogen > 500.0 mg/dL (238-498) H 08/31/19 09:50 Assessment/Plan 39M with morbid obesity and lymphedema with recent admission for cholecystitis s /p cholecystectomy on 08/07 admitted on 08/28 with for persistent fevers, nausea, vomiting, diarrhea. Infectious w/u ongoing. Some concern for HLH with elevated ferritin. IL2 pending. Plt count improving. Afebrile for 24 hours so far. Will continue to follow.
--- NOTE | 2019-09-01 18:48 | PN ---
Progress Note, Physician History of Present Illness: Pt seen and examined at bedside. He is awake and alert. he denies shortness of breath. - Current Medication List Current Medications: Active Medications Acetaminophen (Tylenol -) 1,000 mg PO Q6H PRN PRN Reason: FEVER Last Admin: 08/31/19 01:38 Dose: 1,000 mg Amlodipine Besylate (Norvasc -) 10 mg PO DAILY [facility] Last Admin: 09/01/19 10:42 Dose: 10 mg Atorvastatin Calcium (Lipitor -) 20 mg PO HS [facility] Last Admin: 08/31/19 21:44 Dose: 20 mg Doxycycline Hyclate (Vibramycin -) 100 mg PO BID@1000,1800 [facility] Last Admin: 09/01/19 10:42 Dose: 100 mg Sodium Chloride (Normal Saline -) 1,000 mls @ 75 mls/hr IV ASDIR [facility] Last Admin: 08/31/19 21:45 Dose: 75 mls/hr Pantoprazole Sodium (Protonix -) 40 mg PO DAILY [facility] Last Admin: 09/01/19 10:42 Dose: 40 mg - Objective Vital Signs: Vital Signs Temperature 98.1 F 09/01/19 14:00 Pulse Rate 89 09/01/19 14:00 Respiratory Rate 20 09/01/19 14:00 Blood Pressure 134/69 09/01/19 14:00 O2 Sat by Pulse Oximetry (%) 98 09/01/19 10:00 Constitutional: Yes: Calm Eyes: Yes: Conjunctiva Clear HENT: Yes: Atraumatic Cardiovascular: Yes: S1, S2 Respiratory: Yes: CTA Bilaterally Gastrointestinal: Yes: Soft Genitourinary: Yes: WNL Musculoskeletal: Yes: WNL Edema: LLE: Trace, RLE: Trace Neurological: Yes: Oriented Psychiatric: Yes: Oriented Labs: CBC, BMP 09/01/19 07:50 09/01/19 07:50 INR, PTT INR 1.89 (0.83-1.09) H 08/29/19 07:38 Fibrinogen > 500.0 mg/dL (238-498) H 08/31/19 09:50 Problem List - Problems (1) TARSHA (acute kidney injury) Code(s): N17.9 - ACUTE KIDNEY FAILURE, UNSPECIFIED Assessment/Plan Current Medications Generic Name Dose Route Start Last Admin Trade Name Freq PRN Reason Stop Dose Admin Acetaminophen 1,000 mg 02/06/20 07:00 08/31/19 01:38 Tylenol - PO 1,000 mg Q6H PRN Administration FEVER Amlodipine Besylate 10 mg 08/30/19 11:00 09/01/19 10:42 Norvasc - PO 10 mg DAILY [facility] Administration Atorvastatin Calcium 20 mg 08/30/19 22:00 08/31/19 21:44 Lipitor - PO 20 mg HS LISA Administration Doxycycline Hyclate 100 mg 08/31/19 10:00 09/01/19 10:42 Vibramycin - PO 100 mg BID@1000,1800 L[facility] Administration Sodium Chloride 1,000 mls @ 75 mls/hr 08/31/19 19:54 08/31/19 21:45 Normal Saline - IV 75 mls/hr ASDIR [facility] Administration Pantoprazole Sodium 40 mg 08/29/19 10:00 09/01/19 10:42 Protonix - PO 40 mg DAILY [facility] Administration Impression 1. TARSHA 2. CKD 3. proteinuria 4. fevers 5. thrombocytopenia 6. lymphedema 7. obesity Plan - renal function stable - stable off of fluids for now - repeat labs in am - follow serologies, still pending
[2019-09-01] MEDS: SODIUM CHLORIDE 1,000 ML IV SCH (21:17)
[2019-09-01] MEDS: ATORVASTATIN CA 20 MG TABLET (FP) PO SCH (21:18)
[2019-09-02 09:26] LABS: ALBUMIN 2.4 g/dl (3.4-5.0); BILIRUBIN,TOTAL 0.5 mg/dL (0.2-1); BLOOD UREA NITROGEN 9.2 mg/dL (7-18); CALCIUM 8.1 mg/dL (8.5-10.1); POTASSIUM 3.9 mmol/L (3.5-5.1); TOT PROT 5.4 g/dl (6.4-8.2)
[2019-09-02] MEDS: DOXYCYCLINE HYCLATE 100 MG CAPSULE PO SCH ×2 (10:42→18:42)
[2019-09-02] MEDS: amLODIPine BESYLATE 10 MG TABLET (FP) PO SCH (10:43)
[2019-09-02] MEDS: PANTOPRAZOLE 40 MG TABLET PO SCH (10:43)
--- NOTE | 2019-09-02 17:18 | PN ---
Progress Note, Physician History of Present Illness: Pt seen and examined at bedside. He is awake and alert. he denies shortness of breath. - Current Medication List Current Medications: Active Medications Acetaminophen (Tylenol -) 1,000 mg PO Q6H PRN PRN Reason: FEVER Last Admin: 08/31/19 01:38 Dose: 1,000 mg Amlodipine Besylate (Norvasc -) 10 mg PO DAILY [facility] Last Admin: 09/02/19 10:43 Dose: 10 mg Atorvastatin Calcium (Lipitor -) 20 mg PO HS [facility] Last Admin: 09/01/19 21:18 Dose: 20 mg Doxycycline Hyclate (Vibramycin -) 100 mg PO BID@1000,1800 [facility] Last Admin: 09/02/19 10:42 Dose: 100 mg Sodium Chloride (Normal Saline -) 1,000 mls @ 75 mls/hr IV ASDIR [facility] Last Admin: 09/01/19 21:17 Dose: Not Given Pantoprazole Sodium (Protonix -) 40 mg PO DAILY [facility] Last Admin: 09/02/19 10:43 Dose: 40 mg - Objective Vital Signs: Vital Signs Temperature 98.0 F 09/02/19 14:00 Pulse Rate 91 H 09/02/19 14:00 Respiratory Rate 20 09/02/19 14:00 Blood Pressure 127/77 09/02/19 14:00 O2 Sat by Pulse Oximetry (%) 100 09/02/19 10:00 Constitutional: Yes: Calm Eyes: Yes: Conjunctiva Clear HENT: Yes: Atraumatic Cardiovascular: Yes: S1, S2 Respiratory: Yes: CTA Bilaterally Gastrointestinal: Yes: Soft, Abdomen, Obese Genitourinary: Yes: WNL Musculoskeletal: Yes: WNL Edema: Yes Edema: LLE: Trace, RLE: Trace Neurological: Yes: Oriented Psychiatric: Yes: Oriented Labs: CBC, BMP 09/01/19 07:50 09/02/19 08:20 INR, PTT INR 1.89 (0.83-1.09) H 08/29/19 07:38 Fibrinogen > 500.0 mg/dL (238-498) H 08/31/19 09:50 Problem List - Problems (1) TARSHA (acute kidney injury) Code(s): N17.9 - ACUTE KIDNEY FAILURE, UNSPECIFIED Assessment/Plan Current Medications Generic Name Dose Route Start Last Admin Trade Name Freq PRN Reason Stop Dose Admin Acetaminophen 1,000 mg 08/30/19 07:00 08/31/19 01:38 Tylenol - PO 1,000 mg Q6H PRN Administration FEVER Amlodipine Besylate 10 mg 08/30/19 11:00 09/02/19 10:43 Norvasc - PO 10 mg DAILY [facility]ISA Administration Atorvastatin Calcium 20 mg 08/30/19 22:00 09/01/19 21:18 Lipitor - PO 20 mg HS LISA Administration Doxycycline Hyclate 100 mg 08/31/19 10:00 09/02/19 10:42 Vibramycin - PO 100 mg BID@1000,1800 LISA Administration Sodium Chloride 1,000 mls @ 75 mls/hr 08/31/19 19:54 09/01/19 21:17 Normal Saline - IV Not Given ASDIR LISA Pantoprazole Sodium 40 mg 08/29/19 10:00 09/02/19 10:43 Protonix - PO 40 mg DAILY LISA Administration Laboratory Tests 08/29/19 08/29/19 08/30/19 07:38 08:20 08:20 NEAL M-Claudio Not observed PENNY Screen Negative c-ANCA Pending Proteinase 3 (PR3) Pending p-ANCA Pending Atypical p-ANCA Pending Myeloperoxidase Ab Pending Glomerular Base Memb Ab 08/31/19 09:50 NEAL M-Claudio PENNY Screen c-ANCA Proteinase 3 (PR3) p-ANCA Atypical p-ANCA Myeloperoxidase Ab Glomerular Base Memb Ab Pending Impression 1. TARSHA 2. CKD 3. proteinuria 4. fevers 5. thrombocytopenia 6. lymphedema 7. obesity Plan - follow serologies - renal function stable for now - repeat ua - pt clinically improved - monitor for fever
--- NOTE | 2019-09-02 18:49 | PN ---
Progress Note (short form) - Note Progress Note: Subjective: no pain , no fever or chills Objective: Vital Signs: Last Vital Signs Temp Pulse Resp BP Pulse Ox 98.0 F 91 H 20 127/77 100 09/02/19 14:00 09/02/19 14:00 09/02/19 14:00 09/02/19 14:00 09/02/19 10:00 Laboratory Results - last 24 hr 09/02/19 09/02/19 09/02/19 08:20 08:20 08:20 ESR 44 H Sodium 141 Potassium 3.9 Chloride 112 H Carbon Dioxide 25 Anion Gap 5 L BUN 9.2 Creatinine 1.0 Est GFR (CKD-EPI)AfAm 110.17 Est GFR (CKD-EPI)NonAf 95.05 Random Glucose 95 Calcium 8.1 L Ferritin 4375.6 H Total Bilirubin 0.5 AST 35 ALT 43 Alkaline Phosphatase 130 H C-Reactive Protein 5.4 H Total Protein 5.4 L Albumin 2.4 L Physical Exam: NAD, comfortable in bed. MMM . CV: RRR, no MRG Lungs: CTAB. Abd: soft, NT, ND, NL BS Ext: L leg circumference > R . no edema. ASSESSMENT AND PLAN: 39 y/o man with h/o recent CCY( chronic cholecystitis) , HTN, HLP, LLE cellulitis, lymphedema, and obesity who presented with continued fever and weight loss/poor appetite. 1- Fever of unknown origin: unclear etiology yet. - follow viral PCrs. - follow HIV viral load - follow tick serology - No M spike on SPEP. hepatitis serology suggest no immunity to Hep B. will need vaccine as out pt - cont doxy. - CRP and ESR are better - repeat CBC tomorrow - CT with no malignancy . mild splenomegaly - if counts are recovering , then HLH is less likely. IL2 pending. will consult with heme in am 2- TARSHA: follow serology 3- Thrombocytopenia: plt count recovering. 4- Hyponatremia: likely due to hypovolemia. resolved 5- HTN: cont norvasc . will resume labetalol if needed 6- DVT px: SCDs due to thrombocytopenia. if plt are close to 100 k will start heparin SQ Visit type - Emergency Visit Emergency Visit: Yes ED Registration Date: 08/28/19 Care time: The patient presented to the Emergency Department on the above date and was hospitalized for further evaluation of their emergent condition. - New Patient This patient is new to me today: No - Critical Care Critical Care patient: No
[2019-09-02] MEDS: ATORVASTATIN CA 20 MG TABLET (FP) PO SCH (21:30)
[2019-09-02] MEDS: SODIUM CHLORIDE 1,000 ML IV SCH (21:30)
[2019-09-02 22:58] LABS: EPI CELLS 5.9 /HPF (0-5/HPF); HYALINE CASTS 45 /lpf (0-8); URINE APPEARANCE CLOUDY; URINE BACTERIA 3.3 /hpf (NEGATIVE); URINE BILIRUBIN NEGATIVE (NEGATIVE); URINE COLOR YELLOW; URINE GLUCOSE (UA) NEGATIVE (NEGATIVE); URINE KETONE TRACE (NEGATIVE); URINE LEUK ESTERASE NEGATIVE (NEGATIVE); URINE NITRITE NEGATIVE (NEGATIVE); URINE PROTEIN 2+ (NEGATIVE); URINE RBC 4 /hpf (0-4); URINE UROBILINOGEN 0.2 mg/dL (0.2-1.0); URINE WBC 7 /hpf (0-5)
[2019-09-03 09:41] LABS: BASO % 0.9 % (0-2.0); EOS % 4.3 % (0-4.5); HEMATOCRIT 23.4 % (35.4-49); HEMOGLOBIN 8.2 GM/dL (11.7-16.9); MCH 28.7 pg (25.7-33.7); MEAN CELL VOLUME 82.1 fl (80-96); MEAN PLT VOLUME 8.1 fl (7.5-11.1); MONO % 15.1 % (3.8-10.2); NEUT % 55.7 % (42.8-82.8); PLATELET COUNT 182 K/MM3 (134-434); RBC 2.85 M/mm3 (4.00-5.60); WHITE BLOOD COUNT 5.9 K/mm3 (4.0-10.0)
[2019-09-03] MEDS: PANTOPRAZOLE 40 MG TABLET PO SCH (10:11)
[2019-09-03] MEDS: DOXYCYCLINE HYCLATE 100 MG CAPSULE PO SCH ×2 (10:12→17:26)
[2019-09-03] MEDS: amLODIPine BESYLATE 10 MG TABLET (FP) PO SCH (10:12)
[2019-09-03 10:19] LABS: BLOOD UREA NITROGEN 9.7 mg/dL (7-18); CALCIUM 8.2 mg/dL (8.5-10.1); POTASSIUM 3.9 mmol/L (3.5-5.1)
--- NOTE | 2019-09-03 10:49 | PN ---
Progress Note (short form) - Note Progress Note: feels better remains afebrile Vital Signs Period Temp Pulse Resp BP Sys/Santana Pulse Ox Last 24 Hr 97.9 F-98.2 F 74-91 18-20 125-128/68-77 100-100 cor-rrr llungs clear abd soft,nt ext unchanged, RLE larger and more pigmented then right CBC, BMP 09/03/19 08:05 09/03/19 08:05 Microbiology 08/28/19 13:35 Blood - Peripheral Venous Blood Culture - Final NO GROWTH AFTER 5 DAYS INCUBATION 08/28/19 13:35 Blood - Peripheral Venous Blood Culture - Final NO GROWTH AFTER 5 DAYS INCUBATION 08/30/19 09:02 Urine - Urine Clean Catch Urine Culture - Final NO GROWTH OBTAINED 08/30/19 06:00 Blood - Peripheral Venous Blood Parasites Smear - Final hiv negative, heb/c negative cmv igg positive normal haptoglobin ebna positive serologies pending a/p fevers and thrombocytopenia resolved has completed 4 days of dosycycline would complete total 14 days multiple serologies pending he can f/u in the office in one week with Dr Perez
[2019-09-03 15:07] LABS: E.chaff HME IgG Negative (Neg:<1:64)
[2019-09-03 15:07] LABS: TOTAL PROTEIN, URINE 172.8 mg/dL (Not Estab.)
--- NOTE | 2019-09-03 15:30 | PN ---
Teaching Attending Note Name of Resident: Wendy Ortiz ATTENDING PHYSICIAN STATEMENT I saw and evaluated the patient. I reviewed the resident's note and discussed the case with the resident. I agree with the resident's findings and plan as documented. SUBJECTIVE: no fever or chills. no RODARTE , no Abd pain , no diarrhea. no dysuria OBJECTIVE: NAD MMM . CV: RRR, no MRG Lungs: CTAB. Abd: soft, NT, ND, NL BS Ext: L leg circumference > R . no edema. ASSESSMENT AND PLAN: 39 y/o man with h/o recent CCY( chronic cholecystitis) , HTN, HLP, LLE cellulitis, lymphedema, and obesity who presented with continued fever and weight loss/poor appetite. 1- Fever of unknown origin: unclear etiology yet. - viral PCrs pending - HIV viral load pending - tick serology pending - No M spike on SPEP. hepatitis serology suggest no immunity to Hep B. will need vaccine as out pt - cont doxy for 10 more days - mild splenomegaly to be followed by heme as out pt - HLH is less likely due to recovery of blood count and resolution of fever. IL2 pending. heme f/u as out pt 2- TARSHA: follow serology . f/u with renal to work up proteinuria and f/u on labs 3- Thrombocytopenia:resolved 4- Hyponatremia:resolved 5- HTN: cont norvasc . resume lisinopril iven proteinuria . labetalol can be resumed as out pt if needed dc home today . F/u with PCP, renal, heme, and ID
[2019-09-03] MEDS ORDERED: PT OWN MED DRAWER 7, Y5N ONE (15:43)
--- NOTE | 2019-09-03 16:28 | PN ---
Progress Note, Physician History of Present Illness: Pt seen and examined at bedside. He is awake and alert. He denies shortness of breath. - Current Medication List Current Medications: Active Medications Acetaminophen (Tylenol -) 1,000 mg PO Q6H PRN PRN Reason: FEVER Last Admin: 08/31/19 01:38 Dose: 1,000 mg Amlodipine Besylate (Norvasc -) 10 mg PO DAILY [facility] Last Admin: 09/03/19 10:12 Dose: 10 mg Atorvastatin Calcium (Lipitor -) 20 mg PO HS [facility] Last Admin: 09/02/19 21:30 Dose: 20 mg Doxycycline Hyclate (Vibramycin -) 100 mg PO BID@1000,1800 [facility] Last Admin: 09/03/19 10:12 Dose: 100 mg Sodium Chloride (Normal Saline -) 1,000 mls @ 75 mls/hr IV ASDIR [facility] Last Admin: 09/02/19 21:30 Dose: Not Given Pantoprazole Sodium (Protonix -) 40 mg PO DAILY [facility] Last Admin: 09/03/19 10:11 Dose: 40 mg - Objective Vital Signs: Vital Signs Temperature 98.2 F 09/03/19 14:00 Pulse Rate 90 09/03/19 14:00 Respiratory Rate 20 09/03/19 14:00 Blood Pressure 133/70 09/03/19 14:00 O2 Sat by Pulse Oximetry (%) 100 09/03/19 09:00 Constitutional: Yes: Calm Eyes: Yes: Conjunctiva Clear HENT: Yes: Atraumatic Neck: Yes: Supple Cardiovascular: Yes: S1, S2 Respiratory: Yes: CTA Bilaterally Gastrointestinal: Yes: Soft, Abdomen, Obese Genitourinary: Yes: WNL Musculoskeletal: Yes: WNL Edema: LLE: Trace, RLE: Trace Neurological: Yes: Oriented Psychiatric: Yes: Oriented Labs: CBC, BMP 09/03/19 08:05 09/03/19 08:05 INR, PTT INR 1.89 (0.83-1.09) H 08/29/19 07:38 Fibrinogen > 500.0 mg/dL (238-498) H 08/31/19 09:50 Problem List - Problems (1) TARSHA (acute kidney injury) Code(s): N17.9 - ACUTE KIDNEY FAILURE, UNSPECIFIED Assessment/Plan Current Medications Generic Name Dose Route Start Last Admin Trade Name Freq PRN Reason Stop Dose Admin Acetaminophen 1,000 mg 08/30/19 07:00 08/31/19 01:38 Tylenol - PO 1,000 mg Q6H PRN Administration FEVER Amlodipine Besylate 10 mg 08/30/19 11:00 09/03/19 10:12 Norvasc - PO 10 mg DAILY LISA Administration Atorvastatin Calcium 20 mg 08/30/19 22:00 09/02/19 21:30 Lipitor - PO 20 mg HS LISA Administration Doxycycline Hyclate 100 mg 08/31/19 10:00 09/03/19 10:12 Vibramycin - PO 100 mg BID@1000,1800 LISA Administration Sodium Chloride 1,000 mls @ 75 mls/hr 08/31/19 19:54 09/02/19 21:30 Normal Saline - IV Not Given ASDIR LISA Pantoprazole Sodium 40 mg 08/29/19 10:00 09/03/19 10:11 Protonix - PO 40 mg DAILY LISA Administration Laboratory Tests 08/28/19 08/29/19 08/29/19 19:57 07:38 08:20 Urine Protein 3+ H NEAL M-Claudio Not observed PENNY Screen Negative c-ANCA Proteinase 3 (PR3) p-ANCA Atypical p-ANCA Myeloperoxidase Ab Tiss Transglutamin IgA Glomerular Base Memb Ab 08/30/19 08/30/19 08/31/19 08:20 08:20 09:50 Urine Protein NEAL M-Claudio PENNY Screen c-ANCA Pending Proteinase 3 (PR3) Pending p-ANCA Pending Atypical p-ANCA Pending Myeloperoxidase Ab Pending Tiss Transglutamin IgA < 2 Glomerular Base Memb Ab Pending 09/02/19 21:35 Urine Protein 2+ H NEAL M-Claudio PENNY Screen c-ANCA Proteinase 3 (PR3) p-ANCA Atypical p-ANCA Myeloperoxidase Ab Tiss Transglutamin IgA Glomerular Base Memb Ab Impression 1. TARSHA 2. CKD 3. proteinuria 4. fevers 5. thrombocytopenia 6. lymphedema 7. obesity Plan - renal function improved - proteinuria improving - serologies pending - will need outpt follow up - recommend weight loss as well - monitor for fever
--- NOTE | 2019-09-03 16:38 | DS ---
Physical Exam: SUBJECTIVE: Patient seen and examined at bedside. pt has no acute complaints and states he feels better and wants to go home OBJECTIVE: Vital Signs Period Temp Pulse Resp BP Sys/Santana Pulse Ox Last 24 Hr 97.8 F-98.2 F 72-90 18-20 125-133/68-75 100-100 PHYSICAL EXAM GENERAL: The patient is awake, alert, and fully oriented, in no acute distress. HEAD: Normal with no signs of trauma. EYES: PERRL, extraocular movements intact, sclera anicteric ENT: moist mucous membranes. NECK: no lymphadenopathy LUNGS: Breath sounds equal, clear to auscultation bilaterally, no wheezes, no crackles, no accessory muscle use. HEART: Regular rate and rhythm, S1, S2 without murmur, rub or gallop. ABDOMEN: Soft, nontender, nondistended, normoactive bowel sounds, no guarding, no rebound EXTREMITIES: 2+ pulses, warm, well-perfused, no edema. NEUROLOGICAL: Cranial nerves II through XII grossly intact. Normal speech PSYCH: Normal mood, normal affect. SKIN: Warm, dry, normal turgor, no rashes or lesions noted. Laboratory Last Values WBC 5.9 K/mm3 (4.0-10.0) 09/03/19 08:05 RBC 2.85 M/mm3 (4.00-5.60) L 09/03/19 08:05 Hgb 8.2 GM/dL (11.7-16.9) L 09/03/19 08:05 Hct 23.4 % (35.4-49) L 09/03/19 08:05 MCV 82.1 fl (80-96) 09/03/19 08:05 MCH 28.7 pg (25.7-33.7) 09/03/19 08:05 MCHC 35.0 g/dl (32.0-35.9) 09/03/19 08:05 RDW 15.0 % (11.9-15.9) 09/03/19 08:05 Plt Count 182 K/MM3 (134-434) D 09/03/19 08:05 MPV 8.1 fl (7.5-11.1) 09/03/19 08:05 Absolute Neuts (auto) 3.3 K/mm3 (1.5-8.0) 09/03/19 08:05 Total Counted 100 08/30/19 08:30 Neutrophils % 55.7 % (42.8-82.8) D 09/03/19 08:05 Neutrophils % (Manual) 46.9 % (42.8-82.8) 09/01/19 07:50 Band Neutrophils % 0.0 % 09/01/19 07:50 Lymphocytes % 24.0 % (8-40) D 09/03/19 08:05 Lymphocytes % (Manual) 28.6 % (8-40) D 09/01/19 07:50 Monocytes % 15.1 % (3.8-10.2) H 09/03/19 08:05 Monocytes % (Manual) 8 % (3.8-10.2) 09/01/19 07:50 Eosinophils % 4.3 % (0-4.5) 09/03/19 08:05 Eosinophils % (Manual) 4.1 % (0-4.5) D 09/01/19 07:50 Basophils % 0.9 % (0-2.0) 09/03/19 08:05 Basophils % (Manual) 0.0 % (0-2.0) 09/01/19 07:50 Myelocytes % (Man) 1 % (0-2) 09/01/19 07:50 Promyelocytes % (Man) 0 % (0-2) 09/01/19 07:50 Blast Cells % (Manual) 0 % (0-0) 09/01/19 07:50 Nucleated RBC % 0 % (0-0) 09/03/19 08:05 Metamyelocytes 1 % (0-2) D 09/01/19 07:50 Smudge Cells 7 08/30/19 08:30 Hypochromia 1+ 09/01/19 07:50 Platelet Estimate Decreased 09/01/19 07:50 Polychromasia 1+ 09/01/19 07:50 Poikilocytosis 1+ 09/01/19 07:50 Basophilic Stippling 1+ 08/30/19 08:30 Anisocytosis 1+ 09/01/19 07:50 Microcytosis 1+ 09/01/19 07:50 Macrocytosis 0 09/01/19 07:50 Tear Drop Cells 1+ 08/30/19 08:30 Ovalocytes 1+ 09/01/19 07:50 Helmet Cells 1+ 09/01/19 07:50 Pitkin Cells 1+ 09/01/19 07:50 ESR 44 mm/hr (0-10) H 09/02/19 08:20 Haptoglobin 232 mg/dL (17-317) 08/29/19 09:30 PT with INR 22.50 SEC (9.7-13.0) H 08/29/19 07:38 INR 1.89 (0.83-1.09) H 08/29/19 07:38 PTT (Actin FS) 38.2 SECONDS (25.2-36.5) H 08/29/19 07:38 Fibrinogen > 500.0 mg/dL (238-498) H 08/31/19 09:50 Sodium 145 mmol/L (136-145) 09/03/19 08:05 Potassium 3.9 mmol/L (3.5-5.1) 09/03/19 08:05 Chloride 111 mmol/L (98-107) H 09/03/19 08:05 Carbon Dioxide 26 mmol/L (21-32) 09/03/19 08:05 Anion Gap 7 MMOL/L (8-16) L 09/03/19 08:05 BUN 9.7 mg/dL (7-18) 09/03/19 08:05 Creatinine 1.0 mg/dL (0.55-1.3) 09/03/19 08:05 Est GFR (CKD-EPI)AfAm 110.17 09/03/19 08:05 Est GFR (CKD-EPI)NonAf 95.05 09/03/19 08:05 Random Glucose 90 mg/dL (74-106) 09/03/19 08:05 Serum Osmolality 266 mosm/kg (278-305) L 08/28/19 13:35 Lactic Acid 1.8 mmol/L (0.4-2.0) 08/28/19 13:35 Uric Acid 6.4 mg/dL (2.6-7.2) 08/28/19 13:35 Calcium 8.2 mg/dL (8.5-10.1) L 09/03/19 08:05 Phosphorus 3.8 mg/dL (2.5-4.9) 08/29/19 07:38 Magnesium 1.9 mg/dL (1.8-2.4) 08/29/19 07:38 Ferritin 4375.6 ng/ml (8-388) H 09/02/19 08:20 Total Bilirubin 0.5 mg/dL (0.2-1) 09/02/19 08:20 Direct Bilirubin 0.5 mg/dL (0.0-0.2) H 08/30/19 06:00 AST 35 U/L (15-37) 09/02/19 08:20 ALT 43 U/L (13-61) 09/02/19 08:20 Alkaline Phosphatase 130 U/L (45-117) H 09/02/19 08:20 LD Total 340 U/L (87-246) H 08/31/19 09:50 Creatine Kinase 31 U/L (26-308) 08/29/19 07:38 Troponin I < 0.02 ng/ml (0.00-0.05) 08/28/19 13:35 C-Reactive Protein 5.4 MG/DL (0.00-0.3) H 09/02/19 08:20 Total Protein 5.4 g/dl (6.4-8.2) L 09/02/19 08:20 Total Protein (PEP) 5.5 g/dL (6.0-8.5) L 08/29/19 08:20 Albumin 2.4 g/dl (3.4-5.0) L 09/02/19 08:20 Albumin (PEP) 2.6 gm/dl (2.9-4.4) L 08/29/19 08:20 Globulin 2.9 g/dL (2.2-3.9) 08/29/19 08:20 Albumin/Globulin Ratio 0.9 (0.7-1.7) 08/29/19 08:20 Xaeak-4-Ylrahimyv (%) 2.0 % (.) 08/29/19 18:00 Horpy-2-Fshwfdbuw (%) 17.0 % (.) 08/29/19 18:00 Beta Globulins 0.8 gm/dL (0.7-1.3) 08/29/19 08:20 Beta Globulins (%) 21.1 % (.) 08/29/19 18:00 Gamma Globulins (%) 26.6 % (.) 08/29/19 18:00 M-Claudio % Comment: % (Not Observed) 08/29/19 18:00 Triglycerides 265 mg/dL (0-150) H 08/31/19 09:50 Total Amylase 29 U/L (25-115) 08/28/19 13:35 Lipase 111 U/L (73-393) 08/28/19 13:35 TSH 0.97 uIU/ml (0.358-3.74) 08/29/19 07:38 Urine Color Yellow 09/02/19 21:35 Urine Appearance Cloudy 09/02/19 21:35 Urine pH 5.0 (5.0-8.0) 09/02/19 21:35 Ur Specific River 1.024 (1.010-1.035) 09/02/19 21:35 Urine Protein 2+ (NEGATIVE) H 09/02/19 21:35 Urine Glucose (UA) Negative (NEGATIVE) 09/02/19 21:35 Urine Ketones Trace (NEGATIVE) H 09/02/19 21:35 Urine Blood Negative (NEGATIVE) 09/02/19 21:35 Urine Nitrite Negative (NEGATIVE) 09/02/19 21:35 Urine Bilirubin Negative (NEGATIVE) 09/02/19 21:35 Urine Urobilinogen 0.2 mg/dL (0.2-1.0) 09/02/19 21:35 Ur Leukocyte Esterase Negative (NEGATIVE) 09/02/19 21:35 Urine WBC (Auto) 7 /hpf (0-5) 09/02/19 21:35 Urine RBC (Auto) 4 /hpf (0-4) 09/02/19 21:35 Urine Casts (Auto) 45 /lpf (0-8) 09/02/19 21:35 U Pathogenic Cast Auto None /lpf (NEGATIVE) 09/02/19 21:35 U Epithel Cells (Auto) 5.9 /HPF (0-5/HPF) 09/02/19 21:35 Urine Bacteria (Auto) 3.3 /hpf (NEGATIVE) 09/02/19 21:35 Urine Osmolality 624 mosm/kg (300-900) 08/28/19 19:57 Ur Random Creatinine 342.0 mg/dL (30-150) H 08/28/19 19:57 U Random Total Protein 138.8 mg/dL (0-11.9) H 08/30/19 21:50 Ur Random Sodium 23 MMOL/L (40-220) L 08/28/19 19:57 Ur Random Potassium 45.0 MMOL/L (25-125) 08/28/19 19:57 Ur Random Chloride 22 MMOL/L (110-250) L 08/28/19 19:57 Urine Creatinine 194.0 mg/dL (30-150) H 08/30/19 21:50 Protein/Creatinin Ratio 0.7 mg/dL 08/30/19 21:50 Urine Total Protein 172.8 mg/dL (Not Estab.) 08/29/19 18:00 Urine PEP Interpret 33.3 % (.) 08/29/19 18:00 Stool Occult Blood Negative (NEGATIVE) 08/30/19 19:39 Opiates Screen Negative ng/ml (XJZCWJ=612) 08/28/19 19:57 Methadone Screen Negative ng/ml (TAGRDV=083) 08/28/19 19:57 Barbiturate Screen Negative ng/ml (BGANIH=489) 08/28/19 19:57 Phencyclidine Screen Negative ng/ml (CUTOFF=25) 08/28/19 19:57 Ur Amphetamines Screen Negative ng/ml (QKJRAQ=053) 08/28/19 19:57 MDMA (Ecstasy) Screen Negative ng/ml (QTVXTQ=652) 08/28/19 19:57 Benzodiazepines Screen Negative ng/ml (BOTWLB=180) 08/28/19 19:57 Cocaine Screen Negative ng/ml (XXIRUA=854) 08/28/19 19:57 U Marijuana (THC) Screen Positive ng/ml (CUTOFF=50) A* 08/28/19 19:57 NEAL M-Claudio Not observed g/dL (Not Observed) 08/29/19 08:20 PENNY Screen Negative (.) 08/29/19 07:38 c-ANCA <1:20 titer (Neg:<1:20) 08/30/19 08:20 Proteinase 3 (PR3) <3.5 U/mL (0.0-3.5) 08/30/19 08:20 p-ANCA <1:20 titer (Neg:<1:20) 08/30/19 08:20 Atypical p-ANCA <1:20 titer (Neg:<1:20) 08/30/19 08:20 Myeloperoxidase Ab <9.0 U/mL (0.0-9.0) 08/30/19 08:20 Tiss Transglutamin IgA < 2 U/mL (0-3) 08/30/19 08:20 Lyme Screen IgG & IgM <0.91 ISR (0.00-0.90) 08/30/19 20:15 Lyme IgM 23 kDa Band No Result Required. 08/30/19 20:15 Lyme IgM 39 kDa Band No Result Required. 08/30/19 20:15 Lyme IgM 41 kDa Band No Result Required. 08/30/19 20:15 CMV IgG Ab 3.70 U/mL (0.00-0.59) H 08/29/19 07:38 CMV IgM Ab < 30.0 AU/mL (0.0-29.9) 08/29/19 07:38 Ehrlichia IgG Antibody Negative (Neg:<1:64) 08/30/19 20:15 Ehrlichia IgM Antibody Negative (Neg:<1:64) 08/30/19 20:15 E. chaffeensis IgG Ab Negative (Neg:<1:20) 08/30/19 20:15 E. chaffeensis IgM Ab Negative (Neg:<1:20) 08/30/19 20:15 EBV Nuclear Antigen 21.1 U/mL (0.0-17.9) H 08/29/19 07:38 Hep A IgM Ab Confirm Negative (Negative) 08/29/19 07:38 Hep Bs Antigen Negative (Negative) 08/29/19 07:38 Hep Bs Antibody, Quant <3.1 mIU/mL (Immunity>9.9) L 08/31/19 09:50 Hep B Core IgM Ab Negative (Negative) 08/29/19 07:38 Hep C Ab Diagnostic <0.1 s/co ratio (0.0-0.9) 08/29/19 07:38 Hepatitis C Ab (EIA) <0.1 s/co ratio (0.0-0.9) 08/29/19 07:38 HIV 1&2 Antibody Screen Negative 08/29/19 07:38 HIV P24 Antigen Negative 08/29/19 07:38 Infectious Kleberg Assay Negative (Negative) 08/31/19 09:50 Influenza A (Rapid) Negative (Negative) 08/28/19 13:35 Influenza B (Rapid) Negative (Negative) 08/28/19 13:35 Leptospira IgM Antibody (Non-Reactive) 08/30/19 08:20 Parvovirus B19 IgG Ab 7.0 index (0.0-0.8) H 08/30/19 08:20 Parvovirus B19 IgM Ab 0.1 index (0.0-0.8) 08/30/19 08:20 Ref Test Comments (.) 08/29/19 18:00 Direct Antiglob Test Negative (NEGATIVE) 08/29/19 08:20 HOSPITAL COURSE: Date of Admission:08/28/19 39 yo M PMH of HTN, Lymphedema, obsesity, HLD, presented to [facility] for n/v/d and fever. pt was worked up for fever of unknown origin. Viral PCR are still pending , HIV, tick serology pending. pt's labs are improved and pt symptomatically feels better. will DC w/ doxycycline x 14 days. Pt should f/u with Heme, ID. Pt also admitted with TARSHA which has improved. pts home labetalol is held but pt instructed to f/u with PMD as may be resumed at later time. Pt instructed to continue lisinopril and norvasc. Pt also recommended to f/u with renal given proteinuria Date of Discharge: 09/03/19 Minutes to complete discharge: 36 Discharge Summary Problems reviewed: Yes Reason For Visit: ACUTE KIDNEY INJURY Current Active Problems TARSHA (acute kidney injury) (Acute) Hyperbilirubinemia (Acute) Hyponatremia (Acute) Intractable nausea and vomiting (Acute) Sepsis (Acute) Thrombocytopenia (Acute) Condition: Improved - Instructions Diet, Activity, Other Instructions: You came into the hospital with nausea, vomiting, and fevers. While in the hospital, you had many tests to determine the cause of your fevers. You had a CT scan of your abdomen and pelvis which was negative. You had an echocardiogram of your heart which showed normal findings. Your blood work shows that you are anemic. Your blood shows that you have elevated triglycerides, a fat in the blood. Please continue to take Doxycycline 100 mg twice a day for 10 more days (14 days total). start tonight Please continue your home medications as prescribed. -You should follow up with the infectious disease physician, Dr. Perez, within 1 week to monitor your improvement. blood work results need to be followed -You should follow up with your primary care physician for repeat blood work ( CBC, BMP) and a full lipid panel -You should follow up with a tank erector to assure your anemia is improving. You may follow up with Dr. Nobles or you may follow up at the [facility]. The number for the [facility] is , and [phone]. important blood work results need to be followed and you need work up for enlarged spleen -Please follow up with your Asphalt Machine Operator, Dr. Tovar, to further evaluate your kidneys and protein in urine . important lab results need to be followed Please continue to have a low sodium, low fat diet. We recommend diet and exercise to maintain a healthy lifestyle. If you develop any new alarming or concerning symptoms or if your symptoms persist or worsen, please return to the ED or call 911. # labetalol, one of your blood pressure meds was temporarily held. please resume lisinopril and norvasc and your primary dr. will resume labetalol if needed You need vaccination for Hepatitis B. please ask your PCP pending lab work results: -viral PCrs - HIV viral load - tick serology -IL2 - serology for vasculitis and renal disease Referrals: Desmond Perez MD [Staff Physician] - 1 Week Simón Brito MD [Primary Care Provider] - 1 Week Addison Nobles MD [Staff Physician] - 1 Week Ratna Tovar MD [Staff Physician] - 2 Weeks Disposition: HOME - Home Medications Comprehensive Discharge Medication List: Ambulatory Orders Amlodipine Besylate [Norvasc -] 10 mg PO DAILY 06/29/14 Omeprazole [Prilosec (RX)] 40 mg PO DAILY 06/29/14 Atorvastatin Ca [Lipitor] 20 mg DAILY 05/23/19 Acetaminophen [Tylenol .Regular Strength -] 650 mg PO Q4H PRN tablet 05/30/19 Lisinopril 10 mg PO DAILY #30 tablet 05/30/19 Doxycycline Hyclate [Vibramycin -] 100 mg PO BID@1000,1800 #20 capsule 09/03/19 This patient is new to me today: Yes Date on this admission: 09/03/19 Emergency Visit: No Critical Care patient: No - Discharge Referral Referred to [facility] No ATTENDING PHYSICIAN STATEMENT I saw and evaluated the patient. I reviewed the resident's note and discussed the case with the resident. I agree with the resident's findings and plan as documented. SUBJECTIVE: OBJECTIVE: ASSESSMENT AND PLAN:
--- NOTE | 2019-09-03 17:55 | PN ---
Progress Note (short form) - Note Progress Note: PAtint seen and examined Reports feeling well, improved Last Vital Signs Temp Pulse Resp BP Pulse Ox 98.2 F 90 20 133/70 100 09/03/19 14:00 09/03/19 14:00 09/03/19 14:00 09/03/19 14:00 09/03/19 09:00 Cor: RSR, No murmurs, No gallops Lungs: Clear to P&A Abd: Soft, Normal bowel sounds, No organomegaly Ext:No significant edema LAbs/MEds reviewed A/P 39 y/o patient with recovery of platelet count after course of antibiotic therapy, and return of fevers off antibiotics post cholecystectomy Comes in with recurrent fevers/wt. loss Utox + for marijuana --chronic user and reports last doingit at New Years. Fever curve has improved Platelet count is improving WBC improved CT c/a/p --mild splenomegaly No adenopathy ESR/Ferritin improving Anemia-- anemia of chronic disease. Check iron -tibc ferritin trending down check B12/folate/Retic/TSH SIFE negative To follow up with Dr. Brito Gave contact nos. to patient will need CBC check on Emily/Fri --discussed with patient
[2019-09-03 18:07] LABS: ATYPICAL pANCA <1:20 titer (Neg:<1:20); C-ANCA <1:20 titer (Neg:<1:20)
[2019-09-03 18:20] VITALS: BP 110/70; PULSE 86; TEMP 98.1
[2019-09-08 14:30] LABS: EPSTEIN BARR ANTIBODY IgM <36
== END 2019-09-03 19:26 | disposition home or self-care (01) | DRG 469 ==
LOC: JER 12:11 → JERBED 17:42 → J8W 08-29 01:19
PROVIDERS: ADMIT Internal Medicine; ATTEND Internal Medicine
DX: N17.9 Acute kidney failure, unspecified (principal); E66.01 Morbid (severe) obesity due to excess calories; I10 Essential (primary) hypertension; F12.90 Cannabis use, unspecified, uncomplicated; R16.1 Splenomegaly, not elsewhere classified; D50.0 Iron deficiency anemia secondary to blood loss (chronic); R50.9 Fever, unspecified; E83.42 Hypomagnesemia; R65.10 Systemic inflammatory response syndrome (SIRS) of non-infectious origin without acute organ dysfunction; Z68.42 Body mass index [BMI] 45.0-49.9, adult; E87.1 Hypo-osmolality and hyponatremia; D69.6 Thrombocytopenia, unspecified; I89.0 Lymphedema, not elsewhere classified; E78.5 Hyperlipidemia, unspecified; E86.0 Dehydration
CPT/HCPCS: 36415; 71045-TC-FY; 71260-TC; 74176-TC; 74177-TC; 76775-TC; 76856-TC; 80048; 80053; 80074; 80307; 81003; 82150; 82248; 82272; 82436; 82550; 82565; 82570; 82728; 82930; 83010; 83516; 83520; 83605; 83615; 83690; 83735; 83930; 83935; 84100; 84133; 84155; 84156; 84157; 84165; 84300; 84443; 84478; 84484; 84550; 85025; 85027; 85384; 85610; 85651; 85730; 86038; 86140; 86256; 86308; 86317; 86618; 86644; 86645; 86663; 86664; 86665; 86666; 86747; 86803; 86880; 87040; 87086; 87207; 87389; 87496; 87536; 87799; 87804; 93005; 93010; 93306-TC; 93970-TC; 97116-GP; 97161-GP; 99285-25; J0131; J7030; Q9967

== ENCOUNTER 2020-01-08 20:10 | Inpatient (IN) | payer OTHER ==
[2020-01-08] MEDS ORDERED: ONDANSETRON 4 MG/2 ML VIAL IVPUSH ONE (20:47)
[2020-01-08] MEDS ORDERED: SODIUM CHLORIDE 0.9% 500 ML INFUS.BAG IV ONE (20:47)
[2020-01-08] MEDS ORDERED: ONDANSETRON 4 MG/2 ML VIAL ONE (21:28)
[2020-01-08 22:31] LABS: BASO % 0.4 % (0-2.0); EOS % 0.3 % (0-4.5); HEMATOCRIT 33.4 % (35.4-49); HEMOGLOBIN 11.6 GM/dL (11.7-16.9); LYMPH % 7.3 % (8-40); MCH 28.6 pg (25.7-33.7); MCHC 34.9 g/dl (32.0-35.9); MEAN PLT VOLUME 9.9 fl (7.5-11.1); PLATELET COUNT 104 K/MM3 (134-434); RBC 4.07 M/mm3 (4.00-5.60); RDW 14.2 % (11.9-15.9); WHITE BLOOD COUNT 6.5 K/mm3 (4.0-10.0)
[2020-01-08 22:40] LABS: INR 1.53 (0.83-1.09); PROTHROMBIN TIME (PATIENT) 18.1 SEC (9.7-13.0)
[2020-01-08] MEDS ORDERED: SODIUM CHLORIDE 1,000 ML IV STA (22:43)
[2020-01-08 23:10] LABS: ALBUMIN 2.5 g/dl (3.4-5.0); ALK PHOS 89 U/L (45-117); BILIRUBIN,TOTAL 2.2 mg/dL (0.2-1); BLOOD UREA NITROGEN 69.1 mg/dL (7-18); CALCIUM 7.8 mg/dL (8.5-10.1); CHLORIDE 95 mmol/L (98-107); CO2 19 mmol/L (21-32); CREATININE 4.9 mg/dL (0.55-1.3); GLUCOSE,RANDOM 104 mg/dL (74-106); LIPASE 201 U/L (73-393); SGOT/AST 135 U/L (15-37); SGPT/ALT 92 U/L (13-61); SODIUM 130 mmol/L (136-145); TOT PROT 6.6 g/dl (6.4-8.2)
[2020-01-08 23:17] LABS: ANION GAP 16 MMOL/L (8-16)
[2020-01-08 23:19] LABS: POTASSIUM 2.9 mmol/L (3.5-5.1)
[2020-01-08] MEDS ORDERED: POTASSIUM CHLORIDE TABS 20 MEQ TABLET.ER (FP) PO ONE ×2 (23:27→23:29)
[2020-01-08] MEDS ORDERED: DEXTROSE 5%-0.45% SALINE 1,000 ML IV SCH (23:45)
[2020-01-09 00:39] LABS: EPI CELLS 25 /uL (0-25.1); HYALINE CASTS 5 /uL (0-3.1); URINE APPEARANCE TURBID; URINE BACTERIA 60 /uL (0-1359); URINE BILIRUBIN NEGATIVE (NEGATIVE); URINE COLOR DK YELLOW; URINE GLUCOSE (UA) NEGATIVE (NEGATIVE); URINE KETONE NEGATIVE (NEGATIVE); URINE LEUK ESTERASE 1+ (NEGATIVE); URINE NITRITE NEGATIVE (NEGATIVE); URINE PROTEIN 2+ (NEGATIVE); URINE WBC 80 /uL (0-25.8); YEAST REVIEW (NEGATIVE)
[2020-01-09] MEDS ORDERED: KCL 10 MEQ IVPB 10 MEQ/100 ML INFUS.BAG IVPB SCH (01:30)
[2020-01-09] MEDS ORDERED: KCL 10 MEQ IVPB 10 MEQ/100 ML INFUS.BAG IVPB ONE (01:55)
[2020-01-09] MEDS ORDERED: POTASSIUM CHLORIDE TABS 20 MEQ TABLET.ER (FP) PO ONE (08:28)
[2020-01-09] MEDS ORDERED: SODIUM CHLORIDE 1,000 ML IV SCH (08:30)
[2020-01-09 08:37] LABS: BASO % 0.9 % (0-2.0); EOS % 0.4 % (0-4.5); HEMATOCRIT 29.6 % (35.4-49); HEMOGLOBIN 10.3 GM/dL (11.7-16.9); LYMPH % 6.9 % (8-40); MCH 28.5 pg (25.7-33.7); MCHC 34.7 g/dl (32.0-35.9); MEAN CELL VOLUME 82.2 fl (80-96); MEAN PLT VOLUME 9.7 fl (7.5-11.1); MONO % 17.3 % (3.8-10.2); NEUT % 74.5 % (42.8-82.8); PLATELET COUNT 96 K/MM3 (134-434); RDW 14.1 % (11.9-15.9); WHITE BLOOD COUNT 5.2 K/mm3 (4.0-10.0)
[2020-01-09 08:59] LABS: ALBUMIN 2.2 g/dl (3.4-5.0); BLOOD UREA NITROGEN 69.8 mg/dL (7-18); CALCIUM 7.4 mg/dL (8.5-10.1); CREATININE 4.6 mg/dL (0.55-1.3); MAGNESIUM 2.7 mg/dL (1.8-2.4); TOT PROT 5.7 g/dl (6.4-8.2)
[2020-01-09] MEDS: ACETAMINOPHEN 325 MG TABLET (FP) PO PRN ×3 (09:43→21:20)
[2020-01-09] MEDS ORDERED: PIPERACILLIN/TAZOB 2.25 GM 2.25 GM in DEXTROSE 5%-WATER - 50 ML IVPB ONE (10:06)
[2020-01-09] MEDS ORDERED: VANCOMYCIN 1 GRAM (PRE-DOCKED) 1,000 MG/250 ML BAG IVPB ONE (10:07)
[2020-01-09 10:12] LABS: COCAINE, UR NEGATIVE ng/ml (CUTOFF=300); OPIATES, URI NEGATIVE ng/ml (CUTOFF=300); PHENCYCLIDINE,URINE NEGATIVE ng/ml (CUTOFF=25); URINE BARBITURATES NEGATIVE ng/ml (CUTOFF=200)
[2020-01-09 10:14] LABS: METHADONE, UR NEGATIVE ng/ml (CUTOFF=300); URINE AMPHETAMINES NEGATIVE ng/ml (CUTOFF=500); URINE BENZODIAZEPINES NEGATIVE ng/ml (CUTOFF=200)
[2020-01-09] MEDS ORDERED: ONDANSETRON 4 MG/2 ML VIAL IVPUSH PRN (10:17)
[2020-01-09 10:20] LABS: ANISOCYTOSIS 0; MACROCYTOSIS 0; PLATELET ESTIMATE DECREASED
[2020-01-09] MEDS: KCL 10 MEQ IVPB 10 MEQ/100 ML INFUS.BAG IVPB SCH ×2 (11:47→15:02)
[2020-01-09] MEDS ORDERED: DEXTROSE 5%-WATER - 50 ML IVPB ONE ×2 (12:23→18:23)
[2020-01-09] MEDS ORDERED: PIPERACILLIN/TAZOBACTAM 2.25 GM VIAL IVPB ONE ×2 (12:23→18:23)
[2020-01-09 12:38] LABS: BASO % 0.5 % (0-2.0); EOS % 0.6 % (0-4.5); HEMATOCRIT 29.1 % (35.4-49); HEMOGLOBIN 9.9 GM/dL (11.7-16.9); LYMPH % 6.7 % (8-40); MCH 28.1 pg (25.7-33.7); MEAN CELL VOLUME 82.5 fl (80-96); MEAN PLT VOLUME 9.8 fl (7.5-11.1); MONO % 15.8 % (3.8-10.2); NEUT % 76.4 % (42.8-82.8); PLATELET COUNT 95 K/MM3 (134-434); RBC 3.53 M/mm3 (4.00-5.60); RDW 14.2 % (11.9-15.9); WHITE BLOOD COUNT 4.9 K/mm3 (4.0-10.0)
[2020-01-09 13:05] LABS: EPI CELLS 17 /uL (0-25.1); HYALINE CASTS 2 /uL (0-3.1); URINE APPEARANCE CLOUDY; URINE BACTERIA 46 /uL (0-1359); URINE BILIRUBIN NEGATIVE (NEGATIVE); URINE COLOR YELLOW; URINE GLUCOSE (UA) NEGATIVE (NEGATIVE); URINE KETONE NEGATIVE (NEGATIVE); URINE LEUK ESTERASE TRACE (NEGATIVE); URINE NITRITE NEGATIVE (NEGATIVE); URINE PROTEIN 2+ (NEGATIVE); URINE WBC 54 /uL (0-25.8)
[2020-01-09 13:11] LABS: ALBUMIN 2.2 g/dl (3.4-5.0); ALK PHOS 84 U/L (45-117); ANION GAP 12 MMOL/L (8-16); BLOOD UREA NITROGEN 68.9 mg/dL (7-18); CALCIUM 7.5 mg/dL (8.5-10.1); CHLORIDE 101 mmol/L (98-107); CO2 18 mmol/L (21-32); CREATININE 4.6 mg/dL (0.55-1.3); GLUCOSE,RANDOM 105 mg/dL (74-106); MAGNESIUM 2.8 mg/dL (1.8-2.4); PHOSPHOROUS 3.2 mg/dL (2.5-4.9); POTASSIUM 3.2 mmol/L (3.5-5.1); SGOT/AST 111 U/L (15-37); SGPT/ALT 83 U/L (13-61); SODIUM 131 mmol/L (136-145); TOT PROT 5.7 g/dl (6.4-8.2)
[2020-01-09] MEDS: HEPARIN NA (PORCINE) 5,000 UNITS/ML 1ML VIAL SQ SCH ×2 (13:26→21:20)
[2020-01-09 13:31] LABS: EPI CELLS 19 /uL (0-25.1); HYALINE CASTS 2 /uL (0-3.1); URINE APPEARANCE CLOUDY; URINE BACTERIA 66 /uL (0-1359); URINE BILIRUBIN NEGATIVE (NEGATIVE); URINE COLOR YELLOW; URINE GLUCOSE (UA) NEGATIVE (NEGATIVE); URINE KETONE NEGATIVE (NEGATIVE); URINE LEUK ESTERASE TRACE (NEGATIVE); URINE NITRITE NEGATIVE (NEGATIVE); URINE PROTEIN 2+ (NEGATIVE); URINE WBC 61 /uL (0-25.8)
[2020-01-09 13:48] LABS: URINE RBC 34.2 /uL (0-23.9)
[2020-01-09] MEDS ORDERED: PT OWN MED DRAWER 7, Y5N ONE (13:54)
[2020-01-09 14:05] LABS: ANISOCYTOSIS 0; MACROCYTOSIS 0; PLATELET ESTIMATE DECREASED
[2020-01-09 14:59] LABS: URINE RBC 21.8 /uL (0-23.9)
[2020-01-09] MEDS: PIPERACILLIN/TAZOB 2.25 GM 2.25 GM in DEXTROSE 5%-WATER - 50 ML IVPB SCH (18:44)
[2020-01-09] MEDS ORDERED: ACETAMINOPHEN 1000 MG/100 ML VIAL (NON FORMULARY) IVPB ONE (23:21)
[2020-01-10] MEDS ORDERED: PIPERACILLIN/TAZOBACTAM 2.25 GM VIAL IVPB ONE ×3 (01:05→17:27)
[2020-01-10] MEDS ORDERED: DEXTROSE 5%-WATER - 50 ML IVPB ONE ×3 (01:06→17:28)
[2020-01-10] MEDS: PIPERACILLIN/TAZOB 2.25 GM 2.25 GM in DEXTROSE 5%-WATER - 50 ML IVPB SCH ×3 (01:14→19:07)
[2020-01-10] MEDS ORDERED: VANCOMYCIN HCL 1,500 MG in DEXTROSE 5%-WATER - 500 ML IVPB ONE (05:23)
[2020-01-10] MEDS ORDERED: VANCOMYCIN HCL 1,250 MG in DEXTROSE 5%-WATER - 250 ML IVPB ONE ×2 (06:00→08:15)
[2020-01-10] MEDS: HEPARIN NA (PORCINE) 5,000 UNITS/ML 1ML VIAL SQ SCH ×3 (06:22→22:21)
[2020-01-10 06:42] LABS: BASO % 0.3 % (0-2.0); EOS % 0.9 % (0-4.5); HEMATOCRIT 30.6 % (35.4-49); HEMOGLOBIN 10.4 GM/dL (11.7-16.9); LYMPH % 4.4 % (8-40); MCH 28.5 pg (25.7-33.7); MCHC 34.2 g/dl (32.0-35.9); MEAN CELL VOLUME 83.6 fl (80-96); MEAN PLT VOLUME 9.4 fl (7.5-11.1); MONO % 13.6 % (3.8-10.2); NEUT % 80.8 % (42.8-82.8); PLATELET COUNT 90 K/MM3 (134-434); RBC 3.66 M/mm3 (4.00-5.60); RDW 14.1 % (11.9-15.9); WHITE BLOOD COUNT 6.3 K/mm3 (4.0-10.0)
[2020-01-10 06:50] LABS: ALBUMIN 2.3 g/dl (3.4-5.0); BILIRUBIN,TOTAL 2.2 mg/dL (0.2-1); BLOOD UREA NITROGEN 70.9 mg/dL (7-18); CALCIUM 7.8 mg/dL (8.5-10.1); CREATININE 4.4 mg/dL (0.55-1.3); MAGNESIUM 3.1 mg/dL (1.8-2.4); PHOSPHOROUS 3.9 mg/dL (2.5-4.9); POTASSIUM 3.4 mmol/L (3.5-5.1); TOT PROT 6.1 g/dl (6.4-8.2)
[2020-01-10] MEDS ORDERED: HEPARIN NA (PORCINE) 5,000 UNITS/ML 1ML VIAL SQ SCH (07:32)
[2020-01-10] MEDS: ACETAMINOPHEN 325 MG TABLET (FP) PO PRN ×3 (08:23→22:21)
[2020-01-10 08:41] LABS: ANISOCYTOSIS 1+; MACROCYTOSIS 0; PLATELET ESTIMATE NORMAL
[2020-01-10] MEDS: KCL 10 MEQ IVPB 10 MEQ/100 ML INFUS.BAG IVPB SCH ×2 (08:43→11:37)
[2020-01-10] MEDS ORDERED: PT OWN MED DRAWER 7, Y5N ONE (08:47)
[2020-01-10] MEDS ORDERED: SODIUM CHLORIDE 1,000 ML IV STA (10:21)
[2020-01-10] MEDS ORDERED: POTASSIUM CHLORIDE ORAL LIQUID 20 MEQ/15 ML PO ONE (10:21)
[2020-01-10] MEDS ORDERED: SODIUM CHLORIDE 1,000 ML IV SCH ×2 (10:30→11:45)
[2020-01-10] MEDS: LABETALOL HCL 100 MG TABLET (FP) PO SCH ×2 (11:14→22:22)
[2020-01-10] MEDS: amLODIPine BESYLATE 10 MG TABLET (FP) PO SCH (12:44)
[2020-01-10 14:06] VITALS: BMI 49.0
[2020-01-10] MEDS ORDERED: ACETAMINOPHEN 1000 MG/100 ML VIAL (NON FORMULARY) IVPB ONE (18:54)
[2020-01-10] MEDS: SODIUM CHLORIDE 1,000 ML IV SCH (19:06)
[2020-01-11] MEDS ORDERED: PIPERACILLIN/TAZOBACTAM 2.25 GM VIAL IVPB ONE (01:33)
[2020-01-11] MEDS ORDERED: DEXTROSE 5%-WATER - 50 ML IVPB ONE (01:33)
[2020-01-11] MEDS: PIPERACILLIN/TAZOB 2.25 GM 2.25 GM in DEXTROSE 5%-WATER - 50 ML IVPB SCH (01:43)
[2020-01-11] MEDS ORDERED: ACETAMINOPHEN INJECTION 100 ML IVPB ONE (02:50)
[2020-01-11] MEDS: ACETAMINOPHEN 1000 MG/100 ML VIAL (NON FORMULARY) IVPB PRN ×2 (02:52→10:48)
[2020-01-11] MEDS: HEPARIN NA (PORCINE) 5,000 UNITS/ML 1ML VIAL SQ SCH (06:29)
[2020-01-11 06:44] LABS: BASO % 0.5 % (0-2.0); EOS % 1.6 % (0-4.5); HEMATOCRIT 30.1 % (35.4-49); HEMOGLOBIN 10.1 GM/dL (11.7-16.9); MCH 28.2 pg (25.7-33.7); MCHC 33.7 g/dl (32.0-35.9); MEAN CELL VOLUME 83.7 fl (80-96); MEAN PLT VOLUME 9.5 fl (7.5-11.1); MONO % 18.9 % (3.8-10.2); PLATELET COUNT 79 K/MM3 (134-434); RDW 14.5 % (11.9-15.9); WHITE BLOOD COUNT 4.8 K/mm3 (4.0-10.0)
[2020-01-11 07:15] LABS: BILIRUBIN,TOTAL 1.7 mg/dL (0.2-1); BLOOD UREA NITROGEN 64.9 mg/dL (7-18); CALCIUM 7.4 mg/dL (8.5-10.1); CREATININE 3.6 mg/dL (0.55-1.3); MAGNESIUM 2.6 mg/dL (1.8-2.4); PHOSPHOROUS 3.5 mg/dL (2.5-4.9); POTASSIUM 3.5 mmol/L (3.5-5.1); TOT PROT 5.5 g/dl (6.4-8.2)
[2020-01-11] MEDS: LABETALOL HCL 100 MG TABLET (FP) PO SCH (09:03)
[2020-01-11] MEDS: amLODIPine BESYLATE 10 MG TABLET (FP) PO SCH (10:06)
[2020-01-11 12:48] LABS: TEAR DROP CELLS 1+
[2020-01-11 12:49] LABS: OVALOCYTE 1+
[2020-01-11] MEDS: SODIUM CHLORIDE 1,000 ML IV SCH (17:54)
[2020-01-11] MEDS ORDERED: DOXYCYCLINE INJECTION 100 MG in DEXTROSE 5%-WATER 100 ML IVPB SCH (18:28)
[2020-01-11] MEDS ORDERED: DOXYCYCLINE HYCLATE 100 MG VIAL ONE (18:45)
[2020-01-11] MEDS ORDERED: DEXTROSE 5%-WATER 100 ML IVPB ONE (18:46)
[2020-01-11 18:53] VITALS: BP 117/90; PULSE 113; TEMP 99.5
== END 2020-01-11 19:44 | disposition short-term general hospital (02) | DRG 661 ==
LOC: JER 20:10 → JERBED 23:35 → JICU 01-09 06:39
PROVIDERS: ADMIT Internal Medicine; ATTEND Internal Medicine
DX: D76.1 Hemophagocytic lymphohistiocytosis (principal); I89.0 Lymphedema, not elsewhere classified; K21.9 Gastro-esophageal reflux disease without esophagitis; E87.6 Hypokalemia; E86.0 Dehydration; F12.10 Cannabis abuse, uncomplicated; R00.0 Tachycardia, unspecified; D69.6 Thrombocytopenia, unspecified; E66.01 Morbid (severe) obesity due to excess calories; A41.89 Other specified sepsis; Z68.42 Body mass index [BMI] 45.0-49.9, adult; M62.82 Rhabdomyolysis; E87.1 Hypo-osmolality and hyponatremia; N17.9 Acute kidney failure, unspecified; I10 Essential (primary) hypertension; R11.2 Nausea with vomiting, unspecified; E78.5 Hyperlipidemia, unspecified; K52.9 Noninfective gastroenteritis and colitis, unspecified; R94.5 Abnormal results of liver function studies; R94.31 Abnormal electrocardiogram [ECG] [EKG]; D64.9 Anemia, unspecified; F10.20 Alcohol dependence, uncomplicated; R16.2 Hepatomegaly with splenomegaly, not elsewhere classified; I12.9 Hypertensive chronic kidney disease with stage 1 through stage 4 chronic kidney disease, or unspecified chronic kidney disease; N18.9 Chronic kidney disease, unspecified
CPT/HCPCS: 36415; 71045-TC-FY; 71250-TC; 74176-TC; 76775-TC; 80053; 80061; 80307; 81003; 82436; 82550; 82553; 82565; 82668; 82728; 82962; 83036; 83605; 83615; 83690; 83721; 83735; 83930; 83935; 84100; 84133; 84300; 84484; 85025; 85044; 85379; 85384; 85610; 86140; 86308; 87040; 87045; 87046; 87086; 87324; 87449; 87799; 88300-TC; 93005; 93010; 93306-TC; 93970-TC; 94660; 99285-25; J0131; J1644; U0003

== ENCOUNTER 2022-08-23 10:01 | Emergency (ER) | payer OTHER ==
[2022-08-23 10:15] VITALS: BP 140/94; PULSE 89; RESP 18; TEMP 98; BMI 31.0
[2022-08-23 12:37] LABS: BASO % 0.4 % (0-2.0); EOS % 0.4 % (0-4.5); HEMATOCRIT 43.8 % (35.4-49); HEMOGLOBIN 14.6 GM/dL (11.7-16.9); LYMPH % 7.8 % (8-40); MCH 29.5 pg (25.7-33.7); MCHC 33.3 g/dl (32.0-35.9); MEAN CELL VOLUME 88.8 fl (80-96); MEAN PLT VOLUME 7.9 fl (7.5-11.1); MONO % 8.5 % (3.8-10.2); NEUT % 82.9 % (42.8-82.8); PLATELET COUNT 207 10^3/uL (134-434); RBC 4.94 M/mm3 (4.00-5.60); RDW 13.6 % (11.9-15.9); WHITE BLOOD COUNT 9.4 K/mm3 (4.0-10.0)
[2022-08-23 12:42] LABS: VENOUS BASE EXCESS 0.3 mmol/L (-2-2); VENOUS PCO2 48.2 mmHg (38-52); VENOUS PH 7.358 (7.310-7.410)
[2022-08-23 12:47] LABS: INR 0.97 (0.83-1.09); PROTHROMBIN TIME (PATIENT) 11.1 SEC (9.7-13.0)
[2022-08-23 12:50] LABS: ACTIVATED PTT 29.5 SECONDS (25.2-36.5)
[2022-08-23 13:08] LABS: CALCIUM 9.5 mg/dL (8.5-10.1); PHOSPHOROUS 3.4 mg/dL (2.5-4.9)
[2022-08-23 13:09] LABS: BLOOD UREA NITROGEN 14.9 mg/dL (7-18); MAGNESIUM 2.1 mg/dL (1.8-2.4)
[2022-08-23 13:10] LABS: BILIRUBIN,TOTAL 0.8 mg/dL (0.2-1); TOT PROT 7.4 g/dl (6.4-8.2)
[2022-08-23 13:12] LABS: CREATININE 1.4 mg/dL (0.55-1.3)
== END 2022-08-23 14:28 | disposition home or self-care (01) ==
LOC: JER 10:01
DX: R41.3 Other amnesia (principal)
CPT/HCPCS: 0241U-QW; 36415; 70450-TC; 71046-TC-FY; 80053; 82803; 83735; 84100; 84484; 85025; 85610; 85730; 86850; 86900; 86901; 87040; 93005; 93010; 99285-25

== ENCOUNTER 2023-12-24 10:30 | Inpatient (IN) | payer OTHER ==
[2023-12-24 10:39] VITALS: BMI 51.7
[2023-12-24] MEDS ORDERED: ACETAMINOPHEN 325 MG TABLET (FP) ONE (11:47)
[2023-12-24] MEDS: ACETAMINOPHEN 325 MG TABLET (FP) PO ONE (11:53)
[2023-12-24] MEDS: SODIUM CHLORIDE 0.9% 500 ML INFUS.BAG IV ONE ×2 (12:50→13:54)
[2023-12-24 13:35] LABS: BASO % 0.4 % (0-2.0); HEMATOCRIT 52.4 % (35.4-49); HEMOGLOBIN 17.7 GM/dL (11.7-16.9); MCH 29.2 pg (25.7-33.7); MCHC 33.7 g/dl (32.0-35.9); MEAN CELL VOLUME 86.7 fl (80-96); MEAN PLT VOLUME 8.9 fl (7.5-11.1); MONO % 14.9 % (3.8-10.2); NEUT % 71.7 % (42.8-82.8); PLATELET COUNT 238 10^3/uL (134-434); RBC 6.05 M/mm3 (4.00-5.60); RDW 14.7 % (11.9-15.9)
[2023-12-24 13:52] LABS: VENOUS BASE EXCESS -3.3 mmol/L (-2-2); VENOUS O2 SATURATION 91.6 % (70-80); VENOUS PCO2 35.3 mmHg (38-52); VENOUS PH 7.388 (7.310-7.410)
[2023-12-24 13:52] LABS: ACTIVATED PTT 28.6 SECONDS (25.2-36.5); INR 1.1 (0.83-1.09); PROTHROMBIN TIME (PATIENT) 12.4 SEC (9.7-13.0)
[2023-12-24 13:59] LABS: POTASSIUM 4.4 mmol/L (3.5-5.1)
[2023-12-24 14:01] LABS: ALBUMIN 3.1 g/dl (3.4-5.0); CALCIUM 8.6 mg/dL (8.5-10.1)
[2023-12-24 14:02] LABS: BLOOD UREA NITROGEN 15.6 mg/dL (7-18)
[2023-12-24 14:05] LABS: CREATININE 1.3 mg/dL (0.55-1.3)
[2023-12-24 14:06] LABS: BILIRUBIN,TOTAL 1.2 mg/dL (0.2-1)
[2023-12-24] MEDS: SODIUM CHLORIDE 0.9% 1000 ML INFUS.BAG IV STA (14:49)
[2023-12-24 15:18] LABS: EPI CELLS 33 /uL (0-25.1); HYALINE CASTS 3 /uL (0-3.1); PH,URINE 5.5 (5.0-8.0); URINE APPEARANCE CLEAR; URINE BACTERIA 148 /uL (0-1359); URINE BILIRUBIN NEGATIVE (NEGATIVE); URINE COLOR DK YELLOW; URINE GLUCOSE (UA) NEGATIVE (NEGATIVE); URINE KETONE TRACE (NEGATIVE); URINE LEUK ESTERASE NEGATIVE (NEGATIVE); URINE NITRITE NEGATIVE (NEGATIVE); URINE PROTEIN 3+ (NEGATIVE)
[2023-12-24 15:42] LABS: URINE RBC 27.7 /uL (0-23.9)
[2023-12-24] MEDS: AZITHROMYCIN 250 MG TABLET PO ONE (16:05)
[2023-12-24] MEDS ORDERED: AZITHROMYCIN 500 MG TABLET ONE (16:50)
[2023-12-24] MEDS: CEFTRIAXONE 1,000 MG in DEXTROSE 5%-WATER - 50 ML IVPB ONE (16:50)
[2023-12-24] MEDS ORDERED: CEFTRIAXONE 1 GM/50 ML BAG ONE (16:54)
[2023-12-24 17:58] LABS: BILIRUBIN,DIRECT 0.3 mg/dL (0.0-0.2)
[2023-12-24] MEDS ORDERED: ACETAMINOPHEN INJECTION 100 ML IVPB ONE (18:42)
[2023-12-24] MEDS: ACETAMINOPHEN 1000 MG/100 ML BAG IVPB ONE (18:50)
[2023-12-24] MEDS ORDERED: LABETALOL HCL 200 MG TABLET (FP) ONE (21:47)
[2023-12-24] MEDS: LABETALOL HCL 200 MG TABLET (FP) PO SCH (21:57)
[2023-12-25] MEDS ORDERED: ACETAMINOPHEN 325 MG TABLET (FP) ONE (04:05)
[2023-12-25] MEDS ORDERED: KETOROLAC TROMETHAMINE 10 MG TABLET PO ONE (04:41)
[2023-12-25] MEDS: KETOROLAC TROMETHAMINE 10 MG TABLET PO ONE (04:43)
[2023-12-25 08:15] LABS: BASO % 0.6 % (0-2.0); EOS % 7.4 % (0-4.5); HEMATOCRIT 45.7 % (35.4-49); HEMOGLOBIN 15.4 GM/dL (11.7-16.9); LYMPH % 8.5 % (8-40); MCH 29.3 pg (25.7-33.7); MCHC 33.8 g/dl (32.0-35.9); MEAN CELL VOLUME 86.6 fl (80-96); MEAN PLT VOLUME 8.6 fl (7.5-11.1); MONO % 15.2 % (3.8-10.2); NEUT % 68.3 % (42.8-82.8); PLATELET COUNT 211 10^3/uL (134-434); RBC 5.27 M/mm3 (4.00-5.60); RDW 14.4 % (11.9-15.9); WHITE BLOOD COUNT 13.2 K/mm3 (4.0-10.0)
[2023-12-25 08:41] LABS: POTASSIUM 3.7 mmol/L (3.5-5.1)
[2023-12-25 08:48] LABS: CALCIUM 7.9 mg/dL (8.5-10.1)
[2023-12-25 08:49] LABS: MAGNESIUM 1.9 mg/dL (1.8-2.4)
[2023-12-25 08:50] LABS: BLOOD UREA NITROGEN 16.4 mg/dL (7-18)
[2023-12-25 08:52] LABS: CREATININE 1.2 mg/dL (0.55-1.3); PHOSPHOROUS 2.9 mg/dL (2.5-4.9)
[2023-12-25] MEDS: ENOXAPARIN NA (PORCINE) 40 MG/0.4 ML DISP.SYRIN SQ SCH (10:52)
[2023-12-25] MEDS: AZITHROMYCIN IVPB 500 MG/250 ML BAG IVPB SCH (10:52)
[2023-12-25] MEDS: CEFTRIAXONE 1 GM in DEXTROSE 5%-WATER - 50 ML IVPB SCH (10:52)
[2023-12-25] MEDS: PANTOPRAZOLE 40 MG TABLET PO SCH (10:54)
[2023-12-25] MEDS: amLODIPine BESYLATE 10 MG TABLET (FP) PO SCH (10:54)
[2023-12-25 11:06] LABS: N-TERMINAL BNP 496.7 pg/ml (5-125)
[2023-12-25 15:16] VITALS: RESP 18
[2023-12-25] MEDS: ACETAMINOPHEN 325 MG TABLET (FP) PO PRN (20:59)
[2023-12-25] MEDS: ATORVASTATIN CA 20 MG TABLET (FP) PO SCH (21:40)
[2023-12-25] MEDS: LIDOCAINE 4% PATCH TP ONE (23:46)
[2023-12-25] MEDS: LIDOCAINE PATCH REMOVAL MC SCH (23:50)
[2023-12-26 08:09] LABS: BASO % 0.5 % (0-2.0); EOS % 9.8 % (0-4.5); HEMATOCRIT 42.4 % (35.4-49); MCH 28.9 pg (25.7-33.7); MEAN CELL VOLUME 87.7 fl (80-96); MEAN PLT VOLUME 8.4 fl (7.5-11.1); MONO % 14.4 % (3.8-10.2); NEUT % 65.3 % (42.8-82.8); PLATELET COUNT 216 10^3/uL (134-434); RBC 4.84 M/mm3 (4.00-5.60); RDW 14.2 % (11.9-15.9); WHITE BLOOD COUNT 10.4 K/mm3 (4.0-10.0)
[2023-12-26 08:24] LABS: POTASSIUM 3.8 mmol/L (3.5-5.1)
[2023-12-26 08:34] LABS: BLOOD UREA NITROGEN 14.8 mg/dL (7-18)
[2023-12-26 08:35] LABS: ALBUMIN 2.8 g/dl (3.4-5.0)
[2023-12-26 08:36] LABS: CREATININE 1.1 mg/dL (0.55-1.3)
[2023-12-26 08:37] LABS: BILIRUBIN,TOTAL 0.8 mg/dL (0.2-1)
[2023-12-26 08:38] LABS: TOT PROT 6.4 g/dl (6.4-8.2)
[2023-12-26 14:55] VITALS: BP 160/97; PULSE 91; TEMP 98.9
== END 2023-12-26 18:34 | disposition home or self-care (01) | DRG 143 ==
LOC: JER 10:30 → UNDOADMOB 16:29 → JERBED 16:29 → INTOOBSV 16:38 → OBSVTOIN 16:38 → JERBED 19:42 → J8W 12-25 05:46
PROVIDERS: ADMIT Internal Medicine; ATTEND Nurse Practitioner Acute Care
DX: J90 Pleural effusion, not elsewhere classified (principal); I16.0 Hypertensive urgency; I12.9 Hypertensive chronic kidney disease with stage 1 through stage 4 chronic kidney disease, or unspecified chronic kidney disease; N18.9 Chronic kidney disease, unspecified; E66.01 Morbid (severe) obesity due to excess calories; Z68.43 Body mass index [BMI] 50.0-59.9, adult; K21.9 Gastro-esophageal reflux disease without esophagitis; E78.5 Hyperlipidemia, unspecified; G81.90 Hemiplegia, unspecified affecting unspecified side; J98.4 Other disorders of lung; R80.9 Proteinuria, unspecified
CPT/HCPCS: 0241U-QW; 36415; 71045-TC-FY; 71275-TC; 76604-TC; 76775-TC; 80048; 80053; 81003; 82248; 82803; 83605; 83615; 83690; 83735; 83880; 84100; 84443; 84484; 85025; 85610; 85730; 87040; 87086; 87899; 93005; 93010; 93306-TC; 99285-25; J0131; Q9967

== ENCOUNTER → 2024-02-02 | Day surgery (SDC) | payer OTHER ==
[2024-01-25 13:09] VITALS: BMI 50.9
[~2024-02-02] MED LIST: ACETAMINOPHEN 500 MG TABLET (FP) PO PRN; DEXAMETHASONE SOD PHOSPHATE 10 MG/1 ML VIAL ONE; LIDOCAINE HCL/PF 1% SDV 5ML VIAL ONE
[2024-02-02] MEDS: IOHEXOL 180 MG/1 ML ML IJ ONE
[2024-02-02] MEDS: LIDOCAINE 1% P/F 10 MG/ML VIAL PNB ONE
[2024-02-02] MEDS: DEXAMETHASONE SOD PHOSPHATE 10 MG/1 ML VIAL IVPUSH ONE
== END | disposition home or self-care (01) ==
LOC: JASU-SURG 04:31
PROVIDERS: ATTEND Pain Medicine Pain Medicine
DX: Z53.8 Procedure and treatment not carried out for other reasons (principal)
CPT/HCPCS: J1100

== ENCOUNTER 2024-02-06 17:33 | Emergency (ER) | payer OTHER ==
[2024-02-06 17:56] VITALS: BP 118/73; PULSE 85; RESP 18; TEMP 98.9; BMI 50.9
== END 2024-02-06 18:45 | disposition home or self-care (01) ==
LOC: JERFT 17:33
DX: L03.213 Periorbital cellulitis (principal)
CPT/HCPCS: 99283-25

== ENCOUNTER 2024-03-08 04:27 | Day surgery (SDC) | payer OTHER ==
[2024-03-05 16:08] VITALS: BMI 50.9
[2024-03-08 09:25] VITALS: RESP 18
[2024-03-08] MEDS: DEXAMETHASONE SOD PHOSPHATE 10 MG/1 ML VIAL IVPUSH ONE ×2 (11:09)
[2024-03-08] MEDS: IOHEXOL 180 MG/1 ML ML IJ ONE ×2 (11:10)
[2024-03-08] MEDS: LIDOCAINE 1% P/F 10 MG/ML VIAL PNB ONE ×2 (11:10)
[2024-03-08 11:39] VITALS: BP 107/68; PULSE 71; TEMP 98.4
[2024-03-08] MEDS ORDERED: ACETAMINOPHEN 500 MG TABLET (FP) PO PRN (12:47)
== END 2024-03-08 11:50 | disposition home or self-care (01) ==
LOC: JASU-SURG 04:27
PROVIDERS: ATTEND Pain Medicine Pain Medicine
PROC: 3E0R3BZ Introduction of Anesthetic Agent into Spinal Canal, Percutaneous Approach (ICD-10-PCS; 2024-03-08)
PROC: 3E0R33Z Introduction of Anti-inflammatory into Spinal Canal, Percutaneous Approach (ICD-10-PCS; principal; 2024-03-08 10:30)
DX: M48.061 Spinal stenosis, lumbar region without neurogenic claudication (principal); M54.16 Radiculopathy, lumbar region
CPT/HCPCS: 76000-TC-FY; J1100

== ENCOUNTER 2024-04-05 04:31 | Day surgery (SDC) | payer OTHER ==
[2024-04-02 11:44] VITALS: BMI 50.9
[2024-04-05] MEDS: LIDOCAINE HCL 1% PRESERVATIVE FREE - 30ML VIAL IJ ONE
[2024-04-05] MEDS: IOHEXOL 180 MG/1 ML ML IJ ONE ×2 (11:29)
[2024-04-05] MEDS: DEXAMETHASONE SOD PHOSPHATE 10 MG/1 ML VIAL IM ONE ×2 (11:31)
[2024-04-05 11:47] VITALS: BP 124/65; PULSE 79; RESP 16; TEMP 97.6
[2024-04-05] MEDS ORDERED: ACETAMINOPHEN 500 MG TABLET (FP) PO PRN (13:16)
== END 2024-04-05 12:15 | disposition home or self-care (01) ==
LOC: JASU-SURG 04:31
PROVIDERS: ATTEND Pain Medicine Pain Medicine
PROC: 3E0R3BZ Introduction of Anesthetic Agent into Spinal Canal, Percutaneous Approach (ICD-10-PCS; 2024-04-05)
PROC: 00HU33Z Insertion of Infusion Device into Spinal Canal, Percutaneous Approach (ICD-10-PCS; 2024-04-05)
PROC: 3E0R33Z Introduction of Anti-inflammatory into Spinal Canal, Percutaneous Approach (ICD-10-PCS; principal; 2024-04-05 11:15)
DX: M54.16 Radiculopathy, lumbar region (principal)
CPT/HCPCS: 76000-TC-FY; J1100

== ENCOUNTER 2024-10-16 09:47 | Observation (INO) | payer OTHER ==
[2024-10-16] MEDS ORDERED: FUROSEMIDE 40 MG/4 ML INJECTABLE VIAL ONE (10:56)
[2024-10-16] MEDS ORDERED: amLODIPine BESYLATE 10 MG TABLET (FP) ONE (10:56)
[2024-10-16] MEDS ORDERED: LABETALOL HCL 100 MG TABLET (FP) ONE (11:01)
[2024-10-16 11:07] LABS: VENOUS BASE EXCESS -1.3 mmol/L (-2-2); VENOUS O2 SATURATION 80.5 % (70-80); VENOUS PCO2 43.3 mmHg (38-52); VENOUS PH 7.366 (7.310-7.410)
[2024-10-16 11:08] LABS: ABSOLUTE IMMATURE GRANULOCYTES 0.05 x10^3/uL (0.0-0.031); BASOPHILS # 0.05 x10^3/uL (0.01-0.08); EOSINOPHIL % 5.8 % (0.8-7.0); EOSINOPHILS # 0.49 x10^3/uL (0.04-0.54); MEAN CELL VOLUME 86.5 fl (79.0-92.2); MEAN PLT VOLUME 10.3 fl (9.4-12.4); MONOCYTE # 0.83 x10^3/uL (0.30-0.82); MONOCYTE % 9.8 % (5.3-12.2); PLATELET COUNT 279 x10^3/uL (163-337); RDW 16.4 % (12.1-15.9)
[2024-10-16] MEDS: amLODIPine BESYLATE 10 MG TABLET (FP) PO ONE (11:09)
[2024-10-16] MEDS: FUROSEMIDE 100 MG/10 ML INJECTABLE VIAL IVPB ONE (11:09)
[2024-10-16] MEDS: LABETALOL HCL 100 MG TABLET (FP) PO ONE ×2 (11:09)
[2024-10-16 11:14] LABS: INR 1.03 (0.83-1.09); PROTHROMBIN TIME (PATIENT) 11.2 SEC (9.7-13.0)
[2024-10-16 11:30] LABS: POTASSIUM 3.9 mmol/L (3.5-5.1)
[2024-10-16 11:32] LABS: BLOOD UREA NITROGEN 12.4 mg/dL (7-18); CALCIUM 8.7 mg/dL (8.5-10.1)
[2024-10-16 11:33] LABS: ALBUMIN 3.6 g/dl (3.4-5.0)
[2024-10-16 11:36] LABS: CREATININE 1.2 mg/dL (0.55-1.3)
[2024-10-16 11:38] LABS: BILIRUBIN,TOTAL 0.9 mg/dL (0.2-1); TOT PROT 7.6 g/dl (6.4-8.2)
[2024-10-16 11:41] LABS: N-TERMINAL BNP 3351.9 pg/ml (5-125)
[2024-10-16] MEDS ORDERED: ALBUTEROL SO4 2.5/IPRATROPIUM 0.5 INH SOL 3 ML VIAL.NEB. NEB PRN (15:01)
[2024-10-16] MEDS ORDERED: predniSONE 20 MG TABLET (UD) ONE (15:12)
[2024-10-16] MEDS: predniSONE 20 MG TABLET (UD) PO ONE (15:14)
[2024-10-16 16:39] VITALS: BMI 54.3
[2024-10-16] MEDS: AZITHROMYCIN 500 MG TABLET PO ONE (18:17)
[2024-10-16] MEDS: GABAPENTIN 300 MG CAPSULE PO SCH (21:18)
[2024-10-16] MEDS: LABETALOL HCL 200 MG TABLET (FP) PO SCH (21:18)
[2024-10-16] MEDS: ATORVASTATIN CA 20 MG TABLET (FP) PO SCH (21:18)
[2024-10-16] MEDS ORDERED: LABETALOL HCL 200 MG TABLET (FP) PO SCH (22:00)
[2024-10-17] MEDS: FUROSEMIDE 40 MG/4 ML INJECTABLE VIAL IVPUSH SCH (06:41)
[2024-10-17 08:02] LABS: POTASSIUM 4.2 mmol/L (3.5-5.1)
[2024-10-17 08:15] LABS: CALCIUM 8.4 mg/dL (8.5-10.1)
[2024-10-17 08:16] LABS: BLOOD UREA NITROGEN 17.8 mg/dL (7-18); MAGNESIUM 1.9 mg/dL (1.8-2.4)
[2024-10-17 08:19] LABS: CREATININE 1.3 mg/dL (0.55-1.3); PHOSPHOROUS 4.8 mg/dL (2.5-4.9)
[2024-10-17] MEDS: predniSONE 20 MG TABLET (UD) PO SCH (09:14)
[2024-10-17] MEDS: PANTOPRAZOLE 40 MG TABLET PO SCH (09:14)
[2024-10-17] MEDS: AZITHROMYCIN 250 MG TABLET PO SCH (09:14)
[2024-10-17] MEDS: NICOTINE 14 MG/24 HOURS TOPICAL PATCH TD SCH (09:15)
[2024-10-17] MEDS ORDERED: FUROSEMIDE 40 MG/4 ML INJECTABLE VIAL IVPUSH SCH (10:00)
[2024-10-17] MEDS: ENOXAPARIN NA (PORCINE) 40 MG/0.4 ML DISP.SYRIN SQ SCH (17:16)
[2024-10-17 18:23] LABS: HEMATOCRIT 50.9 % (40.1-51.0); HEMOGLOBIN 15.8 g/dL (13.7-17.5); MEAN CELL VOLUME 90.1 fl (79.0-92.2); MEAN PLT VOLUME 10.6 fl (9.4-12.4); PLATELET COUNT 255 x10^3/uL (163-337); RDW 17.2 % (12.1-15.9)
[2024-10-17] MEDS: SACUBITRIL/VALSARTAN 24 MG-26 MG TABLET PO SCH (21:44)
[2024-10-17] MEDS: CARVEDILOL 6.25 MG TABLET (FP) PO SCH (21:44)
[2024-10-18 07:23] LABS: ABSOLUTE IMMATURE GRANULOCYTES 0.07 x10^3/uL (0.0-0.031); BASOPHILS # 0.04 x10^3/uL (0.01-0.08); EOSINOPHIL % 0.6 % (0.8-7.0); EOSINOPHILS # 0.07 x10^3/uL (0.04-0.54); HEMATOCRIT 49.9 % (40.1-51.0); HEMOGLOBIN 15.7 g/dL (13.7-17.5); MCHC 31.5 g/dl (32.3-36.5); MEAN CELL VOLUME 87.4 fl (79.0-92.2); MEAN PLT VOLUME 10.5 fl (9.4-12.4); MONOCYTE # 0.94 x10^3/uL (0.30-0.82); MONOCYTE % 7.7 % (5.3-12.2); PLATELET COUNT 269 x10^3/uL (163-337); RDW 16.6 % (12.1-15.9)
[2024-10-18 07:43] LABS: POTASSIUM 3.7 mmol/L (3.5-5.1)
[2024-10-18 07:55] LABS: ALBUMIN 3.4 g/dl (3.4-5.0); BLOOD UREA NITROGEN 20.5 mg/dL (7-18)
[2024-10-18 07:56] LABS: CALCIUM 8.6 mg/dL (8.5-10.1)
[2024-10-18 07:57] LABS: MAGNESIUM 2.1 mg/dL (1.8-2.4)
[2024-10-18 07:58] LABS: CREATININE 1.3 mg/dL (0.55-1.3)
[2024-10-18 07:59] LABS: BILIRUBIN,TOTAL 0.5 mg/dL (0.2-1)
[2024-10-19 02:09] VITALS: RESP 18
[2024-10-19 03:42] LABS: URINE APPEARANCE CLEAR; URINE COLOR YELLOW; URINE GLUCOSE (UA) NEGATIVE (NEGATIVE)
[2024-10-19 03:43] LABS: URINE BILIRUBIN NEGATIVE (NEGATIVE); URINE KETONE TRACE (NEGATIVE); URINE LEUK ESTERASE NEGATIVE (NEGATIVE); URINE NITRITE NEGATIVE (NEGATIVE); URINE PROTEIN 100 (NEGATIVE); URINE UROBILINOGEN 0.2 mg/dL (0.2-1.0)
[2024-10-19 07:59] LABS: ABSOLUTE IMMATURE GRANULOCYTES 0.05 x10^3/uL (0.0-0.031); BASOPHILS # 0.02 x10^3/uL (0.01-0.08); EOSINOPHIL % 0.7 % (0.8-7.0); EOSINOPHILS # 0.09 x10^3/uL (0.04-0.54); HEMATOCRIT 53.9 % (40.1-51.0); MCHC 31.5 g/dl (32.3-36.5); MEAN CELL VOLUME 87.9 fl (79.0-92.2); MEAN PLT VOLUME 10.1 fl (9.4-12.4); MONOCYTE % 9.3 % (5.3-12.2); PLATELET COUNT 266 x10^3/uL (163-337); RDW 17.9 % (12.1-15.9)
[2024-10-19 08:17] LABS: POTASSIUM 3.7 mmol/L (3.5-5.1)
[2024-10-19 08:24] LABS: ALBUMIN 3.4 g/dl (3.4-5.0); BLOOD UREA NITROGEN 22.5 mg/dL (7-18)
[2024-10-19 08:26] LABS: BILIRUBIN,TOTAL 0.4 mg/dL (0.2-1); TOT PROT 7.3 g/dl (6.4-8.2)
[2024-10-19 08:27] LABS: CALCIUM 8.8 mg/dL (8.5-10.1); MAGNESIUM 2.1 mg/dL (1.8-2.4)
[2024-10-19 08:28] LABS: CREATININE 1.3 mg/dL (0.55-1.3)
[2024-10-19 10:08] VITALS: BP 110/74; PULSE 70; TEMP 98.8
== END 2024-10-19 15:56 | disposition home or self-care (01) ==
LOC: JER 09:47 → JERBED 12:23 → J4W 15:21
PROVIDERS: ADMIT Internal Medicine; ATTEND Nurse Practitioner Family
PROC: 3E033GC Introduction of Other Therapeutic Substance into Peripheral Vein, Percutaneous Approach (ICD-10-PCS; principal; 2024-10-16)
DX: J44.1 Chronic obstructive pulmonary disease with (acute) exacerbation (principal); I11.0 Hypertensive heart disease with heart failure; I50.33 Acute on chronic diastolic (congestive) heart failure; N28.9 Disorder of kidney and ureter, unspecified; E78.5 Hyperlipidemia, unspecified; K21.9 Gastro-esophageal reflux disease without esophagitis; C81.9A Hodgkin lymphoma, unspecified, in remission; E66.01 Morbid (severe) obesity due to excess calories; G47.33 Obstructive sleep apnea (adult) (pediatric); Z72.0 Tobacco use; Z68.43 Body mass index [BMI] 50.0-59.9, adult
CPT/HCPCS: 0241U-QW; 36415; 71045-TC-FY; 71250-TC; 80048; 80053; 81003; 82803; 83036; 83735; 83880; 84100; 84484; 85025; 85027; 85610; 85730; 86850; 86900; 86901; 93005; 93010; 93306-TC; 94660; 96374; 96376; 99285-25; G0378

== ENCOUNTER 2025-02-21 07:46 | Inpatient (IN) | payer OTHER ==
[2025-02-21] MEDS ORDERED: ACETAMINOPHEN INJECTION 100 ML ONE (08:12)
[2025-02-21] MEDS ORDERED: FUROSEMIDE 40 MG/4 ML INJECTABLE VIAL ONE (08:12)
[2025-02-21] MEDS ORDERED: VANCOMYCIN HCL 1,500 MG in DEXTROSE 5%-WATER - 500 ML IVPB ONE (08:16)
[2025-02-21] MEDS ORDERED: NITROGLYCERIN 50 MG/10 ML VIAL IVPB ONE (08:22)
[2025-02-21] MEDS: FUROSEMIDE 40 MG/4 ML INJECTABLE VIAL IVPUSH ONE (08:22)
[2025-02-21 08:32] LABS: BG HCT 48.0 % (35.4-49); MCHC 32.6 g/dl (32.3-36.5); MEAN CELL VOLUME 86.4 fl (79.0-92.2); MEAN PLT VOLUME 10.7 fl (9.4-12.4); RDW 14.5 % (12.1-15.9); VENOUS BASE EXCESS -1.6 mmol/L (-2-2); VENOUS O2 SATURATION 94.6 % (70-80); VENOUS PCO2 32.9 mmHg (38-52); VENOUS PH 7.435 (7.310-7.410)
[2025-02-21] MEDS ORDERED: NITROGLYCERIN 2% OINTMENT - 1GM PACKET TD ONE ×2 (08:36→17:44)
[2025-02-21 08:44] VITALS: BMI 54.6
[2025-02-21] MEDS: PIPERACILLIN/TAZOB 4.5 GM 4.5 GM in DEXTROSE 5%-WATER 100 ML IVPB ONE (08:46)
[2025-02-21] MEDS: VANCOMYCIN PREMIX 1.5 GM 1,500 MG/300 ML BAG IVPB ONE (08:47)
[2025-02-21 08:52] LABS: CO2 22.0 mmol/L (21-32)
[2025-02-21 08:54] LABS: GLUCOSE,RANDOM 105.0 mg/dL (74-106)
[2025-02-21 08:55] LABS: SGPT/ALT 25.0 U/L (13-61)
[2025-02-21 08:57] LABS: CREATININE 1.8 mg/dL (0.55-1.3); SGOT/AST 59.0 U/L (15-37)
[2025-02-21 08:58] LABS: TOT PROT 6.8 g/dl (6.4-8.2)
[2025-02-21 08:59] LABS: ALK PHOS 64.0 U/L (45-117)
[2025-02-21] MEDS: NITROGLYCERIN 0.3 MG/HOUR TD PATCH TD SCH (09:11)
[2025-02-21 09:13] LABS: EPI CELLS 16 /uL (0-25.1); HYALINE CASTS 1 /uL (0-3.1); URINE APPEARANCE CLOUDY; URINE BACTERIA 51 /uL (0-1359); URINE BILIRUBIN NEGATIVE (NEGATIVE); URINE COLOR YELLOW; URINE GLUCOSE (UA) NEGATIVE (NEGATIVE); URINE KETONE NEGATIVE (NEGATIVE); URINE LEUK ESTERASE NEGATIVE (NEGATIVE); URINE NITRITE NEGATIVE (NEGATIVE); URINE PROTEIN 3+ (NEGATIVE); URINE RBC 16 /uL (0-23.9); URINE UROBILINOGEN 1.0 mg/dL (0.2-1.0); URINE WBC 22 /uL (0-25.8)
[2025-02-21] MEDS ORDERED: ASPIRIN 81 MG CHEWABLE TABLETS ONE (09:13)
[2025-02-21] MEDS ORDERED: POTASSIUM CHLORIDE ORAL LIQUID 20 MEQ/15 ML ONE ×2 (09:13→16:52)
[2025-02-21] MEDS: ASPIRIN 81 MG CHEWABLE TABLETS PO ONE (09:21)
[2025-02-21 09:29] VITALS: TEMP 100.8
[2025-02-21 09:29] LABS: YEAST NONE SEEN (NEGATIVE)
[2025-02-21] MEDS: ACETAMINOPHEN 1000 MG/100 ML BAG IVPB ONE (09:29)
[2025-02-21] MEDS: POTASSIUM CHLORIDE ORAL LIQUID 20 MEQ/15 ML PO ONE ×2 (09:42→16:58)
[2025-02-21] MEDS: NITROGLYCERIN 0.4 MG/HOUR TD PATCH TD SCH (10:57)
[2025-02-21] MEDS ORDERED: PIPERACILLIN/TAZOB 3.375 GM 3.375 GM in DEXTROSE 5%-WATER - 50 ML IVPB SCH ×3 (14:00→15:15)
[2025-02-21] MEDS ORDERED: PIPERACILLIN/TAZOB 2.25 GM 2.25 GM in DEXTROSE 5%-WATER - 50 ML IVPB SCH (15:00)
[2025-02-21] MEDS ORDERED: SODIUM CHLORIDE 1,000 ML IV SCH (15:15)
[2025-02-21] MEDS ORDERED: SODIUM CHLORIDE 0.9% 500 ML INFUS.BAG IV ONE (15:45)
[2025-02-21] MEDS ORDERED: ALBUTEROL SO4 2.5/IPRATROPIUM 0.5 INH SOL 3 ML VIAL.NEB. NEB SCH (16:00)
[2025-02-21] MEDS ORDERED: PIPERACILLIN/TAZOB 3.375 GM 3.375 GM/50 ML BAG IVPB ONE (16:14)
[2025-02-21] MEDS ORDERED: methylPREDNISolone NA SUCC 40 MG/1 ML VIAL ONE (16:14)
[2025-02-21] MEDS: PIPERACILLIN/TAZOB 3.375 GM 3.375 GM in DEXTROSE 5%-WATER - 50 ML IVPB SCH (16:48)
[2025-02-21] MEDS: SODIUM CHLORIDE 500 ML IV STA (16:49)
[2025-02-21] MEDS: methylPREDNISolone NA SUCC 40 MG/1 ML VIAL IVPUSH SCH (16:49)
[2025-02-21] MEDS ORDERED: CARVEDILOL 6.25 MG TABLET (FP) ONE (16:52)
[2025-02-21] MEDS ORDERED: LEVALBUTEROL HCL 0.31 MG/3 ML VIAL.NEB IH ONE (16:57)
[2025-02-21] MEDS: CARVEDILOL 6.25 MG TABLET (FP) PO ONE (16:58)
[2025-02-21] MEDS: LEVALBUTEROL HCL 0.31 MG/3 ML VIAL.NEB IH SCH (16:58)
[2025-02-21] MEDS: ETOMIDATE 40 MG/20 ML VIAL IVPUSH ONE (17:25)
[2025-02-21] MEDS ORDERED: KCL 10 MEQ IVPB 10 MEQ/100 ML INFUS.BAG IVPB ONE (17:25)
[2025-02-21] MEDS: KCL 10 MEQ IVPB 10 MEQ/100 ML INFUS.BAG IVPB SCH (17:31)
[2025-02-21] MEDS ORDERED: ETOMIDATE 20 MG/10 ML VIAL IVPUSH ONE (17:54)
[2025-02-21] MEDS ORDERED: RAPID SEQUENCE INTUBATION KIT NR ONE (17:55)
[2025-02-21] MEDS ORDERED: KETAMINE HCL 500 MG/10 ML VIAL ONE (17:55)
[2025-02-21] MEDS ORDERED: SUCCINYLCHOLINE CHLORIDE 200 MG/10 ML VIAL ONE (18:03)
[2025-02-21] MEDS ORDERED: MAGNESIUM 1GM/D5W 100ML - 100 ML IVPB IVPB ONE (18:22)
[2025-02-21] MEDS: SUCCINYLCHOLINE CHLORIDE 200 MG/10 ML VIAL IVPUSH ONE (18:34)
[2025-02-21] MEDS ORDERED: MIDAZOLAM IN 0.9 % SOD.CHLORID 1 MG/1 ML PLAST..BAG ONE (18:37)
[2025-02-21] MEDS ORDERED: ETOMIDATE 40 MG/20 ML VIAL IVPUSH ONE (18:37)
[2025-02-21] MEDS: MIDAZOLAM IN 0.9 % SOD.CHLORID 100 MG/100 ML PLAST..BAG IVPB SCH (18:48)
[2025-02-21] MEDS ORDERED: EPINEPHrine 1:10,000 (P-F SYR) 1 MG/10 ML DISP.SYRIN ONE (18:57)
[2025-02-21 19:13] LABS: HCV DIAGNOSTIC IN-HOUSE W/RFLX NON-REACTIVE (NONREACTIVE)
[2025-02-21 19:15] LABS: HIV INTERPRETATION NEGATIVE (NEGATIVE)
[2025-02-21] MEDS ORDERED: SODIUM BICARBONATE 8.4% 50 MEQ/50 ML DISP.SYRIN ONE (19:20)
[2025-02-21] MEDS ORDERED: VANCOMYCIN PREMIX 1.5 GM 1,500 MG/300 ML BAG IVPB SCH (20:00)
[2025-02-21] MEDS ORDERED: VANCOMYCIN HCL 1,500 MG in DEXTROSE 5%-WATER - 250 ML IVPB SCH (20:00)
[2025-02-21 20:15] VITALS: BP 0/0; PULSE 0; RESP 0
[2025-02-21] MEDS ORDERED: GABAPENTIN 300 MG CAPSULE PO SCH (22:00)
[2025-02-21] MEDS ORDERED: CARVEDILOL 6.25 MG TABLET (FP) PO SCH (22:00)
[2025-02-21] MEDS ORDERED: CHLORHEXIDINE GLUCONATE 4% CLEANSER FOR DECOLONIZATION TP SCH (22:00)
[2025-02-21] MEDS ORDERED: HEPARIN NA (PORCINE) 5,000 UNITS/ML 1ML VIAL SQ SCH (22:00)
[2025-02-21] MEDS ORDERED: MUPIROCIN 2% TOPICAL OINTMENT FOR DECOLONIZATION NS SCH (22:00)
[2025-02-21] MEDS ORDERED: ATORVASTATIN CA 20 MG TABLET (FP) PO SCH (22:00)
[2025-02-22] MEDS ORDERED: ASPIRIN COATED 81 MG TABLET.EC PO SCH (10:00)
[2025-02-22] MEDS ORDERED: ENOXAPARIN NA (PORCINE) 40 MG/0.4 ML DISP.SYRIN SQ SCH (10:00)
[2025-02-22] MEDS ORDERED: VANCOMYCIN PREMIX 1.5 GM 1,500 MG/300 ML BAG IVPB SCH ×2 (10:00)
[2025-02-22] MEDS ORDERED: FUROSEMIDE 40 MG/4 ML INJECTABLE VIAL IVPUSH SCH (10:00)
== END 2025-02-21 19:24 | disposition expired | DRG 720 ==
LOC: JER 07:46 → JERBED 10:21
PROVIDERS: ADMIT Student in an Organized Health Care Education/Training Program; ATTEND Student in an Organized Health Care Education/Training Program
PROC: 5A1935Z Respiratory Ventilation, Less than 24 Consecutive Hours (ICD-10-PCS; principal; 2025-02-21)
PROC: 0BH17EZ Insertion of Endotracheal Airway into Trachea, Via Natural or Artificial Opening (ICD-10-PCS; 2025-02-21)
DX: A41.9 Sepsis, unspecified organism (principal); C81.90 Hodgkin lymphoma, unspecified, unspecified site; I50.23 Acute on chronic systolic (congestive) heart failure; J18.9 Pneumonia, unspecified organism; J96.01 Acute respiratory failure with hypoxia; N17.9 Acute kidney failure, unspecified; D69.6 Thrombocytopenia, unspecified; I24.89 Other forms of acute ischemic heart disease; I13.0 Hypertensive heart and chronic kidney disease with heart failure and stage 1 through stage 4 chronic kidney disease, or unspecified chronic kidney disease; J81.0 Acute pulmonary edema; Z68.43 Body mass index [BMI] 50.0-59.9, adult; E66.01 Morbid (severe) obesity due to excess calories; E78.5 Hyperlipidemia, unspecified; E87.6 Hypokalemia; F17.210 Nicotine dependence, cigarettes, uncomplicated; G47.33 Obstructive sleep apnea (adult) (pediatric); J98.11 Atelectasis; K21.9 Gastro-esophageal reflux disease without esophagitis; N18.9 Chronic kidney disease, unspecified; Y95 Nosocomial condition; I46.9 Cardiac arrest, cause unspecified
CPT/HCPCS: 36415; 71045-TC-FY; 80053; 81003; 82803; 83605; 83880; 84132; 84484; 85025; 86803; 86850; 86900; 86901; 87040; 87086; 87389; 87637-QW; 93005; 93010; 94660; 99285-25